=== PATIENT | male | born 1965 | race Caucasian/White ===

== ENCOUNTER 2020-09-16 23:46 | Inpatient (IN) | payer OTHER ==
[2020-09-17] MEDS ORDERED: IPRATROPIUM-ALBUTEROL 3 ML NEB INHALATION STA ×2 (00:46→02:57)
[2020-09-17] MEDS ORDERED: methylPREDNISolone SOD SUCCI 125 MG/2 ML VIAL IV STA (00:46)
[2020-09-17 01:18] LABS: Basophils # (A) 0.1 k/uL (0-0.2); Basophils % (A) 1 %; Eosinophils # (A) 0.4 k/uL (0-0.7); Eosinophils % (A) 5 %; HCT 46.6 % (39.0-53.0); HGB 15.7 gm/dL (13.0-17.5); Lymphocytes # (A) 1.1 k/uL (1.0-4.8); Lymphocytes % (A) 14 %; MCH 30.6 pg (25.0-35.0); MCHC 33.6 g/dL (31.0-37.0); Mean Platelet Volume 6.7; Monocytes # (A) 0.6 k/uL (0-1.0); Monocytes % (A) 8 %; Neutrophils # (A) 5.5 k/uL (1.3-7.7); Neutrophils % (A) 71 %; Platelet Count 204 k/uL (150-450); RBC 5.12 m/uL (4.30-5.90); RDW 14.1 % (11.5-15.5); WBC 7.7 k/uL (3.8-10.6)
[2020-09-17 01:27] LABS: ALT 19 U/L (4-49); AST 24 U/L (17-59); African American GFR (CKD) >90 (>60 ml/min/1.73 sqM); Albumin 3.8 g/dL (3.5-5.0); Alkaline Phosphatase 140 U/L (38-126); Anion Gap 2 mmol/L; Blood Urea Nitrogen 13 mg/dL (9-20); Calcium 9.4 mg/dL (8.4-10.2); Carbon Dioxide 31 mmol/L (22-30); Chloride 95 mmol/L (98-107); Glucose 171 mg/dL (74-99); Non-African American GFR(CKD) >90 (>60 ml/min/1.73 sqM); Potassium 4.1 mmol/L (3.5-5.1); Sodium 128 mmol/L (137-145); Total Bilirubin 0.7 mg/dL (0.2-1.3); Total Protein 6.2 g/dL (6.3-8.2)
--- NOTE | 2020-09-17 01:58 | XR ---
EXAM: XR Chest, 2 Views CLINICAL HISTORY: ITS.REASON XR Reason: wheezing bilat TECHNIQUE: Frontal and lateral views of the chest. COMPARISON: 10/20/2014 FINDINGS: Lungs: The lungs are slightly hyperexpanded with flattening of the hemidiaphragms in the lateral projection. No definite focal consolidation identified. The pulmonary vasculature demonstrates no significant radiographic abnormality. Pleural space: Unremarkable. No pneumothorax. No large pleural effusion. Heart: Unremarkable. No cardiomegaly. Mediastinum: The hilar structures are stable from the previous exam. No definite paratracheal adenopathy. The trachea is midline. Bones/joints: Unremarkable. IMPRESSION: The lungs are slightly hyperexpanded with flattening of the hemidiaphragms in the lateral projection. No definite focal consolidation identified. No pleural effusion or pneumothorax.
--- NOTE | 2020-09-17 02:09 | XR ---
EXAM: XR Left Shoulder Complete, 2 or More Views CLINICAL HISTORY: ITS.REASON XR Reason: left shoulder pain TECHNIQUE: Two or more views of the left shoulder. COMPARISON: No relevant prior studies available. FINDINGS: Bones/joints: Severe degenerative changes involving the glenohumeral joint with mild sclerosis, hypertrophic changes and a [id number] appearance noted. Mild hypertrophic osteophyte changes noted involving the acromioclavicular joint. No acute fracture. No dislocation. Soft tissues: Unremarkable. IMPRESSION: No acute osseous traumatic injury or significant abnormal alignment. Severe degenerative changes of the glenohumeral joint. Mild degenerative changes of the acromioclavicular joint.
--- NOTE | 2020-09-17 02:25 | ED ---
SOB HPI - General Chief Complaint: Shortness of Breath Stated Complaint: SOB Time Seen by Provider: 09/17/20 00:29 Source: patient, EMS Mode of arrival: EMS Limitations: no limitations - History of Present Illness Initial Comments: 55-year-old male with history of COPD and A. fib presents to the emergency department with a chief complaint of shortness of breath. Patient reports increased shortness of breath over the last 2 weeks. States he was scheduled to have an x-ray done today but was not able to make it due to decreased shortness of breath. He reports wheezing. States this feels like his typical COPD exacerbation. He does not use oxygen at home. He is a smoker. He also reports a nonproductive cough. No history of Covid or vaccination. Denies any fevers or chills at home. Denies any chest pain. Denies any nausea or vomiting or d iarrhea. Denies any fevers or chills. - Related Data Home Medications Medication Instructions Recorded Confirmed Albuterol Sulfate [Ventolin HFA] 2 puff INHALATION QID PRN 03/16/15 03/16/15 Dapagliflozin Propanediol [Farxiga] 5 mg PO DAILY 03/16/15 03/16/15 Fluticasone/Salmeterol [Advair 2 puff INHALATION BID 03/16/15 03/16/15 250-50 Diskus] Gabapentin [Neurontin] 100 mg PO BID 03/16/15 03/16/15 Insulin Detemir (Levemir) [Levemir] 50 unit SQ HS 03/16/15 03/16/15 Omeprazole 20 mg PO DAILY 03/16/15 03/16/15 Simvastatin 20 mg PO DAILY 03/16/15 03/16/15 lisinopriL [Lisinopril] 5 mg PO DAILY 03/16/15 03/16/15 metFORMIN HCL [Glucophage] 1,000 mg PO BID 03/16/15 03/16/15 Previous Rx's Medication Instructions Recorded Cephalexin [Keflex] 500 mg PO Q6HR #40 cap 03/16/15 Allergies Allergy/AdvReac Type Severity Reaction Status Date / Time No Known Allergies Allergy Verified 09/17/20 00:00 Review of Systems ROS Statement: Those systems with pertinent positive or pertinent negative responses have been documented in the HPI. ROS Other: All systems not noted in ROS Statement are negative. Past Medical History Past Medical History: COPD, Diabetes Mellitus, Hyperlipidemia, Hypertension, Sleep Apnea/CPAP/BIPAP Additional Past Medical History / Comment(s): neuropathy History of Any Multi-Drug Resistant Organisms: None Reported Past Surgical History: Orthopedic Surgery Past Psychological History: No Psychological Hx Reported Smoking Status: Current every day smoker Past Alcohol Use History: Occasional Past Drug Use History: None Reported General Exam Limitations: no limitations General appearance: alert, in no apparent distress, obese Head exam: Present: atraumatic, normocephalic, normal inspection Eye exam: Present: normal appearance, PERRL, EOMI Pupils: Present: normal accommodation ENT exam: Present: normal exam, normal oropharynx, mucous membranes moist, TM's normal bilaterally, normal external ear exam Neck exam: Present: normal inspection, full ROM. Absent: tenderness Respiratory exam: Present: wheezes (Diffuse bilateral wheezing, moderate.). Absent: rales, rhonchi, stridor, chest wall tenderness Cardiovascular Exam: Present: regular rate, normal rhythm, normal heart sounds Extremities exam: Present: normal inspection, full ROM, normal capillary refill. Absent: tenderness, pedal edema, joint swelling Back exam: Present: normal inspection, full ROM. Absent: tenderness, CVA tenderness (R), CVA tenderness (L) Neurological exam: Present: alert, oriented X3 Psychiatric exam: Present: normal affect, normal mood Skin exam: Present: warm, dry, intact, normal color Course Vital Signs 09/17/20 09/17/20 09/17/20 00:00 00:05 00:30 Temperature 98.6 F Pulse Rate 89 Respiratory 22 Rate Blood Pressure 164/93 164/93 O2 Sat by Pulse 89 L 86 L 93 L Oximetry 09/17/20 09/17/20 09/17/20 00:54 01:00 01:06 Temperature Pulse Rate 85 76 84 Respiratory 16 Rate Blood Pressure 150/84 O2 Sat by Pulse 97 Oximetry 09/17/20 09/17/20 09/17/20 01:30 02:00 02:30 Temperature Pulse Rate 93 73 81 Respiratory 22 13 17 Rate Blood Pressure 160/105 175/89 152/95 O2 Sat by Pulse 88 L 94 L 90 L Oximetry 09/17/20 09/17/20 02:34 03:00 Temperature Pulse Rate 82 85 Respiratory 26 H 12 Rate Blood Pressure 144/58 144/58 O2 Sat by Pulse 89 L 91 L Oximetry Medical Decision Making - Medical Decision Making 55-year-old male with history of COPD and A. fib presents emergency Department with a chief complaint of shortness of breath. on physical examination, patient is slightly tachypneic. He stillcontinues to be 89% on room air.the patient was given 3 DuoNeb treatments and 125 mg of Solu-Medrol with no significant improvement in symptoms. chest x-ray revealed slightly hyperexpanded lungs with flattening of the hemidiaphragm in the lateral projection. No signs of pneumonia. Patient did also request a left shoulder x-ray. This revealed severe degenerative changes in the glenohumeral joint. CBC unremarkable. CMP reveals hyponatremia of 128. Patient will be started on 75 ml per hour of normal saline.coronavirus negative. Patient will be admitted for COPD exacerbation. I spoke to Virgie Fall NP who will admit for Dr. Burkett. case discused with Dr pradhan - Lab Data Result diagrams: 09/17/20 01:00 09/17/20 01:00 Lab Results 09/17/20 09/17/20 09/17/20 Range/Units 01:00 01:00 01:07 WBC 7.7 (3.8-10.6) k/uL RBC 5.12 (4.30-5.90) m/uL Hgb 15.7 (13.0-17.5) gm/dL Hct 46.6 (39.0-53.0) % MCV 91.0 (80.0-100.0) fL MCH 30.6 (25.0-35.0) pg MCHC 33.6 (31.0-37.0) g/dL RDW 14.1 (11.5-15.5) % Plt Count 204 (150-450) k/uL MPV 6.7 Neutrophils % 71 % Lymphocytes % 14 % Monocytes % 8 % Eosinophils % 5 % Basophils % 1 % Neutrophils # 5.5 (1.3-7.7) k/uL Lymphocytes # 1.1 (1.0-4.8) k/uL Monocytes # 0.6 (0-1.0) k/uL Eosinophils # 0.4 (0-0.7) k/uL Basophils # 0.1 (0-0.2) k/uL Sodium 128 L (137-145) mmol/L Potassium 4.1 (3.5-5.1) mmol/L Chloride 95 L (98-107) mmol/L Carbon Dioxide 31 H (22-30) mmol/L Anion Gap 2 mmol/L BUN 13 (9-20) mg/dL Creatinine 0.64 L (0.66-1.25) mg/dL Est GFR (CKD-EPI)AfAm >90 (>60 ml/min/1.73 sqM) Est GFR (CKD-EPI)NonAf >90 (>60 ml/min/1.73 sqM) Glucose 171 H (74-99) mg/dL Calcium 9.4 (8.4-10.2) mg/dL Total Bilirubin 0.7 (0.2-1.3) mg/dL AST 24 (17-59) U/L ALT 19 (4-49) U/L Alkaline Phosphatase 140 H (38-126) U/L Total Protein 6.2 L (6.3-8.2) g/dL Albumin 3.8 (3.5-5.0) g/dL Coronavirus (PCR) Not Detected (Not Detectd) - EKG Data EKG Comments: A. fib Ventricular rate 77, QRS 90, QTc 427. Disposition Clinical Impression: COPD exacerbation, Hyponatremia Disposition: ADMITTED IP TO THIS HOSP Condition: Fair Is patient prescribed a controlled substance at d/c from ED?: No Referrals: Kimberlee Gilman MD [Primary Care Provider] - 1-2 days Time of Disposition: 03:31
[2020-09-17] MEDS ORDERED: ONDANSETRON 4 MG/2 ML VIAL IVP PRN (03:21)
[2020-09-17] MEDS ORDERED: NALOXONE 0.4 MG/ML 1 ML VIAL IV PRN (03:21)
[2020-09-17] MEDS ORDERED: IPRATROPIUM-ALBUTEROL 3 ML NEB INHALATION PRN (03:23)
[2020-09-17] MEDS ORDERED: SODIUM CHLORIDE 0.9% 1,000 ML IV SCH (03:30)
[2020-09-17 05:21] VITALS: RESP 20
[2020-09-17] MEDS: INSULIN ASPART (NovoLOG) 100 UNIT/ML VIAL SQ SCH ×2 (08:07→11:59)
[2020-09-17 09:02] VITALS: BP 157/72; PULSE 92; TEMP 96.2
[2020-09-17] MEDS ORDERED: BUDESONIDE 0.5 MG/2 ML NEBU INHALATION SCH (10:56)
[2020-09-17] MEDS ORDERED: PANTOPRAZOLE 40 MG TABLET PO SCH (11:00)
[2020-09-17] MEDS ORDERED: lisinopriL 20 MG TAB PO SCH (11:00)
[2020-09-17] MEDS ORDERED: DILTIAZEM CD 240 MG CAP.ER.24H PO SCH (11:00)
--- NOTE | 2020-09-17 11:18 | P.CNPUL ---
History of Present Illness Consult date: 09/17/20 Reason for consult: dyspnea, COPD History of present illness: 55-year-old male patient known history of COPD Hospital as for worsening shortness of breath of a few days duration. He was admitted to observation for an acute COPD exacerbation. This chronic smoker. He has a nonproductive cough. COVID-19 testing came back negative. No fever. No chills. No chest pain. No nausea or vomiting. He is known to have COPD and is maintained on Advair and outpatient basis in addition to albuterol nebulized treatments on an as-needed basis. He also has severe obstructive sleep apnea with an AHI of 79.4. He has been treated with CPAP pressure of 15 cm of water. Other comorbid conditions include diabetes mellitus, hypertension, hyperlipidemia and history of periodic limb pulmonary activity/restless leg syndrome. 15.7. The patient's sodium level of 128, BUN of 13 with a creatinine of 0.6, liver function tests are normal. COVID-19 testing was negative. Chest x-ray is showing hyperinflation. No other acute abnormalities have been noted. For now, the patient is on DuoNeb nebulized treatments around the clock. The patient is also on IV Solu-Medrol. Overall, feeling better and the patient is not having any major edema lower extr emities. He has smoker and smokes on 2 packs of cigarettes a day. Review of Systems 14 point review of system was done and the positive findings are all mentioned above in history of present illness Constitutional: Reports daytime sleepiness, Reports fatigue, Reports weight gain Eyes: denies as per HPI, denies blurred vision, denies bulging eye, denies decreased vision, denies diplopia, denies discharge, denies dry eye, denies irritation, denies itching, denies pain, denies photophobia, denies loss of peripheral vision, denies loss of vision, denies tunnel vision/blind spots Ears: deny: decreased hearing, ear discharge, earache, tinnitus Ears, nose, mouth and throat: Reports as per HPI Breasts: absent: as per HPI, gynecomastia Cardiovascular: Reports decreased exercise tolerance, Reports dyspnea on exertion Respiratory: Reports cough, Reports dyspnea Gastrointestinal: Reports as per HPI Genitourinary: Reports as per HPI Musculoskeletal: Reports as per HPI Musculoskeletal: absent: ankle pain, ankle stiffness, ankle swelling, as per HPI, elbow pain, elbow stiffness, elbow swelling, foot pain, foot stiffness, foot swelling, hand pain, hand stiffness, hand swelling, hip pain, hip s tiffness, hip swelling, knee pain, knee stiffness, knee swelling, shoulder pain, shoulder stiffness, shoulder swelling, wrist pain, wrist stiffness, wrist swelling Integumentary: Reports as per HPI Neurological: Reports as per HPI Psychiatric: Reports as per HPI Endocrine: Reports as per HPI Hematologic/Lymphatic: Reports as per HPI Allergic/Immunologic: Reports as per HPI Past Medical History Past Medical History: Atrial Fibrillation, COPD, Diabetes Mellitus, Hyperlipidemia, Hypertension, Sleep Apnea/CPAP/BIPAP Additional Past Medical History / Comment(s): , Peripheral neuropathy, paroxysmal atrial fibrillation. History of Any Multi-Drug Resistant Organisms: None Reported Past Surgical History: Orthopedic Surgery Additional Past Surgical History / Comment(s): Left shoulder Past Anesthesia/Blood Transfusion Reactions: No Reported Reaction Additional Past Anesthesia/Blood Transfusion Reaction / Comment(s): Never received Past Psychological History: No Psychological Hx Reported Smoking Status: Current every day smoker Past Alcohol Use History: Occasional Past Drug Use History: None Reported Medications and Allergies Home Medications Medication Instructions Recorded Confirmed Type Albuterol Sulfate [Ventolin HFA] 2 puff INHALATION RT-QID PRN 03/16/15 09/17/20 History Fluticasone/Salmeterol [Advair 2 puff INHALATION RT-BID 03/16/15 09/17/20 History 250-50 Diskus] Omeprazole 20 mg PO DAILY 03/16/15 09/17/20 History lisinopriL [Lisinopril] 40 mg PO DAILY 03/16/15 09/17/20 History metFORMIN HCL [Glucophage] 1,000 mg PO BID 03/16/15 09/17/20 History Atorvastatin [Lipitor] 80 mg PO DAILY 09/17/20 09/17/20 History Insulin Glargine [Lantus] 28 unit SQ HS 09/17/20 09/17/20 History Pregabalin 150 mg PO TID 09/17/20 09/17/20 History Warfarin [Coumadin] 7.5 mg PO TUTH 09/17/20 09/17/20 History Warfarin [Coumadin] 10 mg PO SUMOWEFRSA 09/17/20 09/17/20 History dilTIAZem HCL [dilTIAZem HCL 24Hr 240 mg PO DAILY 09/17/20 09/17/20 History ER (Xr)] Allergies Allergy/AdvReac Type Severity Reaction Status Date / Time No Known Allergies Allergy Verified 09/17/20 08:45 Physical Exam Vitals: Vital Signs Temp Pulse Pulse Resp BP BP Pulse Ox 09/17/20 08:56 96.2 F L 92 157/72 91 L 09/17/20 08:40 92 09/17/20 08:30 93 09/17/20 05:17 20 09/17/20 04:00 65 34 H 173/90 94 L 09/17/20 03:55 96.6 F L 20 90 L 09/17/20 03:30 81 19 164/76 95 09/17/20 03:00 85 12 144/58 91 L 09/17/20 02:34 82 26 H 144/58 89 L 09/17/20 02:30 81 17 152/95 90 L 09/17/20 02:00 73 13 175/89 94 L 09/17/20 01:30 93 22 160/105 88 L 09/17/20 01:06 84 09/17/20 01:00 76 16 150/84 97 09/17/20 00:54 85 09/17/20 00:30 164/93 93 L 09/17/20 00:05 86 L 09/17/20 00:00 98.6 F 89 22 164/93 89 L Intake and Output 09/16/20 09/17/20 09/17/20 22:59 06:59 14:59 Other: Weight 110.223 kg General appearance: alert, in no apparent distress, obese Head exam: Present: atraumatic, normocephalic, normal inspection Eye exam: Present: normal appearance, PERRL, EOMI Pupils: Present: normal accommodation ENT exam: Present: normal exam, normal oropharynx, mucous membranes moist, TM's normal bilaterally, normal external ear exam, Mallampati class IV with significant crowding of the posterior oropharynx. Neck exam: Present: normal inspection, full ROM. Absent: tenderness Respiratory exam: Diminished breath sounds along with diffuse expiratory wheezes throughout the lung silver bilaterally Cardiovascular Exam: Present: regular rate, normal rhythm, normal heart sounds Extremities exam: Present: normal inspection, full ROM, normal capillary refill. Absent: tenderness, pedal edema, joint swelling Back exam: Present: normal inspection, full ROM. Absent: tenderness, CVA tenderness (R), CVA tenderness (L) Neurological exam: Present: alert, oriented X3 Psychiatric exam: Present: normal affect, normal mood Skin exam: Present: warm, dry, intact, normal color Results - Laboratory Findings CBC and BMP: 09/17/20 01:00 09/17/20 01:00 ABG WBC 7.7 k/uL (3.8-10.6) 09/17/20 01:00 RBC 5.12 m/uL (4.30-5.90) 09/17/20 01:00 Hgb 15.7 gm/dL (13.0-17.5) 09/17/20 01:00 Hct 46.6 % (39.0-53.0) 09/17/20 01:00 MCV 91.0 fL (80.0-100.0) 09/17/20 01:00 MCH 30.6 pg (25.0-35.0) 09/17/20 01:00 MCHC 33.6 g/dL (31.0-37.0) 09/17/20 01:00 RDW 14.1 % (11.5-15.5) 09/17/20 01:00 Plt Count 204 k/uL (150-450) 09/17/20 01:00 MPV 6.7 09/17/20 01:00 Neutrophils % 71 % 09/17/20 01:00 Lymphocytes % 14 % 09/17/20 01:00 Monocytes % 8 % 09/17/20 01:00 Eosinophils % 5 % 09/17/20 01:00 Basophils % 1 % 09/17/20 01:00 Neutrophils # 5.5 k/uL (1.3-7.7) 09/17/20 01:00 Lymphocytes # 1.1 k/uL (1.0-4.8) 09/17/20 01:00 Monocytes # 0.6 k/uL (0-1.0) 09/17/20 01:00 Eosinophils # 0.4 k/uL (0-0.7) 09/17/20 01:00 Basophils # 0.1 k/uL (0-0.2) 09/17/20 01:00 Sodium 128 mmol/L (137-145) L 09/17/20 01:00 Potassium 4.1 mmol/L (3.5-5.1) 09/17/20 01:00 Chloride 95 mmol/L (98-107) L 09/17/20 01:00 Carbon Dioxide 31 mmol/L (22-30) H 09/17/20 01:00 Anion Gap 2 mmol/L 09/17/20 01:00 BUN 13 mg/dL (9-20) 09/17/20 01:00 Creatinine 0.64 mg/dL (0.66-1.25) L 09/17/20 01:00 Est GFR (CKD-EPI)AfAm >90 (>60 ml/min/1.73 sqM) 09/17/20 01:00 Est GFR (CKD-EPI)NonAf >90 (>60 ml/min/1.73 sqM) 09/17/20 01:00 Glucose 171 mg/dL (74-99) H 09/17/20 01:00 Calcium 9.4 mg/dL (8.4-10.2) 09/17/20 01:00 Total Bilirubin 0.7 mg/dL (0.2-1.3) 09/17/20 01:00 AST 24 U/L (17-59) 09/17/20 01:00 ALT 19 U/L (4-49) 09/17/20 01:00 Alkaline Phosphatase 140 U/L (38-126) H 09/17/20 01:00 Total Protein 6.2 g/dL (6.3-8.2) L 09/17/20 01:00 Albumin 3.8 g/dL (3.5-5.0) 09/17/20 01:00 Coronavirus (PCR) Not Detected (Not Detectd) 09/17/20 01:07 Abnormal lab findings: Abnormal Labs 09/17/20 01:00 Sodium 128 L Chloride 95 L Carbon Dioxide 31 H Creatinine 0.64 L Glucose 171 H Alkaline Phosphatase 140 H Total Protein 6.2 L - Diagnostic Findings Chest x-ray: image reviewed Assessment and Plan Plan: 1 acute COPD exacerbation with secondary shortness of breath 2 acute hypoxic respiratory failure secondary to above 3 diabetes mellitus type 2, insulin dependence 4 history of paroxysmal defibrillation currently rhythm is sinus and the patient has been maintained on Coumadin on outpatient basis. 5 obstructive sleep apnea, severe with an AHI of 49 and the patient has been on a CPAP pressure 15 cm of water 6 morbid obesity 7 diabetic peripheral neuropathy 8 hyperlipidemia Plan Clinically the patient is much improved over the past 24 hours. The patient can be discharged home on a prednisone burst taper starting with 40 mg and this will be tapered by 10 mg every 4 days. He will be maintained on Advair at home in addition to albuterol nebulized treatments around the clock. Continue CPAP therapy at a pressure 15 cm of water. Oxygen therapy at 2 L. Smoking cessation counseling was done. Coumadin adjustments. Home today to be followed up with me in the office for further COPD management. He is cleared for discharge from the pulmonary standpoint. Time with Patient: Greater than 30
[2020-09-17 11:39] LABS: Glucose,Whole Blood 285 mg/dL (75-99)
[2020-09-17 11:53] LABS: INR 1.4 (<1.2); Prothrombin Time 14.5 sec (9.0-12.0)
[2020-09-17 11:55] LABS: African American GFR (CKD) >90 (>60 ml/min/1.73 sqM); Anion Gap 6 mmol/L; Blood Urea Nitrogen 14 mg/dL (9-20); Calcium 9.5 mg/dL (8.4-10.2); Carbon Dioxide 30 mmol/L (22-30); Chloride 97 mmol/L (98-107); Glucose 304 mg/dL (74-99); Non-African American GFR(CKD) >90 (>60 ml/min/1.73 sqM); Potassium 4.7 mmol/L (3.5-5.1); Sodium 133 mmol/L (137-145)
[2020-09-17] MEDS ORDERED: methylPREDNISolone SOD SUCCI 125 MG/2 ML VIAL IV SCH (12:00)
--- NOTE | 2020-09-17 14:47 | P.HPIM ---
History of Present Illness H&P Date: 09/17/20 Chief Complaint: Shortness of breath Patient is a 55-year-old male with a known history of atrial fibrillation chronic on anticoagulation with Coumadin, hypertension, hyperlipidemia, upset to sleep apnea on CPAP currently, COPD on home oxygen presents to ER with complaints of shortness of breath. Patient has been having worsening shortness of breath for past 2 weeks. Patient does have cough mainly clear sputum production. No fever no chills. No chest pain. Patient was also complaining of wheezing and is supposed to get x-ray of the chest done today but could not be done due to increased short of breath and came to ER. No nausea vomiting or abdominal pain or diarrhea. No dysuria or hematuria. Denied any leg swelling. patient has severe obstructive sleep apnea and has been treated with CPAP previously. Chest x-ray showed lungs are slightly hyperinflated with flattening of the hemidiaphragm in the lateral projection. No definite focal consolidation rodrick ntified. No pleural effusion or pneumothorax. X-ray of the left shoulder showed no acute osseous traumatic injury of significant abnormal alignment. Severe degenerative changes of the glenohumeral joint. Mild degenerative changes of the acromioclavicular joint. Next an EKG showed atrial fibrillation. 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 Patient was started back on Coumadin and INR is subtherapeutic. Review of Systems Constitutional: Patient denies any fever or chills . No generalized weakness or weight loss. Abdomen: Patient denied nausea vomiting and diarrhea and abdominal pain. Cardiovascular: Patient denies any chest pain . Positive short of breath no palpitations. Respiratory: Patient does have cough without sputum production and shortness of breath Neurologic: Patient denied any numbness or tingling headache. Musculoskeletal: Patient denies any complaints of joint swelling or deformity. Skin: Negative Psychiatric: Negative Endocrine: No heat or cold intolerance. No recent weight gain. Genitourinary: No dysuria or hematuria. All other 14 point ROS negative except the above Past Medical History Past Medical History: COPD, Diabetes Mellitus, Hyperlipidemia, Hypertension, Sleep Apnea/CPAP/BIPAP Additional Past Medical History / Comment(s): neuropathy History of Any Multi-Drug Resistant Organisms: None Reported Past Surgical History: Orthopedic Surgery Additional Past Surgical History / Comment(s): Left shoulder Past Anesthesia/Blood Transfusion Reactions: No Reported Reaction Additional Past Anesthesia/Blood Transfusion Reaction / Comment(s): Never received Past Psychological History: No Psychological Hx Reported Smoking Status: Current every day smoker Past Alcohol Use History: Occasional Past Drug Use History: None Reported Medications and Allergies Home Medications Medication Instructions Recorded Confirmed Type Albuterol Sulfate [Ventolin HFA] 2 puff INHALATION RT-QID PRN 03/16/15 09/17/20 History Fluticasone/Salmeterol [Advair 2 puff INHALATION RT-BID 03/16/15 09/17/20 History 250-50 Diskus] Omeprazole 20 mg PO DAILY 03/16/15 09/17/20 History lisinopriL [Lisinopril] 40 mg PO DAILY 03/16/15 09/17/20 History metFORMIN HCL [Glucophage] 1,000 mg PO BID 03/16/15 09/17/20 History Atorvastatin [Lipitor] 80 mg PO DAILY 09/17/20 09/17/20 History Insulin Glargine [Lantus] 28 unit SQ HS 09/17/20 09/17/20 History Pregabalin 150 mg PO TID 09/17/20 09/17/20 History Warfarin [Coumadin] 7.5 mg PO TUTH 09/17/20 09/17/20 History Warfarin [Coumadin] 10 mg PO SUMOWEFRSA 09/17/20 09/17/20 History dilTIAZem HCL [dilTIAZem HCL 24Hr 240 mg PO DAILY 09/17/20 09/17/20 History ER (Xr)] predniSONE See Taper PO DIRECTED #30 tab 09/17/20 Rx Allergies Allergy/AdvReac Type Severity Reaction Status Date / Time No Known Allergies Allergy Verified 09/17/20 08:45 Physical Exam Vitals: Vital Signs Temp Pulse Pulse Resp BP BP Pulse Ox 09/17/20 08:56 96.2 F L 92 157/72 91 L 09/17/20 08:40 92 09/17/20 08:30 93 09/17/20 05:17 20 09/17/20 04:00 65 34 H 173/90 94 L 09/17/20 03:55 96.6 F L 20 90 L 09/17/20 03:30 81 19 164/76 95 09/17/20 03:00 85 12 144/58 91 L 09/17/20 02:34 82 26 H 144/58 89 L 04/16/21 02:30 81 17 152/95 90 L 09/17/20 02:00 73 13 175/89 94 L 09/17/20 01:30 93 22 160/105 88 L 09/17/20 01:06 84 09/17/20 01:00 76 16 150/84 97 09/17/20 00:54 85 09/17/20 00:30 164/93 93 L 09/17/20 00:05 86 L 09/17/20 00:00 98.6 F 89 22 164/93 89 L Intake and Output 09/16/20 09/17/20 09/17/20 22:59 06:59 14:59 Other: Weight 110.223 kg PHYSICAL EXAMINATION: Patient is lying in the bed comfortably, no acute distress, awake alert and oriented.. HEENT: Normocephalic. Neck is supple. Pupils reactive. Nostrils clear. Oral cavity is moist. Ears reveal no drainage. Neck reveals no JVD, carotid bruits, or thyromegaly. CHEST EXAMINATION: Trachea is central. Symmetrical expansion. Patient does have bibasilar diminished air entry and expiratory wheeze. Nonlabored breathing.. CARDIAC: Normal S1, S2 with no gallops. No murmurs ABDOMEN: Soft. Bowel sounds normal. No organomegaly. No abdominal bruits. Extremities: reveal no edema. No clubbing or cyanosis Neurologically awake, alert, oriented x3 with well-coordinated movements. No focal deficits noted Skin: No rash or skin lesions. Psychiatric: Coperative. Nonsuicidal Musculoskeletal: No joint swelling or deformity. Normal range of motion. Results CBC & Chem 7: 09/17/20 01:00 09/17/20 11:17 Labs: Abnormal Lab Results - Last 24 Hours (Table) 09/17/20 Range/Units 01:00 Sodium 128 L (137-145) mmol/L Chloride 95 L (98-107) mmol/L Carbon Dioxide 31 H (22-30) mmol/L Creatinine 0.64 L (0.66-1.25) mg/dL Glucose 171 H (74-99) mg/dL Alkaline Phosphatase 140 H (38-126) U/L Total Protein 6.2 L (6.3-8.2) g/dL Thrombosis Risk Factor Assmnt - DVT/VTE Prophylaxis DVT/VTE Prophylaxis: Pharmacologic Prophylaxis ordered Assessment and Plan Assessment: Shortness of breath secondary to acute COPD exacerbation Acute on chronic hypoxic respiratory failure requiring oxygen via nasal cannula Hyperglycemia with uncontrolled diabetes type 2 Hypovolemic hyponatremia improving with hydration. Paroxysmal atrial fibrillation on anticoagulant with Coumadin. Subtherapeutic INR level Obstructive sleep apnea. Patient was on CPAP previously. Follow up with pulmonary was recommended Diabetic peripheral neuropathy Obesity with BMI 33.0 Hypertension Hyperlipidemia Currently every day smoker DVT prophylaxis currently on Coumadin Plan: Patient will be continued on IV Solu-Medrol and Pulmicort inhalation. Continue with oxygen supplementation as needed. Continue with Coumadin dosing and follow closely. Continue with home medications and insulin regimen and insulin sliding scale for better blood sugar control. Pulmonary service was consulted. Continue to follow closely and further recommendations based on the clinical course. smoking cessation has been counseled extensively. Time with Patient: Greater than 30
[2020-09-17] MEDS ORDERED: PREGABALIN 75 MG CAP PO SCH (16:00)
[2020-09-17] MEDS ORDERED: WARFARIN 10 MG TAB PO SCH (18:00)
[2020-09-17] MEDS ORDERED: INSULIN DETEMIR (LEVEMIR) 100 UNIT/ML SYR SQ SCH (21:00)
[2020-09-18] MEDS ORDERED: ATORVASTATIN 80 MG TAB PO SCH (09:00)
[2020-09-21] MEDS ORDERED: WARFARIN 7.5 MG TAB PO SCH (18:00)
--- NOTE | 2020-10-05 15:27 | P.DS ---
Providers Date of admission: 09/17/20 03:08 Expected date of discharge: 09/17/20 Attending physician: Gary Burkett Consults: 09/17/20 03:22 Consult Physician Routine Consulting Provider: Victor Manuel Toro Consult Reason/Comments: COPD exacerbation Do you want consulting provider notified?: Yes Primary care physician: Kimberlee Gilman MD Hospital Course: Discharge diagnosis Shortness of breath secondary to acute COPD exacerbation Acute on chronic hypoxic respiratory failure requiring oxygen via nasal cannula Hyperglycemia with uncontrolled diabetes type 2 Hypovolemic hyponatremia improving with hydration. Paroxysmal atrial fibrillation on anticoagulant with Coumadin. Subtherapeutic INR level Obstructive sleep apnea. Patient was on CPAP previously. Follow up with azul keating was recommended Diabetic peripheral neuropathy Obesity with BMI 33.0 Hypertension Hyperlipidemia Currently every day smoker DVT prophylaxis currently on Coumadin Hospital course Patient is a 55-year-old male with a known history of atrial fibrillation chronic on anticoagulation with Coumadin, hypertension, hyperlipidemia, upset to sleep apnea on CPAP currently, COPD on home oxygen presents to ER with complaints of shortness of breath. Patient has been having worsening shortness of breath for past 2 weeks. Patient does have cough mainly clear sputum production. No fever no chills. No chest pain. Patient was also complaining of wheezing and is supposed to get x-ray of the chest done today but could not be done due to increased short of breath and came to ER. No nausea vomiting or abdominal pain or diarrhea. No dysuria or hematuria. Denied any leg swelling. patient has severe obstructive sleep apnea and has been treated with CPAP previously. Chest x-ray showed lungs are slightly hyperinflated with flattening of the hemidiaphragm in the lateral projection. No definite focal consolidation identified. No pleural effusion or pneumothorax. X-ray of the left shoulder showed no acute osseous traumatic injury of significant abnormal alignment. Severe degenerative changes of the glenohumeral joint. Mild degenerative changes of the acromioclavicular joint. Next an EKG showed atrial fibrillation. 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 Patient was started back on Coumadin and INR is subtherapeutic. Patient was continued on IV Solu-Medrol and Pulmicort inhalation. Continued with oxygen supplementation as needed. Continue with Coumadin dosing and follow closely. Continue with home medications and insulin regimen and insulin sliding scale for better blood sugar control. Pulmonary service was consulted. smoking cessation has been counseled extensively. Patient did improve symptomatically. Will need outpatient follow up with pulmonary and possible sleep study. Patient will be discharged home with prednisone tapering course. Clear from pulmonary standpoint. PHYSICAL EXAMINATION: Patient is lying in the bed comfortably, no acute distress, awake alert and oriented.. HEENT: Normocephalic. Neck is supple. Pupils reactive. Nostrils clear. Oral cavity is moist. Ears reveal no drainage. Neck reveals no JVD, carotid bruits, or thyromegaly. CHEST EXAMINATION: Trachea is central. Symmetrical expansion. Improved bilateral air entry. Mild expiratory wheeze.. Nonlabored breathing.. CARDIAC: Normal S1, S2 with no gallops. No murmurs ABDOMEN: Soft. Bowel sounds normal. No organomegaly. No abdominal bruits. Extremities: reveal no edema. No clubbing or cyanosis Neurologically awake, alert, oriented x3 with well-coordinated movements. No focal deficits noted Skin: No rash or skin lesions. Psychiatric: Coperative. Nonsuicidal Musculoskeletal: No joint swelling or deformity. Normal range of motion. Discharge vitals reviewed. Patient Condition at Discharge: Fair Plan - Discharge Summary Discharge Rx Participant: Yes New Discharge Prescriptions: New predniSONE See Taper PO DIRECTED #30 tab Continue metFORMIN HCL [Glucophage] 1,000 mg PO BID Omeprazole 20 mg PO DAILY lisinopriL [Lisinopril] 40 mg PO DAILY Fluticasone/Salmeterol [Advair 250-50 Diskus] 2 puff INHALATION RT-BID Albuterol Sulfate [Ventolin HFA] 2 puff INHALATION RT-QID PRN PRN Reason: Shortness Of Breath Pregabalin 150 mg PO TID Insulin Glargine [Lantus] 28 unit SQ HS dilTIAZem HCL [dilTIAZem HCL 24Hr ER (Xr)] 240 mg PO DAILY Warfarin [Coumadin] 7.5 mg PO TUTH Atorvastatin [Lipitor] 80 mg PO DAILY Warfarin [Coumadin] 10 mg PO SUMOWEFR Discharge Medication List Albuterol Sulfate [Ventolin HFA] 2 puff INHALATION RT-QID PRN 03/16/15 [History] Fluticasone/Salmeterol [Advair 250-50 Diskus] 2 puff INHALATION RT-BID 03/16/15 [History] Omeprazole 20 mg PO DAILY 03/16/15 [History] lisinopriL [Lisinopril] 40 mg PO DAILY 03/16/15 [History] metFORMIN HCL [Glucophage] 1,000 mg PO BID 03/16/15 [History] Atorvastatin [Lipitor] 80 mg PO DAILY 09/17/20 [History] Insulin Glargine [Lantus] 28 unit SQ HS 09/17/20 [History] Pregabalin 150 mg PO TID 09/17/20 [History] Warfarin [Coumadin] 7.5 mg PO TUTH 09/17/20 [History] Warfarin [Coumadin] 10 mg PO SUMOWEFRSA 09/17/20 [History] dilTIAZem HCL [dilTIAZem HCL 24Hr ER (Xr)] 240 mg PO DAILY 09/17/20 [History] predniSONE See Taper PO DIRECTED #30 tab 09/17/20 [Rx] Follow up Appointment(s)/Referral(s): Kimberlee Gilman MD [Primary Care Provider] - 1-2 Days (Office closed at 11:30 am on Thursday, September 17, 2020. Office to reopen Sunday, September 20, 2020. Patient to call [phone] Sunday morning. ) Victor Manuel Toro MD [STAFF PHYSICIAN] - 09/30/20 3:00 pm (Appointment September 30, 2020 at 3:00 pm with Gely Last) Discharge Disposition: HOME SELF-CARE
== END 2020-09-17 15:10 | disposition home or self-care (01) | DRG 190 ==
LOC: EC 23:46 → 1SOBS 09-17 03:08
PROVIDERS: ADMIT Hospitalist; ATTEND Hospitalist
DX: J44.1 Chronic obstructive pulmonary disease with (acute) exacerbation (principal); J96.21 Acute and chronic respiratory failure with hypoxia; E87.1 Hypo-osmolality and hyponatremia; I48.20 Chronic atrial fibrillation, unspecified; Z20.822 Contact with and (suspected) exposure to COVID-19; E11.65 Type 2 diabetes mellitus with hyperglycemia; E66.9 Obesity, unspecified; E78.5 Hyperlipidemia, unspecified; E86.1 Hypovolemia; F17.210 Nicotine dependence, cigarettes, uncomplicated; Z71.6 Tobacco abuse counseling; G25.81 Restless legs syndrome; G47.33 Obstructive sleep apnea (adult) (pediatric); M19.019 Primary osteoarthritis, unspecified shoulder; E11.42 Type 2 diabetes mellitus with diabetic polyneuropathy; Z99.89 Dependence on other enabling machines and devices; I10 Essential (primary) hypertension; I48.0 Paroxysmal atrial fibrillation; R79.1 Abnormal coagulation profile; Z68.33 Body mass index [BMI] 33.0-33.9, adult; Z79.01 Long term (current) use of anticoagulants; Z79.4 Long term (current) use of insulin; Z79.899 Other long term (current) drug therapy; Z99.81 Dependence on supplemental oxygen
CPT/HCPCS: 36415; 71046; 80048; 80053; 85025; 85610; 87635; 93005; 94640; 96374; 99285

== ENCOUNTER 2020-10-23 23:26 | Inpatient (IN) | payer OTHER ==
[2020-10-23] MEDS ORDERED: ALBUTEROL NEBULIZED 2.5 MG/3 ML INHALATION STA (23:41)
[2020-10-23] MEDS ORDERED: IPRATROPIUM 0.5 MG/2.5 ML NEBU INHALATION STA (23:41)
[2020-10-23] MEDS ORDERED: LORazepam 2 MG/ML INJ IV STA (23:41)
[2020-10-23] MEDS ORDERED: methylPREDNISolone SOD SUCCI 125 MG/2 ML VIAL IV STA (23:41)
[2020-10-23] MEDS ORDERED: SODIUM CHLORIDE 0.9% 500 ML 500 ML IV STA (23:41)
[2020-10-23] MEDS ORDERED: SODIUM CHLORIDE 0.9% 1,000 ML IV STA (23:41)
[2020-10-23] MEDS ORDERED: MORPHINE SULFATE 4 MG/ML SYRINGE IVP PRN (23:43)
[2020-10-23] MEDS ORDERED: MORPHINE SULFATE 2 MG/ML SYRINGE IVP STA (23:43)
[2020-10-23] MEDS ORDERED: NICOTINE 21MG/24HR PATCH TRANSDERM STA (23:49)
[2020-10-24 00:03] LABS: Basophils # (A) 0.1 k/uL (0-0.2); Basophils % (A) 1 %; Eosinophils # (A) 0.2 k/uL (0-0.7); Eosinophils % (A) 2 %; HCT 45.9 % (39.0-53.0); HGB 14.8 gm/dL (13.0-17.5); Lymphocytes # (A) 1.1 k/uL (1.0-4.8); Lymphocytes % (A) 12 %; MCH 29.9 pg (25.0-35.0); MCHC 32.3 g/dL (31.0-37.0); MCV 92.6 fL (80.0-100.0); Mean Platelet Volume 6.8; Monocytes # (A) 0.5 k/uL (0-1.0); Monocytes % (A) 5 %; Neutrophils # (A) 7.8 k/uL (1.3-7.7); Neutrophils % (A) 80 %; Platelet Count 243 k/uL (150-450); RBC 4.96 m/uL (4.30-5.90); RDW 14.5 % (11.5-15.5); WBC 9.8 k/uL (3.8-10.6)
--- NOTE | 2020-10-24 00:09 | ED ---
SOB HPI - General Chief Complaint: Shortness of Breath Stated Complaint: HANY Time Seen by Provider: 10/23/20 23:38 Source: patient, EMS, RN notes reviewed, old records reviewed Mode of arrival: EMS Limitations: no limitations - History of Present Illness Initial Comments: This is a 55-year-old male DF for severe shortness of breath. Patient is unable to Breathing Rapidly and Shallow. Patient admits to persistent shortness of breath all day today with severe fatigue any times present activity is worsening shortness of breath. Unable to walk or do significant recent delusions secondary to increasing shortness of breath no chest pain no recent fevers. MD Complaint: shortness of breath, cough, pain with inspiration -: hour(s) Severity: severe Severity scale (1-10): 8 Consistency: constant Improves With: oxygen, rest, bronchodilators Worsens With: exertion, movement Known History Of: COPD, congestive heart failure Context: recent URI, anxiety, recent illness Associated Symptoms: denies other symptoms Treatments Prior to Arrival: none - Related Data Home Medications Medication Instructions Recorded Confirmed Fluticasone/Salmeterol [Advair 2 puff INHALATION RT-BID 03/16/15 11/06/20 250-50 Diskus] Omeprazole 20 mg PO DAILY 03/16/15 11/06/20 metFORMIN HCL [Glucophage] 1,000 mg PO BID 03/16/15 11/06/20 Atorvastatin [Lipitor] 80 mg PO HS 09/17/20 11/06/20 Pregabalin 150 mg PO TID 09/17/20 11/06/20 dilTIAZem HCL [dilTIAZem HCL 24Hr 240 mg PO DAILY 09/17/20 11/06/20 ER (Xr)] Albuterol Sulfate [Proair Hfa] 2 puff INHALATION RT-Q6H PRN 10/24/20 11/06/20 Tiotropium 18 Mcg/Puff [Spiriva] 1 puff INHALATION RT-DAILY 10/24/20 11/06/20 lisinopriL 40 mg PO DAILY 10/24/20 11/06/20 Warfarin [Coumadin] 7.5 mg PO DAILY 11/06/20 11/06/20 predniSONE See Taper PO DAILY 11/06/20 11/06/20 Previous Rx's Medication Instructions Recorded Insulin Detemir (Levemir) [Levemir] 50 unit SQ HS #0 syr 05/25/21 Allergies Allergy/AdvReac Type Severity Reaction Status Date / Time No Known Allergies Allergy Verified 11/06/20 18:28 Review of Systems ROS Statement: Those systems with pertinent positive or pertinent negative responses have been documented in the HPI. ROS Other: All systems not noted in ROS Statement are negative. Past Medical History Past Medical History: COPD, Diabetes Mellitus, Hyperlipidemia, Hypertension, Sleep Apnea/CPAP/BIPAP Additional Past Medical History / Comment(s): neuropathy History of Any Multi-Drug Resistant Organisms: None Reported Past Surgical History: Orthopedic Surgery Additional Past Surgical History / Comment(s): Left shoulder Past Anesthesia/Blood Transfusion Reactions: No Reported Reaction Additional Past Anesthesia/Blood Transfusion Reaction / Comment(s): Never received Past Psychological History: No Psychological Hx Reported Smoking Status: Current every day smoker Past Alcohol Use History: Occasional Past Drug Use History: None Reported - Past Family History Mother Family Medical History: No Reported History General Exam Limitations: no limitations General appearance: alert, anxious, in distress, obese Head exam: Present: atraumatic, normocephalic, normal inspection Eye exam: Present: normal appearance, PERRL, EOMI. Absent: scleral icterus, conjunctival injection, periorbital swelling ENT exam: Present: normal exam, mucous membranes moist Neck exam: Present: normal inspection. Absent: tenderness, meningismus, lymphadenopathy Respiratory exam: Present: respiratory distress, wheezes, rales, accessory muscle use, decreased breath sounds, prolonged expiratory. Absent: rhonchi, stridor Cardiovascular Exam: Present: normal rhythm, tachycardia, normal heart sounds. Absent: systolic murmur, diastolic murmur, rubs, gallop, clicks GI/Abdominal exam: Present: soft, normal bowel sounds. Absent: distended, tenderness, guarding, rebound, rigid Extremities exam: Present: normal inspection, full ROM, normal capillary refill. Absent: tenderness, pedal edema, joint swelling, calf tenderness Back exam: Present: normal inspection Neurological exam: Present: alert, oriented X3, CN II-XII intact Psychiatric exam: Present: normal affect, normal mood Skin exam: Present: warm, dry, intact, normal color. Absent: rash Course Vital Signs 10/23/20 10/23/20 10/24/20 23:31 23:47 00:00 Temperature 98.6 F Pulse Rate 102 H 112 H 96 Respiratory 28 H Rate Blood Pressure 140/71 O2 Sat by Pulse 87 L Oximetry 10/24/20 10/24/20 10/24/20 00:10 00:26 01:00 Temperature Pulse Rate 93 93 111 H Respiratory 22 Rate Blood Pressure 132/85 O2 Sat by Pulse 89 L Oximetry 10/24/20 10/24/20 10/24/20 06:50 07:29 07:36 Temperature 97.6 F Pulse Rate 101 H 110 H 112 H Respiratory 22 Rate Blood Pressure 141/99 O2 Sat by Pulse 94 L Oximetry 10/24/20 10/24/20 10/24/20 11:00 11:10 14:22 Temperature 98.9 F Pulse Rate 102 H 110 H 98 Respiratory 18 Rate Blood Pressure 149/95 O2 Sat by Pulse 95 Oximetry 10/24/20 10/24/20 15:29 15:37 Temperature Pulse Rate 104 H 101 H Respiratory Rate Blood Pressure O2 Sat by Pulse Oximetry - Reevaluation(s) Reevaluation #1: Medical record is reviewed Patient symptoms remain severe here in the emergency room Patient informed results and questions answered Medical Decision Making - Medical Decision Making 55 male with COPD and CHF exacerbation hypoxia. Patient will be admitted for cardiopulmonary support, diuresis and breathing treatment - Lab Data Result diagrams: 10/23/20 23:50 10/25/20 06:00 Lab Results 10/23/20 10/23/20 10/23/20 Range/Units 23:50 23:50 23:50 WBC 9.8 (3.8-10.6) k/uL RBC 4.96 (4.30-5.90) m/uL Hgb 14.8 (13.0-17.5) gm/dL Hct 45.9 (39.0-53.0) % MCV 92.6 (80.0-100.0) fL MCH 29.9 (25.0-35.0) pg MCHC 32.3 (31.0-37.0) g/dL RDW 14.5 (11.5-15.5) % Plt Count 243 (150-450) k/uL MPV 6.8 Neutrophils % 80 % Lymphocytes % 12 % Monocytes % 5 % Eosinophils % 2 % Basophils % 1 % Neutrophils # 7.8 H (1.3-7.7) k/uL Lymphocytes # 1.1 (1.0-4.8) k/uL Monocytes # 0.5 (0-1.0) k/uL Eosinophils # 0.2 (0-0.7) k/uL Basophils # 0.1 (0-0.2) k/uL PT 15.3 H (9.0-12.0) sec INR 1.5 H (<1.2) APTT 28.4 (22.0-30.0) sec Sodium 135 L (137-145) mmol/L Potassium 4.4 (3.5-5.1) mmol/L Chloride 97 L (98-107) mmol/L Carbon Dioxide 39 H (22-30) mmol/L Anion Gap -1 mmol/L BUN 7 L (9-20) mg/dL Creatinine 0.52 L (0.66-1.25) mg/dL Est GFR (CKD-EPI)AfAm >90 (>60 ml/min/1.73 sqM) Est GFR (CKD-EPI)NonAf >90 (>60 ml/min/1.73 sqM) Glucose 76 (74-99) mg/dL Plasma Lactic Acid Tee (0.7-2.0) mmol/L Calcium 9.2 (8.4-10.2) mg/dL Magnesium 1.9 (1.6-2.3) mg/dL Total Bilirubin 0.6 (0.2-1.3) mg/dL AST 19 (17-59) U/L ALT 18 (4-49) U/L Alkaline Phosphatase 110 (38-126) U/L Troponin I (0.000-0.034) ng/mL NT-Pro-B Natriuret Pep pg/mL Total Protein 5.3 L (6.3-8.2) g/dL Albumin 3.1 L (3.5-5.0) g/dL Procalcitonin (0.02-0.09) ng/mL Coronavirus (PCR) (Not Detectd) 10/23/20 10/23/20 10/23/20 Range/Units 23:50 23:50 23:50 WBC (3.8-10.6) k/uL RBC (4.30-5.90) m/uL Hgb (13.0-17.5) gm/dL Hct (39.0-53.0) % MCV (80.0-100.0) fL MCH (25.0-35.0) pg MCHC (31.0-37.0) g/dL RDW (11.5-15.5) % Plt Count (150-450) k/uL MPV Neutrophils % % Lymphocytes % % Monocytes % % Eosinophils % % Basophils % % Neutrophils # (1.3-7.7) k/uL Lymphocytes # (1.0-4.8) k/uL Monocytes # (0-1.0) k/uL Eosinophils # (0-0.7) k/uL Basophils # (0-0.2) k/uL PT (9.0-12.0) sec INR (<1.2) APTT (22.0-30.0) sec Sodium (137-145) mmol/L Potassium (3.5-5.1) mmol/L Chloride (98-107) mmol/L Carbon Dioxide (22-30) mmol/L Anion Gap mmol/L BUN (9-20) mg/dL Creatinine (0.66-1.25) mg/dL Est GFR (CKD-EPI)AfAm (>60 ml/min/1.73 sqM) Est GFR (CKD-EPI)NonAf (>60 ml/min/1.73 sqM) Glucose (74-99) mg/dL Plasma Lactic Acid Tee 0.8 (0.7-2.0) mmol/L Calcium (8.4-10.2) mg/dL Magnesium (1.6-2.3) mg/dL Total Bilirubin (0.2-1.3) mg/dL AST (17-59) U/L ALT (4-49) U/L Alkaline Phosphatase (38-126) U/L Troponin I 0.028 (0.000-0.034) ng/mL NT-Pro-B Natriuret Pep 958 pg/mL Total Protein (6.3-8.2) g/dL Albumin (3.5-5.0) g/dL Procalcitonin (0.02-0.09) ng/mL Coronavirus (PCR) (Not Detectd) 10/23/20 10/23/20 Range/Units 23:50 23:50 WBC (3.8-10.6) k/uL RBC (4.30-5.90) m/uL Hgb (13.0-17.5) gm/dL Hct (39.0-53.0) % MCV (80.0-100.0) fL MCH (25.0-35.0) pg MCHC (31.0-37.0) g/dL RDW (11.5-15.5) % Plt Count (150-450) k/uL MPV Neutrophils % % Lymphocytes % % Monocytes % % Eosinophils % % Basophils % % Neutrophils # (1.3-7.7) k/uL Lymphocytes # (1.0-4.8) k/uL Monocytes # (0-1.0) k/uL Eosinophils # (0-0.7) k/uL Basophils # (0-0.2) k/uL PT (9.0-12.0) sec INR (<1.2) APTT (22.0-30.0) sec Sodium (137-145) mmol/L Potassium (3.5-5.1) mmol/L Chloride (98-107) mmol/L Carbon Dioxide (22-30) mmol/L Anion Gap mmol/L BUN (9-20) mg/dL Creatinine (0.66-1.25) mg/dL Est GFR (CKD-EPI)AfAm (>60 ml/min/1.73 sqM) Est GFR (CKD-EPI)NonAf (>60 ml/min/1.73 sqM) Glucose (74-99) mg/dL Plasma Lactic Acid Tee (0.7-2.0) mmol/L Calcium (8.4-10.2) mg/dL Magnesium (1.6-2.3) mg/dL Total Bilirubin (0.2-1.3) mg/dL AST (17-59) U/L ALT (4-49) U/L Alkaline Phosphatase (38-126) U/L Troponin I (0.000-0.034) ng/mL NT-Pro-B Natriuret Pep pg/mL Total Protein (6.3-8.2) g/dL Albumin (3.5-5.0) g/dL Procalcitonin 0.06 (0.02-0.09) ng/mL Coronavirus (PCR) Not Detected (Not Detectd) - EKG Data -: EKG Interpreted by Me (EKG shows sinus rhythm 97 pO2 18 QRS 92 QTC 419) - Radiology Data Radiology results: report reviewed (Chest x-rays does show mild pulmonary edema), image reviewed Critical Care Time Critical Care Time: Yes Total Critical Care Time: 31 Disposition Clinical Impression: COPD exacerbation, Congestive heart failure, Hypoxia Disposition: ADMITTED IP TO THIS HOSP Condition: Serious Is patient prescribed a controlled substance at d/c from ED?: No
[2020-10-24 00:13] LABS: INR 1.5 (<1.2); Partial Thromboplastin Time 28.4 sec (22.0-30.0); Prothrombin Time 15.3 sec (9.0-12.0)
[2020-10-24 00:22] LABS: ALT 18 U/L (4-49); AST 19 U/L (17-59); African American GFR (CKD) >90 (>60 ml/min/1.73 sqM); Albumin 3.1 g/dL (3.5-5.0); Alkaline Phosphatase 110 U/L (38-126); Anion Gap -1 mmol/L; Blood Urea Nitrogen 7 mg/dL (9-20); Calcium 9.2 mg/dL (8.4-10.2); Carbon Dioxide 39 mmol/L (22-30); Chloride 97 mmol/L (98-107); Glucose 76 mg/dL (74-99); Magnesium 1.9 mg/dL (1.6-2.3); Non-African American GFR(CKD) >90 (>60 ml/min/1.73 sqM); Potassium 4.4 mmol/L (3.5-5.1); Sodium 135 mmol/L (137-145); Total Bilirubin 0.6 mg/dL (0.2-1.3); Total Protein 5.3 g/dL (6.3-8.2)
--- NOTE | 2020-10-24 00:55 | XR ---
EXAM: XR Chest, 2 Views CLINICAL HISTORY: ITS.REASON XR Reason: difficulty breathing TECHNIQUE: Frontal and lateral views of the chest. COMPARISON: September 17, 2020 FINDINGS: Lungs: Lungs are hyperinflated with prominent interstitial markings throughout both lungs. There are increased linear densities in the left lung base compared to previous which may represent pneumonia or atelectasis. Some component of pulmonary edema can not be excluded. Pleural space: Unremarkable. No pneumothorax. Heart: The cardiac silhouette is mildly enlarged. Mediastinum: Unremarkable. Bones/joints: Mild degenerative changes in the lower thoracic spine. Upper abdomen: No pneumoperitoneum is seen under the diaphragm. IMPRESSION: Lungs are hyperinflated with prominent interstitial markings throughout both lungs. There are increased linear densities in the left lung base compared to previous which may represent pneumonia or atelectasis. Some component of pulmonary edema can not be excluded.
[2020-10-24] MEDS: methylPREDNISolone SOD SUCCI 125 MG/2 ML VIAL IV SCH ×2 (06:46→11:53)
[2020-10-24] MEDS: SODIUM CHLORIDE 0.9% 1,000 ML IV SCH ×2 (06:47→11:56)
[2020-10-24] MEDS: IPRATROPIUM-ALBUTEROL 3 ML NEB INHALATION SCH ×4 (07:27→21:15)
[2020-10-24] MEDS ORDERED: DILTIAZEM CD 240 MG CAP.ER.24H PO STA (08:48)
[2020-10-24] MEDS: PREGABALIN 75 MG CAP PO SCH ×3 (08:48→20:56)
[2020-10-24] MEDS ORDERED: DILTIAZEM ORAL 60 MG TAB PO SCH (09:00)
[2020-10-24] MEDS ORDERED: IPRATROPIUM-ALBUTEROL 3 ML NEB INHALATION PRN (09:28)
[2020-10-24] MEDS: DOXYCYCLINE 100 MG CAP PO SCH ×2 (10:10→20:56)
[2020-10-24] MEDS ORDERED: INSULIN ASPART (NovoLOG) 100 UNIT/ML VIAL SQ SCH (12:30)
--- NOTE | 2020-10-24 13:04 | P.CNPUL ---
History of Present Illness Consult date: 10/24/20 Requesting physician: Gary Burkett Reason for consult: dyspnea, COPD Chief complaint: Shortness of breath, altered mental status History of present illness: This is a 55-year-old gentleman who follows with Dr. Emmie Burkett as his primary care provider. He has a history of diabetes mellitus type 2, paroxysmal atrial fibrillation on warfarin, obstructive sleep apnea, severe with an AHI of 49 and the patient is on CPAP at a pressure of 15 cm of water, morbid obesity, diabetic peripheral neuropathy, hyperlipidemia, chronic tobacco dependence. He also has severe oxygen dependent chronic obstructive pulmonary disease with an FEV1 value of 40%. He is on 4 L at home. Maintained on Symbicort, Spiriva, albuterol. He was here last month for COPD exacerbation. He is brought in to the emergency room last evening by EMS for worsening shortness of breath cough congestion. Chest x-ray reveals evidence of hyperinflated lungs with prominent interstitial markings throughout both lung silver. Some atelectasis of the left base. White count 9.8. Hemoglobin 14.8. INR 1.5. Sodium 135. Potassium 4.4. Creatinine 0.52. ProBNP 958. Troponin 0.028. Dwyer virus not detected. He is seen today in consultation in the emergency room. He is currently sitting up in a chair. Awake and alert in no acute distress. He is still somewhat bronchospastic and wheezy. Continue O2 saturations in the 90s on 5 L/m per nasal cannula. Afebrile. Tachycardic. Sinus rhythm with PACs. Review of Systems REVIEW OF SYSTEMS: CONSTITUTIONAL: Denies any recent significant weight loss or weight gain. EYES: Denies change in vision. EARS, NOSE, MOUTH, THROAT: Denies headaches, denies sore throat. CARDIOVASCULAR: Denies chest pain, palpitations or syncopal episodes. RESPIRATORY: Positive for shortness of breath, cough, congestion no hemoptysis. GASTROINTESTINAL: Denies change in appetite, denies abdominal pain GENITOURINARY: Denies hematuria, denies infections. MUSKULOSKELETAL: Denies pain, denies swelling. INTEGUMENTARY: Denies rash, denies eczema. NEUROLOGICAL: Denies recent memory loss, no recent seizure activity. PSYCHIATRIC: Denies anxiety, denies depression. HEMATOLOGIC/LYMPHATIC: Denies anemia, denies enlarged lymph nodes. Past Medical History Past Medical History: COPD, Diabetes Mellitus, Hyperlipidemia, Hypertension, Sleep Apnea/CPAP/BIPAP Additional Past Medical History / Comment(s): neuropathy History of Any Multi-Drug Resistant Organisms: None Reported Past Surgical History: Orthopedic Surgery Additional Past Surgical History / Comment(s): Left shoulder Past Anesthesia/Blood Transfusion Reactions: No Reported Reaction Additional Past Anesthesia/Blood Transfusion Reaction / Comment(s): Never received Past Psychological History: No Psychological Hx Reported Smoking Status: Current every day smoker Past Alcohol Use History: Occasional Past Drug Use History: None Reported Medications and Allergies Home Medications Medication Instructions Recorded Confirmed Type Fluticasone/Salmeterol [Advair 2 puff INHALATION RT-BID 03/16/15 10/24/20 History 250-50 Diskus] Omeprazole 20 mg PO DAILY 03/16/15 10/24/20 History metFORMIN HCL [Glucophage] 1,000 mg PO BID 03/16/15 10/24/20 History Atorvastatin [Lipitor] 80 mg PO HS 09/17/20 10/24/20 History Insulin Glargine [Lantus] 30 unit SQ HS 09/17/20 10/24/20 History Pregabalin 150 mg PO TID 09/17/20 10/24/20 History Warfarin [Coumadin] 5 mg PO SUTUTHSA 09/17/20 10/24/20 History Warfarin [Coumadin] 7.5 mg PO MOWEFR 09/17/20 10/24/20 History dilTIAZem HCL [dilTIAZem HCL 24Hr 240 mg PO DAILY 09/17/20 10/24/20 History ER (Xr)] Albuterol Sulfate [Proair Hfa] 1 - 2 puff INHALATION RT-Q6H PRN 10/24/20 10/24/20 History Tiotropium 18 Mcg/Puff [Spiriva] 1 puff INHALATION RT-DAILY 10/24/20 10/24/20 History lisinopriL 40 mg PO DAILY 10/24/20 10/24/20 History Allergies Allergy/AdvReac Type Severity Reaction Status Date / Time No Known Allergies Allergy Verified 10/24/20 08:34 Physical Exam Vitals: Vital Signs Temp Pulse Resp BP Pulse Ox 10/24/20 11:10 110 H 10/24/20 11:00 102 H 10/24/20 07:36 112 H 10/24/20 07:29 110 H 10/24/20 06:50 97.6 F 101 H 22 141/99 94 L 10/24/20 01:00 111 H 22 132/85 89 L 10/24/20 00:26 93 10/24/20 00:10 93 10/24/20 00:00 96 10/23/20 23:47 112 H 10/23/20 23:31 98.6 F 102 H 28 H 140/71 87 L Intake and Output 10/23/20 10/24/20 10/24/20 22:59 06:59 14:59 Other: Weight 108.862 kg GENERAL EXAM: Alert, oriented, 55-year-old gentleman, appears older than stated age, on 5 L nasal cannula, fairly comfortable in no apparent distress. HEAD: Normocephalic. EYES: Normal reaction of pupils, equal size. NOSE: Clear with pink turbinates. THROAT: No erythema or exudates. NECK: No masses, no JVD. CHEST: No chest wall deformity. LUNGS: Equal air entry with bilateral end expiratory wheeze, diminished CVS: S1 and S2 normal with no audible murmur, regular rhythm. ABDOMEN: No hepatosplenomegaly, normal bowel sounds, no guarding or rigidity. SPINE: No scoliosis or deformity SKIN: No rashes CENTRAL NERVOUS SYSTEM: No focal deficits, tone is normal in all 4 extremities. EXTREMITIES: There is no peripheral edema. No clubbing, no cyanosis. Peripheral pulses are intact. Results - Laboratory Findings CBC and BMP: 10/23/20 23:50 10/23/20 23:50 PT/INR, D-dimer PT 15.3 sec (9.0-12.0) H 10/23/20 23:50 INR 1.5 (<1.2) H 10/23/20 23:50 Abnormal lab findings: Abnormal Labs 10/23/20 10/23/20 10/23/20 23:50 23:50 23:50 Neutrophils # 7.8 H PT 15.3 H INR 1.5 H Sodium 135 L Chloride 97 L Carbon Dioxide 39 H BUN 7 L Creatinine 0.52 L Total Protein 5.3 L Albumin 3.1 L - Diagnostic Findings Chest x-ray: image reviewed Assessment and Plan Assessment: 1 Acute on chronic hypoxemic respiratory failure secondary to an acute exacerbation of severe oxygen dependent chronic obstructive pulmonary disease. FEV1 value of 40% of predicted. 2 Chronic and ongoing tobacco dependence 3 Morbid obesity 4 Obstructive sleep apnea, severe with an AHI of 49, on CPAP with a pressure of 15 cm of water 5 Paroxysmal atrial fibrillation currently in sinus, anticoagulated with warfarin, subtherapeutic INR at 1.5. 6 Diabetes mellitus, type II 7 Diabetic neuropathy 8 Hyperlipidemia Plan: The patient was seen and evaluated by Dr. Bautista Chest x-ray and labs reviewed Add Pulmicort and Perforomist inhalations Add DuoNeb inhalations Add IV Solu-Medrol 60 every 6 Add doxycycline empirically Educated regarding the importance of complete smoking cessation NicoDerm patch Titrate the FiO2 as tolerated, O2 saturation equal to or greater than 88% We will continue to follow and make further recommendations based on his cli nical status I, the cosigning physician, performed a history & physical examination of the patient. Lungs sounds with bilateral wheeze, diminished. Maintaining good O2 saturations in the 90s on 5 L/m per nasal cannula. I discussed the assessment and plan of care with my nurse practitioner, Venus Last. I attest to the above consultation as dictated by her. Time with Patient: Greater than 30
[2020-10-24] MEDS ORDERED: PREGABALIN 150 MG PO SCH (16:00)
--- NOTE | 2020-10-24 16:04 | P.HPIM ---
History of Present Illness Patient the came in with complaints of shortness of breath found to be in acute exacerbation patient has extensive history of COPD does use 4 L of oxygen at home presently on 4 L patient has FEV1 of 40%. Patient continues to smoke about pack and half a day. Chest x-ray did not show any pneumonia this some prominent interstitial markings BNP is 958 COVID-19 was negative. Patient received IV steroids after which patient has significant improvement in his respiratory status and is presently on 15 L of oxygen. Patient the wheezing significantly improved. She does have history of atrial fibrillation is on Coumadin susceptibly con Coumadin. Patient doesn't remember anything from yesterday and the patient slept all day yesterday. Patient denied any fever chills. She was complaining of cough with respiratory production. Patient does have sleep apnea uses CPAP machine at night. Review of Systems REVIEW OF SYSTEMS: CONSTITUTIONAL: No fever, no malaise, no fatigue. HEENT: No recent visual problems or hearing problems. Denied any sore throat. CARDIOVASCULAR: No chest pain, orthopnea, PND, no palpitations, no syncope. PULMONARY: As mentioned in HPI no hemoptysis. GASTROINTESTINAL: No diarrhea, no nausea, no vomiting, no abdominal pain. NEUROLOGICAL: No headaches, no weakness, no numbness. HEMATOLOGICAL: Denies any bleeding or petechiae. GENITOURINARY: Denies any burning micturition, frequency, or urgency. MUSCULOSKELETAL/RHEUMATOLOGICAL: Denies any joint pain, swelling, or any muscle pain. ENDOCRINE: Denies any polyuria or polydipsia. The rest of the 14-point review of systems is negative. Past Medical History Past Medical History: COPD, Diabetes Mellitus, Hyperlipidemia, Hypertension, Sleep Apnea/CPAP/BIPAP Additional Past Medical History / Comment(s): neuropathy History of Any Multi-Drug Resistant Organisms: None Reported Past Surgical History: Orthopedic Surgery Additional Past Surgical History / Comment(s): Left shoulder Past Anesthesia/Blood Transfusion Reactions: No Reported Reaction Additional Past Anesthesia/Blood Transfusion Reaction / Comment(s): Never rece ived Past Psychological History: No Psychological Hx Reported Smoking Status: Current every day smoker Past Alcohol Use History: Occasional Past Drug Use History: None Reported Medications and Allergies Home Medications Medication Instructions Recorded Confirmed Type Fluticasone/Salmeterol [Advair 2 puff INHALATION RT-BID 03/16/15 10/24/20 History 250-50 Diskus] Omeprazole 20 mg PO DAILY 03/16/15 10/24/20 History metFORMIN HCL [Glucophage] 1,000 mg PO BID 03/16/15 10/24/20 History Atorvastatin [Lipitor] 80 mg PO HS 09/17/20 10/24/20 History Insulin Glargine [Lantus] 30 unit SQ HS 09/17/20 10/24/20 History Pregabalin 150 mg PO TID 09/17/20 10/24/20 History Warfarin [Coumadin] 5 mg PO SUTUTHSA 09/17/20 10/24/20 History Warfarin [Coumadin] 7.5 mg PO MOWEFR 09/17/20 10/24/20 History dilTIAZem HCL [dilTIAZem HCL 24Hr 240 mg PO DAILY 09/17/20 10/24/20 History ER (Xr)] Albuterol Sulfate [Proair Hfa] 1 - 2 puff INHALATION RT-Q6H PRN 10/24/20 10/24/20 History Tiotropium 18 Mcg/Puff [Spiriva] 1 puff INHALATION RT-DAILY 10/24/20 10/24/20 History lisinopriL 40 mg PO DAILY 10/24/20 10/24/20 History Allergies Allergy/AdvReac Type Severity Reaction Status Date / Time No Known Allergies Allergy Verified 10/24/20 08:34 Physical Exam Vitals: Vital Signs Temp Pulse Resp BP Pulse Ox 10/24/20 15:37 101 H 10/24/20 15:29 104 H 10/24/20 14:22 98.9 F 98 18 149/95 95 10/24/20 11:10 110 H 10/24/20 11:00 102 H 10/24/20 07:36 112 H 10/24/20 07:29 110 H 10/24/20 06:50 97.6 F 101 H 22 141/99 94 L 10/24/20 01:00 111 H 22 132/85 89 L 10/24/20 00:26 93 10/24/20 00:10 93 10/24/20 00:00 96 10/23/20 23:47 112 H 10/23/20 23:31 98.6 F 102 H 28 H 140/71 87 L Intake and Output 10/24/20 10/24/20 10/24/20 06:59 14:59 22:59 Other: Weight 108.862 kg PHYSICAL EXAMINATION: GENERAL: The patient is alert and oriented x3, not in any acute distress. Obese HEENT: Pupils are round and equally reacting to light. EOMI. No scleral icterus. No conjunctival pallor. Normocephalic, atraumatic. No pharyngeal erythema. No thyromegaly. CARDIOVASCULAR: S1 and S2 present. No murmurs, rubs, or gallops. PULMONARY: Mildly diminished air entry into bilateral lung silver no wheezing or crackles. ABDOMEN: Soft, nontender, nondistended, normoactive bowel sounds. No palpable organomegaly. MUSCULOSKELETAL: No joint swelling or deformity. EXTREMITIES: No cyanosis, clubbing, or pedal edema. NEUROLOGICAL: Gross neurological examination did not reveal any focal deficits. SKIN: No rashes. Results CBC & Chem 7: 10/23/20 23:50 10/23/20 23:50 Labs: Abnormal Lab Results - Last 24 Hours (Table) 10/23/20 10/23/20 10/23/20 Range/Units 23:50 23:50 23:50 Neutrophils # 7.8 H (1.3-7.7) k/uL PT 15.3 H (9.0-12.0) sec INR 1.5 H (<1.2) Sodium 135 L (137-145) mmol/L Chloride 97 L (98-107) mmol/L Carbon Dioxide 39 H (22-30) mmol/L BUN 7 L (9-20) mg/dL Creatinine 0.52 L (0.66-1.25) mg/dL Total Protein 5.3 L (6.3-8.2) g/dL Albumin 3.1 L (3.5-5.0) g/dL Assessment and Plan Plan: -Acute on chronic hypoxemic and hypercapnic respiratory failure secondary to COPD exacerbation continues to smoke extensive counseling was provided. Continue with systemic steroids inhalational treatments, doxycycline for bronch itis -Obesity history of sleep apnea continue CPAP machine at nighttime -Paroxysmal A. fib currently sinus rhythm but bit tachycardic and INR is subtherapeutic patient's Coumadin will be increased to 7. 5 repeat INR tomorrow and patient will be resumed on home dose of Cardizem -Type 2 diabetes mellitus blood sugars are expected to go up we'll increase the long-acting insulin a bit and patient will be on sliding scale as well -Diabetic peripheral neuropathy 7 hyperlipidemia -Hypertension -DVT prophylaxis patient is already on Coumadin which will be continued
[2020-10-24 17:04] LABS: Glucose,Whole Blood 380 mg/dL (75-99)
[2020-10-24] MEDS: metFORMIN 500 MG TAB PO SCH (17:29)
[2020-10-24] MEDS: INSULIN ASPART (NovoLOG) 100 UNIT/ML VIAL SQ SCH ×2 (17:29→20:56)
[2020-10-24] MEDS ORDERED: WARFARIN 5 MG TAB PO ONE (18:00)
[2020-10-24] MEDS ORDERED: WARFARIN 5 MG TAB PO SCH (18:00)
[2020-10-24] MEDS ORDERED: SALMETEROL INHALATION SCH (20:00)
[2020-10-24] MEDS ORDERED: FLUTICASONE INHALATION SCH (20:00)
[2020-10-24 20:49] LABS: Glucose,Whole Blood 396 mg/dL (75-99)
[2020-10-24] MEDS: ATORVASTATIN 80 MG TAB PO SCH (20:56)
[2020-10-24] MEDS: methylPREDNISolone SOD SUCCI 40 MG/ML 1 ML VIAL IV SCH (20:56)
[2020-10-24] MEDS: INSULIN DETEMIR (LEVEMIR) 100 UNIT/ML SYR SQ SCH (20:56)
[2020-10-24] MEDS ORDERED: NON FORMULARY DRUG (Insulin Glargine 100 UNIT/ML Vial) SQ SCH (21:00)
[2020-10-24] MEDS: BUDESONIDE 1 MG/2 ML NEBU INHALATION SCH (21:14)
[2020-10-24] MEDS: FORMOTEROL FUMARATE 20 MCG/2 ML NEBU INHALATION SCH (21:15)
[2020-10-25 05:19] LABS: African American GFR (CKD) >90 (>60 ml/min/1.73 sqM); Anion Gap 2 mmol/L; Blood Urea Nitrogen 21 mg/dL (9-20); Carbon Dioxide 37 mmol/L (22-30); Chloride 94 mmol/L (98-107); Glucose 266 mg/dL (74-99); Magnesium 2.4 mg/dL (1.6-2.3); Non-African American GFR(CKD) >90 (>60 ml/min/1.73 sqM); Potassium 4.8 mmol/L (3.5-5.1); Sodium 133 mmol/L (137-145)
[2020-10-25 06:50] LABS: Glucose,Whole Blood 229 mg/dL (75-99)
[2020-10-25] MEDS: BUDESONIDE 1 MG/2 ML NEBU INHALATION SCH ×2 (07:43→19:34)
[2020-10-25] MEDS: FORMOTEROL FUMARATE 20 MCG/2 ML NEBU INHALATION SCH ×2 (07:43→19:34)
[2020-10-25] MEDS: IPRATROPIUM-ALBUTEROL 3 ML NEB INHALATION SCH ×4 (07:43→19:34)
[2020-10-25] MEDS: INSULIN ASPART (NovoLOG) 100 UNIT/ML VIAL SQ SCH ×5 (07:44→22:02)
[2020-10-25] MEDS: DILTIAZEM CD 240 MG CAP.ER.24H PO SCH (07:45)
[2020-10-25] MEDS: methylPREDNISolone SOD SUCCI 40 MG/ML 1 ML VIAL IV SCH ×2 (07:45→21:17)
[2020-10-25] MEDS: lisinopriL 20 MG TAB PO SCH (07:45)
[2020-10-25] MEDS: PANTOPRAZOLE 40 MG TABLET PO SCH (07:45)
[2020-10-25] MEDS: PREGABALIN 75 MG CAP PO SCH ×3 (07:45→21:16)
[2020-10-25] MEDS: metFORMIN 500 MG TAB PO SCH ×2 (07:45→17:09)
[2020-10-25] MEDS: NICOTINE 14MG/24HR PATCH TRANSDERM SCH (07:45)
[2020-10-25] MEDS: DOXYCYCLINE 100 MG CAP PO SCH ×2 (07:46→21:17)
[2020-10-25 11:42] LABS: Glucose,Whole Blood 310 mg/dL (75-99)
--- NOTE | 2020-10-25 12:56 | P.PN ---
Subjective Progress Note Date: 10/25/20 On today's evaluation of right 2020 the patient is being seen for a follow- up. The patient is a case of COPD exacerbation hospitalized and seen in consultation yesterday. The patient also has a severe obstructive sleep apnea with an AHI of 49 maintained on CPAP therapy. He is morbidly obese. He has diabetes and hyperlipidemia and paroxysmal atrial fibrillation. The patient's is a chronic smoker. He checked negative for COVID-19. He was treated with a combination of bronchodilators and steroids. Note that his pro-BNP level was 958 with a troponin level of 0.0 28. He is currently on bronchodilators. He is on IV Solu-Medrol. He is on doxycycline as an empiric antibiotic coverage. Chest x-ray shows no evidence of any airspace disease. Objective - Vital Signs Vital signs: Vital Signs Temp 97.9 F 10/25/20 07:10 Pulse 100 10/25/20 11:29 Resp 18 10/25/20 07:30 BP 142/62 10/25/20 07:10 Pulse Ox 91 L 10/25/20 07:10 Intake & Output 10/24/20 10/25/20 10/25/20 18:59 06:59 18:59 Weight 108.862 kg Other: Voiding Method Toilet # Voids 2 - Exam GENERAL EXAM: Alert, oriented, 55-year-old gentleman, appears older than stated age, on 5 L nasal cannula, fairly comfortable in no apparent distress. HEAD: Normocephalic. EYES: Normal reaction of pupils, equal size. NOSE: Clear with pink turbinates. THROAT: No erythema or exudates. NECK: No masses, no JVD. CHEST: No chest wall deformity. LUNGS: Equal air entry with bilateral end expiratory wheeze, diminished CVS: S1 and S2 normal with no audible murmur, regular rhythm. ABDOMEN: No hepatosplenomegaly, normal bowel sounds, no guarding or rigidity. SPINE: No scoliosis or deformity SKIN: No rashes CENTRAL NERVOUS SYSTEM: No focal deficits, tone is normal in all 4 extremities. EXTREMITIES: There is no peripheral edema. No clubbing, no cyanosis. Peripheral pulses are intact. - Labs CBC & Chem 7: 10/23/20 23:50 10/25/20 06:00 Labs: Abnormal Lab Results - Last 24 Hours (Table) 10/24/20 10/24/20 10/25/20 Range/Units 17:03 20:47 06:00 Sodium 133 L (137-145) mmol/L Chloride 94 L (98-107) mmol/L Carbon Dioxide 37 H (22-30) mmol/L BUN 21 H (9-20) mg/dL Glucose 266 H (74-99) mg/dL POC Glucose (mg/dL) 380 H 396 H (75-99) mg/dL Magnesium 2.4 H (1.6-2.3) mg/dL 10/25/20 10/25/20 Range/Units 06:48 11:38 Sodium (137-145) mmol/L Chloride (98-107) mmol/L Carbon Dioxide (22-30) mmol/L BUN (9-20) mg/dL Glucose (74-99) mg/dL POC Glucose (mg/dL) 229 H 310 H (75-99) mg/dL Magnesium (1.6-2.3) mg/dL Assessment and Plan Plan: 1 Acute on chronic hypoxemic respiratory failure secondary to an acute exacerbation of severe oxygen dependent chronic obstructive pulmonary disease. FEV1 value of 40% of predicted. Improving clinically 2 Chronic and ongoing tobacco dependence 3 Morbid obesity 4 Obstructive sleep apnea, severe with an AHI of 49, on CPAP with a pressure of 15 cm of water 5 Paroxysmal atrial fibrillation currently in sinus, anticoagulated with warfarin, subtherapeutic INR the follow-up level is still pending from today. We will adjust the dose of Coumadin accordingly. 6 Diabetes mellitus, type II, along with a component of steroid-induced hypergl ycemia 7 Diabetic neuropathy 8 Hyperlipidemia Plan: Pulmicort and Perforomist inhalations DuoNeb inhalations Drop the Solu-Medrol to 40 mg q 12 hr Doxycycline empirically Educated regarding the importance of complete smoking cessation NicoDerm patch Is our hospital CPAP unit which is currently set at a pressure of 12 cm Titrate the FiO2 as tolerated, O2 saturation equal to or greater than 88% We will continue to follow and make further recommendations based on his clinical status
[2020-10-25] MEDS: SODIUM CHLORIDE 0.9% 1,000 ML IV SCH (14:50)
--- NOTE | 2020-10-25 15:28 | P.PN ---
Subjective Patient is admitted to for COPD exacerbation Patient the came in with complaints of shortness of breath found to be in acute exacerbation patient has extensive history of COPD does use 4 L of oxygen at home presently on 4 L patient has FEV1 of 40%. Patient continues to smoke about pack and half a day. Chest x-ray did not show any pneumonia this some prominent interstitial markings BNP is 958 COVID-19 was negative. Patient received IV steroids after which patient has significant improvement in his respiratory status and is presently on 15 L of oxygen. Patient the wheezing significantly improved. She does have history of atrial fibrillation is on Coumadin susceptibly con Coumadin. Patient doesn't remember anything from yesterday and the patient slept all day yesterday. Patient denied any fever chills. She was complaining of cough with respiratory production. Patient does have sleep apnea uses CPAP machine at night. 10/25/2020 patient remains on 5 L of oxygen patient has significantly diminished air entry into bilateral lung silver. Patient remains on systemic steroids inhalational treatments patient is feeling much better today. Possibly of discharge tomorrow. Constitutional: Denied any fatigue denied any fever. Cardio vascular: denied any chest pain, palpitations Gastrointestinal denied any nausea vomiting Pulmonary: As mentioned in the interval history Neurologic denied any new focal deficits All inpatient medications were reviewed and appropriate changes in these medications as dictated in the interval history and assessment and plan. Objective - Vital Signs Vital signs: Vital Signs Temp 97.8 F 10/25/20 13:28 Pulse 79 10/25/20 13:28 Resp 17 10/25/20 13:28 BP 138/69 10/25/20 13:28 Pulse Ox 96 10/25/20 13:28 Intake & Output 10/24/20 10/25/20 10/25/20 18:59 06:59 18:59 Weight 108.862 kg Other: Voiding Method Toilet # Voids 2 - Exam PHYSICAL EXAMINATION: GENERAL: The patient is alert and oriented x3, not in any acute distress. Obese HEENT: Pupils are round and equally reacting to light. EOMI. No scleral icterus. No conjunctival pallor. Normocephalic, atraumatic. No pharyngeal erythema. No thyromegaly. CARDIOVASCULAR: S1 and S2 present. No murmurs, rubs, or gallops. PULMONARY: Mildly diminished air entry into bilateral lung silver no wheezing or crackles. ABDOMEN: Soft, nontender, nondistended, normoactive bowel sounds. No palpable or ganomegaly. MUSCULOSKELETAL: No joint swelling or deformity. EXTREMITIES: No cyanosis, clubbing, or pedal edema. NEUROLOGICAL: Gross neurological examination did not reveal any focal deficits. SKIN: No rashes. - Labs CBC & Chem 7: 10/23/20 23:50 10/25/20 06:00 Labs: Abnormal Lab Results - Last 24 Hours (Table) 10/24/20 10/24/20 10/25/20 Range/Units 17:03 20:47 06:00 Sodium 133 L (137-145) mmol/L Chloride 94 L (98-107) mmol/L Carbon Dioxide 37 H (22-30) mmol/L BUN 21 H (9-20) mg/dL Glucose 266 H (74-99) mg/dL POC Glucose (mg/dL) 380 H 396 H (75-99) mg/dL Magnesium 2.4 H (1.6-2.3) mg/dL 10/25/20 10/25/20 Range/Units 06:48 11:38 Sodium (137-145) mmol/L Chloride (98-107) mmol/L Carbon Dioxide (22-30) mmol/L BUN (9-20) mg/dL Glucose (74-99) mg/dL POC Glucose (mg/dL) 229 H 310 H (75-99) mg/dL Magnesium (1.6-2.3) mg/dL Assessment and Plan Plan: -Acute on chronic hypoxemic and hypercapnic respiratory failure secondary to COPD exacerbation continues to smoke extensive counseling was provided. Continue with systemic steroids inhalational treatments, doxycycline for bronchitis -Obesity history of sleep apnea continue CPAP machine at nighttime -Paroxysmal A. fib currently sinus rhythm but bit tachycardic and INR is subtherapeutic patient's Coumadin will be increased to 7. 5 repeat INR tomorrow and patient will be resumed on home dose of Cardizem -Type 2 diabetes mellitus blood sugars are expected to go up we'll increase the long-acting insulin a bit and patient will be on sliding scale as well -Diabetic peripheral neuropathy 7 hyperlipidemia -Hypertension -DVT prophylaxis patient is already on Coumadin which will be continued
[2020-10-25 16:50] LABS: Glucose,Whole Blood 332 mg/dL (75-99)
[2020-10-25] MEDS ORDERED: WARFARIN 7.5 MG TAB PO ONE (18:00)
[2020-10-25 20:55] LABS: Glucose,Whole Blood 406 mg/dL (75-99)
[2020-10-25] MEDS: ATORVASTATIN 80 MG TAB PO SCH (21:17)
[2020-10-25] MEDS: INSULIN DETEMIR (LEVEMIR) 100 UNIT/ML SYR SQ SCH (21:17)
[2020-10-25] MEDS ORDERED: INSULIN DETEMIR (LEVEMIR) 100 UNIT/ML SYR SQ SCH (21:30)
[2020-10-26 06:29] LABS: INR 1.1 (<1.2)
[2020-10-26 06:30] LABS: Prothrombin Time 11.1 sec (9.0-12.0)
[2020-10-26] MEDS: INSULIN DETEMIR (LEVEMIR) 100 UNIT/ML SYR SQ SCH (06:54)
[2020-10-26 07:05] LABS: Glucose,Whole Blood 267 mg/dL (75-99)
[2020-10-26 07:51] VITALS: BP 141/69; RESP 18; TEMP 97.9
[2020-10-26] MEDS: IPRATROPIUM-ALBUTEROL 3 ML NEB INHALATION SCH ×2 (09:00→13:13)
[2020-10-26] MEDS: FORMOTEROL FUMARATE 20 MCG/2 ML NEBU INHALATION SCH (09:00)
[2020-10-26] MEDS: BUDESONIDE 1 MG/2 ML NEBU INHALATION SCH (09:00)
[2020-10-26] MEDS: metFORMIN 500 MG TAB PO SCH (09:16)
[2020-10-26] MEDS: DOXYCYCLINE 100 MG CAP PO SCH (09:17)
[2020-10-26] MEDS: lisinopriL 20 MG TAB PO SCH (09:17)
[2020-10-26] MEDS: NICOTINE 14MG/24HR PATCH TRANSDERM SCH (09:17)
[2020-10-26] MEDS: methylPREDNISolone SOD SUCCI 40 MG/ML 1 ML VIAL IV SCH (09:17)
[2020-10-26] MEDS: PANTOPRAZOLE 40 MG TABLET PO SCH (09:17)
[2020-10-26] MEDS: PREGABALIN 75 MG CAP PO SCH (09:17)
[2020-10-26] MEDS: DILTIAZEM CD 240 MG CAP.ER.24H PO SCH (09:17)
[2020-10-26] MEDS: INSULIN ASPART (NovoLOG) 100 UNIT/ML VIAL SQ SCH ×2 (09:18→12:18)
[2020-10-26 09:21] VITALS: PULSE 98
[2020-10-26 11:30] LABS: Glucose,Whole Blood 252 mg/dL (75-99)
[2020-10-26] MEDS: SODIUM CHLORIDE 0.9% 1,000 ML IV SCH (12:03)
--- NOTE | 2020-10-26 12:22 | P.PN ---
Subjective Progress Note Date: 10/26/20 10/26/2020, the patient is being seen for a follow-up. He is a case of COPD/STORYM/overlap syndrome and the patient is currently being treated for an acute COPD exacerbation. He was tapered down to 20 Medrol 40 mg every 12 hours. He is on Perforomist and Pulmicort nebulized treatments and he is also on D uoNeb nebulized treatments around the clock. He is on doxycycline. Chest x-ray was clear. COVID-19 testing was negative. He has diabetes, hyperlipidemia and paroxysmal atrial fibrillation. Sugars are 252 related to steroid use. No other new labs from today. He uses the CPAP overnight at a pressure of 12 cm of water. Clinically is improving and he feels less short of breath on today's evaluation. Objective - Vital Signs Vital signs: Vital Signs Temp 97.9 F 10/26/20 07:50 Pulse 98 10/26/20 09:21 Resp 18 10/26/20 07:50 BP 141/69 10/26/20 07:50 Pulse Ox 94 L 10/26/20 07:50 Intake & Output 10/25/20 10/26/20 10/26/20 18:59 06:59 18:59 Other: # Voids 3 2 - Exam GENERAL EXAM: Alert, oriented, 55-year-old gentleman, appears older than stated age, on 4 L nasal cannula, fairly comfortable in no apparent distress. HEAD: Normocephalic. EYES: Normal reaction of pupils, equal size. NOSE: Clear with pink turbinates. THROAT: No erythema or exudates. NECK: No masses, no JVD. CHEST: No chest wall deformity. LUNGS: Equal air entry with bilateral end expiratory wheeze, diminished CVS: S1 and S2 normal with no audible murmur, regular rhythm. ABDOMEN: No hepatosplenomegaly, normal bowel sounds, no guarding or rigidity. SPINE: No scoliosis or deformity SKIN: No rashes CENTRAL NERVOUS SYSTEM: No focal deficits, tone is normal in all 4 extremities. EXTREMITIES: There is no peripheral edema. No clubbing, no cyanosis. Peripheral pulses are intact. - Labs CBC & Chem 7: 10/23/20 23:50 10/25/20 06:00 Labs: Abnormal Lab Results - Last 24 Hours (Table) 10/25/20 10/25/20 10/26/20 Range/Units 16:46 20:52 07:01 POC Glucose (mg/dL) 332 H 406 H 267 H (75-99) mg/dL 10/26/20 Range/Units 11:23 POC Glucose (mg/dL) 252 H (75-99) mg/dL Assessment and Plan Plan: 1 Acute on chronic hypoxemic respiratory failure secondary to an acute exacerbation of severe oxygen dependent chronic obstructive pulmonary disease. FEV1 value of 40% of predicted. Improving clinically 2 Chronic and ongoing tobacco dependence 3 Morbid obesity 4 Obstructive sleep apnea, severe with an AHI of 49, on CPAP with a pressure of 15 cm of water 5 Paroxysmal atrial fibrillation currently in sinus, anticoagulated with warfarin, subtherapeutic INR the follow-up level is still pending from today. We will adjust the dose of Coumadin accordingly. 6 Diabetes mellitus, type II, along with a component of steroid-induced hyperglycemia 7 Diabetic neuropathy 8 Hyperlipidemia Plan: This continued IV Solu-Medrol and put the patient on prednisone burst taper Clinically improving and the patient should be able to get discharged home today Educated regarding the importance of complete smoking cessation NicoDerm patch Continue Advair/ Spiriva as maintenance and consider Trelegy as maintenance and this will be dealt outpatient
--- NOTE | 2020-10-26 12:34 | P.PN ---
Subjective Patient is admitted to for COPD exacerbation Patient the came in with complaints of shortness of breath found to be in acute exacerbation patient has extensive history of COPD does use 4 L of oxygen at home presently on 4 L patient has FEV1 of 40%. Patient continues to smoke about pack and half a day. Chest x-ray did not show any pneumonia this some prominent interstitial markings BNP is 958 COVID-19 was negative. Patient received IV steroids after which patient has significant improvement in his respiratory status and is presently on 15 L of oxygen. Patient the wheezing significantly improved. She does have history of atrial fibrillation is on Coumadin susceptibly con Coumadin. Patient doesn't remember anything from yesterday and the patient slept all day yesterday. Patient denied any fever chills. She was complaining of cough with respiratory production. Patient does have sleep apnea uses CPAP machine at night. 10/25/2020 patient remains on 5 L of oxygen patient has significantly diminished air entry into bilateral lung silver. Patient remains on systemic steroids inhalational treatments patient is feeling much better today. Possibly of discharge tomorrow. 10/26/2020 patient respiratory status improved patient is presently on 4 L of oxygen which is his baseline patient wanted to be discharged patient will be discharged on a prednisone taper along with doxycycline. Constitutional: Denied any fatigue denied any fever. Cardio vascular: denied any chest pain, palpitations Gastrointestinal denied any nausea vomiting Pulmonary: As mentioned in the interval history Neurologic denied any new focal deficits All inpatient medications were reviewed and appropriate changes in these medications as dictated in the interval history and assessment and plan. Objective - Vital Signs Vital signs: Vital Signs Temp 97.9 F 10/26/20 07:50 Pulse 98 10/26/20 09:21 Resp 18 10/26/20 07:50 BP 141/69 10/26/20 07:50 Pulse Ox 94 L 10/26/20 07:50 Intake & Output 10/25/20 10/26/20 10/26/20 18:59 06:59 18:59 Other: # Voids 3 2 - Exam PHYSICAL EXAMINATION: GENERAL: The patient is alert and oriented x3, not in any acute distress. Obese HEENT: Pupils are round and equally reacting to light. EOMI. No scleral icterus. No conjunctival pallor. Normocephalic, atraumatic. No pharyngeal erythema. No thyromegaly. CARDIOVASCULAR: S1 and S2 present. No murmurs, rubs, or gallops. PULMONARY: Mildly diminished air entry into bilateral lung sliver no wheezing or crackles. ABDOMEN: Soft, nontender, nondistended, normoactive bowel sounds. No palpable organomegaly. MUSCULOSKELETAL: No joint swelling or deformity. EXTREMITIES: No cyanosis, clubbing, or pedal edema. NEUROLOGICAL: Gross neurological examination did not reveal any focal deficits. SKIN: No rashes. - Labs CBC & Chem 7: 10/23/20 23:50 10/25/20 06:00 Labs: Abnormal Lab Results - Last 24 Hours (Table) 10/25/20 10/25/20 10/26/20 Range/Units 16:46 20:52 07:01 POC Glucose (mg/dL) 332 H 406 H 267 H (75-99) mg/dL 10/26/20 Range/Units 11:23 POC Glucose (mg/dL) 252 H (75-99) mg/dL Assessment and Plan Plan: -Acute on chronic hypoxemic and hypercapnic respiratory failure secondary to COPD exacerbation continues to smoke patient is at his baseline patient will be discharged today -Obesity history of sleep apnea continue CPAP machine at nighttime -Paroxysmal A. fib currently sinus rhythm but bit tachycardic and INR is subtherapeutic patient's Coumadin dose will be increased to 7.5 mg daily repeat INR in 3 days. -Type 2 diabetes mellitus uncontrolled elevated blood sugars patient was asked to take 50 units of Lantus as long as he is on systemic steroids and after that he can switch back to 30 units and patient was asked to closely monitor his blood sugars -Diabetic peripheral neuropathy - hyperlipidemia -Hypertension
[2020-10-26] MEDS ORDERED: WARFARIN 7.5 MG TAB PO ONE (18:00)
--- NOTE | 2020-10-28 12:12 | P.DS ---
Providers Date of admission: 10/24/20 02:00 Expected date of discharge: 10/26/20 Attending physician: Gary Burkett Consults: 10/24/20 02:00 Consult Physician Routine Consulting Provider: Victor Manuel Toro Consult Reason/Comments: copd Do you want consulting provider notified?: Yes Primary care physician: Kimberlee Gilman MD Hospital Course: Patient is admitted to for COPD exacerbation Patient the came in with complaints of shortness of breath found to be in acute exacerbation patient has extensive history of COPD does use 4 L of oxygen at home presently on 4 L patient has FEV1 of 40%. Patient continues to smoke about pack and half a day. Chest x-ray did not show any pneumonia this some prominent interstitial markings BNP is 958 COVID-19 was negative. Patient received IV steroids after which patient has significant improvement in his respiratory status and is presently on 15 L of oxygen. Patient the wheezing significantly improved. She does have history of atrial fibrillation is on Coumadin susceptibly con Coumadin. Patient doesn't remember anything from yesterday and the patient slept all day yesterday. Patient denied any fever chills. She was complaining of cough with respiratory production. Patient does have sleep apnea uses CPAP machine at night. 10/25/2020 patient remains on 5 L of oxygen patient has significantly diminished air entry into bilateral lung silver. Patient remains on systemic steroids inhalational treatments patient is feeling much better today. Possibly of discharge tomorrow. 10/26/2020 patient respiratory status improved patient is presently on 4 L of oxygen which is his baseline patient wanted to be discharged patient will be discharged on a prednisone taper along with doxycycline. PHYSICAL EXAMINATION: GENERAL: The patient is alert and oriented x3, not in any acute distress. Obese HEENT: Pupils are round and equally reacting to light. EOMI. No scleral icterus. No conjunctival pallor. Normocephalic, atraumatic. No pharyngeal erythema. No thyromegaly. CARDIOVASCULAR: S1 and S2 present. No murmurs, rubs, or gallops. PULMONARY: Mildly diminished air entry into bilateral lung silver no wheezing or crackles. ABDOMEN: Soft, nontender, nondistended, normoactive bowel sounds. No palpable organomegaly. MUSCULOSKELETAL: No joint swelling or deformity. EXTREMITIES: No cyanosis, clubbing, or pedal edema. NEUROLOGICAL: Gross neurological examination did not reveal any focal deficits. SKIN: No rashes. Assessment and Plan Plan: -Acute on chronic hypoxemic and hypercapnic respiratory failure secondary to COPD exacerbation continues to smoke patient is at his baseline patient will be discharged today -Obesity history of sleep apnea continue CPAP machine at nighttime -Paroxysmal A. fib currently sinus rhythm but bit tachycardic and INR is subtherapeutic patient's Coumadin dose will be increased to 7.5 mg daily repeat INR in 3 days. -Type 2 diabetes mellitus uncontrolled elevated blood sugars patient was asked to take 50 units of Lantus as long as he is on systemic steroids and after that he can switch back to 30 units and patient was asked to closely monitor his blood sugars -Diabetic peripheral neuropathy - hyperlipidemia -Hypertension Patient Condition at Discharge: Serious Plan - Discharge Summary Discharge Rx Participant: Yes New Discharge Prescriptions: New Warfarin [Coumadin] 7.5 mg PO DAILY tab Insulin Detemir (Levemir) [Levemir] 50 unit SQ HS #0 syr predniSONE 10 mg PO DAILY #30 tab Doxycycline [Vibramycin] 100 mg PO BID #6 cap Continue metFORMIN HCL [Glucophage] 1,000 mg PO BID Omeprazole 20 mg PO DAILY Fluticasone/Salmeterol [Advair 250-50 Diskus] 2 puff INHALATION RT-BID Pregabalin 150 mg PO TID Albuterol Sulfate [Proair Hfa] 1 - 2 puff INHALATION RT-Q6H PRN PRN Reason: Shortness Of Breath Tiotropium 18 Mcg/Puff [Spiriva] 1 puff INHALATION RT-DAILY dilTIAZem HCL [dilTIAZem HCL 24Hr ER (Xr)] 240 mg PO DAILY Atorvastatin [Lipitor] 80 mg PO HS lisinopriL 40 mg PO DAILY Discontinued Insulin Glargine [Lantus] 30 unit SQ HS Warfarin [Coumadin] 5 mg PO SUTUTHSA Warfarin [Coumadin] 7.5 mg PO MOWEFR Discharge Medication List Fluticasone/Salmeterol [Advair 250-50 Diskus] 2 puff INHALATION RT-BID 03/16/15 [History] Omeprazole 20 mg PO DAILY 03/16/15 [History] metFORMIN HCL [Glucophage] 1,000 mg PO BID 03/16/15 [History] Atorvastatin [Lipitor] 80 mg PO HS 09/17/20 [History] Pregabalin 150 mg PO TID 09/17/20 [History] dilTIAZem HCL [dilTIAZem HCL 24Hr ER (Xr)] 240 mg PO DAILY 09/17/20 [History] Albuterol Sulfate [Proair Hfa] 1 - 2 puff INHALATION RT-Q6H PRN 10/24/20 [History] Tiotropium 18 Mcg/Puff [Spiriva] 1 puff INHALATION RT-DAILY 10/24/20 [History] lisinopriL 40 mg PO DAILY 10/24/20 [History] Doxycycline [Vibramycin] 100 mg PO BID #6 cap 10/26/20 [Rx] Insulin Detemir (Levemir) [Levemir] 50 unit SQ HS #0 syr 10/26/20 [Rx] Warfarin [Coumadin] 7.5 mg PO DAILY tab 10/26/20 [Rx] predniSONE 10 mg PO DAILY #30 tab 10/26/20 [Rx] Follow up Appointment(s)/Referral(s): Armin Degroot MD [STAFF PHYSICIAN] - 11/10/20 3:30 pm Kimberlee Gilman MD [Primary Care Provider] - 11/09/20 11:30 am Ambulatory/Diagnostic Orders: Prothrombin Time INR [LAB.AMB] Time Frame: 3 Days, Location: None Selected Activity/Diet/Wound Care/Special Instructions: RN - patient wants to buy a pulse ox from [employer] at discharge - please ask [employer] to bring him one at discharge Discharge Disposition: HOME SELF-CARE
== END 2020-10-26 13:34 | disposition home or self-care (01) | DRG 190 ==
LOC: SUPCPDRO 23:26 → EC 23:26 → 4SSUR 10-24 02:00
PROVIDERS: ADMIT Hospitalist; ATTEND Hospitalist
PROC: 5A09457 Assistance with Respiratory Ventilation, 24-96 Consecutive Hours, Continuous Positive Airway Pressure (ICD-10-PCS; principal; 2020-10-24)
DX: J44.1 Chronic obstructive pulmonary disease with (acute) exacerbation (principal); J96.21 Acute and chronic respiratory failure with hypoxia; J96.22 Acute and chronic respiratory failure with hypercapnia; J98.11 Atelectasis; M35.1 Other overlap syndromes; E11.42 Type 2 diabetes mellitus with diabetic polyneuropathy; E11.65 Type 2 diabetes mellitus with hyperglycemia; E66.01 Morbid (severe) obesity due to excess calories; I11.0 Hypertensive heart disease with heart failure; I48.0 Paroxysmal atrial fibrillation; I50.9 Heart failure, unspecified; Z79.4 Long term (current) use of insulin; G47.33 Obstructive sleep apnea (adult) (pediatric); E78.5 Hyperlipidemia, unspecified; T38.0X5A Adverse effect of glucocorticoids and synthetic analogues, initial encounter; Z20.822 Contact with and (suspected) exposure to COVID-19; F41.9 Anxiety disorder, unspecified; F17.210 Nicotine dependence, cigarettes, uncomplicated; Z71.6 Tobacco abuse counseling; Z99.81 Dependence on supplemental oxygen; Z79.01 Long term (current) use of anticoagulants; Z79.51 Long term (current) use of inhaled steroids; Z79.899 Other long term (current) drug therapy
CPT/HCPCS: 36415; 71046; 80048; 80053; 83605; 83735; 83880; 84145; 84484; 85025; 85610; 85730; 87635; 93005; 94640; 94644; 94660; 94760; 96361; 96374; 96375; 99285

== ENCOUNTER 2020-11-06 14:38 | Inpatient (IN) | payer OTHER ==
[2020-11-06 15:03] LABS: ABG Base Excess 14.2 mmol/L; ABG Oxygen Saturation 91.2 % (94-97); ABG PH 7.34 (7.35-7.45); ABG TCO2 42 mmol/L (19-24); Allen Test Performed? Yes
[2020-11-06 15:14] LABS: ABG HCO3 40 mmol/L (21-25); ABG PCO2 74 mmHg (35-45); ABG PO2 59 mmHg (83-108)
--- NOTE | 2020-11-06 15:32 | ED ---
SOB HPI - General Chief Complaint: Shortness of Breath Stated Complaint: SOB Time Seen by Provider: 11/06/20 14:46 Source: EMS Mode of arrival: ambulatory Limitations: no limitations - History of Present Illness Initial Comments: Hamzah is a morbidly obese 55-year-old male who CPAP depended night. Patient is brought to the ER by ambulance for altered mental status and hypoxia. Family reports he was in his usual state of health last night when he went to bed. They checked on him and noon today he was not wearing his CPAP and was in bed stated that he was tired but that he would get up shortly. They checked on him again at 2 PM and he was hard to arouse and seemed to have trouble breathing at which time EMS was called. EMS reports the patient and oxygen saturations as low as 67% and was somewhat confused but talking. They placed him on CPAP and brought to the ER for further evaluation. Patient is able to nod yes and no he denies any chest pain. Denies any recent fevers chills or cough. - Related Data Home Medications Medication Instructions Recorded Confirmed Fluticasone/Salmeterol [Advair 2 puff INHALATION RT-BID 03/16/15 11/06/20 250-50 Diskus] Omeprazole 20 mg PO DAILY 03/16/15 11/06/20 metFORMIN HCL [Glucophage] 1,000 mg PO BID 03/16/15 11/06/20 Atorvastatin [Lipitor] 80 mg PO HS 09/17/20 11/06/20 Pregabalin 150 mg PO TID 09/17/20 11/06/20 dilTIAZem HCL [dilTIAZem HCL 24Hr 240 mg PO DAILY 09/17/20 11/06/20 ER (Xr)] Albuterol Sulfate [Proair Hfa] 2 puff INHALATION RT-Q6H PRN 10/24/20 11/06/20 Tiotropium 18 Mcg/Puff [Spiriva] 1 puff INHALATION RT-DAILY 10/24/20 11/06/20 lisinopriL 40 mg PO DAILY 10/24/20 11/06/20 Warfarin [Coumadin] 7.5 mg PO DAILY 11/06/20 11/06/20 predniSONE See Taper PO DAILY 11/06/20 11/06/20 Previous Rx's Medication Instructions Recorded Insulin Detemir (Levemir) [Levemir] 50 unit SQ HS #0 syr 10/26/20 Allergies Allergy/AdvReac Type Severity Reaction Status Date / Time No Known Allergies Allergy Verified 11/06/20 18:28 Review of Systems ROS Statement: Those systems with pertinent positive or pertinent negative responses have been documented in the HPI. ROS Other: All systems not noted in ROS Statement are negative. Past Medical History Past Medical History: COPD, Diabetes Mellitus, Hyperlipidemia, Hypertension, Sleep Apnea/CPAP/BIPAP Additional Past Medical History / Comment(s): neuropathy History of Any Multi-Drug Resistant Organisms: None Reported Past Surgical History: Orthopedic Surgery Additional Past Surgical History / Comment(s): Left shoulder Past Anesthesia/Blood Transfusion Reactions: No Reported Reaction Additional Past Anesthesia/Blood Transfusion Reaction / Comment(s): Never received Past Psychological History: No Psychological Hx Reported Smoking Status: Current every day smoker Past Alcohol Use History: Occasional Past Drug Use History: None Reported - Past Family History Mother Family Medical History: No Reported History General Exam - General Exam Comments Initial Comments: Physical Exam GENERAL: Morbidly obese On CPAP HENT: Normocephalic, Atraumatic. EYES: PERRL, EOMI PULMONARY: Tachypnea Wheezing CARDIOVASCULAR: RRR ABDOMEN: Obese SKIN: [place] : Deferred NEUROLOGIC: Patient is alert and oriented x3 Moving all extremities spontaneously MUSCULOSKELETAL: No obvious injury Limitations: no limitations Course Vital Signs 11/06/20 11/06/20 11/06/20 14:46 15:29 17:40 Temperature 98.1 F Pulse Rate 101 H 95 96 Respiratory 26 H 24 24 Rate Blood Pressure 137/75 143/82 143/82 O2 Sat by Pulse 93 L 95 96 Oximetry 11/06/20 11/06/20 11/06/20 19:23 19:29 20:41 Temperature Pulse Rate 89 93 Respiratory Rate Blood Pressure O2 Sat by Pulse 94 L Oximetry Medical Decision Making - Medical Decision Making The patient was seen and evaluated, history is obtained from the patient History and physical exam are concerning for likely hypoxic hypercapnic respiratory failure due to noncompliance with CPAP Labs and imaging were ordered Labs at baseline Patient improving on BiPAP Patient to be admitted for hypoxic and hypercapnic respiratory failure Patient care was discussed with Faustina ESCAMILLA for [facility] who accepts admission - Lab Data Result diagrams: 11/06/20 15:52 11/06/20 15:52 Lab Results 11/06/20 11/06/20 11/06/20 Range/Units 15:00 15:52 15:52 WBC 11.8 H (3.8-10.6) k/uL RBC 4.79 (4.30-5.90) m/uL Hgb 14.2 (13.0-17.5) gm/dL Hct 44.5 (39.0-53.0) % MCV 92.9 (80.0-100.0) fL MCH 29.7 (25.0-35.0) pg MCHC 31.9 (31.0-37.0) g/dL RDW 14.7 (11.5-15.5) % Plt Count 219 (150-450) k/uL MPV 6.9 Neutrophils % 87 % Lymphocytes % 6 % Monocytes % 5 % Eosinophils % 1 % Basophils % 1 % Neutrophils # 10.2 H (1.3-7.7) k/uL Lymphocytes # 0.8 L (1.0-4.8) k/uL Monocytes # 0.6 (0-1.0) k/uL Eosinophils # 0.1 (0-0.7) k/uL Basophils # 0.1 (0-0.2) k/uL Hypochromasia Slight Sample Site R radial ABG pH 7.34 L (7.35-7.45) ABG pCO2 74 H* (35-45) mmHg ABG pO2 59 L* (83-108) mmHg ABG HCO3 40 H* (21-25) mmol/L ABG Total CO2 42 H (19-24) mmol/L ABG O2 Saturation 91.2 L (94-97) % ABG Base Excess 14.2 mmol/L Nino Test Yes FiO2 40 % Sodium 132 L (137-145) mmol/L Potassium 4.8 (3.5-5.1) mmol/L Chloride 93 L (98-107) mmol/L Carbon Dioxide 38 H (22-30) mmol/L Anion Gap 1 mmol/L BUN 9 (9-20) mg/dL Creatinine 0.54 L (0.66-1.25) mg/dL Est GFR (CKD-EPI)AfAm >90 (>60 ml/min/1.73 sqM) Est GFR (CKD-EPI)NonAf >90 (>60 ml/min/1.73 sqM) Glucose 129 H (74-99) mg/dL Plasma Lactic Acid Tee (0.7-2.0) mmol/L Calcium 9.1 (8.4-10.2) mg/dL Magnesium 1.7 (1.6-2.3) mg/dL Total Bilirubin 0.5 (0.2-1.3) mg/dL AST 19 (17-59) U/L ALT 26 (4-49) U/L Alkaline Phosphatase 110 (38-126) U/L Troponin I (0.000-0.034) ng/mL NT-Pro-B Natriuret Pep pg/mL Total Protein 5.6 L (6.3-8.2) g/dL Albumin 3.2 L (3.5-5.0) g/dL 11/06/20 11/06/20 11/06/20 Range/Units 15:52 15:52 15:52 WBC (3.8-10.6) k/uL RBC (4.30-5.90) m/uL Hgb (13.0-17.5) gm/dL Hct (39.0-53.0) % MCV (80.0-100.0) fL MCH (25.0-35.0) pg MCHC (31.0-37.0) g/dL RDW (11.5-15.5) % Plt Count (150-450) k/uL MPV Neutrophils % % Lymphocytes % % Monocytes % % Eosinophils % % Basophils % % Neutrophils # (1.3-7.7) k/uL Lymphocytes # (1.0-4.8) k/uL Monocytes # (0-1.0) k/uL Eosinophils # (0-0.7) k/uL Basophils # (0-0.2) k/uL Hypochromasia Sample Site ABG pH (7.35-7.45) ABG pCO2 (35-45) mmHg ABG pO2 (83-108) mmHg ABG HCO3 (21-25) mmol/L ABG Total CO2 (19-24) mmol/L ABG O2 Saturation (94-97) % ABG Base Excess mmol/L Nino Test FiO2 % Sodium (137-145) mmol/L Potassium (3.5-5.1) mmol/L Chloride (98-107) mmol/L Carbon Dioxide (22-30) mmol/L Anion Gap mmol/L BUN (9-20) mg/dL Creatinine (0.66-1.25) mg/dL Est GFR (CKD-EPI)AfAm (>60 ml/min/1.73 sqM) Est GFR (CKD-EPI)NonAf (>60 ml/min/1.73 sqM) Glucose (74-99) mg/dL Plasma Lactic Acid Tee 1.4 (0.7-2.0) mmol/L Calcium (8.4-10.2) mg/dL Magnesium (1.6-2.3) mg/dL Total Bilirubin (0.2-1.3) mg/dL AST (17-59) U/L ALT (4-49) U/L Alkaline Phosphatase (38-126) U/L Troponin I 0.029 (0.000-0.034) ng/mL NT-Pro-B Natriuret Pep 1350 pg/mL Total Protein (6.3-8.2) g/dL Albumin (3.5-5.0) g/dL Disposition Clinical Impression: Hypercapnic respiratory failure, Altered mental status, COPD exacerbation Disposition: ADMITTED IP TO THIS HOSP Condition: Serious Is patient prescribed a controlled substance at d/c from ED?: No
[2020-11-06 16:03] LABS: Basophils # (A) 0.1 k/uL (0-0.2); Basophils % (A) 1 %; Eosinophils # (A) 0.1 k/uL (0-0.7); Eosinophils % (A) 1 %; HCT 44.5 % (39.0-53.0); HGB 14.2 gm/dL (13.0-17.5); Hypochromasia Slight; Lymphocytes # (A) 0.8 k/uL (1.0-4.8); Lymphocytes % (A) 6 %; MCH 29.7 pg (25.0-35.0); MCHC 31.9 g/dL (31.0-37.0); MCV 92.9 fL (80.0-100.0); Mean Platelet Volume 6.9; Monocytes # (A) 0.6 k/uL (0-1.0); Monocytes % (A) 5 %; Neutrophils # (A) 10.2 k/uL (1.3-7.7); Neutrophils % (A) 87 %; Platelet Count 219 k/uL (150-450); RBC 4.79 m/uL (4.30-5.90); RDW 14.7 % (11.5-15.5); WBC 11.8 k/uL (3.8-10.6)
[2020-11-06 16:18] LABS: ALT 26 U/L (4-49); AST 19 U/L (17-59); African American GFR (CKD) >90 (>60 ml/min/1.73 sqM); Albumin 3.2 g/dL (3.5-5.0); Alkaline Phosphatase 110 U/L (38-126); Anion Gap 1 mmol/L; Blood Urea Nitrogen 9 mg/dL (9-20); Calcium 9.1 mg/dL (8.4-10.2); Carbon Dioxide 38 mmol/L (22-30); Chloride 93 mmol/L (98-107); Glucose 129 mg/dL (74-99); Magnesium 1.7 mg/dL (1.6-2.3); Non-African American GFR(CKD) >90 (>60 ml/min/1.73 sqM); Potassium 4.8 mmol/L (3.5-5.1); Sodium 132 mmol/L (137-145); Total Bilirubin 0.5 mg/dL (0.2-1.3); Total Protein 5.6 g/dL (6.3-8.2)
--- NOTE | 2020-11-06 16:55 | XR ---
EXAMINATION TYPE: XR chest 1V portable DATE OF EXAM: 11/06/2020 COMPARISON: 10/24/2020 HISTORY: Hypoxemia TECHNIQUE: FINDINGS: There is some mild infiltrate and atelectasis at both lung bases. There is no gross heart f ailure. Heart appears enlarged. Mediastinum appears within normal limits. IMPRESSION: Increasing infiltrate and atelectasis at the lung bases compared to recent exam. No obvio us heart failure.
[2020-11-06] MEDS: IPRATROPIUM-ALBUTEROL 3 ML NEB INHALATION PRN (19:20)
[2020-11-07] MEDS: IPRATROPIUM-ALBUTEROL 3 ML NEB INHALATION PRN ×3 (05:30→15:22)
[2020-11-07] MEDS ORDERED: predniSONE 20 MG TAB PO SCH (09:00)
[2020-11-07] MEDS: INSULIN ASPART (NovoLOG) 100 UNIT/ML VIAL SQ SCH ×4 (14:09→19:46)
[2020-11-07 14:19] LABS: Glucose,Whole Blood 245 mg/dL (75-99)
[2020-11-07] MEDS ORDERED: IPRATROPIUM-ALBUTEROL 3 ML NEB INHALATION PRN (16:08)
[2020-11-07] MEDS ORDERED: BUDESONIDE 1 MG/2 ML NEBU INHALATION SCH (16:09)
[2020-11-07] MEDS: FORMOTEROL FUMARATE 20 MCG/2 ML NEBU INHALATION SCH (16:36)
[2020-11-07] MEDS: BUDESONIDE 1 MG/2 ML NEBU INHALATION SCH (16:37)
[2020-11-07 16:59] LABS: Glucose,Whole Blood 241 mg/dL (75-99)
[2020-11-07 17:26] LABS: INR 1.1 (<1.2); Prothrombin Time 11.4 sec (9.0-12.0)
[2020-11-07] MEDS: PREGABALIN 75 MG CAP PO SCH ×2 (17:46→19:46)
[2020-11-07] MEDS: methylPREDNISolone SOD SUCCI 125 MG/2 ML VIAL IV SCH ×2 (17:46→23:39)
[2020-11-07] MEDS: PIPERACILLIN-TAZOBACTAM 3.375 GM in SODIUM CHLORIDE 0.9% 100 ML IVPB SCH ×2 (17:53→23:39)
[2020-11-07] MEDS ORDERED: WARFARIN 10 MG TAB PO ONE (18:00)
[2020-11-07 19:41] LABS: Glucose,Whole Blood 172 mg/dL (75-99)
[2020-11-07] MEDS: metFORMIN 500 MG TAB PO SCH (19:46)
[2020-11-07] MEDS: ATORVASTATIN 80 MG TAB PO SCH (19:46)
--- NOTE | 2020-11-07 19:51 | HP ---
HISTORY AND PHYSICAL DATE OF SERVICE: 11/07/2020. CHIEF COMPLAINT: Shortness of breath. HISTORY OF PRESENT ILLNESS: This 55-year-old gentleman with a past medical history of multiple medical problems including COPD, diabetes mellitus, hypertension, hyperlipidemia, sleep apnea, being followed by Dr. Kimberlee Gilman in the outpatient setting was recently admitted with COPD exacerbation, hypoxic hypercarbic respiratory failure. Patient also had atrial fibrillation. Patient went home and currently the patient is having some mental status hypoxia. The patient was taken to [facility] and was admitted for further evaluation and treatment. Pulse ox is 67 percent. Patient was started on BiPAP also. There is no history of fever, rigors or chills at this time. The most recent chest x- ray which was done in the ER showed increasing infiltrate in the lung bases suggesting the possibility of pneumonia process. The labs showed acute respiratory acidosis. Covid 19 negative. PAST MEDICAL HISTORY: History of COPD, diabetes, hypertension, hyperlipidemia, sleep apnea, peripheral neuropathy. MEDICATIONS: Home medications are: Levemir, Lipitor, prednisone, Glucophage, lisinopril, Diltiazem, Coumadin, Spiriva, Lyrica, omeprazole, Advair, ProAir. ALLERGIES: None. FAMILY HISTORY: No history of any heart disease or strokes in family. SOCIAL HISTORY: History of smoking, continued ongoing. History of alcohol occasional. REVIEW OF SYSTEMS: ENT: No diminished vision. No diminished hearing. Cardiovascular: No angina or palpitations. Respiration as mentioned earlier. GI: As mentioned earlier. : No dysuria. NERVOUS SYSTEM: No numbness or weakness. ALLERGY/IMMUNOLOGY: No asthma or hayfever. MUSCULOSKELETAL as mentioned earlier. HEMATOLOGY/ONCOLOGY: No history of anemia. ENDOCRINE: No history of diabetes or hypothyroidism. CONSTITUTIONAL: As mentioned earlier. DERMATOLOGY: Negative. RHEUMATOLOGY: Negative. PSYCHIATRIC: As mentioned earlier. PHYSICAL EXAMINATION: Alert and oriented x3. Pulse is 70. Blood pressure 138/92, respiration 20, temperature 98.9, pulse ox 97% on 5 L. HEENT: Conjunctivae normal. NECK is obese. CARDIOVASCULAR: S1-S2 muffled. No S3, no S4. RESPIRATION: Breath sounds diminished in the bases. Scattered rhonchi and crackles. ABDOMEN: Soft, obese, nontender. NERVOUS SYSTEM: Higher functions as mentioned. Moves all four limbs. No focal motor or sensory deficits. LYMPHATICS: No lymph nodes palpable in the neck , axilla or groin. SKIN: No ulcers, no rashes and no bleeding. JOINTS: No active deforming arthropathy. LABS: WBC 7.2, hemoglobin 14.9, sodium 130. Other labs are noted. ASSESSMENT: 1. Chronic obstructive pulmonary disease acute exacerbation with acute hypoxic hypercarbic respiratory failure. 2. Bilateral pneumonia, right more the left, possibly Gram-negative. 3. Change in mental status, acute metabolic encephalopathy secondary to respiratory failure and hypercarbia. 4. Hyponatremia. 5. Increased WBC. 6. Acute respiratory acidosis. 7. Diabetes mellitus type 2 uncontrolled with hyperglycemia. 8. History of chronic obstructive pulmonary disease. 9. Hyperlipidemia. 10.Hypertension. 11.Sleep apnea. 12.History of peripheral neuropathy. 13.Continued ongoing nicotine dependence. 14.Obesity with body mass of 36.8. RECOMMENDATIONS AND DISCUSSION: In this 55-year-old gentleman who presented with multiple complex medical issues, we will monitor the patient closely, continue the current medications, management and symptomatic treatment. Continue the bronchodilators. Continue empiric antibiotics. Otherwise IV steroids. I would also recommend resume the home medications. Closely monitor with pulmonology Dr. Degroot. Guarded prognosis. Further recommendations to follow. A copy of this dictation being forwarded to Dr. Kimberlee Gilman who is the primary care physician. MMODL / IJN: [id number] /
[2020-11-07] MEDS: INSULIN DETEMIR (LEVEMIR) 100 UNIT/ML SYR SQ SCH (19:59)
[2020-11-07] MEDS: IPRATROPIUM-ALBUTEROL 3 ML NEB INHALATION SCH (22:04)
[2020-11-08] MEDS: methylPREDNISolone SOD SUCCI 125 MG/2 ML VIAL IV SCH ×3 (05:21→17:07)
[2020-11-08 07:07] LABS: Glucose,Whole Blood 225 mg/dL (75-99)
[2020-11-08] MEDS: metFORMIN 500 MG TAB PO SCH ×2 (08:46→21:56)
[2020-11-08] MEDS: lisinopriL 20 MG TAB PO SCH (08:46)
[2020-11-08] MEDS: PREGABALIN 75 MG CAP PO SCH ×3 (08:46→21:56)
[2020-11-08] MEDS: DILTIAZEM CD 240 MG CAP.ER.24H PO SCH (08:46)
[2020-11-08] MEDS: INSULIN ASPART (NovoLOG) 100 UNIT/ML VIAL SQ SCH ×4 (08:46→21:57)
[2020-11-08] MEDS: PANTOPRAZOLE 40 MG TABLET PO SCH (08:46)
[2020-11-08] MEDS: FORMOTEROL FUMARATE 20 MCG/2 ML NEBU INHALATION SCH ×2 (09:00→21:17)
[2020-11-08] MEDS: BUDESONIDE 1 MG/2 ML NEBU INHALATION SCH ×2 (09:01→21:17)
[2020-11-08] MEDS: IPRATROPIUM-ALBUTEROL 3 ML NEB INHALATION SCH ×5 (09:01→21:17)
[2020-11-08] MEDS: PIPERACILLIN-TAZOBACTAM 3.375 GM in SODIUM CHLORIDE 0.9% 100 ML IVPB SCH ×2 (09:34→17:08)
[2020-11-08 09:49] LABS: Basophils % (A) 0 %; Eosinophils % (A) 0 %; HCT 48.8 % (39.0-53.0); Hypochromasia Slight; Lymphocytes # (A) 0.2 k/uL (1.0-4.8); Lymphocytes % (A) 2 %; MCHC 30.8 g/dL (31.0-37.0); MCV 94.2 fL (80.0-100.0); Mean Platelet Volume 6.9; Monocytes # (A) 0.2 k/uL (0-1.0); Monocytes % (A) 2 %; Neutrophils # (A) 8.3 k/uL (1.3-7.7); Neutrophils % (A) 95 %; Platelet Count 199 k/uL (150-450); RBC 5.18 m/uL (4.30-5.90); RDW 14.9 % (11.5-15.5); WBC 8.8 k/uL (3.8-10.6)
[2020-11-08 09:50] LABS: Prothrombin Time 10.7 sec (9.0-12.0)
[2020-11-08 10:16] LABS: African American GFR (CKD) >90 (>60 ml/min/1.73 sqM); Anion Gap 3 mmol/L; Blood Urea Nitrogen 17 mg/dL (9-20); Calcium 9.2 mg/dL (8.4-10.2); Carbon Dioxide 38 mmol/L (22-30); Chloride 90 mmol/L (98-107); Glucose 360 mg/dL (74-99); Non-African American GFR(CKD) >90 (>60 ml/min/1.73 sqM); Potassium 4.7 mmol/L (3.5-5.1); Sodium 131 mmol/L (137-145)
[2020-11-08 11:48] LABS: Glucose,Whole Blood 261 mg/dL (75-99)
--- NOTE | 2020-11-08 13:18 | P.CNPUL ---
History of Present Illness Consult date: 11/08/20 Requesting physician: Gary Burkett Reason for consult: dyspnea, COPD, hypoxemia, obstructive sleep apnea Chief complaint: Shortness of breath, COPD exacerbation. History of present illness: Pulmonary consultation dated 11/08/2020. 55-year-old male who presents to the emergency department on November 06 complaining of shortness of breath. The patient tells us today that he is not even sure how he ended up there. He apparently was found be quite hypoxemic and had mental status changes when EMS arrived to pick him up. The patient states that he started not feeling well on prior to admission. He apparently had an episode of hypoglycemia. The patient states that he has been very compliant with his CPAP device. In addition, the patient has severe COPD with an FEV1 that is 40% of predicted. I saw the patient recently consultation on October 24. Please see that consultation. Anyway, the patient also continues to smoke cigarettes. When EMS arrived, apparently his saturations were in the mid 60s. He was apparently confused. I suspect hypoxemic and hypercapnic respiratory failure as a function of both severe COPD, and severe sleep apnea syndrome. In addition, the patient has a history of diabetes mellitus, hyperlipidemia, and hypertension. Laboratory data includes a white count 8.8, hemoglobin 15, hematocrit 48.8, and platelet count 199,000. PT were normal. Blood gases show a PaO2 of 59, pCO2 of 74, and pH is 7.34. This blood gases consistent with mild hypoxemia, and acute on chronic hypercapnic respiratory failure. Based on his baseline bicarbonate concentration, and using the inter-'s formula, we predict that his baseline PaCO2 is about 65 mmHg. Sodium 131, potassium 4.7, chlorides 90, CO2 38, anion gap 3 BUN 17, with a creatinine 0.61. Chest x-ray shows increasing infiltrate and atelectasis at the lung bases compared to recent exam October 24. Review of Systems REVIEW OF SYSTEMS: CONSTITUTIONAL: [Negative.] NEUROLOGIC: [ Negative.] HEENT: [ Negative.] CARDIAC: Lower extremity edema. PULMONARY: Chronic shortness of breath. GI: [Negative.] : [Negative.] RHEUMATOLOGIC: [ Negative.] IMMUNOLOGIC: [ Negative.] ENDOCRINE: [Negative. ] DERMATOLOGIC: [Negative.] Past Medical History Past Medical History: COPD, Diabetes Mellitus, Hyperlipidemia, Hypertension, Sleep Apnea/CPAP/BIPAP Additional Past Medical History / Comment(s): neuropathy History of Any Multi-Drug Resistant Organisms: None Reported Past Surgical History: Orthopedic Surgery Additional Past Surgical History / Comment(s): Left shoulder, left hand 2 digits crushed/surg with pins placed. Past Anesthesia/Blood Transfusion Reactions: No Reported Reaction Additional Past Anesthesia/Blood Transfusion Reaction / Comment(s): Never received Past Psychological History: No Psychological Hx Reported Smoking Status: Current every day smoker Past Alcohol Use History: Occasional Past Drug Use History: None Reported - Past Family History Mother Family Medical History: No Reported History Medications and Allergies Home Medications Medication Instructions Recorded Confirmed Type Fluticasone/Salmeterol [Advair 2 puff INHALATION RT-BID 03/16/15 11/06/20 Hist ory 250-50 Diskus] Omeprazole 20 mg PO DAILY 03/16/15 11/06/20 History metFORMIN HCL [Glucophage] 1,000 mg PO BID 03/16/15 11/06/20 History Atorvastatin [Lipitor] 80 mg PO HS 09/17/20 11/06/20 History Pregabalin 150 mg PO TID 09/17/20 11/06/20 History dilTIAZem HCL [dilTIAZem HCL 24Hr 240 mg PO DAILY 09/17/20 11/06/20 History ER (Xr)] Albuterol Sulfate [Proair Hfa] 2 puff INHALATION RT-Q6H PRN 10/24/20 11/06/20 History Tiotropium 18 Mcg/Puff [Spiriva] 1 puff INHALATION RT-DAILY 10/24/20 11/06/20 History lisinopriL 40 mg PO DAILY 10/24/20 11/06/20 History Insulin Detemir (Levemir) [Levemir] 50 unit SQ HS #0 syr 10/26/20 11/06/20 Rx Warfarin [Coumadin] 7.5 mg PO DAILY 11/06/20 11/06/20 History predniSONE See Taper PO DAILY 11/06/20 11/06/20 History Allergies Allergy/AdvReac Type Severity Reaction Status Date / Time No Known Allergies Allergy Verified 11/06/20 18:28 Physical Exam Osteopathic Statement: *. No significant issues noted on an osteopathic structural exam other than those noted in the History and Physical/Consult. Vitals: Vital Signs Temp Pulse Pulse Resp BP BP Pulse Ox 11/08/20 12:55 78 11/08/20 12:45 84 11/08/20 09:26 86 11/08/20 09:19 82 11/08/20 09:18 82 11/08/20 09:04 84 11/08/20 07:29 97.8 F 84 16 150/81 94 L 11/08/20 00:39 97.8 F 79 11 L 154/90 94 L 11/07/20 22:15 93 11/07/20 22:05 91 11/07/20 19:16 98.4 F 86 18 128/68 95 11/07/20 15:33 94 11/07/20 15:23 96 95 11/07/20 14:19 98.9 F 70 20 138/92 97 11/07/20 13:49 98.6 F 96 20 139/96 96 Intake and Output 11/07/20 11/08/20 11/08/20 22:59 06:59 14:59 Other: # Voids 1 Weight 112.945 kg No acute distress, oriented 3. Nasal O2 in place. No signs or symptoms of respiratory distress including conversational dyspnea, or use of accessory muscles. HEENT examination is grossly unremarkable. Neck supple. Full range of motion. No adenopathy thyromegaly or neck vein distention. Cardiovascular examination reveals regular rhythm rate. S1-S2 normal. No S3 or S4. No discernible murmur noted. Heart sounds are very distant. Heart rate about 85 bpm. Lungs reveal scattered bilateral rhonchi. Mild expiratory wheezes are noted. Bibasilar crackles are appreciated. Breath sounds equal bilaterally. Abdomen soft bowel sounds are heard. No masses or tenderness. Extremities are intact. Bilateral mild lower extremity edema is noted. Skin is without rash or lesion. Neurologic examination is brief but nonfocal. Results - Laboratory Findings CBC and BMP: 11/08/20 09:01 11/08/20 09:01 ABG ABG pH 7.34 (7.35-7.45) L 11/06/20 15:00 ABG pCO2 74 mmHg (35-45) H* 11/06/20 15:00 ABG pO2 59 mmHg (83-108) L* 11/06/20 15:00 ABG O2 Saturation 91.2 % (94-97) L 11/06/20 15:00 PT/INR, D-dimer PT 10.7 sec (9.0-12.0) 11/08/20 09:01 INR 1.0 (<1.2) 11/08/20 09:01 Abnormal lab findings: Abnormal Labs 11/06/20 11/06/20 11/06/20 15:00 15:52 15:52 WBC 11.8 H MCHC Neutrophils # 10.2 H Lymphocytes # 0.8 L ABG pH 7.34 L ABG pCO2 74 H* ABG pO2 59 L* ABG HCO3 40 H* ABG Total CO2 42 H ABG O2 Saturation 91.2 L Sodium 132 L Chloride 93 L Carbon Dioxide 38 H Creatinine 0.54 L Glucose 129 H POC Glucose (mg/dL) Total Protein 5.6 L Albumin 3.2 L 11/07/20 11/07/20 11/07/20 14:17 16:47 19:39 WBC MCHC Neutrophils # Lymphocytes # ABG pH ABG pCO2 ABG pO2 ABG HCO3 ABG Total CO2 ABG O2 Saturation Sodium Chloride Carbon Dioxide Creatinine Glucose POC Glucose (mg/dL) 245 H 241 H 172 H Total Protein Albumin 11/08/20 11/08/20 11/08/20 07:06 09:01 09:01 WBC MCHC 30.8 L Neutrophils # 8.3 H Lymphocytes # 0.2 L ABG pH ABG pCO2 ABG pO2 ABG HCO3 ABG Total CO2 ABG O2 Saturation Sodium 131 L Chloride 90 L Carbon Dioxide 38 H Creatinine 0.61 L Glucose 360 H POC Glucose (mg/dL) 225 H Total Protein Albumin 11/08/20 11:47 WBC MCHC Neutrophils # Lymphocytes # ABG pH ABG pCO2 ABG pO2 ABG HCO3 ABG Total CO2 ABG O2 Saturation Sodium Chloride Carbon Dioxide Creatinine Glucose POC Glucose (mg/dL) 261 H Total Protein Albumin - Diagnostic Findings Chest x-ray: image reviewed Assessment and Plan Assessment: Acute on chronic hypoxemic and hypercapnic respiratory failure, multifactorial, mostly related to underlying severe COPD, with an FEV1 that is 40% of predicted, and severe sleep apnea syndrome. History of hypertension. Obesity. History of hyperlipidemia. History of diabetes mellitus. History of ongoing tobacco use with nicotine addiction. History of diabetic neuropathy. History of paroxysmal atrial fibrillation. History of severe obstructive sleep apnea syndrome, with an AHI of 49. Plan: Plan dated 11/08/2020. The patient's doing much better. Medications will be reviewed. Is important that the patient not get too much oxygen. Saturations are okay between 80 and 92%. He should wear his CPAP at nighttime. His CPAP pressure is 15 cm water. Someone should bring his home CPAP device into the hospital. In addition, the patient is on Pulmicort, formoterol, DuoNeb, Solu-Medrol, and Zosyn, which I don't think he needs. Additional recommendations and suggestions are forthcoming. If not really done, and pro-calcitonin level should be done. Time with Patient: Greater than 30
[2020-11-08 17:11] LABS: Glucose,Whole Blood 339 mg/dL (75-99)
[2020-11-08] MEDS ORDERED: WARFARIN 10 MG TAB PO ONE (18:00)
--- NOTE | 2020-11-08 20:43 | PN ---
PROGRESS NOTE DATE OF SERVICE: 11/08/2020. HISTORY: This 55-year-old gentleman who was admitted with COPD exacerbation with acute hypoxia hypercarbic respiratory failure also had bilateral pneumonia. The patient is being closely monitored at this time. The patient also had history of noncompliance. Patient also apparently smoking also at home. Pulmonary is following the patient closely. The patient is on intensive bronchodilator treatment and empiric antibiotics also. The cultures are negative so far. PAST MEDICAL HISTORY: Reviewed. REVIEW OF SYSTEMS: CARDIOVASCULAR SYSTEM: No angina. RESPIRATORY: As mentioned. GI: As mentioned earlier. : As mentioned. NERVOUS SYSTEM: No numbness or weakness. CURRENT MEDICATIONS: Reviewed include DuoNeb, Pulmicort, Cardizem, Perforomist, NovoLog Levemir, Zestril, Glucophage Solu-Medrol, Zosyn IV. PHYSICAL EXAMINATION: Patient is alert, oriented x3. Pulse is 86, blood pressure 92/52, respirations 18, temperature 98.7, pulse ox 98% on 4 L. HEENT: Conjunctivae normal. NECK: Supple. No JVD. CARDIOVASCULAR: S1 and S2 muffled. LUNGS: Breath sounds diminished at the bases. Few scattered rhonchi and crackles. ABDOMEN: Soft nontender. LEGS: No edema. NERVOUS SYSTEM: No focal deficits. LABS: WBC 8.1, hemoglobin 15 sodium 130, potassium 4.7 glucose 339. ASSESSMENT: 1. COPD exacerbation with acute hypoxic hypercarbic respiratory failure. 2. Bilateral pneumonia, right more the left possibly gram-negative. 3. Change in mental status acute metabolic insult secondary to respiratory failure and hypercarbia. 4. Hyponatremia. 5. Continued ongoing nicotine dependence. 6. Increased WBC. 7. Acute respiratory acidosis. 8. Diabetes mellitus type 2, uncontrolled with hyperglycemia. 9. History of COPD. 10.Hyperlipidemia. 11.Hypertension. 12.Sleep apnea. 13.History of peripheral neuropathy. 14.Obesity with body mass index of 36.8. 15.FULL CODE. RECOMMENDATIONS: In this 55-year-old gentleman who presented with multiple complex medical problems, we will monitor the patient closely continue the current management and continue the broad- spectrum IV antibiotics, steroids, bronchodilators. Closely follow with Pulmonary. Guarded prognosis because of multiple complex medical conditions. Smoke cessation has been recommended. Also discussed with the patient's mother at the bedside and further recommendations to follow. The prognosis is guarded. See orders for details. MMODL / IJN: [id number] /
[2020-11-08 21:12] LABS: Glucose,Whole Blood 392 mg/dL (75-99)
[2020-11-08] MEDS: ATORVASTATIN 80 MG TAB PO SCH (21:56)
[2020-11-08] MEDS: INSULIN DETEMIR (LEVEMIR) 100 UNIT/ML SYR SQ SCH (21:57)
[2020-11-09] MEDS: methylPREDNISolone SOD SUCCI 125 MG/2 ML VIAL IV SCH ×2 (00:13→05:53)
[2020-11-09] MEDS: PIPERACILLIN-TAZOBACTAM 3.375 GM in SODIUM CHLORIDE 0.9% 100 ML IVPB SCH ×2 (00:13→08:49)
[2020-11-09 00:21] LABS: Glucose,Whole Blood 553 mg/dL (75-99)
[2020-11-09 00:22] LABS: Glucose,Whole Blood 506 mg/dL (75-99)
[2020-11-09 04:05] LABS: Glucose,Whole Blood 373 mg/dL (75-99)
[2020-11-09] MEDS: IPRATROPIUM-ALBUTEROL 3 ML NEB INHALATION PRN (04:22)
[2020-11-09 05:59] VITALS: TEMP 97.6
[2020-11-09 06:57] LABS: Glucose,Whole Blood 394 mg/dL (75-99)
[2020-11-09 07:22] VITALS: BP 147/51; RESP 16
[2020-11-09 08:13] LABS: INR 1.3 (<1.2); Prothrombin Time 13.1 sec (9.0-12.0)
[2020-11-09] MEDS: metFORMIN 500 MG TAB PO SCH (08:34)
[2020-11-09] MEDS: DILTIAZEM CD 240 MG CAP.ER.24H PO SCH (08:35)
[2020-11-09] MEDS: lisinopriL 20 MG TAB PO SCH (08:35)
[2020-11-09] MEDS: INSULIN ASPART (NovoLOG) 100 UNIT/ML VIAL SQ SCH ×2 (08:35→12:19)
[2020-11-09] MEDS: PREGABALIN 75 MG CAP PO SCH (08:35)
[2020-11-09] MEDS: PANTOPRAZOLE 40 MG TABLET PO SCH (08:35)
[2020-11-09] MEDS: FORMOTEROL FUMARATE 20 MCG/2 ML NEBU INHALATION SCH (08:49)
[2020-11-09] MEDS: BUDESONIDE 1 MG/2 ML NEBU INHALATION SCH (08:49)
[2020-11-09] MEDS: IPRATROPIUM-ALBUTEROL 3 ML NEB INHALATION SCH ×3 (08:56→16:24)
[2020-11-09] MEDS ORDERED: NICOTINE 21MG/24HR PATCH TRANSDERM SCH (09:00)
[2020-11-09 09:02] VITALS: PULSE 88
--- NOTE | 2020-11-09 09:45 | P.PN ---
Subjective Progress Note Date: 11/09/20 Principal diagnosis: Shortness of breath 55-year-old male who presents to the emergency department on November 06 complaining of shortness of breath. The patient tells us today that he is not even sure how he ended up there. He apparently was found be quite hypoxemic and had mental status changes when EMS arrived to pick him up. The patient states that he started not feeling well on prior to admission. He apparently had an episode of hypoglycemia. The patient states that he has been very compliant with his CPAP device. In addition, the patient has severe COPD with an FEV1 that is 40% of predicted. I saw the patient recently consultation on October 24. Please see that consultation. Anyway, the patient also continues to smoke cigarettes. When EMS arrived, apparently his saturations were in the mid 60s. He was apparently confused. I suspect hypoxemic and hypercapnic respiratory failure as a function of both severe COPD, and severe sleep apnea syndrome. In addition, the patient has a history of diabetes mellitus, hyperlipidemia, and hypertension. Laboratory data includes a white count 8.8, hemoglobin 15, hematocrit 48.8, and platelet count 199,000. PT were normal. Blood gases show a PaO2 of 59, pCO2 of 74, and pH is 7.34. This blood gases consistent with mild hypoxemia, and acute on chronic hypercapnic respiratory failure. Based on his baseline bicarbonate concentration, and using the inter-'s formula, we predict that his baseline PaCO2 is about 65 mmHg. Sodium 131, potassium 4.7, chlorides 90, CO2 38, anion gap 3 BUN 17, with a creatinine 0.61. Chest x-ray shows increasing infiltrate and atelectasis at the lung bases compared to recent exam October 24. On 11/09/2020 patient seen in follow-up on medical surgical floor, he is awake and alert, in no acute distress, he is on 4 L of oxygen, and this is what she usually wears at home on a regular basis, his pulse ox is 93%, he did wear BiPAP support last night with FiO2 of 40% intermittently. He states he is breathing much easier today, feeling better, is less bronchospastic on today's exam. His been afebrile, blood pressure is stable, he is on IV Solu-Medrol 60 mg every 6 hours, and nebulized bronchodilators and empiric antibiotics, his pro-calcitonin level came back low at 0.03. His blood and sputum cultures remain negative thus far. Objective - Vital Signs Vital signs: Vital Signs Temp 97.6 F 11/09/20 07:22 Pulse 88 11/09/20 09:10 Resp 16 11/09/20 07:22 BP 147/51 11/09/20 07:22 Pulse Ox 93 L 11/09/20 07:22 Intake & Output 11/08/20 11/09/20 11/09/20 18:59 06:59 18:59 Output Total 300 1050 Balance -300 -1050 Output: Urine 300 1050 Other: # Voids 3 - Exam GENERAL EXAM: Alert, very pleasant, 55-year-old white male, on 4 L of oxygen and pulse ox of 93% comfortable in no apparent distress. HEAD: Normocephalic/atraumatic. EYES: Normal reaction of pupils, equal size. Conjunctiva pink, sclera white. NOSE: Clear with pink turbinates. THROAT: No erythema or exudates. NECK: No masses, no JVD, no thyroid enlargement, no adenopathy. CHEST: No chest wall deformity. Symmetrical expansion. LUNGS: Equal air entry with diminished breath sounds and minimal wheezing CVS: Regular rate and rhythm, normal S1 and S2, no gallops, no murmurs, no rubs ABDOMEN: Soft, nontender. No hepatosplenomegaly, normal bowel sounds, no guarding or rigidity. EXTREMITIES: No clubbing, no edema, no cyanosis, 2+ pulses and upper and lower extremities. MUSCULOSKELETAL: Muscle strength and tone normal. SPINE: No scoliosis or deformity SKIN: No rashes CENTRAL NERVOUS SYSTEM: Alert and oriented -3. No focal deficits, tone is normal in all 4 extremities. PSYCHIATRIC: Alert and oriented -3. Appropriate affect. Intact judgment and insight. - Labs CBC & Chem 7: 11/08/20 09:01 11/08/20 09:01 Labs: Abnormal Lab Results - Last 24 Hours (Table) 11/08/20 11/08/20 11/08/20 Range/Units 09:01 09:01 11:47 MCHC 30.8 L (31.0-37.0) g/dL Neutrophils # 8.3 H (1.3-7.7) k/uL Lymphocytes # 0.2 L (1.0-4.8) k/uL PT (9.0-12.0) sec INR (<1.2) Sodium 131 L (137-145) mmol/L Chloride 90 L (98-107) mmol/L Carbon Dioxide 38 H (22-30) mmol/L Creatinine 0.61 L (0.66-1.25) mg/dL Glucose 360 H (74-99) mg/dL POC Glucose (mg/dL) 261 H (75-99) mg/dL 11/08/20 11/08/20 11/09/20 Range/Units 17:10 21:11 00:20 MCHC (31.0-37.0) g/dL Neutrophils # (1.3-7.7) k/uL Lymphocytes # (1.0-4.8) k/uL PT (9.0-12.0) sec INR (<1.2) Sodium (137-145) mmol/L Chloride (98-107) mmol/L Carbon Dioxide (22-30) mmol/L Creatinine (0.66-1.25) mg/dL Glucose (74-99) mg/dL POC Glucose (mg/dL) 339 H 392 H 553 H (75-99) mg/dL 11/09/20 11/09/20 11/09/20 Range/Units 00:21 04:03 06:56 MCHC (31.0-37.0) g/dL Neutrophils # (1.3-7.7) k/uL Lymphocytes # (1.0-4.8) k/uL PT (9.0-12.0) sec INR (<1.2) Sodium (137-145) mmol/L Chloride (98-107) mmol/L Carbon Dioxide (22-30) mmol/L Creatinine (0.66-1.25) mg/dL Glucose (74-99) mg/dL POC Glucose (mg/dL) 506 H 373 H 394 H (75-99) mg/dL 11/09/20 Range/Units 07:23 MCHC (31.0-37.0) g/dL Neutrophils # (1.3-7.7) k/uL Lymphocytes # (1.0-4.8) k/uL PT 13.1 H (9.0-12.0) sec INR 1.3 H (<1.2) Sodium (137-145) mmol/L Chloride (98-107) mmol/L Carbon Dioxide (22-30) mmol/L Creatinine (0.66-1.25) mg/dL Glucose (74-99) mg/dL POC Glucose (mg/dL) (75-99) mg/dL Microbiology - Last 24 Hours (Table) 11/07/20 17:00 Blood Culture - Preliminary Blood No Growth after 24 hours 11/08/20 07:30 Gram Stain - Preliminary Sputum Sputum Culture - Preliminary Assessment and Plan Plan: Acute on chronic hypoxemic and hypercapnic respiratory failure, multifactorial, mostly related to underlying severe COPD, with an FEV1 that is 40% of predicted, and severe sleep apnea syndrome. History of hypertension. Obesity. History of hyperlipidemia. History of diabetes mellitus. History of ongoing tobacco use with nicotine addiction. History of diabetic neuropathy. History of paroxysmal atrial fibrillation. History of severe obstructive sleep apnea syndrome, with an AHI of 49. Plan: Patient is feeling better, breathing easier He is close to his baseline Pro-calcitonin level is negative, we'll stop the Zosyn His blood sugars are significantly elevated related to IV steroids, and those can be discontinued now From pulmonary perspective he could be considered for discharge home today if cleared by medicine He will need outpatient follow-up with Dr. Bautista in the office in one week patient can resume his Advair, Spiriva, albuterol No need for steroids no need for antibiotics We will send a prescription for nebulized treatments DuoNeb 4 times daily and as needed I performed a history & physical examination of the patient and discussed their management with my nurse practitioner, Megan Ellsworth. I reviewed the nurse practitioner's note and agree with the documented findings and plan of care. Lung sounds are positive for minimal wheezes. The findings and the impression was discussed with the patient. I attest to the documentation by the nurse practitioner. Time with Patient: Less than 30
[2020-11-09 11:35] LABS: Glucose,Whole Blood 290 mg/dL (75-99)
[2020-11-09] MEDS ORDERED: WARFARIN 7.5 MG TAB PO SCH (18:00)
[2020-11-09] MEDS ORDERED: SYMBICORT 160-4.5 MCG INHALER INHALATION SCH (20:00)
--- NOTE | 2020-11-10 23:02 | DS ---
DISCHARGE SUMMARY FINAL DIAGNOSES: 1. Chronic obstructive pulmonary disease acute exacerbation acute hypoxic hypercarbic respiratory failure. 2. Bilateral pneumonia, right more the left with possibly gram-negative. 3. Status acute metabolic encephalopathy secondary to respiratory failure and hypercarbia. 4. Hyponatremia. 5. Continued ongoing nicotine dependence. 6. Increased WBC. 7. Acute respiratory acidosis. 8. Diabetes mellitus type 2 uncontrolled with hyperglycemia. 9. History of chronic obstructive pulmonary disease. 10.Hypertension. 11.Hyperlipidemia. 12.Sleep apnea. 13.History of peripheral neuropathy. 14.Obesity with body mass index of 36.6. 15.FULL CODE. DISCHARGE DISPOSITION: The patient being discharged in stable condition with guarded prognosis. HISTORY OF PRESENT ILLNESS: This 55 -year-old gentleman with a past history of multiple medical problems including COPD, also had bilateral pneumonia. Treated with intensive bronchodilators, steroids and antibiotics. Patient improved significantly. Pulmonary saw the patient and cleared the patient for discharge. On exam, vitals stable. Cardiovascular system: S1, S2. Respiratory: A few scattered rhonchi and crackles. DISCHARGE ADVICE AND MEDICATIONS: 1. Diet is cardiac diet. 2. Activity limited until followup. 3. Follow up with Dr. Ruma Gilman in 2-3 days. 4. Follow up with Dr. Bautista as recommended. 5. Advair 1 puff b.i.d. 6. Coumadin 7.5 mg daily. 7. Diltiazem 240 mg daily. 8. Glucophage 1000 mg p.o. daily. 9. Lipitor 80 mg q.h.s. 10.Lisinopril 40 mg daily. 11.Omeprazole 20 mg daily. 12.Lyrica 150 mg t.i.d. 13.Albuterol p.r.n. 14.Augmentin 875 mg one p.o. b.i.d. for 5 days. 15.DuoNeb q.i.d. and p.r.n. 16.Habitrol 21 daily. 17.Levemir 60 units subcu q.h.s. to be adjusted in the outpatient. 18.Accu-Cheks a.c. and q.h.s. Results to the primary physician. 19.Prednisone taper 40 mg daily for 2 days, 30 for 2 days, 20 for 2 days, 10 for 2 days. 20.Followup labs with the primary physician. MMODL / IJN: [id number] /
== END 2020-11-09 16:29 | disposition home health service (06) | DRG 177 ==
LOC: EC 14:38 → 4SSUR 18:11
PROVIDERS: ADMIT Hospitalist; ATTEND Hospitalist
DX: J15.6 Pneumonia due to other Gram-negative bacteria (principal); J96.21 Acute and chronic respiratory failure with hypoxia; J96.22 Acute and chronic respiratory failure with hypercapnia; G93.41 Metabolic encephalopathy; E87.2 Acidosis; J44.1 Chronic obstructive pulmonary disease with (acute) exacerbation; J44.0 Chronic obstructive pulmonary disease with (acute) lower respiratory infection; E87.1 Hypo-osmolality and hyponatremia; J98.11 Atelectasis; E66.01 Morbid (severe) obesity due to excess calories; E78.5 Hyperlipidemia, unspecified; G47.33 Obstructive sleep apnea (adult) (pediatric); Z20.822 Contact with and (suspected) exposure to COVID-19; I10 Essential (primary) hypertension; F17.210 Nicotine dependence, cigarettes, uncomplicated; E11.65 Type 2 diabetes mellitus with hyperglycemia; E11.42 Type 2 diabetes mellitus with diabetic polyneuropathy; E11.649 Type 2 diabetes mellitus with hypoglycemia without coma; I48.0 Paroxysmal atrial fibrillation; F17.290 Nicotine dependence, other tobacco product, uncomplicated; Z79.01 Long term (current) use of anticoagulants; Z79.4 Long term (current) use of insulin; Z91.19 Patient's noncompliance with other medical treatment and regimen; Z79.899 Other long term (current) drug therapy; Z68.36 Body mass index [BMI] 36.0-36.9, adult
CPT/HCPCS: 36415; 36600; 71045; 80048; 80053; 82805; 83605; 83735; 83880; 84145; 84484; 85025; 85610; 87040; 87070; 87205; 87635; 93005; 94640; 94660; 99285

== ENCOUNTER 2021-02-24 23:06 | Inpatient (IN) | payer OTHER ==
[2021-02-25 00:27] LABS: Basophils % (A) 0 %; Eosinophils % (A) 0 %; HCT 45.3 % (39.0-53.0); Hypochromasia Slight; Lymphocytes # (A) 0.3 k/uL (1.0-4.8); Lymphocytes % (A) 4 %; MCH 28.9 pg (25.0-35.0); MCHC 30.9 g/dL (31.0-37.0); MCV 93.5 fL (80.0-100.0); Mean Platelet Volume 7.2; Monocytes # (A) 0.1 k/uL (0-1.0); Monocytes % (A) 2 %; Neutrophils # (A) 6.9 k/uL (1.3-7.7); Neutrophils % (A) 94 %; Platelet Count 248 k/uL (150-450); Poikilocytosis Slight; RBC 4.85 m/uL (4.30-5.90); RDW 15.4 % (11.5-15.5); WBC 7.3 k/uL (3.8-10.6)
[2021-02-25 00:37] LABS: ALT 32 U/L (4-49); AST 31 U/L (17-59); African American GFR (CKD) >90 (>60 ml/min/1.73 sqM); Albumin 3.5 g/dL (3.5-5.0); Alkaline Phosphatase 112 U/L (38-126); Anion Gap 10 mmol/L; Blood Urea Nitrogen 15 mg/dL (9-20); Calcium 8.3 mg/dL (8.4-10.2); Carbon Dioxide 26 mmol/L (22-30); Chloride 86 mmol/L (98-107); Glucose 328 mg/dL (74-99); Non-African American GFR(CKD) >90 (>60 ml/min/1.73 sqM); Potassium 5.2 mmol/L (3.5-5.1); Sodium 122 mmol/L (137-145); Total Bilirubin 0.4 mg/dL (0.2-1.3); Total Protein 5.8 g/dL (6.3-8.2)
[2021-02-25 00:41] LABS: INR 2.8 (<1.2); Partial Thromboplastin Time 34.5 sec (22.0-30.0); Prothrombin Time 27.2 sec (9.0-12.0)
--- NOTE | 2021-02-25 00:58 | XR ---
EXAMINATION TYPE: XR chest 2V DATE OF EXAM: 02/25/2021 COMPARISON: 11/18/2020 HISTORY: COPD. Short of breath TECHNIQUE: 2 views FINDINGS: There is coarse interstitial density in the mid and lower lung silver. There is patchy atel ectasis at the lung bases. There is no heart failure. There are no hilar masses. Bony thorax is intac t. There is mild flattening the diaphragm. IMPRESSION: There is some linear infiltrate and atelectasis at the lung bases which is increased comp ared to old exam. There is probably COPD. No heart failure seen.
[2021-02-25] MEDS ORDERED: predniSONE 20 MG TAB PO STA (02:05)
[2021-02-25] MEDS: IPRATROPIUM-ALBUTEROL 3 ML NEB INHALATION SCH ×4 (07:03→19:53)
[2021-02-25] MEDS ORDERED: ALBUTEROL NEBULIZED 2.5 MG/3 ML INHALATION PRN (07:35)
--- NOTE | 2021-02-25 07:41 | ED ---
SOB HPI - General Chief Complaint: Shortness of Breath Stated Complaint: HANY Time Seen by Provider: 02/24/21 23:08 Source: patient, EMS Mode of arrival: EMS Limitations: no limitations - History of Present Illness Initial Comments: this patient is a 55-year-old man who presents to be evaluated for shortness of breath. The patient states that he believes it heart failure is flaring up. He has noticed that is been feeling more short of breath over the past couple of days. He also feels like he is having increase in his leg edema. Patient states that he had been out of Lasix and had been taking family members. MD Complaint: shortness of breath, cough -: days(s) Severity scale (1-10): 0 Consistency: constant Improves With: nothing Worsens With: lying flat, exertion Known History Of: COPD, congestive heart failure Associated Symptoms: other (leg swelling) - Related Data Home Oxygen Therapy: Yes Home Oxygen Amount: 4 Liters Home Medications Medication Instructions Recorded Confirmed Fluticasone/Salmeterol [Advair 2 puff INHALATION RT-BID 03/16/15 02/25/21 250-50 Diskus] Omeprazole 20 mg PO DAILY 03/16/15 02/25/21 metFORMIN HCL [Glucophage] 1,000 mg PO BID 03/16/15 02/25/21 Atorvastatin [Lipitor] 80 mg PO HS 09/17/20 02/25/21 Pregabalin 150 mg PO TID 09/17/20 02/25/21 dilTIAZem HCL [dilTIAZem HCL 24Hr 240 mg PO DAILY 09/17/20 02/25/21 ER (Xr)] Albuterol Sulfate [Proair Hfa] 2 puff INHALATION RT-Q6H PRN 10/24/20 02/25/21 lisinopriL 40 mg PO DAILY 10/24/20 02/25/21 Doxycycline Monohydrate 100 mg PO BID 02/25/21 02/25/21 Insulin Aspart [NovoLOG Flexpen] See Protocol SQ AC-TID 02/25/21 02/25/21 Ipratropium-Albuterol Nebulize 3 ml INHALATION RT-QID 02/25/21 02/25/21 [Duoneb 0.5 mg-3 mg/3 ml Soln] Tiotropium [place] [Spiriva] 1 cap INHALATION RT-DAILY 02/25/21 02/25/21 Warfarin [Coumadin] 7.5 mg PO MOWEFR 02/25/21 02/25/21 Warfarin [Coumadin] 10 mg PO SUTUTHSA 02/25/21 02/25/21 Previous Rx's Medication Instructions Recorded Calcium Carbonate [Tums] 1,000 mg PO QID PRN tab 02/28/21 Furosemide [Lasix] 40 mg PO BID@0900,1600 #60 tab 02/28/21 Insulin Glargine,Hum.rec.anlog 35 unit SQ HS #0 02/28/21 [Lantus Solostar Pen] Nicotine 14Mg/24Hr Patch [Habitrol] 1 patch TRANSDERM DAILY #7 patch 02/28/21 guaiFENesin [Mucinex] 1,200 mg PO Q12HR tablet 02/28/21 predniSONE 10 mg PO DAILY #0 02/28/21 predniSONE [Deltasone] 40 mg PO DAILY #5 tab 02/28/21 Allergies Allergy/AdvReac Type Severity Reaction Status Date / Time No Known Allergies Allergy Verified 02/25/21 06:54 Review of Systems ROS Statement: Those systems with pertinent positive or pertinent negative responses have been documented in the HPI. ROS Other: All systems not noted in ROS Statement are negative. Constitutional: Denies: fever, chills Respiratory: Reports: cough, dyspnea Cardiovascular: Reports: dyspnea on exertion, orthopnea, edema. Denies: chest pain, palpitations, syncope Gastrointestinal: Denies: abdominal pain, vomiting, diarrhea Genitourinary: Denies: dysuria, hematuria Musculoskeletal: Denies: back pain Skin: Denies: rash Neurological: Denies: headache, weakness, numbness Psychiatric: Denies: anxiety Past Medical History Past Medical History: COPD, Diabetes Mellitus, Hyperlipidemia, Hypertension, Sleep Apnea/CPAP/BIPAP Additional Past Medical History / Comment(s): neuropathy History of Any Multi-Drug Resistant Organisms: None Reported Past Surgical History: Orthopedic Surgery Additional Past Surgical History / Comment(s): Left shoulder, left hand 2 digits crushed/surg with pins placed. Past Anesthesia/Blood Transfusion Reactions: No Reported Reaction Additional Past Anesthesia/Blood Transfusion Reaction / Comment(s): Never received Past Psychological History: No Psychological Hx Reported Smoking Status: Current every day smoker Past Alcohol Use History: Occasional Past Drug Use History: None Reported - Past Family History Mother Family Medical History: No Reported History General Exam Limitations: no limitations General appearance: alert, in no apparent distress Head exam: Present: atraumatic, normocephalic Eye exam: Present: normal appearance. Absent: scleral icterus, conjunctival injection ENT exam: Present: normal oropharynx Neck exam: Present: normal inspection Respiratory exam: Present: wheezes, decreased breath sounds. Absent: normal lung sounds bilaterally, rales, rhonchi, stridor Cardiovascular Exam: Present: regular rate, normal rhythm, normal heart sounds. Absent: systolic murmur, diastolic murmur, rubs, gallop GI/Abdominal exam: Present: soft. Absent: distended, tenderness, guarding, rebound, rigid, mass Extremities exam: Present: normal inspection, normal capillary refill, pedal edema. Absent: calf tenderness Back exam: Present: normal inspection. Absent: CVA tenderness (R), CVA tenderness (L) Neurological exam: Present: alert Skin exam: Present: warm, dry, intact, normal color. Absent: rash Course Vital Signs 02/24/21 02/24/21 02/24/21 23:08 23:20 23:22 Temperature 98.2 F Pulse Rate 60 Pulse Rate [ Pulse Oximetery ] Respiratory 22 22 Rate Blood Pressure 129/108 Blood Pressure [Left Arm] O2 Sat by Pulse 85 L 93 L Oximetry 02/25/21 02/25/21 02/25/21 00:00 00:10 00:20 Temperature Pulse Rate 63 61 74 Pulse Rate [ Pulse Oximetery ] Respiratory Rate Blood Pressure 129/108 137/99 137/99 Blood Pressure [Left Arm] O2 Sat by Pulse 96 94 L Oximetry 02/25/21 02/25/21 02/25/21 00:30 07:00 07:03 Temperature 98.1 F Pulse Rate 62 84 Pulse Rate [ 52 L Pulse Oximetery ] Respiratory 21 16 Rate Blood Pressure 137/99 Blood Pressure 155/81 [Left Arm] O2 Sat by Pulse 95 95 Oximetry 02/25/21 07:15 Temperature 98.2 F Pulse Rate 80 Pulse Rate [ Pulse Oximetery ] Respiratory 16 Rate Blood Pressure 137/99 Blood Pressure [Left Arm] O2 Sat by Pulse 95 Oximetry Medical Decision Making - Lab Data Result diagrams: 02/28/21 05:09 02/28/21 05:09 Lab Results 02/25/21 02/25/21 02/25/21 Range/Units 00:00 00:00 00:00 WBC 7.3 (3.8-10.6) k/uL RBC 4.85 (4.30-5.90) m/uL Hgb 14.0 (13.0-17.5) gm/dL Hct 45.3 (39.0-53.0) % MCV 93.5 (80.0-100.0) fL MCH 28.9 (25.0-35.0) pg MCHC 30.9 L (31.0-37.0) g/dL RDW 15.4 (11.5-15.5) % Plt Count 248 (150-450) k/uL MPV 7.2 Neutrophils % 94 % Lymphocytes % 4 % Monocytes % 2 % Eosinophils % 0 % Basophils % 0 % Neutrophils # 6.9 (1.3-7.7) k/uL Lymphocytes # 0.3 L (1.0-4.8) k/uL Monocytes # 0.1 (0-1.0) k/uL Eosinophils # 0.0 (0-0.7) k/uL Basophils # 0.0 (0-0.2) k/uL Hypochromasia Slight Poikilocytosis Slight PT 27.2 H (9.0-12.0) sec INR 2.8 H (<1.2) APTT 34.5 H (22.0-30.0) sec D-Dimer <0.17 (<0.60) mg/L FEU Sodium 122 L (137-145) mmol/L Potassium 5.2 H (3.5-5.1) mmol/L Chloride 86 L (98-107) mmol/L Carbon Dioxide 26 (22-30) mmol/L Anion Gap 10 mmol/L BUN 15 (9-20) mg/dL Creatinine 0.76 (0.66-1.25) mg/dL Est GFR (CKD-EPI)AfAm >90 (>60 ml/min/1.73 sqM) Est GFR (CKD-EPI)NonAf >90 (>60 ml/min/1.73 sqM) Glucose 328 H (74-99) mg/dL POC Glucose (mg/dL) (75-99) mg/dL POC Glu [employer] ID Lactic Ac Sepsis Rflx Plasma Lactic Acid Tee (0.7-2.0) mmol/L Calcium 8.3 L (8.4-10.2) mg/dL Total Bilirubin 0.4 (0.2-1.3) mg/dL AST 31 (17-59) U/L ALT 32 (4-49) U/L Alkaline Phosphatase 112 (38-126) U/L Troponin I (0.000-0.034) ng/mL NT-Pro-B Natriuret Pep pg/mL Total Protein 5.8 L (6.3-8.2) g/dL Albumin 3.5 (3.5-5.0) g/dL Procalcitonin (0.02-0.09) ng/mL Coronavirus (PCR) (Not Detectd) 02/25/21 02/25/21 02/25/21 Range/Units 00:00 00:00 00:00 WBC (3.8-10.6) k/uL RBC (4.30-5.90) m/uL Hgb (13.0-17.5) gm/dL Hct (39.0-53.0) % MCV (80.0-100.0) fL MCH (25.0-35.0) pg MCHC (31.0-37.0) g/dL RDW (11.5-15.5) % Plt Count (150-450) k/uL MPV Neutrophils % % Lymphocytes % % Monocytes % % Eosinophils % % Basophils % % Neutrophils # (1.3-7.7) k/uL Lymphocytes # (1.0-4.8) k/uL Monocytes # (0-1.0) k/uL Eosinophils # (0-0.7) k/uL Basophils # (0-0.2) k/uL Hypochromasia Poikilocytosis PT (9.0-12.0) sec INR (<1.2) APTT (22.0-30.0) sec D-Dimer (<0.60) mg/L FEU Sodium (137-145) mmol/L Potassium (3.5-5.1) mmol/L Chloride (98-107) mmol/L Carbon Dioxide (22-30) mmol/L Anion Gap mmol/L BUN (9-20) mg/dL Creatinine (0.66-1.25) mg/dL Est GFR (CKD-EPI)AfAm (>60 ml/min/1.73 sqM) Est GFR (CKD-EPI)NonAf (>60 ml/min/1.73 sqM) Glucose (74-99) mg/dL POC Glucose (mg/dL) (75-99) mg/dL POC Glu [employer] ID Lactic Ac Sepsis Rflx Plasma Lactic Acid Tee 2.2 H* (0.7-2.0) mmol/L Calcium (8.4-10.2) mg/dL Total Bilirubin (0.2-1.3) mg/dL AST (17-59) U/L ALT (4-49) U/L Alkaline Phosphatase (38-126) U/L Troponin I 0.013 (0.000-0.034) ng/mL NT-Pro-B Natriuret Pep 390 pg/mL Total Protein (6.3-8.2) g/dL Albumin (3.5-5.0) g/dL Procalcitonin (0.02-0.09) ng/mL Coronavirus (PCR) (Not Detectd) 02/25/21 02/25/21 02/25/21 Range/Units 01:14 04:12 05:18 WBC (3.8-10.6) k/uL RBC (4.30-5.90) m/uL Hgb (13.0-17.5) gm/dL Hct (39.0-53.0) % MCV (80.0-100.0) fL MCH (25.0-35.0) pg MCHC (31.0-37.0) g/dL RDW (11.5-15.5) % Plt Count (150-450) k/uL MPV Neutrophils % % Lymphocytes % % Monocytes % % Eosinophils % % Basophils % % Neutrophils # (1.3-7.7) k/uL Lymphocytes # (1.0-4.8) k/uL Monocytes # (0-1.0) k/uL Eosinophils # (0-0.7) k/uL Basophils # (0-0.2) k/uL Hypochromasia Poikilocytosis PT (9.0-12.0) sec INR (<1.2) APTT (22.0-30.0) sec D-Dimer (<0.60) mg/L FEU Sodium (137-145) mmol/L Potassium (3.5-5.1) mmol/L Chloride (98-107) mmol/L Carbon Dioxide (22-30) mmol/L Anion Gap mmol/L BUN (9-20) mg/dL Creatinine (0.66-1.25) mg/dL Est GFR (CKD-EPI)AfAm (>60 ml/min/1.73 sqM) Est GFR (CKD-EPI)NonAf (>60 ml/min/1.73 sqM) Glucose (74-99) mg/dL POC Glucose (mg/dL) (75-99) mg/dL POC Glu [employer] ID Lactic Ac Sepsis Rflx Y Plasma Lactic Acid Tee 2.6 H* (0.7-2.0) mmol/L Calcium (8.4-10.2) mg/dL Total Bilirubin (0.2-1.3) mg/dL AST (17-59) U/L ALT (4-49) U/L Alkaline Phosphatase (38-126) U/L Troponin I (0.000-0.034) ng/mL NT-Pro-B Natriuret Pep pg/mL Total Protein (6.3-8.2) g/dL Albumin (3.5-5.0) g/dL Procalcitonin (0.02-0.09) ng/mL Coronavirus (PCR) Not Detected (Not Detectd) 02/25/21 02/25/21 02/25/21 Range/Units 06:02 08:51 12:36 WBC (3.8-10.6) k/uL RBC (4.30-5.90) m/uL Hgb (13.0-17.5) gm/dL Hct (39.0-53.0) % MCV (80.0-100.0) fL MCH (25.0-35.0) pg MCHC (31.0-37.0) g/dL RDW (11.5-15.5) % Plt Count (150-450) k/uL MPV Neutrophils % % Lymphocytes % % Monocytes % % Eosinophils % % Basophils % % Neutrophils # (1.3-7.7) k/uL Lymphocytes # (1.0-4.8) k/uL Monocytes # (0-1.0) k/uL Eosinophils # (0-0.7) k/uL Basophils # (0-0.2) k/uL Hypochromasia Poikilocytosis PT (9.0-12.0) sec INR (<1.2) APTT (22.0-30.0) sec D-Dimer (<0.60) mg/L FEU Sodium (137-145) mmol/L Potassium (3.5-5.1) mmol/L Chloride (98-107) mmol/L Carbon Dioxide (22-30) mmol/L Anion Gap mmol/L BUN (9-20) mg/dL Creatinine (0.66-1.25) mg/dL Est GFR (CKD-EPI)AfAm (>60 ml/min/1.73 sqM) Est GFR (CKD-EPI)NonAf (>60 ml/min/1.73 sqM) Glucose (74-99) mg/dL POC Glucose (mg/dL) 373 H (75-99) mg/dL POC Glu [employer] ID Apryl Macario Lactic Ac Sepsis Rflx Y Plasma Lactic Acid Tee 0.9 (0.7-2.0) mmol/L Calcium (8.4-10.2) mg/dL Total Bilirubin (0.2-1.3) mg/dL AST (17-59) U/L ALT (4-49) U/L Alkaline Phosphatase (38-126) U/L Troponin I (0.000-0.034) ng/mL NT-Pro-B Natriuret Pep pg/mL Total Protein (6.3-8.2) g/dL Albumin (3.5-5.0) g/dL Procalcitonin (0.02-0.09) ng/mL Coronavirus (PCR) (Not Detectd) 02/25/21 02/25/21 02/25/21 Range/Units 12:51 12:51 12:51 WBC 7.2 (3.8-10.6) k/uL RBC 4.73 (4.30-5.90) m/uL Hgb 14.0 (13.0-17.5) gm/dL Hct 45.5 (39.0-53.0) % MCV 96.1 (80.0-100.0) fL MCH 29.6 (25.0-35.0) pg MCHC 30.8 L (31.0-37.0) g/dL RDW 14.8 (11.5-15.5) % Plt Count 223 (150-450) k/uL MPV 7.2 Neutrophils % 92 % Lymphocytes % 5 % Monocytes % 3 % Eosinophils % 0 % Basophils % 0 % Neutrophils # 6.6 (1.3-7.7) k/uL Lymphocytes # 0.3 L (1.0-4.8) k/uL Monocytes # 0.2 (0-1.0) k/uL Eosinophils # 0.0 (0-0.7) k/uL Basophils # 0.0 (0-0.2) k/uL Hypochromasia Slight Poikilocytosis PT (9.0-12.0) sec INR (<1.2) APTT (22.0-30.0) sec D-Dimer (<0.60) mg/L FEU Sodium 125 L (137-145) mmol/L Potassium 5.0 (3.5-5.1) mmol/L Chloride 86 L (98-107) mmol/L Carbon Dioxide 34 H (22-30) mmol/L Anion Gap 5 mmol/L BUN 21 H (9-20) mg/dL Creatinine 0.71 (0.66-1.25) mg/dL Est GFR (CKD-EPI)AfAm >90 (>60 ml/min/1.73 sqM) Est GFR (CKD-EPI)NonAf >90 (>60 ml/min/1.73 sqM) Glucose 328 H (74-99) mg/dL POC Glucose (mg/dL) (75-99) mg/dL POC Glu [employer] ID Lactic Ac Sepsis Rflx Plasma Lactic Acid Tee (0.7-2.0) mmol/L Calcium 8.6 (8.4-10.2) mg/dL Total Bilirubin (0.2-1.3) mg/dL AST (17-59) U/L ALT (4-49) U/L Alkaline Phosphatase (38-126) U/L Troponin I (0.000-0.034) ng/mL NT-Pro-B Natriuret Pep 710 pg/mL Total Protein (6.3-8.2) g/dL Albumin (3.5-5.0) g/dL Procalcitonin (0.02-0.09) ng/mL Coronavirus (PCR) (Not Detectd) 02/25/21 02/25/21 02/25/21 Range/Units 12:51 17:15 20:20 WBC (3.8-10.6) k/uL RBC (4.30-5.90) m/uL Hgb (13.0-17.5) gm/dL Hct (39.0-53.0) % MCV (80.0-100.0) fL MCH (25.0-35.0) pg MCHC (31.0-37.0) g/dL RDW (11.5-15.5) % Plt Count (150-450) k/uL MPV Neutrophils % % Lymphocytes % % Monocytes % % Eosinophils % % Basophils % % Neutrophils # (1.3-7.7) k/uL Lymphocytes # (1.0-4.8) k/uL Monocytes # (0-1.0) k/uL Eosinophils # (0-0.7) k/uL Basophils # (0-0.2) k/uL Hypochromasia Poikilocytosis PT (9.0-12.0) sec INR (<1.2) APTT (22.0-30.0) sec D-Dimer (<0.60) mg/L FEU Sodium (137-145) mmol/L Potassium (3.5-5.1) mmol/L Chloride (98-107) mmol/L Carbon Dioxide (22-30) mmol/L Anion Gap mmol/L BUN (9-20) mg/dL Creatinine (0.66-1.25) mg/dL Est GFR (CKD-EPI)AfAm (>60 ml/min/1.73 sqM) Est GFR (CKD-EPI)NonAf (>60 ml/min/1.73 sqM) Glucose (74-99) mg/dL POC Glucose (mg/dL) 382 H 295 H (75-99) mg/dL POC Glu [employer] ID Apryl Macario Melinda Lactic Ac Sepsis Rflx Plasma Lactic Acid Tee (0.7-2.0) mmol/L Calcium (8.4-10.2) mg/dL Total Bilirubin (0.2-1.3) mg/dL AST (17-59) U/L ALT (4-49) U/L Alkaline Phosphatase (38-126) U/L Troponin I (0.000-0.034) ng/mL NT-Pro-B Natriuret Pep pg/mL Total Protein (6.3-8.2) g/dL Albumin (3.5-5.0) g/dL Procalcitonin 0.04 (0.02-0.09) ng/mL Coronavirus (PCR) (Not Detectd) Disposition Clinical Impression: COPD exacerbation, Hyponatremia, Hyperglycemia Disposition: ADMITTED IP TO THIS HOSP Condition: Fair
[2021-02-25] MEDS: SYMBICORT 80-4.5 MCG INHALER INHALATION SCH ×2 (07:53→19:53)
[2021-02-25] MEDS ORDERED: NON FORMULARY DRUG (Tiotropium Bromide [Spiriva] 18 MCG Each) INHALATION SCH (08:00)
[2021-02-25] MEDS ORDERED: IPRATROPIUM-ALBUTEROL 3 ML NEB INHALATION SCH (08:00)
[2021-02-25] MEDS: PANTOPRAZOLE 40 MG TABLET PO SCH (08:34)
[2021-02-25] MEDS: FUROSEMIDE 10 MG/ML 4 ML VIAL IV SCH ×2 (08:34→20:43)
[2021-02-25] MEDS: predniSONE 20 MG TAB PO SCH (08:34)
[2021-02-25] MEDS: lisinopriL 20 MG TAB PO SCH (08:34)
[2021-02-25] MEDS: DILTIAZEM CD 240 MG CAP.ER.24H PO SCH (08:34)
[2021-02-25] MEDS: PREGABALIN 75 MG CAP PO SCH ×3 (08:34→22:10)
[2021-02-25] MEDS ORDERED: metFORMIN 500 MG TAB PO SCH (09:00)
[2021-02-25 12:37] LABS: Glucose,Whole Blood 373 mg/dL (75-99)
[2021-02-25] MEDS: INSULIN ASPART (NovoLOG) 100 UNIT/ML VIAL SQ SCH ×3 (12:57→20:43)
[2021-02-25 13:22] LABS: African American GFR (CKD) >90 (>60 ml/min/1.73 sqM); Anion Gap 5 mmol/L; Blood Urea Nitrogen 21 mg/dL (9-20); Calcium 8.6 mg/dL (8.4-10.2); Carbon Dioxide 34 mmol/L (22-30); Chloride 86 mmol/L (98-107); Glucose 328 mg/dL (74-99); Non-African American GFR(CKD) >90 (>60 ml/min/1.73 sqM); Sodium 125 mmol/L (137-145)
[2021-02-25 13:32] LABS: Basophils % (A) 0 %; Eosinophils % (A) 0 %; HCT 45.5 % (39.0-53.0); Hypochromasia Slight; Lymphocytes # (A) 0.3 k/uL (1.0-4.8); Lymphocytes % (A) 5 %; MCH 29.6 pg (25.0-35.0); MCHC 30.8 g/dL (31.0-37.0); MCV 96.1 fL (80.0-100.0); Mean Platelet Volume 7.2; Monocytes # (A) 0.2 k/uL (0-1.0); Monocytes % (A) 3 %; Neutrophils # (A) 6.6 k/uL (1.3-7.7); Neutrophils % (A) 92 %; Platelet Count 223 k/uL (150-450); RBC 4.73 m/uL (4.30-5.90); RDW 14.8 % (11.5-15.5); WBC 7.2 k/uL (3.8-10.6)
--- NOTE | 2021-02-25 15:21 | P.CNPUL ---
History of Present Illness Consult date: 02/25/21 Requesting physician: Gary Burkett Reason for consult: dyspnea, COPD Chief complaint: Shortness of breath, cough, congestion History of present illness: This is a pleasant 55-year-old male patient who follows with Dr. Gilman as his primary care provider. He has a history of chronic obstructive pulmonary disease, chronic hypercapnic respiratory failure, chronic hypoxemic respiratory failure on oxygen in the outpatient setting, FEV1 value of 40% of predicted, obstructive sleep apnea maintained on CPAP. He is on Advair, Spiriva, albuterol. He is also prednisone dependent at 10 mg daily. He follows in our office for the same. He also has a history of chronic atrial fibrillation anticoagulated with Eliquis, hypertension, hyperlipidemia, diabetes mellitus, chronic and ongoing tobacco dependence. He presented to the emergency room last evening with complaints of increasing shortness of breath, cough and congestion. He is also having increased swelling in his lower extremities. He had been out of his Lasix for some time and was using a family members. His x-ray does reveal atelectasis of the lung bases. Evidence of COPD. No acute heart failure noted. White count 7.2. Hemoglobin 14.0. Sodium 125. Potassium 5.0. Creatinine 0.71. Bicarb 34. He's been initiated on DuoNeb inhalations, Symbicort, prednisone. He is seen today in consultation on the regular medical floor. He is currently sitting up in a chair at the bedside. Awake and alert in no acute distress. Maintaining O2 saturations in the 90s on 4 L/m per nasal cannula. He is dyspneic with exertion. Loose nonproductive cough. Fine end expiratory wheezes. Diminished. Afebrile. Hemodynamically stable. Review of Systems REVIEW OF SYSTEMS: CONSTITUTIONAL: Denies any recent significant weight loss or weight gain. EYES: Denies change in vision. EARS, NOSE, MOUTH, THROAT: Denies headaches, denies sore throat. CARDIOVASCULAR: Denies chest pain, palpitations or syncopal episodes. RESPIRATORY: Positive for shortness of breath, cough, congestion no hemoptysis. GASTROINTESTINAL: Denies change in appetite, denies abdominal pain GENITOURINARY: Denies hematuria, denies infections. MUSKULOSKELETAL: Positive for lower extremity edema. INTEGUMENTARY: Denies rash, denies eczema. NEUROLOGICAL: Denies recent memory loss, no recent seizure activity. PSYCHIATRIC: Denies anxiety, denies depression. HEMATOLOGIC/LYMPHATIC: Denies anemia, denies enlarged lymph nodes. Past Medical History Past Medical History: Atrial Fibrillation, COPD, Diabetes Mellitus, Hyperlipidemia, Hypertension, Sleep Apnea/CPAP/BIPAP Additional Past Medical History / Comment(s): neuropathy History of Any Multi-Drug Resistant Organisms: None Reported Past Surgical History: Orthopedic Surgery Additional Past Surgical History / Comment(s): Left shoulder, left hand 2 digits crushed/surg with pins placed. Past Anesthesia/Blood Transfusion Reactions: No Reported Reaction Additional Past Anesthesia/Blood Transfusion Reaction / Comment(s): Never received Smoking Status: Current every day smoker - Past Family History Mother Family Medical History: No Reported History Medications and Allergies Home Medications Medication Instructions Recorded Confirmed Type Fluticasone/Salmeterol [Advair 2 puff INHALATION RT-BID 03/16/15 02/25/21 History 250-50 Diskus] Omeprazole 20 mg PO DAILY 03/16/15 02/25/21 History metFORMIN HCL [Glucophage] 1,000 mg PO BID 03/16/15 02/25/21 History Atorvastatin [Lipitor] 80 mg PO HS 09/17/20 02/25/21 History Pregabalin 150 mg PO TID 09/17/20 02/25/21 History dilTIAZem HCL [dilTIAZem HCL 24Hr 240 mg PO DAILY 09/17/20 02/25/21 History ER (Xr)] Albuterol Sulfate [Proair Hfa] 2 puff INHALATION RT-Q6H PRN 10/24/20 02/25/21 History lisinopriL 40 mg PO DAILY 10/24/20 02/25/21 History Doxycycline Monohydrate 100 mg PO BID 02/25/21 02/25/21 History Furosemide [Lasix] 40 - 80 mg PO DAILY PRN 02/25/21 02/25/21 History Insulin Aspart [NovoLOG Flexpen] See Protocol SQ AC-TID 02/25/21 02/25/21 History Insulin Glargine,Hum.rec.anlog 28 unit SQ HS 02/25/21 02/25/21 History [Lantus Solostar Pen] Ipratropium-Albuterol Nebulize 3 ml INHALATION RT-QID 02/25/21 02/25/21 History [Duoneb 0.5 mg-3 mg/3 ml Soln] Tiotropium [place] [Spiriva] 1 cap INHALATION RT-DAILY 02/25/21 02/25/21 History Warfarin [Coumadin] 7.5 mg PO MOWEFR 02/25/21 02/25/21 History Warfarin [Coumadin] 10 mg PO SUTUTHSA 02/25/21 02/25/21 History predniSONE 10 mg PO DAILY 02/25/21 02/25/21 History Allergies Allergy/AdvReac Type Severity Reaction Status Date / Time No Known Allergies Allergy Verified 02/25/21 06:54 Physical Exam Vitals: Vital Signs Temp Pulse Pulse Resp BP BP Pulse Ox 02/25/21 14:44 98.2 F 63 20 103/63 96 02/25/21 11:27 72 02/25/21 11:15 72 02/25/21 07:15 98.2 F 80 16 137/99 95 02/25/21 07:03 84 16 02/25/21 07:00 98.1 F 52 L 21 155/81 95 02/25/21 00:30 62 137/99 95 02/25/21 00:20 74 137/99 02/25/21 00:10 61 137/99 94 L 02/25/21 00:00 63 129/108 96 02/24/21 23:22 93 L 02/24/21 23:20 22 02/24/21 23:08 98.2 F 60 22 129/108 85 L Intake and Output 02/25/21 02/25/21 02/25/21 06:59 14:59 22:59 Intake Total 417 Balance 417 Intake: Oral 417 Other: # Voids 3 # Bowel Movements 1 Weight 108.862 kg 108.862 kg GENERAL EXAM: Alert, pleasant 55-year-old gentleman, appears older than stated age, on 4 L nasal cannula, fairly comfortable in no apparent distress. HEAD: Normocephalic. EYES: Normal reaction of pupils, equal size. NOSE: Clear with pink turbinates. THROAT: No erythema or exudates. NECK: No masses, no JVD. CHEST: No chest wall deformity. LUNGS: Equal air entry with end expiratory wheeze, diminished CVS: S1 and S2 normal with no audible murmur, regular rhythm. ABDOMEN: No hepatosplenomegaly, normal bowel sounds, no guarding or rigidity. SPINE: No scoliosis or deformity SKIN: No rashes CENTRAL NERVOUS SYSTEM: No focal deficits, tone is normal in all 4 extremities. EXTREMITIES: There is 1-2+ peripheral edema. No clubbing, no cyanosis. Peripheral pulses are intact. Results - Laboratory Findings CBC and BMP: 02/25/21 12:51 02/25/21 12:51 PT/INR, D-dimer PT 27.2 sec (9.0-12.0) H 02/25/21 00:00 INR 2.8 (<1.2) H 02/25/21 00:00 D-Dimer <0.17 mg/L FEU (<0.60) 02/25/21 00:00 Abnormal lab findings: Abnormal Labs 02/25/21 02/25/21 02/25/21 00:00 00:00 00:00 MCHC 30.9 L Lymphocytes # 0.3 L PT 27.2 H INR 2.8 H APTT 34.5 H Sodium 122 L Potassium 5.2 H Chloride 86 L Carbon Dioxide BUN Glucose 328 H POC Glucose (mg/dL) Plasma Lactic Acid Tee Calcium 8.3 L Total Protein 5.8 L 02/25/21 02/25/21 02/25/21 00:00 05:18 12:36 MCHC Lymphocytes # PT INR APTT Sodium Potassium Chloride Carbon Dioxide BUN Glucose POC Glucose (mg/dL) 373 H Plasma Lactic Acid Tee 2.2 H* 2.6 H* Calcium Total Protein 02/25/21 02/25/21 12:51 12:51 MCHC 30.8 L Lymphocytes # 0.3 L PT INR APTT Sodium 125 L Potassium Chloride 86 L Carbon Dioxide 34 H BUN 21 H Glucose 328 H POC Glucose (mg/dL) Plasma Lactic Acid Tee Calcium Total Protein - Diagnostic Findings Chest x-ray: image reviewed Assessment and Plan Assessment: 1 Acute exacerbation of chronic obstructive lung disease. Maintained on Advair, Spiriva, Albuterol plus Duo nebs. Steroid dependent on prednisone 10mg daily and oxygen dependent. FEV1 40% of predicted. 2 Tobacco dependence syndrome. He is again educated regarding the importance of complete smoking cessation. States he is doing better and less than a pack a day now. 3 Acute exacerbation of suspected diastolic congestive heart failure with lower extremity edema and was without his Lasix and using his family members 4 Chronic atrial fibrillation. Anticoagulated with warfarin 5 Diabetes mellitus. Maintained on Lantus and metformin 6 Hyperlipidemia. Maintained on atorvastatin 7 Obesity. BMI 32.5 8 Hypertensive disorder. Maintained on lisinopril Plan: The patient was seen and evaluated by Dr. Bautista Chest x-ray and labs reviewed Echocardiogram pending Obtain a proBNP, pro-calcitonin Continue Symbicort, DuoNeb inhalations, prednisone Educated again regarding the importance of complete smoking cessation NicoDerm patch will be offered Titrate the FiO2 as tolerated We will continue to follow and make further recommendations based on his clinical status I, the cosigning physician, performed a history & physical examination of the patient. Lungs sounds with bilateral end expiratory wheeze, diminished Maintaining good O2 saturations in the 90s on 4 L/m per nasal cannula. I discussed the assessment and plan of care with my nurse practitioner, Venus Last. I attest to the above consultation as dictated by her. Time with Patient: Greater than 30
--- NOTE | 2021-02-25 16:02 | P.HPIM ---
History of Present Illness H&P Date: 02/25/21 This is a pleasant 55-year-old male who presents to the with a past medical history of COPD, oxygen dependent, diabetes mellitus type 2, with diabetic neuropathy and hyperglycemia diagnosed in 2011, hypertension, hyperlipidemia, sleep apnea wears a CPAP, diabetic neuropathy, atrial fibrillation, o steoarthritis. Patient states that over the last week or so he has had increasing shortness of breath at home which is present at rest. He states that he has a cough, nonproductive. He denies any fever or chills. In addition he states that over the last 3 days he has noticed his lower extremities have significant edema. Patient denies a history of congestive heart failure. Patient continues to smoke one pack of cigarettes per day, he denies any alcohol use or other illicit drug use. Patient is on Coumadin for his atrial fibrillation. INR today is 2.8. Chest x-ray revealed COPD with linear infiltrate and atelectasis in the lung base. Sodium level is 125, potassium 5.0, glucose 328, lactic acid is 2. 2 repeat 2.6, down to 0.9. Troponins are negative. We will consult pulmonary as patient follows with Venus Last NP the office. Patient will have an echocardiogram this admission as well to assess for any congestive heart failure, pulmonary hypertension. Patient was started on IV Lasix 40 mg every 12 in the . Patient does deny chest pain, chest pressure, palpitations. He is currently in A. fib. We will continue with oral steroids, IV Lasix, inhalers. Continue CPAP at night. Further recommendations are pending repeat lab work, echocardiogram. Vital signs are stable, patient is 96% on 4 L nasal cannula, afebrile 98.2, heart rate 63 sinus rhythm, 20s respiration, blood pressure 103/63. REVIEW OF SYSTEMS: CONSTITUTIONAL: No fever, no malaise, no fatigue. HEENT: No recent visual problems or hearing problems. Denied any sore throat. CARDIOVASCULAR: No chest pain, orthopnea, PND, no palpitations, no syncope. Reports increasing lower extremity edema PULMONARY: Reports dyspnea on exertion and at rest, reports cough, no hemoptysis. GASTROINTESTINAL: No diarrhea, no nausea, no vomiting, no abdominal pain. NEUROLOGICAL: No headaches, no weakness, no numbness. HEMATOLOGICAL: Denies any bleeding or petechiae. GENITOURINARY: Denies any burning micturition, frequency, or urgency. MUSCULOSKELETAL/RHEUMATOLOGICAL: Denies any joint pain, swelling, or any muscle pain. ENDOCRINE: Denies any polyuria or polydipsia. The rest of the 14-point review of systems is negative. PHYSICAL EXAMINATION: GENERAL: The patient is alert and oriented x3, not in any acute distress. Well developed, well nourished. HEENT: Pupils are round and equally reacting to light. EOMI. No scleral icterus. No conjunctival pallor. Normocephalic, atraumatic. No pharyngeal erythema. No thyromegaly. CARDIOVASCULAR: S1 and S2 present. Patient has any regular rate and rhythm, the re are no murmurs. PULMONARY: Lung silver are diminished, mild expiratory wheezing. There are no crackles. ABDOMEN: Soft, nontender, nondistended, normoactive bowel sounds. No palpable organomegaly. MUSCULOSKELETAL: No joint swelling or deformity. EXTREMITIES: No cyanosis, clubbing. There is 3+ lower extremity edema from the knee down. NEUROLOGICAL: Gross neurological examination did not reveal any focal deficits. SKIN: No rashes. Face has a reddish hue. Assessment and plan Assessment Acute on chronic COPD exacerbation, oxygen dependent 4L NC, maintaining saturations on 4 L nasal cannula. On oral steroids and inhalers Congestive heart failure likely diastolic, unsure whether acute or chronic, questionable component of pulmonary hypertension - echocardiogram is currently pending, patient is on IV Lasix 40 mg every 12. Hyponatremia, most likely hypervolemic continue IV Lasix 40 mg every 12 Respiratory alkalosis, continue on CPAP at bedtime, CO2 34 Diabetes mellitus type 2 with hyperglycemia, continue with medications Diabetic neuropathy, continue on Lyrica Lactic acidosis s/t hypoxic state, resolved Chronic atrial fibrillation patient is maintained on warfarin INR today 2.8 Hyperlipidemia Hypertension, continues on lisinopril Chronic nicotine dependence, education provided, nicotine patch ordered GI prophylaxis: Protonix DVT prophylaxis: Warfarin Patient will continue on all current medications, echocardiogram is currently pending. Monitor vital signs, continue his CPAP at night. Repeat labs in the morning. Pulmonary consultation. Past Medical History Past Medical History: Atrial Fibrillation, COPD, Diabetes Mellitus, Hyp erlipidemia, Hypertension, Sleep Apnea/CPAP/BIPAP Additional Past Medical History / Comment(s): neuropathy History of Any Multi-Drug Resistant Organisms: None Reported Past Surgical History: Orthopedic Surgery Additional Past Surgical History / Comment(s): Left shoulder, left hand 2 digits crushed/surg with pins placed. Past Anesthesia/Blood Transfusion Reactions: No Reported Reaction Additional Past Anesthesia/Blood Transfusion Reaction / Comment(s): Never received Smoking Status: Current every day smoker - Past Family History Mother Family Medical History: No Reported History Medications and Allergies Home Medications Medication Instructions Recorded Confirmed Type Fluticasone/Salmeterol [Advair 2 puff INHALATION RT-BID 03/16/15 02/25/21 History 250-50 Diskus] Omeprazole 20 mg PO DAILY 03/16/15 02/25/21 History metFORMIN HCL [Glucophage] 1,000 mg PO BID 03/16/15 02/25/21 History Atorvastatin [Lipitor] 80 mg PO HS 09/17/20 02/25/21 History Pregabalin 150 mg PO TID 09/17/20 02/25/21 History dilTIAZem HCL [dilTIAZem HCL 24Hr 240 mg PO DAILY 09/17/20 02/25/21 History ER (Xr)] Albuterol Sulfate [Proair Hfa] 2 puff INHALATION RT-Q6H PRN 10/24/20 02/25/21 History lisinopriL 40 mg PO DAILY 10/24/20 02/25/21 History Doxycycline Monohydrate 100 mg PO BID 02/25/21 02/25/21 History Furosemide [Lasix] 40 - 80 mg PO DAILY PRN 02/25/21 02/25/21 History Insulin Aspart [NovoLOG Flexpen] See Protocol SQ AC-TID 02/25/21 02/25/21 History Insulin Glargine,Hum.rec.anlog 28 unit SQ HS 02/25/21 02/25/21 History [Lantus Solostar Pen] Ipratropium-Albuterol Nebulize 3 ml INHALATION RT-QID 02/25/21 02/25/21 History [Duoneb 0.5 mg-3 mg/3 ml Soln] Tiotropium Otis [Spiriva] 1 cap INHALATION RT-DAILY 02/25/21 02/25/21 History Warfarin [Coumadin] 7.5 mg PO MOWEFR 02/25/21 02/25/21 History Warfarin [Coumadin] 10 mg PO SUTUTHSA 02/25/21 02/25/21 History predniSONE 10 mg PO DAILY 02/25/21 02/25/21 History Allergies Allergy/AdvReac Type Severity Reaction Status Date / Time No Known Allergies Allergy Verified 02/25/21 06:54 Physical Exam Vitals: Vital Signs Temp Pulse Pulse Resp BP BP Pulse Ox 02/25/21 11:27 72 02/25/21 11:15 72 02/25/21 07:15 98.2 F 80 16 137/99 95 02/25/21 07:03 84 16 02/25/21 07:00 98.1 F 52 L 21 155/81 95 02/25/21 00:30 62 137/99 95 02/25/21 00:20 74 137/99 02/25/21 00:10 61 137/99 94 L 02/25/21 00:00 63 129/108 96 02/24/21 23:22 93 L 02/24/21 23:20 22 02/24/21 23:08 98.2 F 60 22 129/108 85 L Intake and Output 02/24/21 02/25/21 02/25/21 22:59 06:59 14:59 Intake Total 180 Balance 180 Intake: Oral 180 Other: # Voids 1 Weight 108.862 kg 108.862 kg Results CBC & Chem 7: 02/25/21 12:51 02/25/21 12:51 Labs: Abnormal Lab Results - Last 24 Hours (Table) 02/25/21 02/25/21 02/25/21 Range/Units 00:00 00:00 00:00 MCHC 30.9 L (31.0-37.0) g/dL Lymphocytes # 0.3 L (1.0-4.8) k/uL PT 27.2 H (9.0-12.0) sec INR 2.8 H (<1.2) APTT 34.5 H (22.0-30.0) sec Sodium 122 L (137-145) mmol/L Potassium 5.2 H (3.5-5.1) mmol/L Chloride 86 L (98-107) mmol/L Glucose 328 H (74-99) mg/dL Plasma Lactic Acid Tee (0.7-2.0) mmol/L Calcium 8.3 L (8.4-10.2) mg/dL Total Protein 5.8 L (6.3-8.2) g/dL 02/25/21 02/25/21 Range/Units 00:00 05:18 MCHC (31.0-37.0) g/dL Lymphocytes # (1.0-4.8) k/uL PT (9.0-12.0) sec INR (<1.2) APTT (22.0-30.0) sec Sodium (137-145) mmol/L Potassium (3.5-5.1) mmol/L Chloride (98-107) mmol/L Glucose (74-99) mg/dL Plasma Lactic Acid Tee 2.2 H* 2.6 H* (0.7-2.0) mmol/L Calcium (8.4-10.2) mg/dL Total Protein (6.3-8.2) g/dL Thrombosis Risk Factor Assmnt - Choose All That Apply Any of the Below Risk Factors Present?: Yes Each Factor Represents 1 point: Abnormal pulmonary function (COPD), Age 41-60 years, Obesity (BMI >25) Other Risk Factors: No Other congenital or acquired thrombophilia - If yes, enter type in comment: No Thrombosis Risk Factor Assessment Total Risk Factor Score: 3 Thrombosis Risk Factor Assessment Level: Moderate Risk
[2021-02-25] MEDS: NICOTINE 14MG/24HR PATCH TRANSDERM SCH (16:29)
[2021-02-25 17:17] LABS: Glucose,Whole Blood 382 mg/dL (75-99)
[2021-02-25] MEDS ORDERED: WARFARIN 7.5 MG TAB PO SCH (18:00)
--- NOTE | 2021-02-25 18:36 | ECHOF ---
Referral Reason: MEASUREMENTS -------- HEIGHT: 182.9 cm WEIGHT: 108.9 kg BP: RVIDd: 5.4 cm (< 3.3) IVSd: 1.5 cm (0.6 - 1.1) LVIDd: 4.4 cm (3.9 - 5.3) LVPWd: 1.5 cm (0.6 - 1.1) IVSs: 2.0 cm LVIDs: 3.2 cm LVPWs: 1.6 cm LAESV Index (A-L): 43.68 ml/m Ao Diam: 4.0 cm (2.0 - 3.7) AV Cusp: 2.2 cm (1.5 - 2.6) MV EXCURSION: 32.766 mm (> 18.000) MV EF SLOPE: 199 mm/s (70 - 150) EPSS: 0.5 cm MV E Suhail: 1.36 m/s MV DecT: 130 ms MV A Suhail: 1.22 m/s MV E/A Ratio: 1.11 RAP: 5.00 mmHg RVSP: 46.79 mmHg FINDINGS -------- Probable atrial flutter This was a technically difficult study with suboptimal views. The left ventricular size is normal. There is moderate concentric left ventricular hypertrophy. O verall left ventricular systolic function is low-normal with, an EF between 50 - 55 %. The right ventricle is severely enlarged. LA is severely dilated >40 ml/m2 The right atrium is moderately enlarged. Interatrial and interventricular septum intact. The aortic valve was not well visualized. There is no evidence of aortic regurgitation. There is no evidence of aortic stenosis. The mitral valve is normal. Mild mitral regurgitation is present. Uxry-[id number] tricuspid regurgitation present. There is mild to moderate pulmonary hypertension. The right ventricular systolic pressure, as measured by Doppler, is 46.79mmHg. The pulmonic valve was not well visualized. There is no pulmonic regurgitation present. The aortic root is mildy dilated. IVC Not well visulized. There is no pericardial effusion. CONCLUSIONS -------- 1. This was a technically difficult study with suboptimal views. 2. There is moderate concentric left ventricular hypertrophy. 3. Overall left ventricular systolic function is low-normal with, an EF between 50 - 55 %. 4. The right ventricle is severely enlarged. 5. LA is severely dilated >40 ml/m2 6. The right atrium is moderately enlarged. 7. Mild mitral regurgitation is present. 8. Etex-yj-[id number] tricuspid regurgitation present. 9. There is mild to moderate pulmonary hypertension. 10. The aortic root is mildy dilated. [employer]: Zeenat Jean RDCS
[2021-02-25 20:23] LABS: Glucose,Whole Blood 295 mg/dL (75-99)
[2021-02-25] MEDS: ATORVASTATIN 80 MG TAB PO SCH (20:43)
[2021-02-25] MEDS ORDERED: INSULIN DETEMIR (LEVEMIR) 100 UNIT/ML SYR SQ SCH (21:00)
[2021-02-26 07:43] LABS: Glucose,Whole Blood 315 mg/dL (75-99)
[2021-02-26 07:45] LABS: INR 1.8 (<1.2); Prothrombin Time 17.8 sec (9.0-12.0)
[2021-02-26] MEDS: SYMBICORT 80-4.5 MCG INHALER INHALATION SCH (07:58)
[2021-02-26] MEDS: IPRATROPIUM-ALBUTEROL 3 ML NEB INHALATION SCH ×4 (07:58→19:55)
[2021-02-26] MEDS: INSULIN ASPART (NovoLOG) 100 UNIT/ML VIAL SQ SCH ×5 (08:06→21:28)
[2021-02-26] MEDS: PREGABALIN 75 MG CAP PO SCH ×3 (08:07→21:30)
[2021-02-26] MEDS: DILTIAZEM CD 240 MG CAP.ER.24H PO SCH (08:07)
[2021-02-26] MEDS: FUROSEMIDE 10 MG/ML 4 ML VIAL IV SCH ×2 (08:07→21:28)
[2021-02-26] MEDS: predniSONE 20 MG TAB PO SCH (08:07)
[2021-02-26] MEDS: NICOTINE 14MG/24HR PATCH TRANSDERM SCH (08:07)
[2021-02-26] MEDS: lisinopriL 20 MG TAB PO SCH (08:08)
[2021-02-26] MEDS: PANTOPRAZOLE 40 MG TABLET PO SCH (08:08)
[2021-02-26 09:29] LABS: Basophils # (A) 0.01 X 10*3/uL (0.00-0.10); Basophils % (A) 0.1 %; Eosinophils # (A) 0 X 10*3/uL (0.04-0.35); Eosinophils % (A) 0 %; HCT 45.5 % (39.6-50.0); HGB 13.9 g/dL (13.0-17.0); Lymphocytes # (A) 0.35 X 10*3/uL (0.90-5.00); MCH 28.5 pg (27.0-32.0); MCHC 30.5 g/dL (32.0-37.0); MCV 93.4 fL (80.0-97.0); Mean Platelet Volume 9.2 fL (9.5-12.2); Monocytes # (A) 0.57 X 10*3/uL (0.20-1.00); Monocytes % (A) 4.8 %; Neutrophils # (A) 10.85 X 10*3/uL (1.80-7.70); Neutrophils % (A) 91.5 %; Platelet Count 245 X 10*3/uL (140-440); RBC 4.87 X 10*6/uL (4.40-5.60); RDW 14.7 % (11.5-14.5); WBC 11.85 X 10*3/uL (4.50-10.00)
[2021-02-26 12:21] LABS: Glucose,Whole Blood 498 mg/dL (75-99)
[2021-02-26] MEDS ORDERED: INSULIN REGULAR 100 UNIT/ML VIAL (IV) IV ONE (12:58)
--- NOTE | 2021-02-26 13:45 | P.PN ---
Subjective Progress Note Date: 02/26/21 Principal diagnosis: COPD exacerbation. This is a pleasant 55-year-old male patient who follows with Dr. Gilman as his primary care provider. He has a history of chronic obstructive pulmonary disease, chronic hypercapnic respiratory failure, chronic hypoxemic respiratory failure on oxygen in the outpatient setting, FEV1 value of 40% of predicted, obstructive sleep apnea maintained on CPAP. He is on Advair, Spiriva, albuterol. He is also prednisone dependent at 10 mg daily. He follows in our office for the same. He also has a history of chronic atrial fibrillation anticoagulated with Eliquis, hypertension, hyperlipidemia, diabetes mellitus, chronic and ongoing tobacco dependence. He presented to the emergency room last evening with complaints of increasing shortness of breath, cough and congestion. He is also having increased swelling in his lower extremities. He had been out of his Lasix for some time and was using a family members. His x-ray does reveal atelectasis of the lung bases. Evidence of COPD. No acute heart failure noted. White count 7.2. Hemoglobin 14.0. Sodium 125. Potassium 5.0. Creatinine 0.71. Bicarb 34. He's been initiated on DuoNeb inhalations, Symbicort, prednisone. He is seen today in consultation on the regular medical floor. He is currently sitting up in a chair at the bedside. Awake and alert in no acute distress. Maintaining O2 saturations in the 90s on 4 L/m per nasal cannula. He is dyspneic with exertion. Loose nonproductive cough. Fine end expiratory wheezes. Diminished. Afebrile. Hemodynamically stable. Progress note dated 02/26/2021. 55-year-old male who presents to the hospital with a COPD exacerbation. The patient has an FEV1 that is 40% of predicted, and also suffers from sleep apnea syndrome. Unfortunately, this patient continues to smoke. The patient is feeling a bit better today but complaining of cough and phlegm production. He states it is very difficult for him to cough up any phlegm. It seemed to get stuck in his throat. No fever or chills. No chest pain or chest discomfort. White count 11.85, hemoglobin 13.9, hematocrit 45.5, and platelet count of 245,000. PT 17.8 with an INR 1.8. Objective - Vital Signs Vital signs: Vital Signs Temp 97.8 F 02/26/21 07:59 Pulse 68 02/26/21 12:28 Resp 16 02/26/21 07:59 BP 110/66 02/26/21 07:59 Pulse Ox 95 02/26/21 07:59 Intake & Output 02/25/21 02/26/21 02/26/21 18:59 06:59 18:59 Intake Total 654 1000 Balance 654 1000 Weight 108.862 kg Intake: Oral 654 1000 Other: Voiding Method Toilet # Voids 3 1 # Bowel Movements 1 - Exam No acute distress, oriented 3. No evidence of respiratory distress, use of accessory muscles, or conversational dyspnea. The patient's currently on 4 L nasal cannula with a saturation of 95%. HEENT examination is grossly unremarkable. Neck supple. Full range of motion. No adenopathy thyromegaly or neck vein distention. Cardiovascular examination reveals regular rhythm rate. S1-S2 normal. No S3 or S4. No discernible murmur noted. Heart rate is 68 bpm. Lungs reveal coarse bilateral inspiratory and expiratory rhonchi and expiratory wheezes. No crackles. Breath sounds equal bilaterally. There is prolongation on forced maneuver. Adventitious lung sounds are more prominent on forced man euver. Abdomen soft bowel sounds are heard. No masses or tenderness. Extremities are intact. No cyanosis clubbing or edema. Skin is without rash or lesion. Neurologic examination is brief but nonfocal. - Labs CBC & Chem 7: 02/26/21 06:26 02/25/21 12:51 Labs: Abnormal Lab Results - Last 24 Hours (Table) 02/25/21 02/25/21 02/26/21 Range/Units 17:15 20:20 06:26 WBC (4.50-10.00) X 10*3/uL MCHC (32.0-37.0) g/dL RDW (11.5-14.5) % MPV (9.5-12.2) fL Immature Gran # (0.00-0.04) X 10*3/uL Neutrophils # (1.80-7.70) X 10*3/uL Lymphocytes # (0.90-5.00) X 10*3/uL Eosinophils # (0.04-0.35) X 10*3/uL PT 17.8 H (9.0-12.0) sec INR 1.8 H (<1.2) POC Glucose (mg/dL) 382 H 295 H (75-99) mg/dL 02/26/21 02/26/21 02/26/21 Range/Units 06:26 07:12 12:19 WBC 11.85 H (4.50-10.00) X 10*3/uL MCHC 30.5 L (32.0-37.0) g/dL RDW 14.7 H (11.5-14.5) % MPV 9.2 L (9.5-12.2) fL Immature Gran # 0.07 H (0.00-0.04) X 10*3/uL Neutrophils # 10.85 H (1.80-7.70) X 10*3/uL Lymphocytes # 0.35 L (0.90-5.00) X 10*3/uL Eosinophils # 0 L (0.04-0.35) X 10*3/uL PT (9.0-12.0) sec INR (<1.2) POC Glucose (mg/dL) 315 H 498 H (75-99) mg/dL Assessment and Plan Assessment: 1 Acute exacerbation of chronic obstructive lung disease. Maintained on Advair, Spiriva, Albuterol plus Duo nebs. Steroid dependent on prednisone 10mg daily and oxygen dependent. FEV1 40% of predicted. 2 Tobacco dependence syndrome. He is again educated regarding the importance of complete smoking cessation. States he is doing better and less than a pack a day now. 3 Acute exacerbation of suspected diastolic congestive heart failure with lower extremity edema and was without his Lasix and using his family members. 4 Chronic atrial fibrillation. Anticoagulated with warfarin. 5 Diabetes mellitus. Maintained on Lantus and metformin. 6 Hyperlipidemia. Maintained on atorvastatin. 7 Obesity. BMI 32.5. 8 Hypertensive disorder. Maintained on lisinopril. Plan: Plan dated 02/26/2021. The patient has quite severe COPD. He's probably a bit better today than he was yesterday. Probably not quite ready for discharge. The patient complains of significant cough and phlegm which seemed to get stuck in his throat. The patient is advised about the importance of smoking cessation once and for all. His coming. Prognosis is very guarded because the patient does continue to smoke. We will continue to follow and make recommendations where appropriate. Time with Patient: Less than 30
[2021-02-26] MEDS ORDERED: IPRATROPIUM-ALBUTEROL 3 ML NEB INHALATION PRN (13:46)
[2021-02-26 14:01] LABS: Glucose,Whole Blood 438 mg/dL (75-99)
[2021-02-26] MEDS: INSULIN DETEMIR (LEVEMIR) 100 UNIT/ML SYR SQ SCH ×2 (14:38→21:30)
[2021-02-26] MEDS: guaiFENesin 600 MG TABLET.ER PO SCH ×2 (14:38→21:28)
[2021-02-26 15:57] LABS: African American GFR (CKD) 97.8 (60.0-200.0); Anion Gap 8.9 mmol/L (4.00-12.00); Calcium 8.9 mg/dL (8.7-10.3); Carbon Dioxide 30.1 mmol/L (21.6-31.8); Non-African American GFR(CKD) 84.4 (60.0-200.0); Potassium 5.6 mmol/L (3.5-5.5)
[2021-02-26 16:30] LABS: Glucose,Whole Blood 131 mg/dL (75-99)
[2021-02-26] MEDS: methylPREDNISolone SOD SUCCI 125 MG/2 ML VIAL IV SCH (16:34)
[2021-02-26 17:34] LABS: Glucose,Whole Blood 90 mg/dL (75-99)
[2021-02-26] MEDS ORDERED: WARFARIN 10 MG TAB PO ONE (18:00)
[2021-02-26] MEDS ORDERED: WARFARIN 10 MG TAB PO SCH (18:00)
--- NOTE | 2021-02-26 18:31 | PN ---
PROGRESS NOTE DATE OF SERVICE: 02/26/2021 This 55-year-old gentleman who was admitted with COPD acute exacerbation is being closely monitored. The patient also had apparently had some CHF also. The 2D echo showed normal ejection fraction. No fever, no cough. The blood sugars are significantly elevated. PHYSICAL EXAMINATION: Alert and oriented x3. Pulse is 57, blood pressure 157/83, respirations 16, temperature 97.6, pulse ox 94% on room air. HEENT: Conjunctivae normal. Oral mucosa moist. NECK: No jugular venous distention. No lymph node enlargement. CARDIOVASCULAR: S1, S2, muffled. No S3, no S4, RESPIRATORY: Diminished breath sounds at the bases. A few scattered rhonchi. ABDOMEN: Soft, nontender. NERVOUS SYSTEM: No focal deficits. LAB STUDIES: WBC 11.5, sodium 127, potassium 5.6, glucose is 408 and 438. PAST MEDICAL HISTORY: Reviewed. REVIEW OF SYSTEMS: CARDIOVASCULAR As mentioned earlier. RESPIRATORY As mentioned earlier. GI No nausea, vomiting, or diarrhea. No dysuria or hematuria. NERVOUS No numbness or weakness. MEDICATIONS: Reviewed include DuoNeb, Lipitor, Pulmicort, Cardizem CD, Perforomist, Lasix. Doses reviewed. ASSESSMENT: 1. Chronic obstructive pulmonary disease acute exacerbation with acute hypoxic respiratory failure. 2. Congestive heart failure acute exacerbation with acute on chronic diastolic dysfunction. 3. Diabetes mellitus type 2 uncontrolled with hyperglycemia. 4. Hyponatremia. 5. Respiratory alkalosis. 6. Diabetic peripheral neuropathy. 7. History of lactic acidosis. 8. History of chronic atrial fibrillation. 9. Hyperlipidemia. 10.Hypertension. 11.History of nicotine dependence. RECOMMENDATIONS AND DISCUSSION: Continue current management, continue symptomatic treatment. Otherwise, at this time I would recommend IV insulin and control the blood sugars and to monitor closely. Otherwise, repeat labs in the morning. Continue steroids. Continue the bronchodilators. Continue the rest of medications. Prognosis guarded because of multiple complex medical. Further recommendations to follow. MMODL / IJN: [id number] /
[2021-02-26] MEDS: FORMOTEROL FUMARATE 20 MCG/2 ML NEBU INHALATION SCH (19:55)
[2021-02-26] MEDS: BUDESONIDE 1 MG/2 ML NEBU INHALATION SCH (19:55)
[2021-02-26 20:16] LABS: Glucose,Whole Blood 145 mg/dL (75-99)
[2021-02-26] MEDS: ATORVASTATIN 80 MG TAB PO SCH (21:28)
[2021-02-27] MEDS: methylPREDNISolone SOD SUCCI 125 MG/2 ML VIAL IV SCH ×4 (00:31→23:01)
[2021-02-27 01:43] LABS: Glucose,Whole Blood 392 mg/dL (75-99)
[2021-02-27] MEDS: PANTOPRAZOLE 40 MG TABLET PO SCH (06:05)
[2021-02-27] MEDS: IPRATROPIUM-ALBUTEROL 3 ML NEB INHALATION SCH ×4 (06:13→20:23)
[2021-02-27 06:45] LABS: INR 1.4 (<1.2); Prothrombin Time 13.8 sec (9.0-12.0)
[2021-02-27 07:20] LABS: Glucose,Whole Blood 328 mg/dL (75-99)
[2021-02-27] MEDS ORDERED: CALCIUM CARBONATE 500 MG CHEWABLE PO PRN (07:32)
[2021-02-27] MEDS: INSULIN ASPART (NovoLOG) 100 UNIT/ML VIAL SQ SCH ×7 (07:54→23:00)
[2021-02-27] MEDS: INSULIN DETEMIR (LEVEMIR) 100 UNIT/ML SYR SQ SCH ×2 (07:55→21:05)
[2021-02-27] MEDS: NICOTINE 14MG/24HR PATCH TRANSDERM SCH (07:55)
[2021-02-27] MEDS: guaiFENesin 600 MG TABLET.ER PO SCH ×2 (07:56→21:05)
[2021-02-27] MEDS: lisinopriL 20 MG TAB PO SCH (07:56)
[2021-02-27] MEDS: DILTIAZEM CD 240 MG CAP.ER.24H PO SCH (07:56)
[2021-02-27] MEDS: FUROSEMIDE 10 MG/ML 4 ML VIAL IV SCH ×2 (07:56→21:05)
[2021-02-27] MEDS: PREGABALIN 75 MG CAP PO SCH ×3 (07:56→21:05)
[2021-02-27] MEDS: FORMOTEROL FUMARATE 20 MCG/2 ML NEBU INHALATION SCH ×2 (08:30→20:22)
[2021-02-27] MEDS: BUDESONIDE 1 MG/2 ML NEBU INHALATION SCH ×2 (08:30→20:22)
[2021-02-27 09:02] LABS: Basophils # (A) 0.01 X 10*3/uL (0.00-0.10); Basophils % (A) 0.1 %; Eosinophils # (A) 0 X 10*3/uL (0.04-0.35); Eosinophils % (A) 0 %; HCT 47.9 % (39.6-50.0); HGB 14.5 g/dL (13.0-17.0); Lymphocytes # (A) 0.23 X 10*3/uL (0.90-5.00); Lymphocytes % (A) 1.9 %; MCH 28.5 pg (27.0-32.0); MCHC 30.3 g/dL (32.0-37.0); MCV 94.3 fL (80.0-97.0); Mean Platelet Volume 9.7 fL (9.5-12.2); Monocytes # (A) 0.26 X 10*3/uL (0.20-1.00); Monocytes % (A) 2.1 %; Neutrophils # (A) 11.78 X 10*3/uL (1.80-7.70); Neutrophils % (A) 95.3 %; Platelet Count 245 X 10*3/uL (140-440); RBC 5.08 X 10*6/uL (4.40-5.60); RDW 14.6 % (11.5-14.5); WBC 12.35 X 10*3/uL (4.50-10.00)
[2021-02-27 10:29] LABS: African American GFR (CKD) 97.8 (60.0-200.0); Calcium 9.8 mg/dL (8.7-10.3); Carbon Dioxide >40.0 mmol/L (21.6-31.8); Chloride 90 mmol/L (96-109); Glucose 331 mg/dL (70-110); Non-African American GFR(CKD) 84.4 (60.0-200.0); Potassium 5.7 mmol/L (3.5-5.5); Sodium 132 mmol/L (135-145)
[2021-02-27 12:05] LABS: Glucose,Whole Blood 256 mg/dL (75-99)
--- NOTE | 2021-02-27 12:56 | P.PN ---
Subjective Progress Note Date: 02/27/21 Principal diagnosis: COPD exacerbation. This is a pleasant 55-year-old male patient who follows with Dr. Gilman as his primary care provider. He has a history of chronic obstructive pulmonary disease, chronic hypercapnic respiratory failure, chronic hypoxemic respiratory failure on oxygen in the outpatient setting, FEV1 value of 40% of predicted, obstructive sleep apnea maintained on CPAP. He is on Advair, Spiriva, albuterol. He is also prednisone dependent at 10 mg daily. He follows in our office for the same. He also has a history of chronic atrial fibrillation anticoagulated with Eliquis, hypertension, hyperlipidemia, diabetes mellitus, chronic and ongoing tobacco dependence. He presented to the emergency room last evening with complaints of increasing shortness of breath, cough and congestion. He is also having increased swelling in his lower extremities. He had been out of his Lasix for some time and was using a family members. His x-ray does reveal atelectasis of the lung bases. Evidence of COPD. No acute heart failure noted. White count 7.2. Hemoglobin 14.0. Sodium 125. Potassium 5.0. Creatinine 0.71. Bicarb 34. He's been initiated on DuoNeb inhalations, Symbicort, prednisone. He is seen today in consultation on the regular medical floor. He is currently sitting up in a chair at the bedside. Awake and alert in no acute distress. Maintaining O2 saturations in the 90s on 4 L/m per nasal cannula. He is dyspneic with exertion. Loose nonproductive cough. Fine end expiratory wheezes. Diminished. Afebrile. Hemodynamically stable. Progress note dated 02/26/2021. 55-year-old male who presents to the hospital with a COPD exacerbation. The patient has an FEV1 that is 40% of predicted, and also suffers from sleep apnea syndrome. Unfortunately, this patient continues to smoke. The patient is feeling a bit better today but complaining of cough and phlegm production. He states it is very difficult for him to cough up any phlegm. It seemed to get stuck in his throat. No fever or chills. No chest pain or chest discomfort. White count 11.85, hemoglobin 13.9, hematocrit 45.5, and platelet count of 245,000. PT 17.8 with an INR 1.8. Progress note dated 02/27/2021. 55-year-old male, who presents to the hospital with a COPD exacerbation, and ongoing tobacco use with nicotine addiction. His FEV1 percent is 40. In addition, he has a history of sleep apnea syndrome. Today he tells me that he had some difficulty with his acid reflux disease, and he still coughing with chest congestion. He states he's having a difficult time coughing up phlegm. Clinically he looks okay. He could probably be discharged in the next 24-48 hours. The patient remains on 3 L nasal cannula. White count 12.35, hemoglobin 14.5, hematocrit 47.9, and platelet count 245,000. PT is 13.8 with an INR 1.4. Sodium 132, potassium 5.7, chlorides 90, CO2 greater than 40, BUN 27, creatinine 1. Glucose is 331. Objective - Vital Signs Vital signs: Vital Signs Temp 98.2 F 02/27/21 08:00 Pulse 68 02/27/21 11:42 Resp 16 02/27/21 08:00 BP 150/50 02/27/21 08:00 Pulse Ox 89 L 02/27/21 08:00 Intake & Output 02/26/21 02/27/21 02/27/21 18:59 06:59 18:59 Other: Voiding Method Toilet - Exam No acute distress, oriented 3. No evidence of respiratory distress, use of accessory muscles, or conversational dyspnea. The patient's currently on 3 L nasal cannula with a saturation of 95%. HEENT examination is grossly unremarkable. Neck supple. Full range of motion. No adenopathy thyromegaly or neck vein distention. Cardiovascular examination reveals regular rhythm rate. S1-S2 normal. No S3 or S4. No discernible murmur noted. Heart rate is 64 bpm. heart sounds are being obscured by adventitious lung sounds. Lungs reveal coarse bilateral inspiratory and expiratory rhonchi and expiratory wheezes. No crackles. Breath sounds equal bilaterally. There is prolongation on forced maneuver. Adventitious lung sounds are more prominent on forced maneuver. Abdomen soft bowel sounds are heard. No masses or tenderness. Extremities are intact. No cyanosis or clubbing. There is evidence of 1-2+ pitting edema. Skin reveals some chronic venous stasis changes to the lower extremities. Neurologic examination is brief but nonfocal. - Labs CBC & Chem 7: 02/27/21 06:02 02/27/21 06:02 Labs: Abnormal Lab Results - Last 24 Hours (Table) 02/26/21 02/26/21 02/26/21 Range/Units 06:26 13:49 16:28 WBC (4.50-10.00) X 10*3/uL MCHC (32.0-37.0) g/dL RDW (11.5-14.5) % Immature Gran # (0.00-0.04) X 10*3/uL Neutrophils # (1.80-7.70) X 10*3/uL Lymphocytes # (0.90-5.00) X 10*3/uL Eosinophils # (0.04-0.35) X 10*3/uL PT (9.0-12.0) sec INR (<1.2) Sodium 127 L (135-145) mmol/L Potassium 5.6 H (3.5-5.5) mmol/L Chloride 88 L (96-109) mmol/L Carbon Dioxide (21.6-31.8) mmol/L BUN 30.0 H (9.0-27.0) mg/dL BUN/Creatinine Ratio 30.00 H (12.00-20.00) Ratio Glucose 298 H (70-110) mg/dL POC Glucose (mg/dL) 438 H 131 H (75-99) mg/dL 02/26/21 02/27/21 02/27/21 Range/Units 20:14 01:42 06:02 WBC (4.50-10.00) X 10*3/uL MCHC (32.0-37.0) g/dL RDW (11.5-14.5) % Immature Gran # (0.00-0.04) X 10*3/uL Neutrophils # (1.80-7.70) X 10*3/uL Lymphocytes # (0.90-5.00) X 10*3/uL Eosinophils # (0.04-0.35) X 10*3/uL PT 13.8 H (9.0-12.0) sec INR 1.4 H (<1.2) Sodium (135-145) mmol/L Potassium (3.5-5.5) mmol/L Chloride (96-109) mmol/L Carbon Dioxide (21.6-31.8) mmol/L BUN (9.0-27.0) mg/dL BUN/Creatinine Ratio (12.00-20.00) Ratio Glucose (70-110) mg/dL POC Glucose (mg/dL) 145 H 392 H (75-99) mg/dL 02/27/21 02/27/21 02/27/21 Range/Units 06:02 06:02 07:17 WBC 12.35 H (4.50-10.00) X 10*3/uL MCHC 30.3 L (32.0-37.0) g/dL RDW 14.6 H (11.5-14.5) % Immature Gran # 0.07 H (0.00-0.04) X 10*3/uL Neutrophils # 11.78 H (1.80-7.70) X 10*3/uL Lymphocytes # 0.23 L (0.90-5.00) X 10*3/uL Eosinophils # 0 L (0.04-0.35) X 10*3/uL PT (9.0-12.0) sec INR (<1.2) Sodium 132 L (135-145) mmol/L Potassium 5.7 H (3.5-5.5) mmol/L Chloride 90 L (96-109) mmol/L Carbon Dioxide >40.0 H* (21.6-31.8) mmol/L BUN (9.0-27.0) mg/dL BUN/Creatinine Ratio 27.00 H (12.00-20.00) Ratio Glucose 331 H (70-110) mg/dL POC Glucose (mg/dL) 328 H (75-99) mg/dL 02/27/21 Range/Units 12:04 WBC (4.50-10.00) X 10*3/uL MCHC (32.0-37.0) g/dL RDW (11.5-14.5) % Immature Gran # (0.00-0.04) X 10*3/uL Neutrophils # (1.80-7.70) X 10*3/uL Lymphocytes # (0.90-5.00) X 10*3/uL Eosinophils # (0.04-0.35) X 10*3/uL PT (9.0-12.0) sec INR (<1.2) Sodium (135-145) mmol/L Potassium (3.5-5.5) mmol/L Chloride (96-109) mmol/L Carbon Dioxide (21.6-31.8) mmol/L BUN (9.0-27.0) mg/dL BUN/Creatinine Ratio (12.00-20.00) Ratio Glucose (70-110) mg/dL POC Glucose (mg/dL) 256 H (75-99) mg/dL Assessment and Plan Assessment: 1 Acute exacerbation of chronic obstructive lung disease. Maintained on Advair, Spiriva, Albuterol plus Duo nebs. Steroid dependent on prednisone 10mg daily and oxygen dependent. FEV1 40% of predicted. 2 Tobacco dependence syndrome. He is again educated regarding the importance of complete smoking cessation. States he is doing better and less than a pack a day now. 3 Acute exacerbation of suspected diastolic congestive heart failure with lower extremity edema and was without his Lasix and using his family members. 4 Chronic atrial fibrillation. 5 Diabetes mellitus. 6 Hyperlipidemia. 7 Obesity. BMI 32.5. 8 Hypertensive disorder. Plan: Plan dated 02/26/2021. The patient has quite severe COPD. He's probably a bit better today than he was yesterday. Probably not quite ready for discharge. The patient complains of significant cough and phlegm which seemed to get stuck in his throat. The patient is advised about the importance of smoking cessation once and for all. His coming. Prognosis is very guarded because the patient does continue to smoke. We will continue to follow and make recommendations where appropriate. Plan dated 02/27/2021. The patient is seemingly doing a bit better today than yesterday. This morning he was complaining of his acid reflux acting up, and in addition, he was having issues with cough and chest congestion, and inability to expectorate sputum. The patient could likely be discharged in the next 24-48 hours. He is counseled about the importance of smoking cessation. He understands that if he continues to smoke, he'll continue to be admitted to the hospital with COPD exacerbations. Current medications are appropriate. We will continue to follow and make recommendations along the way, where appropriate. Time with Patient: Less than 30
[2021-02-27 17:51] LABS: Glucose,Whole Blood 271 mg/dL (75-99)
[2021-02-27] MEDS ORDERED: WARFARIN 10 MG TAB PO ONE (18:00)
--- NOTE | 2021-02-27 19:34 | PN ---
PROGRESS NOTE DATE OF SERVICE: 02/27/2021 This 55-year-old gentleman, admitted with COPD acute exacerbation is being closely monitored at this time. The patient also had possible CHF. No chest pain. No palpitations. No fever. PHYSICAL EXAMINATION: Alert and oriented x3. Pulse is 66, blood pressure 105/66, respiration 17, temperature 98.4, pulse ox 94% on 4 L. HEENT: Conjunctivae normal. Oral mucosa moist. NECK: No jugular venous distention. No lymph node enlargement. CARDIOVASCULAR: S1, S2, muffled. No S3, no S4, RESPIRATORY: Diminished breath sounds at the bases. Bilateral scattered rhonchi. ABDOMEN: Soft, nontender. LEGS: No edema, no swelling. NERVOUS SYSTEM: No focal deficits. LAB STUDIES: WBC 12.3, hemoglobin 14.5, INR 1.4, sodium 130, potassium 5.7, CO2 is more than 40. ASSESSMENT: 1. Chronic obstructive pulmonary disease acute exacerbation with acute hypoxic hypercarbic respiratory failure. 2. Congestive heart failure acute exacerbation, acute on chronic diastolic dysfunction. 3. Diabetes mellitus type 2, uncontrolled with hyperglycemia. 4. Hyponatremia. 5. Acute respiratory alkalosis. 6. Diabetic peripheral neuropathy. 7. History of lactic acidosis. 8. History of chronic atrial ablation. 9. Hyperlipidemia. 10.Hypertension. 11.History of nicotine dependence. RECOMMENDATIONS AND DISCUSSION: Continue current management and symptomatic treatment. Monitor sugars. Continue the bronchodilators. Closely follow with Pulmonary. Guarded prognosis because of multiple complex medical issues. Further recommendations to follow. MMODL / IJN: [id number] /
[2021-02-27] MEDS: ATORVASTATIN 80 MG TAB PO SCH (21:05)
[2021-02-27 21:23] LABS: Glucose,Whole Blood 294 mg/dL (75-99)
[2021-02-28 05:59] LABS: INR 1.4 (<1.2); Prothrombin Time 13.8 sec (9.0-12.0)
[2021-02-28 07:15] LABS: Glucose,Whole Blood 241 mg/dL (75-99)
[2021-02-28] MEDS: guaiFENesin 600 MG TABLET.ER PO SCH (07:15)
[2021-02-28] MEDS: FUROSEMIDE 10 MG/ML 4 ML VIAL IV SCH (07:15)
[2021-02-28] MEDS: lisinopriL 20 MG TAB PO SCH (07:15)
[2021-02-28] MEDS: PANTOPRAZOLE 40 MG TABLET PO SCH (07:15)
[2021-02-28] MEDS: PREGABALIN 75 MG CAP PO SCH (07:15)
[2021-02-28] MEDS: DILTIAZEM CD 240 MG CAP.ER.24H PO SCH (07:15)
[2021-02-28] MEDS: NICOTINE 14MG/24HR PATCH TRANSDERM SCH (07:16)
[2021-02-28] MEDS: methylPREDNISolone SOD SUCCI 125 MG/2 ML VIAL IV SCH (07:16)
[2021-02-28] MEDS: INSULIN DETEMIR (LEVEMIR) 100 UNIT/ML SYR SQ SCH (07:16)
[2021-02-28] MEDS: INSULIN ASPART (NovoLOG) 100 UNIT/ML VIAL SQ SCH ×4 (07:21→12:24)
--- NOTE | 2021-02-28 07:28 | XR ---
EXAMINATION TYPE: XR chest 1V portable DATE OF EXAM: 02/28/2021 CLINICAL HISTORY: Difficulty breathing progress study. COPD. TECHNIQUE: Single AP portable upright view of the chest is obtained. COMPARISON: Chest x-ray from 3 days earlier and older studies. FINDINGS: Background chronic parenchymal changes including left greater than right bibasilar linear scarring and/or atelectasis without suspicious new focal airspace opacity or pneumothorax seen bilate rally. Persisting cardiomegaly. Osseous structures are intact. IMPRESSION: Chronic changes and cardiomegaly without new acute infiltrate. No significant change from most recent prior.
[2021-02-28] MEDS: IPRATROPIUM-ALBUTEROL 3 ML NEB INHALATION SCH ×2 (07:34→11:08)
[2021-02-28] MEDS: BUDESONIDE 1 MG/2 ML NEBU INHALATION SCH (07:34)
[2021-02-28] MEDS: FORMOTEROL FUMARATE 20 MCG/2 ML NEBU INHALATION SCH (07:34)
[2021-02-28 08:18] VITALS: BP 121/65; RESP 18; TEMP 98.2
[2021-02-28 10:00] LABS: Basophils % (A) 0 %; Eosinophils % (A) 0 %; HCT 46.7 % (39.0-53.0); HGB 14.2 gm/dL (13.0-17.5); Hypochromasia Moderate; Lymphocytes # (A) 0.2 k/uL (1.0-4.8); Lymphocytes % (A) 2 %; MCH 29.5 pg (25.0-35.0); MCHC 30.3 g/dL (31.0-37.0); MCV 97.4 fL (80.0-100.0); Mean Platelet Volume 7.7; Monocytes # (A) 0.4 k/uL (0-1.0); Monocytes % (A) 3 %; Neutrophils # (A) 11.4 k/uL (1.3-7.7); Neutrophils % (A) 95 %; Platelet Count 236 k/uL (150-450); RBC 4.79 m/uL (4.30-5.90); RDW 14.9 % (11.5-15.5); WBC 12.1 k/uL (3.8-10.6)
[2021-02-28 10:05] LABS: African American GFR (CKD) >90 (>60 ml/min/1.73 sqM); Anion Gap 2 mmol/L; Blood Urea Nitrogen 33 mg/dL (9-20); Calcium 9.7 mg/dL (8.4-10.2); Carbon Dioxide 38 mmol/L (22-30); Chloride 89 mmol/L (98-107); Glucose 206 mg/dL (74-99); Non-African American GFR(CKD) >90 (>60 ml/min/1.73 sqM); Potassium 5.5 mmol/L (3.5-5.1); Sodium 129 mmol/L (137-145)
[2021-02-28 11:20] VITALS: PULSE 71
[2021-02-28 12:11] LABS: Glucose,Whole Blood 330 mg/dL (75-99)
--- NOTE | 2021-02-28 14:16 | P.PN ---
Subjective Progress Note Date: 02/28/21 On today's evaluation 02/28/2021, the patient is feeling improved. He is not fully recovered yet his feeling better. He remains congested bronchospastic and wheezy. Chest x-ray showed hyperinflation. . No acute abnormalities could be appreciated. The patient is known to have advanced COPD and his been on long- term steroids at prednisone 10 mg by mouth daily. Progress cushingoid features. He also has on a combination of Advair and Spiriva and has a nebulizer for albuterol to use on as needed basis. He has chronic swelling in lower extremities and the patient is also on Lasix orally. No chest pain. No altered mentation. Appetite is decent. No nausea vomiting or diarrhea or abdominal cayetano n. No other significant events otherwise for now. He has been not vaccinated for COVID Objective - Vital Signs Vital signs: Vital Signs Temp 98.2 F 02/28/21 08:00 Pulse 71 02/28/21 11:20 Resp 18 02/28/21 08:00 BP 121/65 02/28/21 08:00 Pulse Ox 95 02/28/21 08:00 Intake & Output 02/27/21 02/28/21 02/28/21 18:59 06:59 18:59 Other: Voiding Method Toilet Toilet # Voids 4 2 # Bowel Movements 0 0 - Exam No acute distress, oriented 3. No evidence of respiratory distress, use of accessory muscles, or conversational dyspnea. The patient's currently on 3 L nasal cannula with a saturation of 95%. HEENT examination is grossly unremarkable. Neck supple. Full range of motion. No adenopathy thyromegaly or neck vein distention. Cardiovascular examination reveals regular rhythm rate. S1-S2 normal. No S3 or S4. No discernible murmur noted. Heart sounds are being obscured by adventitious lung sounds. Lungs reveal coarse bilateral inspiratory and expiratory rhonchi and expiratory wheezes. No crackles. Breath sounds equal bilaterally. There is prolongation on forced maneuver. Adventitious lung sounds are more prominent on forced maneuver. Abdomen soft bowel sounds are heard. No masses or tenderness. Extremities are intact. No cyanosis or clubbing. There is evidence of 1-2+ pitting edema. Skin reveals some chronic venous stasis changes to the lower extremities. Neurologic examination is brief but nonfocal. - Labs CBC & Chem 7: 02/28/21 05:09 02/28/21 05:09 Labs: Abnormal Lab Results - Last 24 Hours (Table) 02/27/21 02/27/21 02/28/21 Range/Units 17:31 21:22 05:09 WBC (3.8-10.6) k/uL MCHC (31.0-37.0) g/dL Neutrophils # (1.3-7.7) k/uL Lymphocytes # (1.0-4.8) k/uL PT 13.8 H (9.0-12.0) sec INR 1.4 H (<1.2) Sodium (137-145) mmol/L Potassium (3.5-5.1) mmol/L Chloride (98-107) mmol/L Carbon Dioxide (22-30) mmol/L BUN (9-20) mg/dL Glucose (74-99) mg/dL POC Glucose (mg/dL) 271 H 294 H (75-99) mg/dL 02/28/21 02/28/21 02/28/21 Range/Units 05:09 05:09 07:14 WBC 12.1 H (3.8-10.6) k/uL MCHC 30.3 L (31.0-37.0) g/dL Neutrophils # 11.4 H (1.3-7.7) k/uL Lymphocytes # 0.2 L (1.0-4.8) k/uL PT (9.0-12.0) sec INR (<1.2) Sodium 129 L (137-145) mmol/L Potassium 5.5 H (3.5-5.1) mmol/L Chloride 89 L (98-107) mmol/L Carbon Dioxide 38 H (22-30) mmol/L BUN 33 H (9-20) mg/dL Glucose 206 H (74-99) mg/dL POC Glucose (mg/dL) 241 H (75-99) mg/dL 02/28/21 Range/Units 12:10 WBC (3.8-10.6) k/uL MCHC (31.0-37.0) g/dL Neutrophils # (1.3-7.7) k/uL Lymphocytes # (1.0-4.8) k/uL PT (9.0-12.0) sec INR (<1.2) Sodium (137-145) mmol/L Potassium (3.5-5.1) mmol/L Chloride (98-107) mmol/L Carbon Dioxide (22-30) mmol/L BUN (9-20) mg/dL Glucose (74-99) mg/dL POC Glucose (mg/dL) 330 H (75-99) mg/dL Assessment and Plan Plan: 1 Acute exacerbation of chronic obstructive lung disease. Maintained on Advair, Spiriva, Albuterol plus Duo nebs. Steroid dependent on prednisone 10mg daily and oxygen dependent. FEV1 40% of predicted. 2 Tobacco dependence syndrome. He is again educated regarding the importance of complete smoking cessation. States he is doing better and less than a pack a day now. 3 Acute exacerbation of suspected diastolic congestive heart failure with lower extremity edema and was without his Lasix and using his family members. 4 Chronic atrial fibrillation. 5 Diabetes mellitus. 6 Hyperlipidemia. 7 Obesity. BMI 32.5. 8 Hypertensive disorde Plan Clinically improving. I think it's okay for this patient to go home as long as he does not smoke cigarettes. He'll be given a prednisone burst taper to go down to a maintenance of 10. He has a home nebulizer with DuoNeb neb last treatment [id number]. Continue Advair and Spiriva. I'll patient medication be ordered resume. Follow-up in our office. Continue diuretic specially the patient has obvious cushingoid features and fluid retention with some increased lower extremity edema. His blood work from today shows no significant abnormalities. Hemoglobin is at 14.2. No significant leukocytosis. He has home oxygen. Sodium level is also stable at 129. He has chronic hypercapnic resp failure with CO2 retention. PCO2 is a 38. FOR him to get discharged home to be followed up on outpatient basis.
[2021-02-28] MEDS ORDERED: FUROSEMIDE 40 MG TAB PO SCH (16:00)
[2021-02-28] MEDS ORDERED: WARFARIN 5 MG TAB PO ONE (18:00)
[2021-02-28] MEDS ORDERED: methylPREDNISolone SOD SUCCI 40 MG/ML 1 ML VIAL IV SCH (21:00)
[2021-03-01] MEDS ORDERED: predniSONE 20 MG TAB PO SCH (09:00)
--- NOTE | 2021-03-01 12:06 | P.DS ---
Providers Date of admission: 02/25/21 21:01 Attending physician: Gary Burkett Consults: 02/25/21 12:30 Consult Physician Routine Consulting Provider: Tomás Bautista Consult Reason/Comments: COPD exacerbation Do you want consulting provider notified?: Yes Primary care physician: Kimberlee Gilman MD Hospital Course: Final diagnoses Chronic obstructive pulmonary disease with acute exacerbation with acute hypoxic hypercarbic respiratory failure, oxygen dependent Congestive heart failure acute exacerbation acute on chronic diastolic dysfunction, EF 50-55% Mild to moderate pulmonary hypertension Diabetes mellitus type 2, uncontrolled with hyperglycemia Hyponatremia related to hypervolemia, component of chronic steroid use Acute respiratory alkalosis Diabetic peripheral neuropathy Hyperlipidemia Hypertension History of nicotine dependence Chronic atrophic fibrillation Obesity Discharge disposition Patient is discharged home on his home dose of 4 L nasal cannula. He will take 40 mg of prednisone for the next 5 days and then may resume milligram daily dosing. His Levemir was also increased to 35 units BID. I will repeat his BMP and CBC in 2 days. He will follow up with his PCP, pulmonary, cardiology. Hospital course This is a pleasant 55-year-old male who presents to the with a past medical history of COPD, oxygen dependent on 4 L nasal cannula, diabetes mellitus type 2, with diabetic neuropathy and hyperglycemia diagnosed in 2011, hypertension, hyperlipidemia, sleep apnea wears a CPAP, diabetic neuropathy, atrial fibrillation, osteoarthritis. Patient states that over the last week or so he has had increasing shortness of breath at home which is present at rest. He states that he has a cough, nonproductive. He denies any fever or chills. In addition he states that over the last 3 days he has noticed his lower extremities have significant edema. Patient denies a history of congestive heart failure. Patient continues to smoke one pack of cigarettes per day, he denies any alcohol use or other illicit drug use. Patient is on Coumadin for his atrial fibrillation. INR on admission is 2.8. Chest x-ray revealed COPD with linear infiltrate and atelectasis in the lung base. Sodium level is 125, potassium 5.0, glucose 328, lactic acid is 2. 2 repeat 2.6, down to 0.9. Troponins are negative. We will consult pulmonary as patient follows with [facility] the office. Patient will have an echocardiogram this admission as well to assess for any congestive heart failure, pulmonary hypertension. Patient was started on IV Lasix 40 mg every 12 in the EC. Patient does deny chest pain, chest pressure, palpitations. He is currently in A. fib. We will continue with oral steroids, IV Lasix, inhalers. Continue CPAP at night. Echocardiogram completed revealed an EF of 50-55% with moderate concentric left ventricular hypertrophy, probable atrial flutter, [id number] tricuspid regurgitation, mild mitral regurgitation, [id number] pulmonary hypertension. Patient was started on IV steroids, and a nicotine patch this admission. He will continue on Coumadin with daily PT/INR. Patient did develop some mild leukocytosis during this admission, white blood cell count 12.1, most likely reactive to IV steroid use. Patient's INR on discharge was 1.4, he will resume home dosing of Coumadin. Sodium level on discharge was 129, potassium 5.5, chloride 89, CO2 38. Patient is quite hyperglycemic, we will increase his Levemir on discharge. 03/01/2021 Patient is evaluated sitting up in the chair. He excessively desire to go home, he states that he is also due on the hospital and he would do better at home. Patient does refer liters nasal cannula, he continues to smoke. Patient's been counseled extensively on the risks of smoking while using oxygen. He is discharged on nicotine patches. Discussed lab work with patient, potassium 4.5, sodium 129. Patient excessively desire to be discharged we'll recheck his labs in 2 days. INR 1.4, repeat PT/INR tomorrow resume home dose of Coumadin. Patient was discharged home on Lasix. He'll follow-up with his PCP, pulmonary, cardiology. Vital signs are temp 98.2, heart rate 71, blood pressure 121/65, 95% on nasal cannula. Please see medication reconciliation for list of current medications. Thank you for allowing us to participate in the care of this patient. Patient Condition at Discharge: Fair Plan - Discharge Summary Discharge Rx Participant: No New Discharge Prescriptions: New predniSONE [Deltasone] 40 mg PO DAILY #5 tab Nicotine 14Mg/24Hr Patch [Habitrol] 1 patch TRANSDERM DAILY #7 patch Furosemide [Lasix] 40 mg PO BID@0900,1600 #60 tab guaiFENesin [Mucinex] 1,200 mg PO Q12HR tablet Calcium Carbonate [Tums] 1,000 mg PO QID PRN tab PRN Reason: Heartburn Continue metFORMIN HCL [Glucophage] 1,000 mg PO BID Omeprazole 20 mg PO DAILY Fluticasone/Salmeterol [Advair 250-50 Diskus] 2 puff INHALATION RT-BID Pregabalin 150 mg PO TID Albuterol Sulfate [Proair Hfa] 2 puff INHALATION RT-Q6H PRN PRN Reason: Shortness Of Breath Ipratropium-Albuterol Nebulize [Duoneb 0.5 mg-3 mg/3 ml Soln] 3 ml INHALATION RT-QID Tiotropium [place] [Spiriva] 1 cap INHALATION RT-DAILY Insulin Aspart [NovoLOG Flexpen] See Protocol SQ AC-TID Doxycycline Monohydrate 100 mg PO BID dilTIAZem HCL [dilTIAZem HCL 24Hr ER (Xr)] 240 mg PO DAILY Atorvastatin [Lipitor] 80 mg PO HS lisinopriL 40 mg PO DAILY Warfarin [Coumadin] 7.5 mg PO MOWEFR Warfarin [Coumadin] 10 mg PO SUTUTHSA Changed Insulin Glargine,Hum.rec.anlog [Lantus Solostar Pen] 35 unit SQ HS #0 predniSONE 10 mg PO DAILY #0 Discontinued Furosemide [Lasix] 40 - 80 mg PO DAILY PRN PRN Reason: Edema Discharge Medication List Fluticasone/Salmeterol [Advair 250-50 Diskus] 2 puff INHALATION RT-BID 03/16/15 [History] Omeprazole 20 mg PO DAILY 03/16/15 [History] metFORMIN HCL [Glucophage] 1,000 mg PO BID 03/16/15 [History] Atorvastatin [Lipitor] 80 mg PO HS 09/17/20 [History] Pregabalin 150 mg PO TID 09/17/20 [History] dilTIAZem HCL [dilTIAZem HCL 24Hr ER (Xr)] 240 mg PO DAILY 09/17/20 [History] Albuterol Sulfate [Proair Hfa] 2 puff INHALATION RT-Q6H PRN 10/24/20 [History] lisinopriL 40 mg PO DAILY 10/24/20 [History] Doxycycline Monohydrate 100 mg PO BID 02/25/21 [History] Insulin Aspart [NovoLOG Flexpen] See Protocol SQ AC-TID 02/25/21 [History] Ipratropium-Albuterol Nebulize [Duoneb 0.5 mg-3 mg/3 ml Soln] 3 ml INHALATION RT-QID 02/25/21 [History] Tiotropium [place] [Spiriva] 1 cap INHALATION RT-DAILY 02/25/21 [History] Warfarin [Coumadin] 7.5 mg PO MOWEFR 02/25/21 [History] Warfarin [Coumadin] 10 mg PO SUTUTHSA 02/25/21 [History] Calcium Carbonate [Tums] 1,000 mg PO QID PRN tab 02/28/21 [Rx] Furosemide [Lasix] 40 mg PO BID@0900,1600 #60 tab 02/28/21 [Rx] Insulin Glargine,Hum.rec.anlog [Lantus Solostar Pen] 35 unit SQ HS #0 02/28/21 [Rx] Nicotine 14Mg/24Hr Patch [Habitrol] 1 patch TRANSDERM DAILY #7 patch 02/28/21 [Rx] guaiFENesin [Mucinex] 1,200 mg PO Q12HR tablet 02/28/21 [Rx] predniSONE 10 mg PO DAILY #0 02/28/21 [Rx] predniSONE [Deltasone] 40 mg PO DAILY #5 tab 02/28/21 [Rx] Follow up Appointment(s)/Referral(s): Kimberlee Gilman MD [Primary Care Provider] - 1 Week Tomás Bautista DO [Doctor of Osteopathic Medicine] - 1 Week Ambulatory/Diagnostic Orders: Basic Metabolic Panel [LAB.AMB] Time Frame: 2 Days, Location: None Selected Complete Blood Count w/diff [LAB.AMB] Time Frame: 2 Days, Location: None Selected Prothrombin Time INR [LAB.AMB] Time Frame: 1 Day, Location: None Selected Patient Instructions/Handouts: COPD (Chronic Obstructive Pulmonary Disease) (DC) Activity/Diet/Wound Care/Special Instructions: Please refrain from smoking layer using home oxygen Patient PT/INR tomorrow, CBC BMP in 2 days Complete 40 mg of prednisone for 5 days And then may continue on home dose of 10 mg prednisone daily Discharge Disposition: HOME SELF-CARE
== END 2021-02-28 15:03 | disposition home or self-care (01) | DRG 190 ==
LOC: EC 23:06 → 6NMEDSUR 02-25 02:02 → OBSVTOIN 02-25 21:01
PROVIDERS: ADMIT Hospitalist; ATTEND Hospitalist
PROC: 5A09457 Assistance with Respiratory Ventilation, 24-96 Consecutive Hours, Continuous Positive Airway Pressure (ICD-10-PCS; principal; 2021-02-25)
DX: J44.1 Chronic obstructive pulmonary disease with (acute) exacerbation (principal); J96.21 Acute and chronic respiratory failure with hypoxia; J96.22 Acute and chronic respiratory failure with hypercapnia; I50.33 Acute on chronic diastolic (congestive) heart failure; E87.1 Hypo-osmolality and hyponatremia; E87.4 Mixed disorder of acid-base balance; I48.20 Chronic atrial fibrillation, unspecified; J98.11 Atelectasis; I48.92 Unspecified atrial flutter; I27.20 Pulmonary hypertension, unspecified; E11.42 Type 2 diabetes mellitus with diabetic polyneuropathy; D72.829 Elevated white blood cell count, unspecified; I11.0 Hypertensive heart disease with heart failure; E11.65 Type 2 diabetes mellitus with hyperglycemia; Z79.4 Long term (current) use of insulin; Z20.822 Contact with and (suspected) exposure to COVID-19; T38.0X5A Adverse effect of glucocorticoids and synthetic analogues, initial encounter; I08.1 Rheumatic disorders of both mitral and tricuspid valves; E78.5 Hyperlipidemia, unspecified; G47.33 Obstructive sleep apnea (adult) (pediatric); K21.9 Gastro-esophageal reflux disease without esophagitis; I87.8 Other specified disorders of veins; M19.90 Unspecified osteoarthritis, unspecified site; E66.9 Obesity, unspecified; Z68.32 Body mass index [BMI] 32.0-32.9, adult; F17.210 Nicotine dependence, cigarettes, uncomplicated; Z71.6 Tobacco abuse counseling; Z99.81 Dependence on supplemental oxygen; Z79.51 Long term (current) use of inhaled steroids; Z79.01 Long term (current) use of anticoagulants; Z79.52 Long term (current) use of systemic steroids; Z79.899 Other long term (current) drug therapy; Z87.39 Personal history of other diseases of the musculoskeletal system and connective tissue; Z98.890 Other specified postprocedural states
CPT/HCPCS: 36415; 71045; 71046; 80048; 80053; 83605; 83880; 84145; 84484; 85025; 85379; 85610; 85730; 87635; 93005; 93306; 94640; 94660; 94664; 94760; 99285

== ENCOUNTER 2021-04-06 16:02 | Emergency (ER) | payer OTHER ==
[2021-04-06] MEDS ORDERED: GELATIN SPONGE,ABSORB (LARGE) 1 EACH SPONGE TOPICAL STA (19:06)
--- NOTE | 2021-04-06 19:14 | ED ---
General Adult HPI - General Chief complaint: Extremity Injury, Upper Stated complaint: L Elbow Wound/L arm Swelling Time Seen by Provider: 04/06/21 18:59 Source: patient, RN notes reviewed Mode of arrival: ambulatory Limitations: no limitations - History of Present Illness Initial comments: Patient is a pleasant 55-year-old male presenting to the emergency department with concerns for bleeding from his left elbow. Patient did have an injury when he struck it a few weeks ago. Patient has had intermittent bleeding since that time. Patient does have a bandage around it. Patient has noticed his left forearm with some swelling and slight time. No other areas of bleeding. Patient does have some mild lower extremity swelling however that is somewhat chronic. No chest pain or dyspnea. - Related Data Home Medications Medication Instructions Recorded Confirmed Fluticasone/Salmeterol [Advair 2 puff INHALATION RT-BID 03/16/15 02/25/21 250-50 Diskus] Omeprazole 20 mg PO DAILY 03/16/15 02/25/21 metFORMIN HCL [Glucophage] 1,000 mg PO BID 03/16/15 02/25/21 Atorvastatin [Lipitor] 80 mg PO HS 09/17/20 02/25/21 Pregabalin 150 mg PO TID 09/17/20 02/25/21 dilTIAZem HCL [dilTIAZem HCL 24Hr 240 mg PO DAILY 09/17/20 02/25/21 ER (Xr)] Albuterol Sulfate [Proair Hfa] 2 puff INHALATION RT-Q6H PRN 10/24/20 02/25/21 lisinopriL 40 mg PO DAILY 10/24/20 02/25/21 Doxycycline Monohydrate 100 mg PO BID 02/25/21 02/25/21 Insulin Aspart [NovoLOG Flexpen] See Protocol SQ AC-TID 02/25/21 02/25/21 Ipratropium-Albuterol Nebulize 3 ml INHALATION RT-QID 02/25/21 02/25/21 [Duoneb 0.5 mg-3 mg/3 ml Soln] Tiotropium [place] [Spiriva] 1 cap INHALATION RT-DAILY 02/25/21 02/25/21 Warfarin [Coumadin] 7.5 mg PO MOWEFR 02/25/21 02/25/21 Warfarin [Coumadin] 10 mg PO SUTUTHSA 02/25/21 02/25/21 Previous Rx's Medication Instructions Recorded Calcium Carbonate [Tums] 1,000 mg PO QID PRN tab 02/28/21 Furosemide [Lasix] 40 mg PO BID@0900,1600 #60 tab 02/28/21 Insulin Glargine,Hum.rec.anlog 35 unit SQ HS #0 02/28/21 [Lantus Solostar Pen] Nicotine 14Mg/24Hr Patch [Habitrol] 1 patch TRANSDERM DAILY #7 patch 02/28/21 guaiFENesin [Mucinex] 1,200 mg PO Q12HR tablet 02/28/21 predniSONE 10 mg PO DAILY #0 02/28/21 predniSONE [Deltasone] 40 mg PO DAILY #5 tab 02/28/21 Allergies Allergy/AdvReac Type Severity Reaction Status Date / Time No Known Allergies Allergy Verified 02/25/21 06:54 Review of Systems ROS Statement: Those systems with pertinent positive or pertinent negative responses have been documented in the HPI. ROS Other: All systems not noted in ROS Statement are negative. Constitutional: Denies: fever Eyes: Denies: eye pain ENT: Denies: ear pain Respiratory: Denies: cough, dyspnea Cardiovascular: Denies: chest pain Endocrine: Denies: fatigue Gastrointestinal: Denies: abdominal pain Genitourinary: Denies: dysuria Musculoskeletal: Denies: back pain Skin: Reports: as per HPI Neurological: Denies: weakness Past Medical History Past Medical History: Atrial Fibrillation, COPD, Diabetes Mellitus, Hyperlipidemia, Hypertension, Sleep Apnea/CPAP/BIPAP Additional Past Medical History / Comment(s): neuropathy History of Any Multi-Drug Resistant Organisms: None Reported Past Surgical History: Orthopedic Surgery Additional Past Surgical History / Comment(s): Left shoulder, left hand 2 digits crushed/surg with pins placed. Past Anesthesia/Blood Transfusion Reactions: No Reported Reaction Additional Past Anesthesia/Blood Transfusion Reaction / Comment(s): Never re ceived Past Psychological History: No Psychological Hx Reported Smoking Status: Current every day smoker Past Alcohol Use History: Occasional Past Drug Use History: None Reported - Past Family History Mother Family Medical History: No Reported History General Exam Limitations: no limitations General appearance: alert, in no apparent distress Head exam: Present: normocephalic Eye exam: Present: normal appearance ENT exam: Present: normal oropharynx Neck exam: Present: normal inspection Respiratory exam: Present: normal lung sounds bilaterally Cardiovascular Exam: Present: regular rate, normal rhythm GI/Abdominal exam: Present: soft. Absent: tenderness Extremities exam: Present: pedal edema (+1 bilateral), other (Left elbow with 0.5 x 2 cm wound with mild oozing. There is also 2 small wounds less than 3 mm below this also with minimal oozing. Forearm does have mild swelling. No tenderness.). Absent: calf tenderness Neurological exam: Present: alert. Absent: motor sensory deficit Psychiatric exam: Present: normal affect, normal mood Skin exam: Present: normal color Course Vital Signs 04/06/21 17:08 Temperature 97.5 F L Pulse Rate 94 Respiratory 18 Rate Blood Pressure 127/72 O2 Sat by Pulse 95 Oximetry Medical Decision Making - Medical Decision Making Patient reevaluated and updated. Gelfoam placed on the patient's left elbow to 3 regions with hemostasis obtai jose alejandro. - Lab Data Lab Results 04/06/21 Range/Units 19:17 PT 58.9 H (9.0-12.0) sec INR 6.1 H* (<1.2) APTT 44.7 H (22.0-30.0) sec Disposition Clinical Impression: Coagulopathy, Wound of left upper extremity Disposition: HOME SELF-CARE Condition: Stable Instructions (If sedation given, give patient instructions): Acute Wound Care (ED), Chronic Wound Care (ED) Additional Instructions: Please do follow-up with your primary care physician in the next day or 2 for recheck. Have your Coumadin level checked within the next week. Decrease your Coumadin level to now 2 pills daily, no more doses of 3 pills. Return for bleeding, bleeding from other sites, worsening or changing symptoms or any other concerns. Is patient prescribed a controlled substance at d/c from ED?: No Referrals: Kimberlee Gilman MD [Primary Care Provider] - 1-2 days Time of Disposition: 20:02
[2021-04-06 19:44] LABS: Partial Thromboplastin Time 44.7 sec (22.0-30.0); Prothrombin Time 58.9 sec (9.0-12.0)
[2021-04-06 19:55] LABS: INR 6.1 (<1.2)
[2021-04-06] MEDS ORDERED: PHYTONADIONE ORAL 5 MG/5 ML ORAL.SYRG PO STA (20:01)
[2021-04-06 20:35] VITALS: BP 123/88; PULSE 88; RESP 19; TEMP 97.9
== END 2021-04-06 20:34 | disposition home or self-care (01) ==
LOC: EC 16:02
DX: S51.002A Unspecified open wound of left elbow, initial encounter (principal); D68.9 Coagulation defect, unspecified; E11.9 Type 2 diabetes mellitus without complications; E78.5 Hyperlipidemia, unspecified; F17.200 Nicotine dependence, unspecified, uncomplicated; I10 Essential (primary) hypertension; I48.91 Unspecified atrial fibrillation; J44.9 Chronic obstructive pulmonary disease, unspecified; Z79.01 Long term (current) use of anticoagulants; Z79.4 Long term (current) use of insulin; Z79.51 Long term (current) use of inhaled steroids; Z79.899 Other long term (current) drug therapy; X58.XXXA Exposure to other specified factors, initial encounter
CPT/HCPCS: 36415; 85610; 85730; 99283

== ENCOUNTER 2021-09-12 15:05 | Inpatient (IN) | payer OTHER ==
[2021-09-12 15:38] LABS: Basophils # (A) 0.1 k/uL (0-0.2); Basophils % (A) 1 %; Eosinophils # (A) 0.2 k/uL (0-0.7); Eosinophils % (A) 3 %; HCT 36.7 % (39.0-53.0); HGB 11.7 gm/dL (13.0-17.5); Hypochromasia Slight; Lymphocytes # (A) 1.3 k/uL (1.0-4.8); Lymphocytes % (A) 19 %; MCH 28.9 pg (25.0-35.0); MCHC 31.9 g/dL (31.0-37.0); MCV 90.9 fL (80.0-100.0); Mean Platelet Volume 7.6; Monocytes # (A) 0.5 k/uL (0-1.0); Monocytes % (A) 7 %; Neutrophils # (A) 4.5 k/uL (1.3-7.7); Neutrophils % (A) 67 %; Platelet Count 192 k/uL (150-450); RBC 4.04 m/uL (4.30-5.90); RDW 14.2 % (11.5-15.5); WBC 6.7 k/uL (3.8-10.6)
[2021-09-12 15:47] LABS: Partial Thromboplastin Time 27.6 sec (22.0-30.0); Prothrombin Time 10.6 sec (9.0-12.0)
[2021-09-12 15:49] LABS: ALT 11 U/L (4-49); AST 17 U/L (17-59); African American GFR (CKD) >90 (>60 ml/min/1.73 sqM); Albumin 3.2 g/dL (3.5-5.0); Alkaline Phosphatase 117 U/L (38-126); Anion Gap 4 mmol/L; Blood Urea Nitrogen 12 mg/dL (9-20); Carbon Dioxide 36 mmol/L (22-30); Chloride 97 mmol/L (98-107); Glucose 205 mg/dL (74-99); Magnesium 1.4 mg/dL (1.6-2.3); Non-African American GFR(CKD) >90 (>60 ml/min/1.73 sqM); Potassium 4.1 mmol/L (3.5-5.1); Sodium 137 mmol/L (137-145); Total Bilirubin 0.8 mg/dL (0.2-1.3); Total Protein 5.9 g/dL (6.3-8.2)
--- NOTE | 2021-09-12 16:39 | ED ---
General Adult HPI - General Chief complaint: Shortness of Breath Stated complaint: SOB Time Seen by Provider: 09/12/21 15:25 Source: patient, EMS, RN notes reviewed, old records reviewed Mode of arrival: EMS Limitations: no limitations - History of Present Illness Initial comments: 56-year-old male presenting for evaluation of dyspnea and lower extremity edema. Patient states over the past several days he's had significant increase in bilateral lower extremity edema. He currently wears 5 L of supplemental oxygen with history of COPD. He denies central chest pain. Denies fever. Reports only a mild cough. No vomiting. - Related Data Home Medications Medication Instructions Recorded Confirmed Fluticasone/Salmeterol [Advair 1 puff INHALATION RT-BID 03/16/15 09/12/21 250-50 Diskus] Omeprazole 20 mg PO DAILY 03/16/15 09/12/21 metFORMIN HCL [Glucophage] 1,000 mg PO BID 03/16/15 09/12/21 Atorvastatin [Lipitor] 80 mg PO DAILY 09/17/20 09/12/21 Pregabalin 150 mg PO TID 09/17/20 09/12/21 dilTIAZem HCL [dilTIAZem HCL 24Hr 240 mg PO DAILY 09/17/20 09/12/21 ER (Xr)] Albuterol Sulfate [Proair Hfa] 2 puff INHALATION RT-Q6H PRN 10/24/20 09/12/21 lisinopriL 40 mg PO DAILY 10/24/20 09/12/21 Ipratropium-Albuterol Nebulize 3 ml INHALATION RT-QID 02/25/21 09/12/21 [Duoneb 0.5 mg-3 mg/3 ml Soln] Tiotropium [place] [Spiriva] 1 cap INHALATION RT-DAILY 02/25/21 09/12/21 Apixaban [Eliquis] 5 mg PO BID 09/12/21 09/12/21 Bumetanide [Bumex] 1 mg PO BID 09/12/21 09/12/21 Furosemide [Lasix] 40 - 80 mg PO DAILY PRN 09/12/21 09/12/21 Insulin Glargine,Hum.rec.anlog 32 unit SQ HS 09/12/21 09/12/21 [Lantus Solostar Pen] Allergies Allergy/AdvReac Type Severity Reaction Status Date / Time No Known Allergies Allergy Verified 09/12/21 16:57 Review of Systems ROS Statement: Those systems with pertinent positive or pertinent negative responses have been documented in the HPI. ROS Other: All systems not noted in ROS Statement are negative. Past Medical History Past Medical History: Atrial Fibrillation, Heart Failure, COPD, Diabetes M ellitus, Hyperlipidemia, Hypertension, Sleep Apnea/CPAP/BIPAP Additional Past Medical History / Comment(s): neuropathy, A-fib History of Any Multi-Drug Resistant Organisms: None Reported Past Surgical History: Orthopedic Surgery Additional Past Surgical History / Comment(s): Left shoulder, left hand 2 digits crushed/surg with pins placed, left foot third toe ampulation 2020, Past Anesthesia/Blood Transfusion Reactions: No Reported Reaction Additional Past Anesthesia/Blood Transfusion Reaction / Comment(s): Never received Past Psychological History: No Psychological Hx Reported Smoking Status: Current every day smoker Past Alcohol Use History: None Reported Past Drug Use History: None Reported - Past Family History Mother Family Medical History: No Reported History General Exam Limitations: no limitations General appearance: alert, in distress Head exam: Present: atraumatic, normocephalic Eye exam: Present: normal appearance, PERRL ENT exam: Present: normal exam Neck exam: Present: normal inspection. Absent: tenderness, meningismus Respiratory exam: Present: respiratory distress, wheezes, decreased breath sounds, prolonged expiratory Cardiovascular Exam: Present: regular rate, normal rhythm GI/Abdominal exam: Present: soft. Absent: distended, tenderness, guarding Extremities exam: Present: pedal edema Neurological exam: Present: alert, oriented X3, CN II-XII intact. Absent: motor sensory deficit Psychiatric exam: Present: normal affect, normal mood Skin exam: Present: warm, dry, intact Course Vital Signs 09/12/21 09/12/21 09/12/21 15:07 15:18 16:35 Temperature 98.4 F Pulse Rate 73 62 Respiratory 20 20 20 Rate Blood Pressure 135/74 113/60 O2 Sat by Pulse 94 L 96 Oximetry EKG Findings - EKG Comments: EKG Findings:: EKG: Atrial fibrillation incomplete right bundle-branch block, ventricular rate of 65, QRS duration 101, QTC 392. Medical Decision Making - Medical Decision Making 56 old male presenting for evaluation of increased dyspnea and bilateral lower extremity edema. Patient has history of oxygen dependent COPD. He's had to use increased amounts of oxygen at home. He is in moderate respiratory distress upon arrival. He is maintaining mid 90s saturation on 5 L. He has diminished air entry and wheezing bilaterally. Additionally he has significant peripheral edema. His laboratory testing reveals normal white blood cell count, mild anemia. He has an elevated CO2 consistent with chronic CO2 retention. His tro ponin and BNP are negative. Chest x-ray stable from prior. Ultrasound negative for DVTs within the lower extremities. He will be kept for COPD exacerbation and peripheral edema. He is placed on Lasix, IV steroids, and albuterol. He's admitted to [facility], I did discuss case with Saqib. - Lab Data Result diagrams: 09/12/21 15:30 09/12/21 15:30 Lab Results 09/12/21 09/12/21 09/12/21 Range/Units 15:30 15:30 15:30 WBC 6.7 (3.8-10.6) k/uL RBC 4.04 L (4.30-5.90) m/uL Hgb 11.7 L (13.0-17.5) gm/dL Hct 36.7 L (39.0-53.0) % MCV 90.9 (80.0-100.0) fL MCH 28.9 (25.0-35.0) pg MCHC 31.9 (31.0-37.0) g/dL RDW 14.2 (11.5-15.5) % Plt Count 192 (150-450) k/uL MPV 7.6 Neutrophils % 67 % Lymphocytes % 19 % Monocytes % 7 % Eosinophils % 3 % Basophils % 1 % Neutrophils # 4.5 (1.3-7.7) k/uL Lymphocytes # 1.3 (1.0-4.8) k/uL Monocytes # 0.5 (0-1.0) k/uL Eosinophils # 0.2 (0-0.7) k/uL Basophils # 0.1 (0-0.2) k/uL Hypochromasia Slight PT 10.6 (9.0-12.0) sec INR 1.0 (<1.2) APTT 27.6 (22.0-30.0) sec Sodium 137 (137-145) mmol/L Potassium 4.1 (3.5-5.1) mmol/L Chloride 97 L (98-107) mmol/L Carbon Dioxide 36 H (22-30) mmol/L Anion Gap 4 mmol/L BUN 12 (9-20) mg/dL Creatinine 0.63 L (0.66-1.25) mg/dL Est GFR (CKD-EPI)AfAm >90 (>60 ml/min/1.73 sqM) Est GFR (CKD-EPI)NonAf >90 (>60 ml/min/1.73 sqM) Glucose 205 H (74-99) mg/dL Plasma Lactic Acid Tee (0.7-2.0) mmol/L Calcium 9.0 (8.4-10.2) mg/dL Magnesium 1.4 L (1.6-2.3) mg/dL Total Bilirubin 0.8 (0.2-1.3) mg/dL AST 17 (17-59) U/L ALT 11 (4-49) U/L Alkaline Phosphatase 117 (38-126) U/L Troponin I (0.000-0.034) ng/mL NT-Pro-B Natriuret Pep pg/mL Total Protein 5.9 L (6.3-8.2) g/dL Albumin 3.2 L (3.5-5.0) g/dL 09/12/21 09/12/21 09/12/21 Range/Units 15:30 15:30 15:30 WBC (3.8-10.6) k/uL RBC (4.30-5.90) m/uL Hgb (13.0-17.5) gm/dL Hct (39.0-53.0) % MCV (80.0-100.0) fL MCH (25.0-35.0) pg MCHC (31.0-37.0) g/dL RDW (11.5-15.5) % Plt Count (150-450) k/uL MPV Neutrophils % % Lymphocytes % % Monocytes % % Eosinophils % % Basophils % % Neutrophils # (1.3-7.7) k/uL Lymphocytes # (1.0-4.8) k/uL Monocytes # (0-1.0) k/uL Eosinophils # (0-0.7) k/uL Basophils # (0-0.2) k/uL Hypochromasia PT (9.0-12.0) sec INR (<1.2) APTT (22.0-30.0) sec Sodium (137-145) mmol/L Potassium (3.5-5.1) mmol/L Chloride (98-107) mmol/L Carbon Dioxide (22-30) mmol/L Anion Gap mmol/L BUN (9-20) mg/dL Creatinine (0.66-1.25) mg/dL Est GFR (CKD-EPI)AfAm (>60 ml/min/1.73 sqM) Est GFR (CKD-EPI)NonAf (>60 ml/min/1.73 sqM) Glucose (74-99) mg/dL Plasma Lactic Acid Tee 1.1 (0.7-2.0) mmol/L Calcium (8.4-10.2) mg/dL Magnesium (1.6-2.3) mg/dL Total Bilirubin (0.2-1.3) mg/dL AST (17-59) U/L ALT (4-49) U/L Alkaline Phosphatase (38-126) U/L Troponin I <0.012 (0.000-0.034) ng/mL NT-Pro-B Natriuret Pep 791 pg/mL Total Protein (6.3-8.2) g/dL Albumin (3.5-5.0) g/dL Disposition Clinical Impression: COPD exacerbation, Congestive heart failure Disposition: ADMITTED IP TO THIS HOSP Condition: Stable Is patient prescribed a controlled substance at d/c from ED?: No Referrals: Kimberlee Gliman MD [Primary Care Provider] - 1-2 days Time of Disposition: 19:02
--- NOTE | 2021-09-12 17:27 | XR ---
EXAMINATION TYPE: XR chest 2V DATE OF EXAM: 09/12/2021 COMPARISON: 02/28/2021 HISTORY: Difficulty breathing TECHNIQUE: FINDINGS: Heart appears enlarged. There is small linear density at the lung bases. There is no heart failure. There are no hilar masses. There are chest leads. Bony thorax is intact. IMPRESSION: Mild scarring or subsegmental atelectasis at the lung bases. Mild cardiomegaly. There is improved aeration left lung base compared to old exam.
--- NOTE | 2021-09-12 18:18 | US ---
EXAMINATION TYPE: US venous doppler duplex LE BI DATE OF EXAM: 09/12/2021 5:54 PM COMPARISON: NONE CLINICAL HISTORY: swelling. Bilateral lower extremity swelling SIDE PERFORMED: Bilateral TECHNIQUE: The lower extremity deep venous system is examined utilizing real time linear array sonog nina with graded compression, doppler sonography and color-flow sonography. VESSELS IMAGED: Common Femoral Vein Deep Femoral Vein Greater Saphenous Vein * Femoral Vein Popliteal Vein Small Saphenous Vein * Proximal Calf Veins (* superficial vessels) Right Leg: Negative for DVT Left Leg: Negative for DVT IMPRESSION: No evidence of deep vein thrombosis in the right leg and left leg.
[2021-09-12] MEDS ORDERED: FUROSEMIDE 10 MG/ML 4 ML VIAL IV STA (18:55)
[2021-09-12] MEDS ORDERED: IPRATROPIUM-ALBUTEROL 3 ML NEB INHALATION PRN (18:57)
[2021-09-12] MEDS ORDERED: MAGNESIUM SULFATE-D5W PMX 1 GM in DEXTROSE/WATER 1 100ML.BAG IVPB ONE (19:01)
[2021-09-12] MEDS: IPRATROPIUM-ALBUTEROL 3 ML NEB INHALATION SCH (19:48)
[2021-09-12] MEDS ORDERED: INSULIN DETEMIR (LEVEMIR) 100 UNIT/ML SYR SQ SCH (21:00)
[2021-09-12 21:44] LABS: Glucose,Whole Blood 142 mg/dL (75-99)
[2021-09-12] MEDS: PREGABALIN 75 MG CAP PO SCH (22:13)
[2021-09-12] MEDS: INSULIN ASPART (NovoLOG) 100 UNIT/ML VIAL SQ SCH (22:13)
[2021-09-12] MEDS: APIXABAN 5 MG TAB PO SCH (22:13)
[2021-09-13] MEDS: methylPREDNISolone SOD SUCCI 125 MG/2 ML VIAL IV SCH ×3 (00:10→12:14)
[2021-09-13 07:19] LABS: Glucose,Whole Blood 242 mg/dL (75-99)
[2021-09-13] MEDS ORDERED: PANTOPRAZOLE 40 MG TABLET PO SCH (07:30)
[2021-09-13] MEDS: INSULIN ASPART (NovoLOG) 100 UNIT/ML VIAL SQ SCH ×2 (07:35→12:14)
[2021-09-13] MEDS ORDERED: SYMBICORT 80-4.5 MCG INHALER INHALATION SCH (08:00)
[2021-09-13] MEDS ORDERED: IPRATROPIUM 0.5 MG/2.5 ML NEBU INHALATION SCH (08:00)
[2021-09-13] MEDS ORDERED: lisinopriL 20 MG TAB PO SCH (09:00)
[2021-09-13] MEDS ORDERED: acetaZOLAMIDE 250 MG TAB PO SCH (09:00)
[2021-09-13] MEDS ORDERED: ATORVASTATIN 80 MG TAB PO SCH (09:00)
[2021-09-13] MEDS ORDERED: DILTIAZEM CD 240 MG CAP.ER.24H PO SCH (09:00)
[2021-09-13 09:07] VITALS: RESP 16
[2021-09-13] MEDS: PREGABALIN 75 MG CAP PO SCH (09:15)
[2021-09-13] MEDS: APIXABAN 5 MG TAB PO SCH (09:16)
[2021-09-13] MEDS: IPRATROPIUM-ALBUTEROL 3 ML NEB INHALATION SCH ×4 (09:44→15:43)
[2021-09-13 11:24] LABS: Glucose,Whole Blood 347 mg/dL (75-99)
--- NOTE | 2021-09-13 12:01 | P.CNPUL ---
History of Present Illness Consult date: 09/13/21 Requesting physician: Gary Burkett Reason for consult: dyspnea Chief complaint: Lower extremity edema History of present illness: This is a pleasant 56-year-old male patient who follows with Dr. Gilman as his primary care provider. He has a history of morbid obesity, obstructive sleep apnea with an AHI of 49 utilizing CPAP at 15 cm of water, diabetes mellitus, diabetic peripheral neuropathy, hyperlipidemia, paroxysmal atrial fibrillation maintained on Eliquis, diastolic congestive heart failure, hypertension, hyperlipidemia. He also has a history of significant chronic obstructive pulmonary disease and is oxygen dependent. He has an FEV1 value 1.54 L which is 40% of predicted. He has chronic and ongoing tobacco dependence of greater than 40 years. Over the past several days he has noticed increasing swelling in his lower extremities. He spoke with his PCP over the phone who referred him to the emergency room yesterday. Dopplers of the lower extremity ruled out DVT bilaterally. X-ray revealed some mild scarring/atelectasis of the lung bases. Mild cardiomegaly. White count 6.7. Hemoglobin 11.7. Sodium 137. Potassium 4.1. Bicarb 36. BUN 12. Creatinine 0.63. Glucose 205. AST 17. ALT 11. Troponin negative times one. ProBNP 791. Dwyer virus by PCR not detected. He's been initiated on DuoNeb inhalations, Symbicort, IV Solu-Medrol. He is also on IV diuretics. He is seen today in consultation on the regular medical floor. He is currently sitting up in a chair at the bedside. Awake and alert in no acute distress. He denies any worsening shortness of breath, cough or congestion. His main concern is that of the lower extremity edema. Review of Systems REVIEW OF SYSTEMS: CONSTITUTIONAL: Positive for weight gain. EYES: Denies change in vision. EARS, NOSE, MOUTH, THROAT: Denies headaches, denies sore throat. CARDIOVASCULAR: Denies chest pain, palpitations or syncopal episodes. RESPIRATORY: Denies shortness of breath, cough, congestion or hemoptysis. GASTROINTESTINAL: Denies change in appetite, denies abdominal pain GENITOURINARY: Denies hematuria, denies infections. MUSKULOSKELETAL: Positive for increased swelling of the lower extremities. INTEGUMENTARY: Denies rash, denies eczema. NEUROLOGICAL: Denies recent memory loss, no recent seizure activity. PSYCHIATRIC: Denies anxiety, denies depression. HEMATOLOGIC/LYMPHATIC: Denies anemia, denies enlarged lymph nodes. Past Medical History Past Medical History: Atrial Fibrillation, Heart Failure, COPD, Diabetes Mellitus, Hyperlipidemia, Hypertension, Sleep Apnea/CPAP/BIPAP Additional Past Medical History / Comment(s): neuropathy, A-fib History of Any Multi-Drug Resistant Organisms: None Reported Past Surgical History: Orthopedic Surgery Additional Past Surgical History / Comment(s): Left shoulder, left hand 2 digits crushed/surg with pins placed, left foot third toe ampulation 2020, Past Anesthesia/Blood Transfusion Reactions: No Reported Reaction Additional Past Anesthesia/Blood Transfusion Reaction / Comment(s): Never received Past Psychological History: No Psychological Hx Reported Smoking Status: Former smoker Past Alcohol Use History: None Reported Past Drug Use History: None Reported - Past Family History Mother Family Medical History: No Reported History Medications and Allergies Home Medications Medication Instructions Recorded Confirmed Type Fluticasone/Salmeterol [Advair 1 puff INHALATION RT-BID 03/16/15 09/12/21 History 250-50 Diskus] Omeprazole 20 mg PO DAILY 03/16/15 09/12/21 History metFORMIN HCL [Glucophage] 1,000 mg PO BID 03/16/15 09/12/21 History Atorvastatin [Lipitor] 80 mg PO DAILY 09/17/20 09/12/21 History Pregabalin 150 mg PO TID 09/17/20 09/12/21 History dilTIAZem HCL [dilTIAZem HCL 24Hr 240 mg PO DAILY 09/17/20 09/12/21 History ER (Xr)] Albuterol Sulfate [Proair Hfa] 2 puff INHALATION RT-Q6H PRN 10/24/20 09/12/21 History lisinopriL 40 mg PO DAILY 10/24/20 09/12/21 History Ipratropium-Albuterol Nebulize 3 ml INHALATION RT-QID 02/25/21 09/12/21 History [Duoneb 0.5 mg-3 mg/3 ml Soln] Tiotropium [place] [Spiriva] 1 cap INHALATION RT-DAILY 02/25/21 09/12/21 History Apixaban [Eliquis] 5 mg PO BID 09/12/21 09/12/21 History Bumetanide [Bumex] 1 mg PO BID 09/12/21 09/12/21 History Furosemide [Lasix] 40 - 80 mg PO DAILY PRN 09/12/21 09/12/21 History Insulin Glargine,Hum.rec.anlog 32 unit SQ HS 09/12/21 09/12/21 History [Lantus Solostar Pen] Allergies Allergy/AdvReac Type Severity Reaction Status Date / Time No Known Allergies Allergy Verified 09/12/21 16:57 Physical Exam Vitals: Vital Signs Temp Pulse Pulse Pulse Resp BP BP 09/13/21 10:02 72 09/13/21 09:46 72 09/13/21 08:59 98.7 F 95 75 16 144/68 09/13/21 05:43 69 09/13/21 05:35 72 09/13/21 05:09 98.0 F 67 20 147/73 09/12/21 21:30 98 F 61 18 125/60 09/12/21 20:09 98.2 F 58 L 58 L 20 128/94 09/12/21 19:58 67 09/12/21 19:49 68 09/12/21 19:00 64 18 132/77 09/12/21 16:35 62 20 113/60 09/12/21 15:18 20 09/12/21 15:07 98.4 F 73 20 135/74 Pulse Ox 09/13/21 10:02 09/13/21 09:46 09/13/21 08:59 09/13/21 05:43 09/13/21 05:35 09/13/21 05:09 93 L 09/12/21 21:30 91 L 09/12/21 20:09 95 09/12/21 19:58 09/12/21 19:49 96 09/12/21 19:00 96 09/12/21 16:35 96 09/12/21 15:18 09/12/21 15:07 94 L Intake and Output 09/12/21 09/13/21 09/13/21 22:59 06:59 14:59 Intake Total 100 Balance 100 Intake: Intake, IV Titration 100 Amount Magnesium Sulfate-D5w Pmx 100 1 gm In Dextrose/Water 1 100ml.bag @ 100 mls/hr IVPB ONCE ONE Rx#: [id number] Other: Voiding Method Toilet # Voids 4 Weight 106.141 kg GENERAL EXAM: Alert, pleasant 56-year-old male patient, appears older than stated age, on oxygen at 6 L nasal cannula, comfortable in no apparent distress. HEAD: Normocephalic. EYES: Normal reaction of pupils, equal size. NOSE: Clear with pink turbinates. THROAT: No erythema or exudates. NECK: No masses, no JVD. CHEST: No chest wall deformity. LUNGS: Equal air entry with no crackles, wheeze, rhonchi or dullness. Dimini shed. CVS: S1 and S2 normal with no audible murmur, irregular rhythm. ABDOMEN: No hepatosplenomegaly, normal bowel sounds, no guarding or rigidity. SPINE: No scoliosis or deformity SKIN: No rashes CENTRAL NERVOUS SYSTEM: No focal deficits, tone is normal in all 4 extremities. EXTREMITIES: There is 2+ peripheral edema. No clubbing, no cyanosis. Peripheral pulses are intact. Results - Laboratory Findings CBC and BMP: 09/12/21 15:30 09/12/21 15:30 PT/INR, D-dimer PT 10.6 sec (9.0-12.0) 09/12/21 15:30 INR 1.0 (<1.2) 09/12/21 15:30 Abnormal lab findings: Abnormal Labs 09/12/21 09/12/21 09/12/21 15:30 15:30 21:43 RBC 4.04 L Hgb 11.7 L Hct 36.7 L Chloride 97 L Carbon Dioxide 36 H Creatinine 0.63 L Glucose 205 H POC Glucose (mg/dL) 142 H Magnesium 1.4 L Total Protein 5.9 L Albumin 3.2 L 09/13/21 09/13/21 07:15 11:21 RBC Hgb Hct Chloride Carbon Dioxide Creatinine Glucose POC Glucose (mg/dL) 242 H 347 H Magnesium Total Protein Albumin - Diagnostic Findings Chest x-ray: image reviewed Assessment and Plan Assessment: 1 Acute exacerbation of diastolic congestive heart failure 2 Pulmonary hypertension 3 Acute on chronic hypoxemic respiratory failure secondary to above 4 Chronic oxygen dependent obstructive pulmonary disease 5 Morbid obesity 6 Obstructive sleep apnea, on CPAP in the outpatient setting 7 Chronic atrial fibrillation, anticoagulated with Eliquis 8 History of chronic tobacco dependence. 9 Diabetes mellitus 10 Diabetic neuropathy 11 Hyperlipidemia 12 Hypertension Plan: The patient was seen and evaluated Chest x-ray and labs reviewed Denies any pulmonary complaints He is requesting to be discharged today Continue diuretics, add Diamox Continue his home pulmonary medications and oxygen Follow-up closely in the office in 1 week I have personally seen and examined the patient, performed the documentation and the assessment and plan as written. Number of minutes spent on the visit: 20.
[2021-09-13 12:12] VITALS: BP 149/70; TEMP 99.1
[2021-09-13 13:04] VITALS: PULSE 76
[2021-09-13] MEDS ORDERED: FUROSEMIDE 10 MG/ML 4 ML VIAL IV SCH (16:00)
--- NOTE | 2021-09-13 16:09 | HP ---
HISTORY AND PHYSICAL COMBINED HISTORY AND PHYSICAL AND DISCHARGE SUMMARY: CHIEF COMPLAINT: Shortness of breath. HISTORY OF PRESENT ILLNESS: This 56-year-old gentleman with a past medical history of multiple medical problems, including COPD, was not feeling well over the past several days. The patient also developed bilateral leg edema. The patient came to [facility] per recommendation of the primary care physician. Dr. Degroot saw the patient. Evaluation is underway but the patient is extremely keen on going home at this time. Dr. Degroot cleared the patient for discharge. There is no history of any fever, rigor or chills. PAST MEDICAL HISTORY: COPD, CHF, atrial fibrillation. Other history reviewed. MEDICATIONS: Medications include Glucophage, lisinopril. Doses and other medications also reviewed. ALLERGIES: NONE. FAMILY HISTORY: No history of heart disease or strokes in the family SOCIAL HISTORY: Quit smoking a week ago. No history of alcohol. REVIEW OF SYSTEMS: Fourteen-point review of systems negative except as mentioned earlier. PHYSICAL EXAMINATION: Pulse 75, blood pressure 149/70, respiration 16. Pulse ox is 91% on 4 L. HEENT: Conjunctivae normal. NECK: No jugular venous distention. CARDIOVASCULAR: S1, S2 muffled. RESPIRATION: Bilateral scattered rhonchi and crackles. ABDOMEN: Soft, obese. LEGS: Bilateral leg edema. NERVOUS SYSTEM: No focal deficit. SKIN: No ulcer, rash, bleeding. JOINTS: No active deforming arthropathy. LABS: Noted. Reviewed. ASSESSMENT: 1. Chronic obstructive pulmonary disease, acute exacerbation. 2. Bilateral leg edema, possibly cor pulmonale. 3. History of congestive heart failure. 4. History of atrial fibrillation. 5. Diabetes mellitus, type 2. RECOMMENDATIONS AND DISCUSSION: In this 56-year-old gentleman who presented with multiple complex medical issues, we will monitor the patient closely, continue with current medications, continue with intravenous diuretics. Continue with steroids. Continue with intensive bronchodilators and home medications. At this time the patient is extremely keen on going home and Dr. Degroot cleared the patient also. So at this time I recommend that the patient follow up closely with Dr. Degroot's team as an outpatient and monitor blood sugars closely at home. DISCHARGE ADVICE AND MEDICATIONS: Please refer to the discharge summary for discharge advice and medications. Also, Diamox has been added and tapering dose of prednisone will be given. Follow-up labs with the primary physician and follow up with Dr. Degroot in 1-2 days. MMODL / IJN: [id number] /
--- NOTE | 2021-09-13 17:40 | ECHOF ---
Referral Reason:CHF MEASUREMENTS -------- HEIGHT: 182.9 cm WEIGHT: 106.1 kg BP: RVIDd: 4.7 cm (< 3.3) IVSd: 1.5 cm (0.6 - 1.1) LVIDd: 5.4 cm (3.9 - 5.3) LVPWd: 1.6 cm (0.6 - 1.1) IVSs: 2.1 cm LVIDs: 3.4 cm LVPWs: 1.9 cm LA Diam: 4.8 cm (2.7 - 3.8) LAESV Index (A-L): 39.72 ml/m Ao Diam: 3.1 cm (2.0 - 3.7) AV Cusp: 2.2 cm (1.5 - 2.6) MV EXCURSION: 21.085 mm (> 18.000) MV EF SLOPE: 159 mm/s (70 - 150) EPSS: 0.3 cm RAP: 5.00 mmHg RVSP: 48.86 mmHg FINDINGS -------- Atrial fibrillation. This was a technically adequate study. The left ventricular size is normal. There is moderate concentric left ventricular hypertrophy. O verall left ventricular systolic function is normal with, an EF between 60 - 65 %. The right ventricle is mildly enlarged. LA is moderately dilated 34-39 ml/m2 The right atrium is normal in size. Interatrial and interventricular septum intact. The aortic valve is trileaflet, and appears structurally normal. No aortic stenosis or regurgitation. Mild mitral regurgitation is present. Mild tricuspid regurgitation present. There is moderate pulmonary hypertension. The right ventric ular systolic pressure, as measured by Doppler, is 48.86mmHg. The pulmonic valve was not well visualized. The aortic root size is normal. Normal inferior vena cava with normal inspiratory collapse consistent with estimated right atrial pre ssure of 5 mmHg. There is no pericardial effusion. CONCLUSIONS -------- 1. The left ventricular size is normal. 2. There is moderate concentric left ventricular hypertrophy. 3. Overall left ventricular systolic function is normal with, an EF between 60 - 65 %. 4. The right ventricle is mildly enlarged. 5. LA is moderately dilated 34-39 ml/m2 6. Mild mitral regurgitation is present. 7. Mild tricuspid regurgitation present. 8. There is moderate pulmonary hypertension. 9. The right ventricular systolic pressure, as measured by Doppler, is 48.86mmHg. 10. There is no pericardial effusion. SUPERVISOR [employer]PECTION: Krystal Laguna RDCS
== END 2021-09-13 16:37 | disposition home or self-care (01) | DRG 190 ==
LOC: EC 15:05 → 5NMEDONC 18:58
PROVIDERS: ADMIT Hospitalist; ATTEND Hospitalist
DX: J44.1 Chronic obstructive pulmonary disease with (acute) exacerbation (principal); J96.21 Acute and chronic respiratory failure with hypoxia; I50.33 Acute on chronic diastolic (congestive) heart failure; E87.2 Acidosis; J98.11 Atelectasis; I11.0 Hypertensive heart disease with heart failure; Z20.822 Contact with and (suspected) exposure to COVID-19; D64.9 Anemia, unspecified; E11.42 Type 2 diabetes mellitus with diabetic polyneuropathy; I48.0 Paroxysmal atrial fibrillation; E66.01 Morbid (severe) obesity due to excess calories; E78.5 Hyperlipidemia, unspecified; F17.210 Nicotine dependence, cigarettes, uncomplicated; Z68.31 Body mass index [BMI] 31.0-31.9, adult; G47.33 Obstructive sleep apnea (adult) (pediatric); I27.20 Pulmonary hypertension, unspecified; Z99.81 Dependence on supplemental oxygen; Z79.899 Other long term (current) drug therapy; Z79.01 Long term (current) use of anticoagulants; Z79.4 Long term (current) use of insulin; Z89.422 Acquired absence of other left toe(s)
CPT/HCPCS: 36415; 71046; 80053; 83605; 83735; 83880; 84484; 85025; 85610; 85730; 87635; 93005; 93306; 93970; 94640; 94660; 96374; 99285

== ENCOUNTER 2021-09-26 11:32 | Emergency (ER) | payer OTHER ==
[2021-09-26 12:54] VITALS: BP 137/66; RESP 16; TEMP 98.5
--- NOTE | 2021-09-26 13:56 | ED ---
General Adult HPI - General Chief complaint: Recheck/Abnormal Lab/Rx Stated complaint: ABN labs Time Seen by Provider: 09/26/21 13:25 Source: patient Mode of arrival: wheelchair Limitations: no limitations - History of Present Illness Initial comments: Dictation was produced using [employer] dictation software. please excuse any grammatical, word or spelling errors. Chief Complaint: 56-year-old male multiple comorbidities presents to the emergency department for concerns of left fifth toe injury History of Present Illness: Is 56-year-old male he noticed today that he had a blister over his left great toe. Patient states that yesterday he put on a shoe and may have placed issue with his left fifth toe and hyperextension. Patient has history of neuropathy and has no feeling to his legs. Patient denies any fever. He does not feel any pain in his legs. No constitutional symptoms. The ROS documented in this emergency department record has been reviewed and confirmed by me. Those systems with pertinent positive or negative responses have been documented in the HPI. All other systems are other negative and/or noncontributory. PHYSICAL EXAM: General Impression: Alert and oriented x3, not in acute distress HEENT: Normocephalic atraumatic, extra-ocular movements intact, pupils equal and reactive to light bilaterally, mucous membranes moist. Cardiovascular: Heart regular rate and rhythm Chest: Able to complete full sentences, no retractions, no tachypnea Musculoskeletal: Pulses present and equal in all extremities, no peripheral edema Motor: no focal deficits noted Neurological: CN II-XII grossly intact, no focal motor or sensory deficits noted Skin: Intact with no visualized rashes Psych: Normal affect and mood Left foot: There is a 1 x 0.5 cm blister over the dorsum of the left great toe, there is no surrounding erythema. No purulent drainage ED course: 56-year-old male presents to the emergency Department with left fifth toe injury. Vital signs upon arrival are within acceptable limits. Patient wears 4 L nasal cannula at home normally. Does not have any respiratory complaints. X-ray foot showed base of the fifth toe fracture. Patient given a walking boot and toe was matthew taped. He is told not to aggravate that area. Patient has vital comorbidities and likely fracture will not heal. The rest of his toes on that foot are significantly deviated. Patient requested food and breathing treatment because he normally gets breathing treatment on this time. Dosing's were provided. Patient be discharged told to follow-up with orthopedic surgery. - Related Data Home Medications Medication Instructions Recorded Confirmed Fluticasone/Salmeterol [Advair 1 puff INHALATION RT-BID 03/16/15 09/26/21 250-50 Diskus] Omeprazole 20 mg PO DAILY 03/16/15 09/26/21 metFORMIN HCL [Glucophage] 1,000 mg PO BID 03/16/15 09/26/21 Atorvastatin [Lipitor] 80 mg PO DAILY 09/17/20 09/26/21 Pregabalin 150 mg PO TID 09/17/20 09/26/21 dilTIAZem HCL [dilTIAZem HCL 24Hr 240 mg PO DAILY 09/17/20 09/26/21 ER (Xr)] Albuterol Sulfate [Proair Hfa] 2 puff INHALATION RT-Q6H PRN 10/24/20 09/26/21 lisinopriL 40 mg PO DAILY 10/24/20 09/26/21 Ipratropium-Albuterol Nebulize 3 ml INHALATION RT-QID 02/25/21 09/26/21 [Duoneb 0.5 mg-3 mg/3 ml Soln] Tiotropium [place] [Spiriva] 1 cap INHALATION RT-DAILY 02/25/21 09/26/21 Apixaban [Eliquis] 5 mg PO BID 09/12/21 09/26/21 Furosemide [Lasix] 40 - 80 mg PO DAILY PRN 09/12/21 09/26/21 Insulin Glargine,Hum.rec.anlog 40 unit SQ HS 09/12/21 09/26/21 [Lantus Solostar Pen] predniSONE See Taper PO DAILY 09/26/21 09/26/21 Previous Rx's Medication Instructions Recorded acetaZOLAMIDE [Diamox] 250 mg PO BID #60 tab 09/13/21 Allergies Allergy/AdvReac Type Severity Reaction Status Date / Time No Known Allergies Allergy Verified 09/26/21 14:22 Review of Systems ROS Statement: Those systems with pertinent positive or pertinent negative responses have been documented in the HPI. ROS Other: All systems not noted in ROS Statement are negative. Past Medical History Past Medical History: Atrial Fibrillation, Heart Failure, COPD, Diabetes Mellitus, Hyperlipidemia, Hypertension, Sleep Apnea/CPAP/BIPAP Additional Past Medical History / Comment(s): neuropathy, A-fib History of Any Multi-Drug Resistant Organisms: None Reported Past Surgical History: Orthopedic Surgery Additional Past Surgical History / Comment(s): Left shoulder, left hand 2 digits crushed/surg with pins placed, left foot third toe ampulation 2020, Past Anesthesia/Blood Transfusion Reactions: No Reported Reaction Additional Past Anesthesia/Blood Transfusion Reaction / Comment(s): Never received Past Psychological History: No Psychological Hx Reported Smoking Status: Former smoker Past Alcohol Use History: None Reported Past Drug Use History: None Reported - Past Family History Mother Family Medical History: No Reported History General Exam Limitations: no limitations Course Vital Signs 09/26/21 12:52 Temperature 98.5 F Pulse Rate 73 Respiratory 16 Rate Blood Pressure 137/66 O2 Sat by Pulse 90 L Oximetry Disposition Clinical Impression: Toe fracture Disposition: HOME SELF-CARE Condition: Fair Instructions (If sedation given, give patient instructions): Toe Fracture (ED) Is patient prescribed a controlled substance at d/c from ED?: No Referrals: Aristides Jeffrey MD [Medical Doctor] - 1-2 days
--- NOTE | 2021-09-26 14:09 | XR ---
EXAMINATION TYPE: XR foot complete LT DATE OF EXAM: 09/26/2021 CLINICAL HISTORY: pain TECHNIQUE: Frontal, lateral and oblique images of the left foot are obtained. COMPARISON: None. FINDINGS: There is a displaced fracture at the base of the proximal phalanx left fifth toe with surro unding soft tissue swelling noted. Displacement of 3 mm is identified. No additional fractures are se en with certainty. Hallux valgus deformity great toe. IMPRESSION: Fracture at the base of the proximal phalanx left fifth toe.
[2021-09-26 15:04] VITALS: PULSE 76
[2021-09-26] MEDS ORDERED: ALBUTEROL NEBULIZED 2.5 MG/3 ML INHALATION SCH (16:00)
== END 2021-09-26 15:05 | disposition home or self-care (01) ==
LOC: EC 11:32
DX: S92.502A Displaced unspecified fracture of left lesser toe(s), initial encounter for closed fracture (principal); J44.9 Chronic obstructive pulmonary disease, unspecified; E11.9 Type 2 diabetes mellitus without complications; I10 Essential (primary) hypertension; Z87.891 Personal history of nicotine dependence; W19.XXXA Unspecified fall, initial encounter
CPT/HCPCS: 94640; 99283

== ENCOUNTER → 2021-12-12 | Outpatient (CLI) | payer OTHER | END | disposition home or self-care (01) | LOC: LABPAT 14:49 | PROVIDERS: ATTEND Orthopaedic Surgery | DX: Z01.812 Encounter for preprocedural laboratory examination (principal); M16.11 Unilateral primary osteoarthritis, right hip | CPT/HCPCS: 87070 ==

== ENCOUNTER 2021-12-20 08:42 | Inpatient (IN) | payer OTHER ==
--- NOTE | 2021-12-19 13:52 | HP ---
HISTORY AND PHYSICAL CHIEF COMPLAINT: Right hip pain. HISTORY OF PRESENT ILLNESS: Patient is a 56-year-old retired male who presents with progressive right hip pain for the past year. He notes groin and thigh pain, worse with weight-bearing activities. He uses a cane. He notes daily pain that limits his normal function and activities. He has tried medications in addition to other modalities without much relief. PAST MEDICAL HISTORY: Significant for asthma, atrial fibrillation, COPD, type 2 diabetes in addition to diabetic neuropathy. PAST SURGICAL HISTORY: Significant for a left toe amputation. CURRENT MEDICATIONS: Advair, Cardizem, Eliquis, lisinopril, Lyrica, metformin, omeprazole and Spirulina. He denies drug allergies. FAMILY HISTORY: Significant for cancer. SOCIAL HISTORY: Significant for previous tobacco use. REVIEW OF SYSTEMS: 16-point review of systems is otherwise reviewed and noncontributory. PHYSICAL EXAMINATION: On examination, the patient is approximately 5 foot 6, 234 pounds of endomorphic habitus. HEENT exam is nonfocal. Neck is supple. On examination of the right hip he is tender about the anterior aspect. Active range of motion, forward flexion 70 degrees, external rotation with the hip flexed 60 degrees, internal rotation 10 degrees with pain. Clinically, he has 1 cm shortening of the right lower extremity compared to the left. He has a mild antalgic gait pattern. His distal neurovascular exam appears intact in the right lower extremity. X-rays to include AP and lateral views of the right hip obtained in the office show severe osteoarthrosis with bone on bone changes and subchondral sclerosis. IMPRESSION: 1. Right hip severe osteoarthrosis. 2. Chronic obstructive pulmonary disease. 3. Atrial fibrillation. 4. Noninsulin dependent diabetes. RECOMMENDATIONS: I talked to the patient at length regarding his condition along with treatment options. At this point he is quite limited because of pain related to his osteoarthrosis despite previous conservative measures. After thorough discussion, he opts to proceed with surgery. We will plan to proceed with right total hip arthroplasty utilizing a lateral approach. The patient did undergo preoperative pulmonary and cardiac clearance. Risks and benefits were discussed at length in layman's terms. MMODL / IJN: [id number] /
[~2021-12-20 08:42] MED LIST: ACETAMINOPHEN TAB 500 MG TAB PO PRN; MELOXICAM 7.5 MG TAB PO PRN; TRANEXAMIC ACID IN NACL,ISO-OS 1,000 MG in SALINE 1 100ML.BAG IVPB PRN
[2021-12-20 09:22] LABS: Glucose,Whole Blood 156 mg/dL (70-110)
[2021-12-20] MEDS ORDERED: ONDANSETRON 4 MG/2 ML VIAL IVP ONE (09:32)
[2021-12-20] MEDS ORDERED: DEXAMETHASONE SOD PHOSPHATE 4 MG/ML 1 ML VIAL IVP ONE (09:32)
[2021-12-20] MEDS: LACTATED RINGERS 1,000 ML IV SCH ×3 (09:32→16:05)
[2021-12-20] MEDS ORDERED: ONDANSETRON 4 MG/2 ML VIAL ONE (09:33)
[2021-12-20 09:54] LABS: Basophils # (A) 0.1 k/uL (0-0.2); Basophils % (A) 1 %; Eosinophils # (A) 0.2 k/uL (0-0.7); Eosinophils % (A) 2 %; HCT 35.2 % (39.0-53.0); HGB 11.1 gm/dL (13.0-17.5); Lymphocytes # (A) 1.1 k/uL (1.0-4.8); Lymphocytes % (A) 13 %; MCH 28.4 pg (25.0-35.0); MCHC 31.6 g/dL (31.0-37.0); MCV 89.8 fL (80.0-100.0); Mean Platelet Volume 7.7; Monocytes # (A) 0.5 k/uL (0-1.0); Monocytes % (A) 6 %; Neutrophils # (A) 5.9 k/uL (1.3-7.7); Neutrophils % (A) 76 %; Platelet Count 210 k/uL (150-450); RBC 3.92 m/uL (4.30-5.90); RDW 14.9 % (11.5-15.5); WBC 7.8 k/uL (3.8-10.6)
[2021-12-20 10:05] LABS: ALT 15 U/L (4-49); AST 18 U/L (17-59); African American GFR (CKD) >90 (>60 ml/min/1.73 sqM); Albumin 3.9 g/dL (3.5-5.0); Alkaline Phosphatase 159 U/L (38-126); Anion Gap 4 mmol/L; Blood Urea Nitrogen 19 mg/dL (9-20); Calcium 9.1 mg/dL (8.4-10.2); Carbon Dioxide 30 mmol/L (22-30); Chloride 102 mmol/L (98-107); Glucose 146 mg/dL (74-99); Non-African American GFR(CKD) >90 (>60 ml/min/1.73 sqM); Potassium 4.5 mmol/L (3.5-5.1); Sodium 136 mmol/L (137-145); Total Bilirubin 0.4 mg/dL (0.2-1.3); Total Protein 6.5 g/dL (6.3-8.2)
[2021-12-20] MEDS ORDERED: MIDAZOLAM 2 MG/2 ML VIAL IVP ONE (10:11)
[2021-12-20] MEDS ORDERED: LIDOCAINE 2% INJ 20 MG/ML (2 ML VIAL) ONE (10:28)
[2021-12-20] MEDS ORDERED: PHENYLEPHRINE-0.9% NACL SYG 1,000 MCG/10 ML SYRINGE ONE (10:28)
[2021-12-20] MEDS ORDERED: NEOSTIGMINE 1 MG/ML 10 ML VIAL ONE (10:28)
[2021-12-20] MEDS ORDERED: GLYCOPYRROLATE 0.2 MG/ML 2 ML VIAL ONE (10:28)
[2021-12-20] MEDS ORDERED: fentaNYL (PF) 50 MCG/ML 2 ML AMP ONE (10:28)
[2021-12-20] MEDS ORDERED: PROPOFOL 10 MG/ML 20 ML VIAL IV ONE (10:28)
[2021-12-20] MEDS ORDERED: SUCCINYLCHOLINE CHLORIDE 100 MG/5 ML SYR IV ONE (10:28)
[2021-12-20] MEDS ORDERED: SODIUM CHLORIDE 0.9% (PF) 10 ML VIAL ONE (10:28)
[2021-12-20] MEDS ORDERED: ROCURONIUM 10 MG/ML (5 ML VIAL) IV ONE (10:28)
[2021-12-20] MEDS ORDERED: ROPIVACAINE 5 MG/ML 30 ML VIAL ONE (10:28)
[2021-12-20] MEDS ORDERED: TRANEXAMIC ACID IN NACL,ISO-OS 1,000 MG/100 ML BAG ONE (10:28)
[2021-12-20] MEDS ORDERED: ALBUTEROL HFA INHALER INHALATION ONE (10:28)
[2021-12-20] MEDS ORDERED: ceFAZolin 1,000 MG in SODIUM CHLORIDE 0.9% 1,000 ML IRRIGATION ONE (11:04)
[2021-12-20] MEDS ORDERED: LACTATED RINGERS 1,000 ML IV ONE (11:42)
[2021-12-20] MEDS ORDERED: HYDROcodone/APAP 5-325MG 1 EACH TAB PO PRN (12:04)
[2021-12-20] MEDS ORDERED: NALOXONE 0.4 MG/ML 1 ML VIAL IV PRN (12:04)
--- NOTE | 2021-12-20 12:26 | P.OP ---
Date of Procedure: 12/20/21 Preoperative Diagnosis: Right hip severe osteoarthrosis Postoperative Diagnosis: Same Procedure(s) Performed: Right total hip arthroplastypress-fitlateral approach Implants: Depuy Corail size 12 high offset 135 collared femoral stem, 36mm +1.5 cobalt chrome femoral head, 54 mm Roundup acetabular shell with neutral polyethylene liner. [facility] Surgeon: Akil Hernandez [employer] Service Representative #1: Dominick Peter Estimated Blood Loss (ml): 150 Pathology: other (Femoral head) Condition: stable Disposition: PACU Indications for Procedure: The patient's a 56-year-old male presents with progressive right hip pain secondary to severe osteoarthrosis despite conservative measures. A discussion of the risks and benefits of operative intervention versus continued conservative measures made with patient. He opted to proceed with surgery. Operative risks to include infection, neurovascular injury, development of blood clots, fracture, ligamentous gaps, possible instability, possible component failure and need for subsequent procedures was discussed. Informed consent was obtained. Operative Findings: As below Description of Procedure: The patient was brought to the operating room, and after induction of spinal anesthesia was placed in a lateral decubitus position. The bony prominences were appropriately padded. The pelvis was stable perpendicular to the floor with a pegboard. The right lower extremity was prepped and draped in normal fashion. A 12 cm incision was then made centered over the greater trochanter extending superiorly to level the ASIS and distally in line with the femoral shaft. The skin and subcutaneous tissues were divided sharply. Electrocautery was used for hemostasis. The fascia marcelina and gluteus sara fascia was split in line with the skin incision. The muscle fibers were bluntly dissected proximally. A self-retaining retractor was placed. The anterior and posterior margins of the gluteus medius muscles identified and the anterior two thirds was detached from the greater trochanter with electrocautery. The gluteus minimus tendon was identified and detached in a similar fashion. A wide capsulotomy was performed. The femoral neck fracture was identified in the lower neck cut was made approximately 1 1/2 cm above the level of the lesser trochanter with a sagittal saw at a 45 the shaft. The head was then extracted with a corkscrew. Attention was then paid towards preparing the acetabulum. Anterior and posterior retractors were placed. The remaining capsular labral tissues debrided sharply clearly defining the acetabular margins. I began reaming with a 49 mm reamer taking care to initially medialize, then reaming at 45 of abduction and 20 of anteversion. Sequential reaming is performed up to 53 mm. This was down to bleeding bony surface. A trial 54 mm acetabular shell was inserted at 45 of abduction and 20 of anteversion. This was fully seated. There was good rim fit and stability. A neutral polyethylene liner was then impacted. Care taken to avoid any soft tissue interposition. Attention was then paid towards preparing the proximal femur. A box chisel was used to open the metaphyseal region. A canal finder was used to find the femoral canal. Sequential broaching was performed up to a size 12. This is placed in 15 of anteversion with the leg perpendicular floor judging off the trans-epicondylar axis. There was good rotational stability. A calcar mill was used to fashion the medial calcar. A trial 135 high offset neck along with a 36 mm + 1.5 trial head was placed. The hip was gently reduced. It was taken through range of motion. I felt to be stable in flexion and extension with internal and external rotation. I felt there was adequate restorationist of soft tissue tension. The hip was gently dislocated. The trial components removed. Pulsatile lavage was utilized. The final size 12 135 high offset collared femoral stem was inserted again with the leg perpendicular to the floor in 15 of anteversion. Again there was good rotational stability. A 36 mm + 1.5 cobalt chrome femoral head was gently impacted. The hip was gently reduced. Again it was taken through motion and felt to be stable in flexion and extension with internal and external rotation. Pulsatile lavage was again utilized. With the leg in abduction the gluteus minimus and medius tendons reattached to the greater trochanter with #2 Ethibond suture. There was minimal drainage therefore a deep drain was not placed. The fascia marcelina and gluteus sara fascia was closed with #2 Ethibond suture. The subcutaneous tissues were reapproximated interrupted 2-0 Vicryl sutures. The skin was reapproximated with 3-0 subcuticular strata fix suture. Skin tape and adhesive was applied. A sterile dressing was applied. The patient was awoken from sedation and transferred to recovery room in good condition. Blood loss was estimated 150 mL. No complications were incurred. Sponge and needle counts were correct in the case. Dominick SMITH assisted during the major composes case to include exposure, implantation, and closure.
[2021-12-20] MEDS ORDERED: ALBUTEROL NEBULIZED 2.5 MG/3 ML INHALATION ONE (12:30)
[2021-12-20] MEDS ORDERED: HYDROmorphone 0.5 MG/0.5 ML SYRINGE IVP ONE ×2 (12:47→12:54)
--- NOTE | 2021-12-20 12:50 | XR ---
EXAMINATION TYPE: XR Hip Limited RT DATE OF EXAM: 12/20/2021 12:43 PM INDICATION: Patient age:Male; 56 years old; Reason for study: Status post hip surgery, assess surgical alignment COMPARISON: Pelvic radiograph 08/22/2021 TECHNIQUE: The right hip was examined in frontal projection. FINDINGS: Postsurgical changes from total right hip arthroplasty with acetabular and proximal femoral components. Hardware appears intact with appropriate alignment. Expected subcutaneous gas identified . IMPRESSION: Post surgical changes from total right hip arthroplasty with appropriate alignment.
--- NOTE | 2021-12-20 12:52 | P.ANPRN ---
Procedure Note - Anesthesia - Nerve Block Performed Right Erector Spinae Time Out Performed: Yes (10:10) Date of Procedure: 12/20/21 Procedure Start Time: :10 Procedure Stop Time: :08 Location of Patient: PreOp Indication: Acute Post-Operative Pain, Requested by Surgeon (Dr Hernandez) Sedation Type: Sedate with meaningful contact maintained Preparation: Sterile Prep Position: Prone Catheter: None Needle Types: Pajunk Needle Gauge: 21 Ultrasound used to visualize needle placement: Yes Ultrasound used to observe medication spread: Yes Injectate: 0.5% Ropivacaine (see comment for volume) (15cc + 5 cc PF Normal saline) Blood Aspirated: No Pain Paresthesia on Injection Noted: No Resistance on Injection: Normal Image Stored and Saved: Yes Events: Uneventful and Well Tolerated
[2021-12-20 13:07] LABS: Glucose,Whole Blood 183 mg/dL (70-110)
[2021-12-20] MEDS: HYDROmorphone 0.5 MG/0.5 ML SYRINGE IVP ONE ×4 (13:39→14:21)
--- NOTE | 2021-12-20 13:47 | XR ---
EXAMINATION TYPE: XR chest 1V DATE OF EXAM: 12/20/2021 1:39 PM COMPARISON: Chest radiographs from 09/12/2021. TECHNIQUE: XR chest 1V Frontal view of the chest. CLINICAL INDICATION:Male, 56 years old with history of on bipap decresed resp effort; FINDINGS: Lungs/Pleura: No pneumothorax or pleural effusion. No focal consolidation. Pulmonary vascularity: Pulmonary vascular congestion. Heart/mediastinum: Cardiomediastinal silhouette is enlarged and stable. Musculoskeletal: No acute osseous pathology. IMPRESSION: Cardiomegaly with pulmonary vascular congestion suggestive of acute exacerbation of CHF.
[2021-12-20 13:50] LABS: Allen Test Performed? Yes
[2021-12-20 13:51] LABS: ABG HCO3 29 mmol/L (21-25); ABG PCO2 67 mmHg (35-45); ABG PH 7.25 (7.35-7.45); ABG PO2 78 mmHg (83-108); ABG TCO2 31 mmol/L (19-24)
[2021-12-20 13:52] LABS: ABG Base Excess 1.8 mmol/L; ABG Oxygen Saturation 94.4 % (94-97)
[2021-12-20] MEDS ORDERED: INSULIN ASPART (NovoLOG) 100 UNIT/ML VIAL SQ ONE (13:58)
[2021-12-20] MEDS ORDERED: ACETAMINOPHEN IV (For NPO) 1,000 MG/100 ML VIAL IVPB ONE (14:28)
--- NOTE | 2021-12-20 14:36 | P.CNPUL ---
History of Present Illness Consult date: 12/20/21 Requesting physician: Akil Hernandez Reason for consult: other Chief complaint: Acute on chronic hypercapnic respiratory failure History of present illness: This is a 56-year-old male patient with past medical history of COPD on home oxygen, with baseline FEV1 of 40% of predicted, former smoker, obstructive sleep apnea with AHI of 49 on home CPAP device at 15 cm of water, diabetes mellitus with diabetic neuropathy, atrial fibrillation on Eliquis and osteoarthritis with progressive right hip pain for the past year. Patient has been using a cane, and his pain was significantly limiting his normal function and activities. Today, 12/20/2021 patient came in for elective right total hip arth roplastybreastfitlateral approach under general anesthesia. Following his surgery in the recovery room patient was noted to be hypoxic, with increased work of breathing, and he was placed on BiPAP support with pressures of 14/5 and FiO2 of 50%. Blood gas was obtained showing pH of 7.25, pCO2 of 67 and pO2 of 78 and this was done on the above-mentioned BiPAP settings. Postoperative chest x-ray show cardiomegaly with pulmonary vessel congestion suggestive of acute exacerbation of CHF. Patient is having postoperative pain in his right hip, he did have a nerve block performed by anesthesia services preoperatively. He is requiring IV dilated for pain control following which he does become more sedated, and tends to drop his O2 saturations into the low 80s. There was some blood work was reviewed showing white blood cell count of 7.8, hemoglobin was 11.1, platelet count of 210, sodium is 136, erythematous electrolytes and renal profile were unremarkable. Patient was seen in the recovery room, he is awaiting a bed in the intensive care unit, he does wake up to verbal stimulation, does not appear to be in any acute distress, he is achieving 790 mL tidal volume on the BiPAP support, his respiratory rate is 17-18 BPM. Tolerating BiPAP support very well, current pulse ox is 97% on BiPAP support with FiO2 of 50%. Review of Systems All systems: negative Constitutional: Denies chills, Denies fever Eyes: denies blurred vision, denies pain Ears, nose, mouth and throat: Denies headache, Denies sore throat Cardiovascular: Denies chest pain, Denies shortness of breath Respiratory: Reports dyspnea, Denies cough Gastrointestinal: Denies abdominal pain, Denies diarrhea, Denies nausea, Denies vomiting Musculoskeletal: Denies myalgias Integumentary: Denies pruritus, Denies rash Neurological: Reports change in mentation, Denies numbness, Denies weakness Psychiatric: Denies anxiety, Denies depression Endocrine: Denies fatigue, Denies weight change Past Medical History Past Medical History: Atrial Fibrillation, Heart Failure, COPD, Diabetes Mellitus, Hyperlipidemia, Hypertension, Sleep Apnea/CPAP/BIPAP Additional Past Medical History / Comment(s): neuropathy, A-fib, glaucoma History of Any Multi-Drug Resistant Organisms: None Reported Past Surgical History: Orthopedic Surgery Additional Past Surgical History / Comment(s): Left shoulder, left hand 2 digits crushed/surg with pins placed, left foot third toe ampulation 2020, Past Anesthesia/Blood Transfusion Reactions: No Reported Reaction Additional Past Anesthesia/Blood Transfusion Reaction / Comment(s): Never receiv ed Smoking Status: Former smoker - Past Family History Mother Family Medical History: No Reported History Father Family Medical History: No Reported History Additional Family Medical History / Comment(s): small cell in bladder Medications and Allergies Home Medications Medication Instructions Recorded Confirmed Type Fluticasone Propion/Salmeterol 1 puff INHALATION RT-BID 03/16/15 12/20/21 History [Advair 250-50 Diskus] Omeprazole 20 mg PO DAILY 03/16/15 12/20/21 History metFORMIN HCL [Glucophage] 1,000 mg PO BID 03/16/15 12/20/21 History Atorvastatin [Lipitor] 80 mg PO DAILY 09/17/20 12/20/21 History Pregabalin 150 mg PO TID 09/17/20 12/20/21 History dilTIAZem HCL [dilTIAZem HCL 24Hr 240 mg PO DAILY 09/17/20 12/20/21 History ER (Xr)] Albuterol Sulfate [Proair Hfa] 2 puff INHALATION RT-Q6H PRN 10/24/20 12/20/21 History lisinopriL 40 mg PO DAILY 10/24/20 12/20/21 History Ipratropium-Albuterol Nebulize 3 ml INHALATION RT-QID 02/25/21 12/20/21 History [Duoneb 0.5 mg-3 mg/3 ml Soln] Tiotropium [place] [Spiriva] 1 cap INHALATION RT-DAILY 02/25/21 12/20/21 History Apixaban [Eliquis] 5 mg PO BID 09/12/21 12/20/21 History Furosemide [Lasix] 40 - 80 mg PO DAILY PRN 09/12/21 12/20/21 History Insulin Glargine,Hum.rec.anlog 40 unit SQ HS 09/12/21 12/20/21 History [Lantus Solostar Pen] Allergies Allergy/AdvReac Type Severity Reaction Status Date / Time No Known Allergies Allergy Verified 12/20/21 09:51 Physical Exam Vitals: Vital Signs Temp Pulse Pulse Resp BP Pulse Ox FiO2 12/20/21 14:02 52 L 17 100/49 96 12/20/21 13:45 50 L 17 110/56 97 12/20/21 13:30 52 L 12 107/49 95 12/20/21 13:15 59 L 12 111/46 95 12/20/21 13:03 64 16 102/55 96 12/20/21 12:49 61 12 108/55 95 12/20/21 12:36 50 12/20/21 12:20 97.2 F L 68 16 132/61 93 L 12/20/21 10:20 54 L 16 125/63 97 12/20/21 09:00 98 F 68 16 125/63 85 L Intake and Output 12/19/21 12/20/21 12/20/21 22:59 06:59 14:59 Intake Total 1151 Output Total 150 Balance 1001 Intake: IV 1151 Output: Estimated Blood Loss 150 Other: Weight 100.7 kg GENERAL EXAM: Lethargic, but easily arousable to verbal stimulation, 56-year-old white male, resting in the recovery room on the [facility], in mild to moderate amount of distress from his postoperative right hip pain, on BiPAP support with pressures of 14/5 and FiO2 of 50%, apparent distress. HEAD: Normocephalic/atraumatic. EYES: Normal reaction of pupils, equal size. Conjunctiva pink, sclera white. NOSE: Clear with pink turbinates. THROAT: No erythema or exudates. NECK: No masses, no JVD, no thyroid enlargement, no adenopathy. CHEST: No chest wall deformity. Symmetrical expansion. LUNGS: Equal air entry with no crackles, wheeze, rhonchi or dullness. CVS: Regular rate and rhythm, normal S1 and S2, no gallops, no murmurs, no rubs ABDOMEN: Soft, nontender. No hepatosplenomegaly, normal bowel sounds, no guarding or rigidity. EXTREMITIES: No clubbing, no edema, no cyanosis, 2+ pulses and upper and lower extremities. Right hip incision is clean dry and intact, covered with a surgical dressing MUSCULOSKELETAL: Muscle strength and tone normal. SPINE: No scoliosis or deformity SKIN: No rashes CENTRAL NERVOUS SYSTEM: lethargic, but able to arouse to voice, and answers simple questions. No focal deficits, tone is normal in all 4 extremities. Results - Laboratory Findings CBC and BMP: 12/20/21 09:20 12/20/21 09:20 ABG ABG pH 7.25 (7.35-7.45) L 12/20/21 13:38 ABG pCO2 67 mmHg (35-45) H 12/20/21 13:38 ABG pO2 78 mmHg (83-108) L 12/20/21 13:38 ABG O2 Saturation 94.4 % (94-97) 12/20/21 13:38 PT/INR, D-dimer PT 11.0 sec (9.0-12.0) 12/20/21 09:20 INR 1.0 (<1.2) 12/20/21 09:20 Abnormal lab findings: Abnormal Labs 12/20/21 12/20/21 12/20/21 09:19 09:20 09:20 RBC 3.92 L Hgb 11.1 L Hct 35.2 L ABG pH ABG pCO2 ABG pO2 ABG HCO3 ABG Total CO2 Sodium 136 L Glucose 146 H POC Glucose (mg/dL) 156 H Alkaline Phosphatase 159 H 12/20/21 12/20/21 13:00 13:38 RBC Hgb Hct ABG pH 7.25 L ABG pCO2 67 H ABG pO2 78 L ABG HCO3 29 H ABG Total CO2 31 H Sodium Glucose POC Glucose (mg/dL) 183 H Alkaline Phosphatase - Diagnostic Findings Chest x-ray: report reviewed, image reviewed Assessment and Plan Plan: Assessment: Acute on chronic hypercapnic respiratory failure related to operative anesthesia, and hypoventilation, and underlying history of obstructive sleep apnea and COPD. Right hip severe osteoarthrosis, status post right total hip arthroplasty on 12/20/2021 Chronic hypoxic and hypercapnic respiratory failure related to advanced COPD and obstructive sleep apnea Stage III COPD, on home oxygen, with baseline FEV1 of 40% Former smoker Osteoarthritis History of atrial fibrillation, on Eliquis, which is currently on hold for surgery History of chronic diastolic CHF Diabetes mellitus type 2 with diabetic neuropathy Hypertension Hyperlipidemia Obstructive sleep apnea on CPAP at a pressure of 15 cm of water Plan: Chest x-ray blood gas have been reviewed Patient was evaluated in the recovery room Continue BiPAP support with current pressures of 14/6 and FiO2 to keep O2 sat ranges between 88-90% We'll give IV Solu-Medrol 60 mg every 6 hours 4 doses We'll add bronchodilators Admit the patient to the intensive care unit for closer monitoring Maintaining Pain control Orthopedic surgery recommendations Apixaban remains on hold Prophylactic anticoagulation, GI prophylaxis Will continue to follow I have personally seen and examined the patient, performed the documentation and the assessment and plan as written. Number of minutes spent on the visit: [15] I have personally seen and examined the patient and reviewed the documentation. I performed a joint evaluation with the nurse practitioner in this evaluation was done more than 30 minutes. I fully agree with the documentation above and the plan of care. The patient is going to be transferred to the intensive care unit. We'll lower the allotted dose to minimal and give the patient 0.25 mg every 6-8 hours as needed for pain control. The patient has already received a nerve block. We'll monitor his aspirate status very closely. We'll keep the patient on BiPAP for now. He is currently on a BiPAP pressure of 14/6 and the patient is awake is quite comfortable exchanging adequate amount of air. We will repeat her blood gases later on during the night. We'll keep him on a BiPAP throughout the day today. Start him on DuoNeb nebulized treatments around the clock. We'll give 4 doses of IV Solu-Medrol. We'll continue to follow. Time with Patient: Greater than 30
[2021-12-20] MEDS: IPRATROPIUM-ALBUTEROL 3 ML NEB INHALATION SCH ×2 (15:19→19:47)
[2021-12-20 15:42] LABS: Glucose,Whole Blood 176 mg/dL (70-110)
--- NOTE | 2021-12-20 15:48 | P.CONS ---
History of Present Illness - Reason for Consult Consult date: 12/20/21 Medical management - History of Present Illness This is a 56-year-old white male with history of COPD on home oxygen who just underwent an elective right total hip replacement. Currently he's postop, he is an auto moderate amount of pain. He is on BiPAP. He denies chest pain. There was no reported major consultations with surgery, he desaturated and was placed on BiPAP. Currently titrating BiPAP with no issues. Review of Systems No chest pain no abdominal pain no nausea or vomiting Past Medical History Past Medical History: Atrial Fibrillation, Heart Failure, COPD, Diabetes Mellitus, Hyperlipidemia, Hypertension, Sleep Apnea/CPAP/BIPAP Additional Past Medical History / Comment(s): neuropathy, A-fib, glaucoma History of Any Multi-Drug Resistant Organisms: None Reported Past Surgical History: Orthopedic Surgery Additional Past Surgical History / Comment(s): Left shoulder, left hand 2 digits crushed/surg with pins placed, left foot third toe ampulation 2020, Past Anesthesia/Blood Transfusion Reactions: No Reported Reaction Additional Past Anesthesia/Blood Transfusion Reaction / Comm: Never received Smoking Status: Former smoker - Past Family History Mother Family Medical History: No Reported History Father Family Medical History: No Reported History Additional Family Medical History / Comment(s): small cell in bladder Medications and Allergies Home Medications Medication Instructions Recorded Confirmed Type Fluticasone Propion/Salmeterol 1 puff INHALATION RT-BID 03/16/15 12/20/21 History [Advair 250-50 Diskus] Omeprazole 20 mg PO DAILY 03/16/15 12/20/21 History metFORMIN HCL [Glucophage] 1,000 mg PO BID 03/16/15 12/20/21 History Atorvastatin [Lipitor] 80 mg PO DAILY 09/17/20 12/20/21 History Pregabalin 150 mg PO TID 09/17/20 12/20/21 History dilTIAZem HCL [dilTIAZem HCL 24Hr 240 mg PO DAILY 09/17/20 12/20/21 History ER (Xr)] Albuterol Sulfate [Proair Hfa] 2 puff INHALATION RT-Q6H PRN 10/24/20 12/20/21 History lisinopriL 40 mg PO DAILY 10/24/20 12/20/21 History Ipratropium-Albuterol Nebulize 3 ml INHALATION RT-QID 02/25/21 12/20/21 History [Duoneb 0.5 mg-3 mg/3 ml Soln] Tiotropium [place] [Spiriva] 1 cap INHALATION RT-DAILY 02/25/21 12/20/21 History Apixaban [Eliquis] 5 mg PO BID 09/12/21 12/20/21 History Furosemide [Lasix] 40 - 80 mg PO DAILY PRN 09/12/21 12/20/21 History Insulin Glargine,Hum.rec.anlog 40 unit SQ HS 09/12/21 12/20/21 History [Lantus Solostar Pen] Allergies Allergy/AdvReac Type Severity Reaction Status Date / Time No Known Allergies Allergy Verified 12/20/21 09:51 Physical Exam Vitals: Vital Signs Temp Pulse Pulse Resp BP Pulse Ox FiO2 12/20/21 15:20 41 L 15 101/51 99 12/20/21 14:45 47 L 14 103/54 98 12/20/21 14:32 45 L 14 100/50 97 12/20/21 14:18 52 L 21 104/53 97 12/20/21 14:02 52 L 17 100/49 96 12/20/21 13:45 50 L 17 110/56 97 12/20/21 13:30 52 L 12 107/49 95 12/20/21 13:15 59 L 12 111/46 95 12/20/21 13:03 64 16 102/55 96 12/20/21 12:49 61 12 108/55 95 12/20/21 12:36 50 12/20/21 12:20 97.2 F L 68 16 132/61 93 L 12/20/21 10:20 54 L 16 125/63 97 12/20/21 09:00 98 F 68 16 125/63 85 L Intake and Output 12/20/21 12/20/21 12/20/21 06:59 14:59 22:59 Intake Total 1301 Output Total 150 Balance 1151 Intake: IV 1301 Output: Estimated Blood Loss 150 Other: Weight 100.7 kg Constitutional: No acute distress, conversant, pleasant on BiPAP Eyes: Anicteric sclerae, moist conjunctiva, no lid-lag, PERRLA ENMT: NC/AT,Oropharynx clear, no erythema, exudates Neck:Supple, FROM, no masses, or JVD, No carotid bruits; No thyromegaly Lungs: Decreased breath sounds, no wheezing Cardiovascular: Heart regular in rate and rhythm, No murmurs, gallops, or rubs no peripheral edema Abdominal: Soft Nontender, nom distended, no guarding, no rebound or rigidity, Normoactive bowel sounds , obese Skin: Normal temperature, tone, texture, turgor, No induration No subcutaneous nodules, No rash, lesions, No ulcers Extremities:No digital cyanosis No clubbing, Pedal pulses intact and s ymmetrical Radial pulses intact and symmetrical Normal gait and station, No calf tenderness Psychiatric: Alert and oriented to person, place and time, Appropriate affect Intact judgement Neuro: Muscles Strength 5/5 in all 4 extremities, Sensation to light touch grossly present throughout, Cranial nerves II-XII grossly intact. No focal sensory deficits Results CBC & Chem 7: 12/20/21 09:20 12/20/21 09:20 Labs: Abnormal Lab Results - Last 24 Hours (Table) 12/20/21 12/20/21 12/20/21 Range/Units 09:19 09:20 09:20 RBC 3.92 L (4.30-5.90) m/uL Hgb 11.1 L (13.0-17.5) gm/dL Hct 35.2 L (39.0-53.0) % ABG pH (7.35-7.45) ABG pCO2 (35-45) mmHg ABG pO2 (83-108) mmHg ABG HCO3 (21-25) mmol/L ABG Total CO2 (19-24) mmol/L Sodium 136 L (137-145) mmol/L Glucose 146 H (74-99) mg/dL POC Glucose (mg/dL) 156 H (70-110) mg/dL Alkaline Phosphatase 159 H (38-126) U/L 12/20/21 12/20/21 Range/Units 13:00 13:38 RBC (4.30-5.90) m/uL Hgb (13.0-17.5) gm/dL Hct (39.0-53.0) % ABG pH 7.25 L (7.35-7.45) ABG pCO2 67 H (35-45) mmHg ABG pO2 78 L (83-108) mmHg ABG HCO3 29 H (21-25) mmol/L ABG Total CO2 31 H (19-24) mmol/L Sodium (137-145) mmol/L Glucose (74-99) mg/dL POC Glucose (mg/dL) 183 H (70-110) mg/dL Alkaline Phosphatase (38-126) U/L Assessment and Plan Plan: Assessment and plan: 1. Acute on chronic hypercapnic surgery failure: On BiPAP, pulmonology following. 2. Obstructive sleep apnea: Supportive care, currently on BiPAP 3. COPD with chronic hypoxic respiratory failure on home oxygen: Supportive care, currently on BiPAP 4. Obesity: BMI 30.1 5. Chronic atrial fibrillation: On Cardizem and Eliquis 6. Diabetes type 2 with diabetic neuropathy: Continue sliding scale and Levemir Thank you for the consultation we will follow with you.
[2021-12-20] MEDS: methylPREDNISolone SOD SUCCI 125 MG/2 ML VIAL IV SCH ×2 (16:05→22:34)
[2021-12-20] MEDS: PREGABALIN 75 MG CAP PO SCH ×2 (17:01→22:34)
[2021-12-20] MEDS: metFORMIN 500 MG TAB PO SCH (17:02)
[2021-12-20] MEDS: HYDROmorphone 0.5 MG/0.5 ML SYRINGE IVP PRN (18:08)
[2021-12-20] MEDS: HYDROmorphone 1 MG/ML 1 ML SYRINGE IVP PRN (22:06)
[2021-12-20] MEDS: SENNOSIDES-DOCUSATE SODIUM 1 EACH TAB PO SCH (22:34)
[2021-12-20] MEDS: APIXABAN 5 MG TAB PO SCH (22:34)
[2021-12-20 22:36] LABS: Glucose,Whole Blood 197 mg/dL (70-110)
[2021-12-20] MEDS: INSULIN DETEMIR (LEVEMIR) 100 UNIT/ML SYR SQ SCH (22:48)
[2021-12-21] MEDS: HYDROmorphone 1 MG/ML 1 ML SYRINGE IVP PRN ×4 (01:14→16:59)
[2021-12-21] MEDS: methylPREDNISolone SOD SUCCI 125 MG/2 ML VIAL IV SCH ×2 (04:09→09:18)
[2021-12-21 06:19] LABS: ALT 13 U/L (4-49); AST 20 U/L (17-59); African American GFR (CKD) >90 (>60 ml/min/1.73 sqM); Albumin 3.4 g/dL (3.5-5.0); Alkaline Phosphatase 121 U/L (38-126); Anion Gap 2 mmol/L; Blood Urea Nitrogen 35 mg/dL (9-20); Carbon Dioxide 32 mmol/L (22-30); Chloride 99 mmol/L (98-107); Glucose 216 mg/dL (74-99); Non-African American GFR(CKD) 84 (>60 ml/min/1.73 sqM); Potassium 5.7 mmol/L (3.5-5.1); Sodium 133 mmol/L (137-145); Total Bilirubin 0.2 mg/dL (0.2-1.3); Total Protein 5.7 g/dL (6.3-8.2)
[2021-12-21 06:34] LABS: Basophils % (A) 0 %; Eosinophils % (A) 0 %; HCT 32.9 % (39.0-53.0); HGB 10.5 gm/dL (13.0-17.5); Hypochromasia Moderate; Lymphocytes # (A) 0.5 k/uL (1.0-4.8); Lymphocytes % (A) 5 %; MCH 29.3 pg (25.0-35.0); MCHC 31.9 g/dL (31.0-37.0); MCV 91.7 fL (80.0-100.0); Mean Platelet Volume 7.9; Monocytes # (A) 0.3 k/uL (0-1.0); Monocytes % (A) 3 %; Neutrophils # (A) 9.1 k/uL (1.3-7.7); Neutrophils % (A) 91 %; Platelet Count 185 k/uL (150-450); RBC 3.58 m/uL (4.30-5.90); RDW 15.1 % (11.5-15.5)
[2021-12-21] MEDS: IPRATROPIUM-ALBUTEROL 3 ML NEB INHALATION SCH ×4 (08:13→20:27)
--- NOTE | 2021-12-21 08:20 | XR ---
EXAMINATION TYPE: XR chest 1V portable DATE OF EXAM: 12/21/2021 COMPARISON: Chest x-ray 12/20/2021 HISTORY: Dyspnea TECHNIQUE: frontal view of the chest is obtained on 2 images. FINDINGS: Bibasilar subsegmental atelectatic changes are suspected. Cardiac mediastinal silhouette i s likely stable, for differences in technique. No evident pneumothorax or pleural effusion. There are overlying artifacts. Aorta is dense. IMPRESSION: Subsegmental basilar atelectatic changes.
[2021-12-21] MEDS: ATORVASTATIN 80 MG TAB PO SCH (08:28)
[2021-12-21] MEDS: PANTOPRAZOLE 40 MG TABLET PO SCH (08:28)
[2021-12-21] MEDS: PREGABALIN 75 MG CAP PO SCH ×3 (08:28→20:47)
[2021-12-21] MEDS: APIXABAN 5 MG TAB PO SCH ×2 (08:28→20:46)
[2021-12-21] MEDS: metFORMIN 500 MG TAB PO SCH ×2 (08:28→16:59)
--- NOTE | 2021-12-21 10:21 | P.PN ---
Subjective Progress Note Date: 12/21/21 Principal diagnosis: Status post right total hip arthroplasty, lateral approach Patient was evaluated today, he is resting in his bed in the ICU. Patient appears comfortable on exam, no acute distress. Patient did require BiPAP support after being extubated yesterday after surgery, he is being followed by both internal medicine and pulmonology. Patient has not been out of bed at this time, physical therapy was noted to be on the floor. She does note some generalized discomfort in the right leg. He has no other orthopedic complaints at this time. Objective - Vital Signs Vital signs: Vital Signs Temp 97.4 F L 12/21/21 04:00 Pulse 44 L 12/21/21 09:00 Resp 10 L 12/21/21 09:00 BP 99/49 12/21/21 09:00 Pulse Ox 89 L 12/21/21 09:00 FiO2 45 12/21/21 08:00 Intake & Output 12/20/21 12/21/21 12/21/21 18:59 06:59 18:59 Intake Total 1451 670 420 Output Total 150 500 0 Balance 1301 170 420 Weight 100.7 kg 103.6 kg Intake: IV 1301 270 60 Lactated Ringers 1,000 ml 220 60 @ 20 mls/hr IV .Q24H CASTRO Rx#:[id number] ceFAZolin 2 gm In Sodium 50 Chloride 0.9% 50 ml @ 100 mls/hr IVPB Q8H CASTRO Rx#: [id number] Intake, IV Titration 150 Amount Lactated Ringers 1,000 ml 100 @ 20 mls/hr IV .Q24H CASTRO Rx#:[id number] ceFAZolin 2 gm In Sodium 50 Chloride 0.9% 50 ml @ 100 mls/hr IVPB Q8H CASTRO Rx#: [id number] Oral 400 360 Output: Urine 0 500 0 Estimated Blood Loss 150 Other: Voiding Method Urinal Urinal Urinal Indwelling Catheter - Exam Right lower extremity: Postoperative dressing is in good position and condition, no active drainage. Generalized swelling present in the anterior posterior thigh. Soft, no tenderness with palpation. Plantar flexion, dorsiflexion, EHL, FHL are intact. Sensory exam to light touch is intact throughout the extremity. Dorsalis pedis pulses 2+. - Labs CBC & Chem 7: 12/21/21 05:36 12/21/21 05:36 Labs: Abnormal Lab Results - Last 24 Hours (Table) 12/20/21 12/20/21 12/20/21 Range/Units 13:00 13:38 15:40 RBC (4.30-5.90) m/uL Hgb (13.0-17.5) gm/dL Hct (39.0-53.0) % Neutrophils # (1.3-7.7) k/uL Lymphocytes # (1.0-4.8) k/uL ABG pH 7.25 L (7.35-7.45) ABG pCO2 67 H (35-45) mmHg ABG pO2 78 L (83-108) mmHg ABG HCO3 29 H (21-25) mmol/L ABG Total CO2 31 H (19-24) mmol/L Sodium (137-145) mmol/L Potassium (3.5-5.1) mmol/L Carbon Dioxide (22-30) mmol/L BUN (9-20) mg/dL Glucose (74-99) mg/dL POC Glucose (mg/dL) 183 H 176 H (70-110) mg/dL Total Protein (6.3-8.2) g/dL Albumin (3.5-5.0) g/dL 12/20/21 12/21/21 12/21/21 Range/Units 22:33 05:36 05:36 RBC 3.58 L (4.30-5.90) m/uL Hgb 10.5 L (13.0-17.5) gm/dL Hct 32.9 L (39.0-53.0) % Neutrophils # 9.1 H (1.3-7.7) k/uL Lymphocytes # 0.5 L (1.0-4.8) k/uL ABG pH (7.35-7.45) ABG pCO2 (35-45) mmHg ABG pO2 (83-108) mmHg ABG HCO3 (21-25) mmol/L ABG Total CO2 (19-24) mmol/L Sodium 133 L (137-145) mmol/L Potassium 5.7 H (3.5-5.1) mmol/L Carbon Dioxide 32 H (22-30) mmol/L BUN 35 H (9-20) mg/dL Glucose 216 H (74-99) mg/dL POC Glucose (mg/dL) 197 H (70-110) mg/dL Total Protein 5.7 L (6.3-8.2) g/dL Albumin 3.4 L (3.5-5.0) g/dL Assessment and Plan Assessment: Postoperative day #1 status post total hip arthroplasty, lateral approach Other medical comorbidities Plan: Pain control, continue current medications. Discussed with patient to try to avoid IV pain medication utilize oral medication DVT prophylaxis, Eliquis has been restarted Wound care, postoperative bandage will be changed tomorrow at bedside Weight-bear as tolerated, utilize walker ambulation Encourage incentive spirometer PT/OT evaluation Other medical administrator recommendations Discharge planning: We'll continue to monitor patient, hopefully discharge to home with home healthcare when medically optimized Time with Patient: Less than 30
--- NOTE | 2021-12-21 10:26 | P.PN ---
Subjective Progress Note Date: 12/21/21 Feels better today, off BiPAP. No chest pain no abdominal pain no nausea no vomiting no dizziness no shortness of breath. Hip pain is better. Objective - Vital Signs Vital signs: Vital Signs Temp 97.4 F L 12/21/21 04:00 Pulse 44 L 12/21/21 09:00 Resp 10 L 12/21/21 09:00 BP 99/49 12/21/21 09:00 Pulse Ox 89 L 12/21/21 09:00 FiO2 45 12/21/21 08:00 Intake & Output 12/20/21 12/21/21 12/21/21 18:59 06:59 18:59 Intake Total 1451 670 420 Output Total 150 500 0 Balance 1301 170 420 Weight 100.7 kg 103.6 kg Intake: IV 1301 270 60 Lactated Ringers 1,000 ml 220 60 @ 20 mls/hr IV .Q24H CASTRO Rx#:[id number] ceFAZolin 2 gm In Sodium 50 Chloride 0.9% 50 ml @ 100 mls/hr IVPB Q8H CASTRO Rx#: [id number] Intake, IV Titration 150 Amount Lactated Ringers 1,000 ml 100 @ 20 mls/hr IV .Q24H [place]STRO Rx#:[id number] ceFAZolin 2 gm In Sodium 50 Chloride 0.9% 50 ml @ 100 mls/hr IVPB Q8H CASTRO Rx#: [id number] Oral 400 360 Output: Urine 0 500 0 Estimated Blood Loss 150 Other: Voiding Method Urinal Urinal Urinal Indwelling Catheter - Exam Constitutional: No acute distress, conversant, pleasant Eyes: Anicteric sclerae, moist conjunctiva, no lid-lag, PERRLA ENMT: NC/AT,Oropharynx clear, no erythema, exudates Neck:Supple, FROM, no masses, or JVD Lungs: Decreased breath sounds, no wheezing Cardiovascular: Heart regular in rate and rhythm, No murmurs, gallops, or rubs no peripheral edema Abdominal: Soft Nontender, nom distended, no guarding, no rebound or rigidity, Normoactive bowel sounds , obese Skin: Normal temperature, tone, texture, turgor, No induration No subcutaneous nodules, No rash, lesions, No ulcers Extremities:No digital cyanosis No clubbing, Pedal pulses intact and symmetric al Radial pulses intact and symmetrical Normal gait and station, No calf tenderness Psychiatric: Alert and oriented to person, place and time, Appropriate affect Intact judgement Neuro: Muscles Strength 5/5 in all 4 extremities, Sensation to light touch grossly present throughout, Cranial nerves II-XII grossly intact. No focal sensory deficits - Labs CBC & Chem 7: 12/21/21 05:36 12/21/21 05:36 Labs: Abnormal Lab Results - Last 24 Hours (Table) 12/20/21 12/20/21 12/20/21 Range/Units 13:00 13:38 15:40 RBC (4.30-5.90) m/uL Hgb (13.0-17.5) gm/dL Hct (39.0-53.0) % Neutrophils # (1.3-7.7) k/uL Lymphocytes # (1.0-4.8) k/uL ABG pH 7.25 L (7.35-7.45) ABG pCO2 67 H (35-45) mmHg ABG pO2 78 L (83-108) mmHg ABG HCO3 29 H (21-25) mmol/L ABG Total CO2 31 H (19-24) mmol/L Sodium (137-145) mmol/L Potassium (3.5-5.1) mmol/L Carbon Dioxide (22-30) mmol/L BUN (9-20) mg/dL Glucose (74-99) mg/dL POC Glucose (mg/dL) 183 H 176 H (70-110) mg/dL Total Protein (6.3-8.2) g/dL Albumin (3.5-5.0) g/dL 12/20/21 12/21/21 12/21/21 Range/Units 22:33 05:36 05:36 RBC 3.58 L (4.30-5.90) m/uL Hgb 10.5 L (13.0-17.5) gm/dL Hct 32.9 L (39.0-53.0) % Neutrophils # 9.1 H (1.3-7.7) k/uL Lymphocytes # 0.5 L (1.0-4.8) k/uL ABG pH (7.35-7.45) ABG pCO2 (35-45) mmHg ABG pO2 (83-108) mmHg ABG HCO3 (21-25) mmol/L ABG Total CO2 (19-24) mmol/L Sodium 133 L (137-145) mmol/L Potassium 5.7 H (3.5-5.1) mmol/L Carbon Dioxide 32 H (22-30) mmol/L BUN 35 H (9-20) mg/dL Glucose 216 H (74-99) mg/dL POC Glucose (mg/dL) 197 H (70-110) mg/dL Total Protein 5.7 L (6.3-8.2) g/dL Albumin 3.4 L (3.5-5.0) g/dL Assessment and Plan Plan: Assessment and plan: 1. Acute on chronic hypercapnic surgery failure: On BiPAP, pulmonology following. Currently off BiPAP and on oxygen. 2. Obstructive sleep apnea: Supportive care, currently on BiPAP 3. COPD with chronic hypoxic respiratory failure on home oxygen 5 L: Supportive care, currently on 6 L of oxygen 4. Obesity: BMI 30.1 5. Chronic atrial fibrillation: On Cardizem and Eliquis 6. Diabetes type 2 with diabetic neuropathy: Continue sliding scale and Levemir 7. Hyperkalemia: Potassium 5.7, continue to monitor and recheck. Thank you for the consultation we will follow with you.
--- NOTE | 2021-12-21 11:00 | P.PN ---
Subjective Progress Note Date: 12/21/21 Principal diagnosis: Acute on chronic hypercapnic respiratory failure This is a 56-year-old male patient with past medical history of COPD on home oxygen, with baseline FEV1 of 40% of predicted, former smoker, obstructive sleep apnea with AHI of 49 on home CPAP device at 15 cm of water, diabetes mellitus with diabetic neuropathy, atrial fibrillation on Eliquis and osteoarthritis with progressive right hip pain for the past year. Patient has been using a cane, and his pain was significantly limiting his normal function and activities. Today, 12/20/2021 patient came in for elective right total hip arthroplastybreastfitlateral approach under general anesthesia. Following his surgery in the recovery room patient was noted to be hypoxic, with increased work of breathing, and he was placed on BiPAP support with pressures of 14/5 and FiO2 of 50%. Blood gas was obtained showing pH of 7.25, pCO2 of 67 and pO2 of 78 and this was done on the above-mentioned BiPAP settings. Postoperative chest x-ray show cardiomegaly with pulmonary vessel congestion suggestive of acute exacerbation of CHF. Patient is having postoperative pain in his right hip, he did have a nerve block performed by anesthesia services preoperatively. He is requiring IV dilated for pain control following which he does become more sedated, and tends to drop his O2 saturations into the low 80s. There was some blood work was reviewed showing white blood cell count of 7.8, hemoglobin was 11.1, platelet count of 210, sodium is 136, erythematous electrolytes and renal profile were unremarkable. Patient was seen in the recovery room, he is awaiting a bed in the intensive care unit, he does wake up to verbal stimulation, does not appear to be in any acute distress, he is achieving 790 mL tidal volume on the BiPAP support, his respiratory rate is 17-18 BPM. Tolerating BiPAP support very well, current pulse ox is 97% on BiPAP support with FiO2 of 50%. 12/21/2021 patient seen in follow-up in intensive care unit, today is postoperative day #1, status post right total hip arthroplasty on 12/20/2021. Patient wore the BiPAP support overnight with pressures of 16 of 5 and FiO2 of 45%. This morning he is on 6 L of oxygen satting 89-94%, breathing comfortable, lung sounds are clear, diminished, patient has received 4 doses of IV Solu- Medrol, he is on bronchodilators, vital signs have been stable overnight, blood pressure is stable, not requiring any pressors, he has been afebrile. He is working on incentive spirometer, he is awake and alert and oriented 3 this morning, he states his right hip postoperative pain is better controlled with combination of oral [place]'s, and IV Dilaudid for breakthrough pain. Currently he is on lactated Ringer's at a rate of 20 ML per hour, no other drips. Patient is in atrial fibrillation with a rate of 50 BPM, is likely his has been restarted last night for orthopedic surgery at 5 mg twice daily. Vitals have been stable, heart rate has been stable, a little bradycardic and his oral Cardizem has been held this morning. His labs showed a white blood cell count of 10.0, hemoglobin of 10.5, platelet count of 185, sodium of 133, potassium is 5.7, chloride is 99, CO2 is 32, B1 is 35 creatinine is 1.0, LFTs were within normal limits. Today's chest x-ray is showing bibasilar subsegmental atelectatic changes, no pneumothorax, or pleural effusions. Patient is tolerating oral intake, no nausea or vomiting, no abdominal pain, he is getting very to get up in the chair with assistance with physical therapy. Objective - Vital Signs Vital signs: Vital Signs Temp 97.4 F L 12/21/21 04:00 Pulse 44 L 12/21/21 09:00 Resp 10 L 12/21/21 09:00 BP 99/49 12/21/21 09:00 Pulse Ox 89 L 12/21/21 09:00 FiO2 45 12/21/21 08:00 Intake & Output 12/20/21 12/21/21 12/21/21 18:59 06:59 18:59 Intake Total 1451 670 420 Output Total 150 500 0 Balance 1301 170 420 Weight 100.7 kg 103.6 kg Intake: IV 1301 270 60 Lactated Ringers 1,000 ml 220 60 @ 20 mls/hr IV .Q24H [facility] Rx#:[id number] ceFAZolin 2 gm In Sodium 50 Chloride 0.9% 50 ml @ 100 mls/hr IVPB Q8H [facility] Rx#: [id number] Intake, IV Titration 150 Amount Lactated Ringers 1,000 ml 100 @ 20 mls/hr IV .Q24H [facility] Rx#:[id number] ceFAZolin 2 gm In Sodium 50 Chloride 0.9% 50 ml @ 100 mls/hr IVPB Q8H [facility] Rx#: [id number] Oral 400 360 Output: Urine 0 500 0 Estimated Blood Loss 150 Other: Voiding Method Urinal Urinal Urinal Indwelling Catheter - Exam GENERAL EXAM: Awake and alert, in no acute distress, 56-year-old white male, on 4 L of oxygen, currently off BiPAP support. HEAD: Normocephalic/atraumatic. EYES: Normal reaction of pupils, equal size. Conjunctiva pink, sclera white. NOSE: Clear with pink turbinates. THROAT: No erythema or exudates. NECK: No masses, no JVD, no thyroid enlargement, no adenopathy. CHEST: No chest wall deformity. Symmetrical expansion. LUNGS: Equal air entry with no crackles, wheeze, rhonchi or dullness. CVS: Regular rate and rhythm, normal S1 and S2, no gallops, no murmurs, no rubs ABDOMEN: Soft, nontender. No hepatosplenomegaly, normal bowel sounds, no guarding or rigidity. EXTREMITIES: No clubbing, no edema, no cyanosis, 2+ pulses and upper and lower extremities. Right hip incision is clean dry and intact, covered with a surgical dressing MUSCULOSKELETAL: Muscle strength and tone normal. SPINE: No scoliosis or deformity SKIN: No rashes CENTRAL NERVOUS SYSTEM: No focal deficits, tone is normal in all 4 extremities. - Labs CBC & Chem 7: 12/21/21 05:36 12/21/21 05:36 Labs: Abnormal Lab Results - Last 24 Hours (Table) 12/20/21 12/20/21 12/20/21 Range/Units 13:00 13:38 15:40 RBC (4.30-5.90) m/uL Hgb (13.0-17.5) gm/dL Hct (39.0-53.0) % Neutrophils # (1.3-7.7) k/uL Lymphocytes # (1.0-4.8) k/uL ABG pH 7.25 L (7.35-7.45) ABG pCO2 67 H (35-45) mmHg ABG pO2 78 L (83-108) mmHg ABG HCO3 29 H (21-25) mmol/L ABG Total CO2 31 H (19-24) mmol/L Sodium (137-145) mmol/L Potassium (3.5-5.1) mmol/L Carbon Dioxide (22-30) mmol/L BUN (9-20) mg/dL Glucose (74-99) mg/dL POC Glucose (mg/dL) 183 H 176 H (70-110) mg/dL Total Protein (6.3-8.2) g/dL Albumin (3.5-5.0) g/dL 12/20/21 12/21/21 12/21/21 Range/Units 22:33 05:36 05:36 RBC 3.58 L (4.30-5.90) m/uL Hgb 10.5 L (13.0-17.5) gm/dL Hct 32.9 L (39.0-53.0) % Neutrophils # 9.1 H (1.3-7.7) k/uL Lymphocytes # 0.5 L (1.0-4.8) k/uL ABG pH (7.35-7.45) ABG pCO2 (35-45) mmHg ABG pO2 (83-108) mmHg ABG HCO3 (21-25) mmol/L ABG Total CO2 (19-24) mmol/L Sodium 133 L (137-145) mmol/L Potassium 5.7 H (3.5-5.1) mmol/L Carbon Dioxide 32 H (22-30) mmol/L BUN 35 H (9-20) mg/dL Glucose 216 H (74-99) mg/dL POC Glucose (mg/dL) 197 H (70-110) mg/dL Total Protein 5.7 L (6.3-8.2) g/dL Albumin 3.4 L (3.5-5.0) g/dL Assessment and Plan Plan: Assessment: Acute on chronic hypercapnic respiratory failure related to operative anesthesia, and hypoventilation, and underlying history of obstructive sleep apnea and COPD. improved with BiPAP support and patient is awake and alert and is postoperative day #1, breathing comfortably on 6 L of oxygen Right hip severe osteoarthrosis, status post right total hip arthroplasty on 12/20/2021 Chronic hypoxic and hypercapnic respiratory failure related to advanced COPD and obstructive sleep apnea Stage III COPD, on home oxygen, with baseline FEV1 of 40% Former smoker Osteoarthritis History of atrial fibrillation, on Eliquis, which is currently on hold for surgery History of chronic diastolic CHF Diabetes mellitus type 2 with diabetic neuropathy Hypertension Hyperlipidemia Obstructive sleep apnea on CPAP at a pressure of 15 cm of water Urinary retention Plan: Chest x-ray blood gas have been reviewed Patient is awake and alert, answering questions appropriately, Patient is back on nasal cannula currently at 6 L continue weaning FiO2 to keep O2 sats rashes between 88-90% Has his CPAP device from home and he can resume wearing his own device tonight at a pressure of 15 cm of water Discontinue Solu-Medrol Continue bronchodilators Patient is experiencing urinary retention We'll start him on Flomax 0.4 mg once daily, and [place] will be reinserted if he continues to have high residuals and is not able to pass Continue Apixaban 5 mg BID Continue Lyrica Physical therapy consultation and treat I have personally seen and examined the patient, performed the documentation and the assessment and plan as written. I have personally seen and examined the patient and reviewed the documentation. I performed a joint evaluation with the nurse practitioner in this evaluation was done more than 20 minutes. I fully agree with the documentation above and the plan of care. Joint evaluation along with the nurse practitioner. Clinically improved. Less short of breath. We'll utilize the patient's own CPAP machine from home. Overnight, the patient spent on BiPAP and his acid base status is improved in no signs of any CO2 narcosis. Pain is under better control. Start anticoagulation. Start Lyrica. We'll monitor the patient ICU for another 24 hours. Time with Patient: Less than 30
[2021-12-21] MEDS: lisinopriL 20 MG TAB PO SCH (11:20)
[2021-12-21] MEDS: LACTATED RINGERS 1,000 ML IV SCH (11:20)
[2021-12-21] MEDS: DILTIAZEM CD 240 MG CAP.ER.24H PO SCH (11:20)
[2021-12-21 16:52] LABS: Glucose,Whole Blood 381 mg/dL (70-110)
[2021-12-21] MEDS: TAMSULOSIN 0.4 MG CAP.ER.24H PO SCH (16:59)
[2021-12-21 20:19] LABS: Glucose,Whole Blood 309 mg/dL (70-110)
[2021-12-21] MEDS: SENNOSIDES-DOCUSATE SODIUM 1 EACH TAB PO SCH (20:47)
[2021-12-21] MEDS: INSULIN DETEMIR (LEVEMIR) 100 UNIT/ML SYR SQ SCH (20:48)
[2021-12-21] MEDS: HYDROmorphone 0.5 MG/0.5 ML SYRINGE IVP PRN (20:57)
[2021-12-22] MEDS: HYDROmorphone 1 MG/ML 1 ML SYRINGE IVP PRN ×6 (00:50→20:43)
[2021-12-22 06:52] LABS: Glucose,Whole Blood 181 mg/dL (70-110)
[2021-12-22] MEDS: IPRATROPIUM-ALBUTEROL 3 ML NEB INHALATION SCH ×4 (07:12→21:02)
[2021-12-22] MEDS: HYDROcodone/APAP 7.5-325MG 1 EACH TAB PO PRN ×2 (07:18→14:03)
[2021-12-22] MEDS: PANTOPRAZOLE 40 MG TABLET PO SCH (07:19)
[2021-12-22] MEDS: metFORMIN 500 MG TAB PO SCH ×2 (07:19→17:04)
[2021-12-22] MEDS: ATORVASTATIN 80 MG TAB PO SCH (08:08)
[2021-12-22] MEDS: DILTIAZEM CD 240 MG CAP.ER.24H PO SCH (08:08)
[2021-12-22] MEDS: lisinopriL 20 MG TAB PO SCH (08:08)
[2021-12-22] MEDS: APIXABAN 5 MG TAB PO SCH ×2 (08:08→20:44)
[2021-12-22] MEDS: PREGABALIN 75 MG CAP PO SCH ×3 (08:08→20:43)
--- NOTE | 2021-12-22 09:37 | P.PN ---
Subjective Progress Note Date: 12/22/21 Principal diagnosis: Status post right total hip arthroplasty, lateral approach Patient was evaluated today, patient was transferred out of the ICU yesterday to the medical/surgical floor. Patient is doing well, he was up and ambulating with therapy earlier today. He has some generalized soreness in the right lower extremity. Patient is urinating with no difficulties at this time. His lab/vital seem to be improving. Currently denies any changes in shortness of breath, denies chest pain, headaches, lightheadedness. Objective - Vital Signs Vital signs: Vital Signs Temp 98.1 F 12/22/21 08:00 Pulse 58 L 12/22/21 08:00 Resp 17 12/22/21 08:00 BP 106/47 12/22/21 08:00 Pulse Ox 96 12/22/21 08:00 FiO2 45 12/21/21 04:00 Intake & Output 12/21/21 12/22/21 12/22/21 18:59 06:59 18:59 Intake Total 1660 Output Total 450 2230 Balance 1210 -2230 Intake: IV 220 Lactated Ringers 1,000 ml 220 @ 20 mls/hr IV .Q24H [facility] Rx#:[id number] Oral 1440 Output: Urine 450 2230 Other: Voiding Method Urinal Urinal - Exam Right lower extremity: Postoperative dressing was removed, tape dressing is in good position and condition. Generalized swelling present in the anterior posterior thigh. Soft, no tenderness with palpation. Plantar flexion, dorsiflexion, EHL, FHL are intact. Sensory exam to light touch is intact throughout the extremity. Dorsalis pedis pulses 2+. - Labs CBC & Chem 7: 12/21/21 05:36 12/21/21 05:36 Labs: Abnormal Lab Results - Last 24 Hours (Table) 12/21/21 12/21/21 12/22/21 Range/Units 16:50 20:17 06:51 POC Glucose (mg/dL) 381 H 309 H 181 H (70-110) mg/dL Assessment and Plan Assessment: Postoperative day #2 status post total hip arthroplasty, lateral approach Other medical comorbidities Plan: Pain control, continue current medications. Avoid IV narcotics DVT prophylaxis, Eliquis has been restarted Wound care, light bandage to be applied over the skin tape Weight-bear as tolerated, utilize walker ambulation Encourage incentive spirometer PT/OT evaluation Other pesticide use medical coordinator recommendations Discharge planning: Patient is continued to progress, would like 1 additional night in hospital to monitor. Plan for discharge to home with home healthcare on 12/23/2021 Time with Patient: Less than 30
[2021-12-22 10:58] LABS: Basophils # (A) 0.01 X 10*3/uL (0.00-0.10); Basophils % (A) 0.1 %; Eosinophils # (A) 0 X 10*3/uL (0.04-0.35); Eosinophils % (A) 0 %; HCT 29.3 % (39.6-50.0); HGB 8.9 g/dL (13.0-17.0); Immature Grans, Automated 0.7 %; Lymphocytes # (A) 0.53 X 10*3/uL (0.90-5.00); Lymphocytes % (A) 3.8 %; MCH 27.4 pg (27.0-32.0); MCHC 30.4 g/dL (32.0-37.0); MCV 90.2 fL (80.0-97.0); Mean Platelet Volume 10.8 fL (9.5-12.2); Monocytes # (A) 0.73 X 10*3/uL (0.20-1.00); Monocytes % (A) 5.2 %; NRBC Per 100 WBC 0 /100 WBCS (0.0-0.0); Neutrophils # (A) 12.62 X 10*3/uL (1.80-7.70); Neutrophils % (A) 90.2 %; Platelet Count 220 X 10*3/uL (140-440); RBC 3.25 X 10*6/uL (4.40-5.60); RDW 15.1 % (11.5-14.5); WBC 13.99 X 10*3/uL (4.50-10.00)
[2021-12-22 10:59] LABS: ALT 11 U/L (10-49); AST 17 U/L (14-35); African American GFR (CKD) 97.1 (60.0-200.0); Albumin 3.4 g/dL (3.8-4.9); Alkaline Phosphatase 111 U/L (41-126); Blood Urea Nitrogen 49.5 mg/dL (9.0-27.0); Calcium 8.9 mg/dL (8.7-10.3); Carbon Dioxide 24.2 mmol/L (20.0-27.5); Chloride 98 mmol/L (96-109); Glucose 156 mg/dL (70-110); Non-African American GFR(CKD) 83.8 (60.0-200.0); Potassium 5.2 mmol/L (3.5-5.5); Sodium 135 mmol/L (135-145); Total Bilirubin <0.15 mg/dL (0.30-1.20); Total Protein 5.4 g/dL (6.2-8.2)
[2021-12-22 11:42] LABS: Glucose,Whole Blood 212 mg/dL (70-110)
--- NOTE | 2021-12-22 11:45 | P.PN ---
Subjective Progress Note Date: 12/22/21 Principal diagnosis: Acute on chronic hypercapnic respiratory failure This is a 56-year-old male patient with past medical history of COPD on home oxygen, with baseline FEV1 of 40% of predicted, former smoker, obstructive sleep apnea with AHI of 49 on home CPAP device at 15 cm of water, diabetes mellitus with diabetic neuropathy, atrial fibrillation on Eliquis and osteoarthritis with progressive right hip pain for the past year. Patient has been using a cane, and his pain was significantly limiting his normal function and activities. Today, 12/20/2021 patient came in for elective right total hip arthroplastybreastfitlateral approach under general anesthesia. Following his surgery in the recovery room patient was noted to be hypoxic, with increased work of breathing, and he was placed on BiPAP support with pressures of 14/5 and FiO2 of 50%. Blood gas was obtained showing pH of 7.25, pCO2 of 67 and pO2 of 78 and this was done on the above-mentioned BiPAP settings. Postoperative chest x-ray show cardiomegaly with pulmonary vessel congestion suggestive of acute exacerbation of CHF. Patient is having postoperative pain in his right hip, he did have a nerve block performed by anesthesia services preoperatively. He is requiring IV dilated for pain control following which he does become more sedated, and tends to drop his O2 saturations into the low 80s. There was some blood work was reviewed showing white blood cell count of 7.8, hemoglobin was 11.1, platelet count of 210, sodium is 136, erythematous electrolytes and renal profile were unremarkable. Patient was seen in the recovery room, he is awaiting a bed in the intensive care unit, he does wake up to verbal stimulation, does not appear to be in any acute distress, he is achieving 790 mL tidal volume on the BiPAP support, his respiratory rate is 17-18 BPM. Tolerating BiPAP support very well, current pulse ox is 97% on BiPAP support with FiO2 of 50%. 12/21/2021 patient seen in follow-up in intensive care unit, today is postoperative day #1, status post right total hip arthroplasty on 12/20/2021. Patient wore the BiPAP support overnight with pressures of 16 of 5 and FiO2 of 45%. This morning he is on 6 L of oxygen satting 89-94%, breathing comfortable, lung sounds are clear, diminished, patient has received 4 doses of IV Solu- Medrol, he is on bronchodilators, vital signs have been stable overnight, blood pressure is stable, not requiring any pressors, he has been afebrile. He is working on incentive spirometer, he is awake and alert and oriented 3 this morning, he states his right hip postoperative pain is better controlled with combination of oral [place]'s, and IV Dilaudid for breakthrough pain. Currently he is on lactated Ringer's at a rate of 20 ML per hour, no other drips. Patient is in atrial fibrillation with a rate of 50 BPM, is likely his has been restarted last night for orthopedic surgery at 5 mg twice daily. Vitals have been stable, heart rate has been stable, a little bradycardic and his oral Cardizem has been held this morning. His labs showed a white blood cell count of 10.0, hemoglobin of 10.5, platelet count of 185, sodium of 133, potassium is 5.7, chloride is 99, CO2 is 32, B1 is 35 creatinine is 1.0, LFTs were within normal limits. Today's chest x-ray is showing bibasilar subsegmental atelectatic changes, no pneumothorax, or pleural effusions. Patient is tolerating oral intake, no nausea or vomiting, no abdominal pain, he is getting very to get up in the chair with assistance with physical therapy. On 12/22/2021 patient seen in follow-up on medical surgical floor. Patient was transferred out of intensive care unit yesterday, he is doing well, he is currently on 6 L of oxygen, breathing comfortably, he is satting 96% on 6 L and FiO2 is being weaned, no fever or chills, blood pressure is stable, he did wear his CPAP unit from home last night. His postoperative right hip pain is better controlled. Patient has been up out of bed with a walker and therapy, tolerated activity well. Chest x-ray showing subsegmental basilar atelectatic changes. His labs have been reviewed, white blood cell, 13.9, hemoglobin is 8.9, platelet count is 220, electrolytes are within normal limits, BUN is 49 and creatinine is 1.0. Objective - Vital Signs Vital signs: Vital Signs Temp 98.1 F 12/22/21 08:00 Pulse 55 L 12/22/21 11:04 Resp 17 12/22/21 08:00 BP 106/47 12/22/21 08:00 Pulse Ox 96 12/22/21 08:00 FiO2 45 12/21/21 04:00 Intake & Output 12/21/21 12/22/21 12/22/21 18:59 06:59 18:59 Intake Total 1660 Output Total 450 2230 Balance 1210 -2230 Intake: IV 220 Lactated Ringers 1,000 ml 220 @ 20 mls/hr IV .Q24H [facility] Rx#:[id number] Oral 1440 Output: Urine 450 2230 Other: Voiding Method Urinal Urinal Urinal - Exam GENERAL EXAM: Awake and alert, in no acute distress, 56-year-old white male, on 6 L of oxygen, satting 93% HEAD: Normocephalic/atraumatic. EYES: Normal reaction of pupils, equal size. Conjunctiva pink, sclera white. NOSE: Clear with pink turbinates. THROAT: No erythema or exudates. NECK: No masses, no JVD, no thyroid enlargement, no adenopathy. CHEST: No chest wall deformity. Symmetrical expansion. LUNGS: Equal air entry with no crackles, wheeze, rhonchi or dullness. CVS: Regular rate and rhythm, normal S1 and S2, no gallops, no murmurs, no rubs ABDOMEN: Soft, nontender. No hepatosplenomegaly, normal bowel sounds, no guarding or rigidity. EXTREMITIES: No clubbing, no edema, no cyanosis, 2+ pulses and upper and lower extremities. Right hip incision is clean dry and intact, covered with a surgical dressing MUSCULOSKELETAL: Muscle strength and tone normal. SPINE: No scoliosis or deformity SKIN: No rashes CENTRAL NERVOUS SYSTEM: No focal deficits, tone is normal in all 4 extremities. - Labs CBC & Chem 7: 12/22/21 06:11 12/22/21 06:11 Labs: Abnormal Lab Results - Last 24 Hours (Table) 12/21/21 12/21/21 12/22/21 Range/Units 16:50 20:17 06:11 WBC 13.99 H (4.50-10.00) X 10*3/uL RBC 3.25 L (4.40-5.60) X 10*6/uL Hgb 8.9 L (13.0-17.0) g/dL Hct 29.3 L (39.6-50.0) % MCHC 30.4 L (32.0-37.0) g/dL RDW 15.1 H (11.5-14.5) % Immature Gran # 0.10 H (0.00-0.04) X 10*3/uL Neutrophils # 12.62 H (1.80-7.70) X 10*3/uL Lymphocytes # 0.53 L (0.90-5.00) X 10*3/uL Eosinophils # 0 L (0.04-0.35) X 10*3/uL BUN (9.0-27.0) mg/dL BUN/Creatinine Ratio (12.00-20.00) Ratio Glucose (70-110) mg/dL POC Glucose (mg/dL) 381 H 309 H (70-110) mg/dL Total Bilirubin (0.30-1.20) mg/dL Total Protein (6.2-8.2) g/dL Albumin (3.8-4.9) g/dL 12/22/21 12/22/21 Range/Units 06:11 06:51 WBC (4.50-10.00) X 10*3/uL RBC (4.40-5.60) X 10*6/uL Hgb (13.0-17.0) g/dL Hct (39.6-50.0) % MCHC (32.0-37.0) g/dL RDW (11.5-14.5) % Immature Gran # (0.00-0.04) X 10*3/uL Neutrophils # (1.80-7.70) X 10*3/uL Lymphocytes # (0.90-5.00) X 10*3/uL Eosinophils # (0.04-0.35) X 10*3/uL BUN 49.5 H (9.0-27.0) mg/dL BUN/Creatinine Ratio 49.50 H (12.00-20.00) Ratio Glucose 156 H (70-110) mg/dL POC Glucose (mg/dL) 181 H (70-110) mg/dL Total Bilirubin <0.15 L (0.30-1.20) mg/dL Total Protein 5.4 L (6.2-8.2) g/dL Albumin 3.4 L (3.8-4.9) g/dL Assessment and Plan Plan: Assessment: Acute on chronic hypercapnic respiratory failure related to operative anesthesia, and hypoventilation, and underlying history of obstructive sleep apnea and COPD. improved with BiPAP support and patient is awake and alert and is postoperative day # 2, breathing comfortably on 6 L of oxygen Right hip severe osteoarthrosis, status post right total hip arthroplasty on 12/20/2021 Chronic hypoxic and hypercapnic respiratory failure related to advanced COPD and obstructive sleep apnea Stage III COPD, on home oxygen, with baseline FEV1 of 40% Former smoker Osteoarthritis History of atrial fibrillation, on Eliquis, which is currently on hold for surgery History of chronic diastolic CHF Diabetes mellitus type 2 with diabetic neuropathy Hypertension Hyperlipidemia Obstructive sleep apnea on CPAP at a pressure of 15 cm of water Urinary retention Plan: Patient is breathing comfortably, he wore his CPAP unit from home last night Continue weaning FiO2 patient normally wears 5 L of oxygen on a regular basis at home Continue bronchodilators IV steroids have been discontinued His postoperative pain is controlled Patient is tolerating ambulation with a walker and physical therapy Patient is anticipated to be going home tomorrow I have personally seen and examined the patient, performed the documentation and the assessment and plan as written. I have personally seen and examined the patient and reviewed the documentation. I performed a joint evaluation with the nurse practitioner in this evaluation was done more than 20 minutes. I fully agree with the documentation above and the plan of care. Pain is under adequate control and the patient has no signs of any CO2 narcosis. The patient remains on 5 L about 2 by nasal cannula. Ambulating. Possible discharge within the next 24-48 hours. He is currently postop day #2. Time with Patient: Less than 30
[2021-12-22] MEDS: LACTATED RINGERS 1,000 ML IV SCH (13:01)
--- NOTE | 2021-12-22 16:02 | P.PN ---
Subjective Progress Note Date: 12/22/21 Principal diagnosis: Right hip pain Patient was seen and examined. No acute events overnight. Patient reports well-controlled pain in his right hip. Breathing back to normal. Currently on 5 L nasal cannula. Brought in his CPAP from home. He denies any chest pain, shortness breath or palpitations. No nausea or vomiting. No fever or chills. Objective - Vital Signs Vital signs: Vital Signs Temp 97.6 F 12/22/21 14:00 Pulse 63 12/22/21 14:00 Resp 17 12/22/21 14:00 BP 101/61 12/22/21 14:00 Pulse Ox 94 L 12/22/21 14:00 FiO2 45 12/21/21 04:00 Intake & Output 12/21/21 12/22/21 12/22/21 18:59 06:59 18:59 Intake Total 1660 Output Total 450 2230 Balance 1210 -2230 Intake: IV 220 Lactated Ringers 1,000 ml 220 @ 20 mls/hr IV .Q24H [facility] Rx#:[id number] Oral 1440 Output: Urine 450 2230 Other: Voiding Method Urinal Urinal Urinal - Exam General: [non toxic], [no distress], [appears at stated age] Derm: [warm], [dry] Head: [atraumatic], [normocephalic], [symmetric] Eyes: [EOMI], [no lid lag], [anicteric sclera] Mouth: [no lip lesion], [mucus membranes moist] Cardiovascular: [S1S2 reg], [no murmur] Lungs: [Decreased BS bilateral], [no rhonchi, no rales] , [no accessory muscle use] Abdominal: [soft], [ nontender to palpation], [no guarding], [no appreciable organomegaly] Ext: [no gross muscle atrophy], [no edema], [no contractures] Neuro: [no focal neuro deficits] Psych: [Alert], [oriented], [appropriate affect] - Labs CBC & Chem 7: 12/22/21 06:11 12/22/21 06:11 Labs: Abnormal Lab Results - Last 24 Hours (Table) 12/21/21 12/21/21 12/22/21 Range/Units 16:50 20:17 06:11 WBC 13.99 H (4.50-10.00) X 10*3/uL RBC 3.25 L (4.40-5.60) X 10*6/uL Hgb 8.9 L (13.0-17.0) g/dL Hct 29.3 L (39.6-50.0) % MCHC 30.4 L (32.0-37.0) g/dL RDW 15.1 H (11.5-14.5) % Immature Gran # 0.10 H (0.00-0.04) X 10*3/uL Neutrophils # 12.62 H (1.80-7.70) X 10*3/uL Lymphocytes # 0.53 L (0.90-5.00) X 10*3/uL Eosinophils # 0 L (0.04-0.35) X 10*3/uL BUN (9.0-27.0) mg/dL BUN/Creatinine Ratio (12.00-20.00) Ratio Glucose (70-110) mg/dL POC Glucose (mg/dL) 381 H 309 H (70-110) mg/dL Total Bilirubin (0.30-1.20) mg/dL Total Protein (6.2-8.2) g/dL Albumin (3.8-4.9) g/dL 12/22/21 12/22/21 12/22/21 Range/Units 06:11 06:51 11:40 WBC (4.50-10.00) X 10*3/uL RBC (4.40-5.60) X 10*6/uL Hgb (13.0-17.0) g/dL Hct (39.6-50.0) % MCHC (32.0-37.0) g/dL RDW (11.5-14.5) % Immature Gran # (0.00-0.04) X 10*3/uL Neutrophils # (1.80-7.70) X 10*3/uL Lymphocytes # (0.90-5.00) X 10*3/uL Eosinophils # (0.04-0.35) X 10*3/uL BUN 49.5 H (9.0-27.0) mg/dL BUN/Creatinine Ratio 49.50 H (12.00-20.00) Ratio Glucose 156 H (70-110) mg/dL POC Glucose (mg/dL) 181 H 212 H (70-110) mg/dL Total Bilirubin <0.15 L (0.30-1.20) mg/dL Total Protein 5.4 L (6.2-8.2) g/dL Albumin 3.4 L (3.8-4.9) g/dL Assessment and Plan Assessment: Assessment and plan: Acute on chronic hypercapnic respiratory failure: On BiPAP, pulmonology fol lowlalit. Currently off BiPAP and baseline O2 Normocytic anemia: Continue to monitor Obstructive sleep apnea: Supportive care, currently on BiPAP COPD with chronic hypoxic respiratory failure on home oxygen 5 L: Supportive care, currently on 6 L of oxygen. IV steroids discontinued. Continue [facility] hodilators. Obesity: BMI 31 Chronic atrial fibrillation: On Cardizem and Eliquis Diabetes type 2 with diabetic neuropathy: Continue sliding scale and Levemir Resolved: Hyperkalemia Thank you for the consultation we will follow with you. Anticipate DC home tomorrow.
[2021-12-22 16:42] LABS: Glucose,Whole Blood 220 mg/dL (70-110)
[2021-12-22] MEDS: TAMSULOSIN 0.4 MG CAP.ER.24H PO SCH (17:39)
[2021-12-22] MEDS: SENNOSIDES-DOCUSATE SODIUM 1 EACH TAB PO SCH (20:44)
[2021-12-22] MEDS: INSULIN DETEMIR (LEVEMIR) 100 UNIT/ML SYR SQ SCH (20:44)
[2021-12-22 21:12] LABS: Glucose,Whole Blood 276 mg/dL (70-110)
[2021-12-23] MEDS: HYDROmorphone 1 MG/ML 1 ML SYRINGE IVP PRN (00:33)
[2021-12-23] MEDS ORDERED: SODIUM CHLORIDE 0.9% 500 ML 500 ML IV ONE (01:22)
[2021-12-23 07:05] LABS: Glucose,Whole Blood 130 mg/dL (70-110)
[2021-12-23] MEDS: IPRATROPIUM-ALBUTEROL 3 ML NEB INHALATION SCH ×2 (07:52→11:30)
[2021-12-23 08:03] VITALS: BP 105/56; RESP 18; TEMP 97.7
[2021-12-23] MEDS: PREGABALIN 75 MG CAP PO SCH (08:11)
[2021-12-23] MEDS: APIXABAN 5 MG TAB PO SCH (08:11)
[2021-12-23] MEDS: DILTIAZEM CD 240 MG CAP.ER.24H PO SCH (08:11)
[2021-12-23] MEDS: metFORMIN 500 MG TAB PO SCH (08:11)
[2021-12-23] MEDS: ATORVASTATIN 80 MG TAB PO SCH (08:11)
[2021-12-23] MEDS: HYDROcodone/APAP 7.5-325MG 1 EACH TAB PO PRN ×2 (08:11→14:08)
[2021-12-23] MEDS: lisinopriL 20 MG TAB PO SCH (08:12)
[2021-12-23] MEDS: PANTOPRAZOLE 40 MG TABLET PO SCH (08:12)
--- NOTE | 2021-12-23 08:30 | P.PN ---
Subjective Progress Note Date: 12/23/21 Principal diagnosis: Status post right total hip arthroplasty, lateral approach Patient was evaluated today. He has some generalized soreness in the right lower extremity. Currently denies any changes in shortness of breath, denies chest pain, headaches, lightheadedness. Objective - Vital Signs Vital signs: Vital Signs Temp 97.7 F 12/23/21 08:00 Pulse 67 12/23/21 08:02 Resp 18 12/23/21 08:00 BP 105/56 12/23/21 08:00 Pulse Ox 96 12/23/21 08:00 FiO2 45 12/21/21 04:00 Intake & Output 12/22/21 12/23/21 12/23/21 18:59 06:59 18:59 Intake Total 1040 Output Total 775 Balance 265 Intake: Intake, IV Titration 240 Amount Lactated Ringers 1,000 ml 240 @ 20 mls/hr IV .Q24H CASTRO Rx#:[id number] Oral 800 Output: Urine 775 Other: Voiding Method Urinal Toilet Urinal # Voids 1 # Bowel Movements 0 - Exam Right lower extremity: Postoperative dressing was removed, tape dressing is in good position and condition. Generalized swelling present in the anterior posterior thigh. Soft, no tenderness with palpation. Plantar flexion, dorsiflexion, EHL, FHL are intact. Sensory exam to light touch is intact throughout the extremity. Dorsalis pedis pulses 2+. - Labs CBC & Chem 7: 12/22/21 06:11 12/22/21 06:11 Labs: Abnormal Lab Results - Last 24 Hours (Table) 12/22/21 12/22/21 12/22/21 Range/Units 06:11 06:11 11:40 WBC 13.99 H (4.50-10.00) X 10*3/uL RBC 3.25 L (4.40-5.60) X 10*6/uL Hgb 8.9 L (13.0-17.0) g/dL Hct 29.3 L (39.6-50.0) % MCHC 30.4 L (32.0-37.0) g/dL RDW 15.1 H (11.5-14.5) % Immature Gran # 0.10 H (0.00-0.04) X 10*3/uL Neutrophils # 12.62 H (1.80-7.70) X 10*3/uL Lymphocytes # 0.53 L (0.90-5.00) X 10*3/uL Eosinophils # 0 L (0.04-0.35) X 10*3/uL BUN 49.5 H (9.0-27.0) mg/dL BUN/Creatinine Ratio 49.50 H (12.00-20.00) Ratio Glucose 156 H (70-110) mg/dL POC Glucose (mg/dL) 212 H (70-110) mg/dL Total Bilirubin <0.15 L (0.30-1.20) mg/dL Total Protein 5.4 L (6.2-8.2) g/dL Albumin 3.4 L (3.8-4.9) g/dL 12/22/21 12/22/21 12/23/21 Range/Units 16:40 21:11 07:03 WBC (4.50-10.00) X 10*3/uL RBC (4.40-5.60) X 10*6/uL Hgb (13.0-17.0) g/dL Hct (39.6-50.0) % MCHC (32.0-37.0) g/dL RDW (11.5-14.5) % Immature Gran # (0.00-0.04) X 10*3/uL Neutrophils # (1.80-7.70) X 10*3/uL Lymphocytes # (0.90-5.00) X 10*3/uL Eosinophils # (0.04-0.35) X 10*3/uL BUN (9.0-27.0) mg/dL BUN/Creatinine Ratio (12.00-20.00) Ratio Glucose (70-110) mg/dL POC Glucose (mg/dL) 220 H 276 H 130 H (70-110) mg/dL Total Bilirubin (0.30-1.20) mg/dL Total Protein (6.2-8.2) g/dL Albumin (3.8-4.9) g/dL Assessment and Plan Assessment: Postoperative day #3 status post total hip arthroplasty, lateral approach Other medical comorbidities Plan: Pain control, plan for discharge on [place] 7.5 mg/325 mg DVT prophylaxis, Eliquis has been restarted Wound care, light bandage to be applied over the skin tape Weight-bear as tolerated, utilize walker ambulation Encourage incentive spirometer PT/OT evaluation Other certified medical aide recommendations Discharge planning: Plan for discharge home today
--- NOTE | 2021-12-23 08:35 | P.DS ---
Providers Date of admission: 12/20/21 14:58 Expected date of discharge: 12/23/21 Attending physician: Akil Hernandez Consults: 12/20/21 12:10 Consult Physician Routine Consulting Provider: Nicole Vo Consult Reason/Comments: Medical Management s/p right total hip arthroplasty Do you want consulting provider notified?: Yes 12/20/21 13:17 Consult Physician Urgent Consulting Provider: Armin Degroot Consult Reason/Comments: on bipap in pacu Do you want consulting provider notified?: Already Contacted 12/23/21 03:03 Consult Physician Urgent Consulting Provider: Ankur Suarez Consult Reason/Comments: Junctional bradycardia Do you want consulting provider notified?: Yes Primary care physician: Kimberlee Gilman MD Hospital Course: Date of admission: 12/20/2021 Date of discharge: 12/23/2021 Admission diagnosis: Status post right total hip arthroplasty, lateral approach Discharge diagnosis: Same Attending physician: Dr. Hernandez Surgical procedures: Right total hip arthroplasty, lateral approach Brief history: Patient is a 56-year-old male with a history of progressive primary right hip osteoarthritis. At this point patient has failed conservative treatment measures and has opted to proceed with a elective total hip arthroplasty. Hospital course: Details of patient's surgery can be found in operative report. Patient tolerated the procedure well and was subsequently transported to orthopedic floor. Patient's orthopeidc and medical care was provided daily. Patient had daily laboratory tests performed for evaluation of overall blood counts. Patient had daily physical therapy to include strengthening range of motion as well as education with walker ambulation. Patient was treated with Eliquis for their postoperative DVT prophylaxis during their inpatient stay. Patient was noted to have a relatively uneventful postoperative course. Patient reported satisfactory pain control with oral pain medications by postoperative day 0. Patient showed satisfactory progress with physical therapy. Patient moved steadily through the program and had no difficulty meeting the goals by postoperative day 3. Given patient's otherwise satisfactory course and having met physical therapy goals, plan is to discharge patient home on postoperative day 3. Discharge condition/disposition: Patient will be discharged home in stable condition. Discharge medications: Instructions are given on resumption of patient's normal daily medications per primary care recommendation, in addition patient will be prescribed [place] 7.5 mg/325 mg, Colace 100 mg. Discharge instructions: 1. Wound care and infection precautions, keep incision dry and covered while showering, no lotions, creams, moisturizers. No soaking, tubs, pools, hottubs. Do not scrub over the incision. 2. Weight-bear as tolerated with walker / cane until follow-up. 3. Ice and elevate when necessary. Do not exceed 20 minutes per hour with ice pack. 4. Utilize compression sleeve until seen at first follow up appointment. 5. Visiting nursing care. 6. Home physical therapy. 7. Pain meds and anticoagulants per prescription. 8. Pain medication has potential to cause constipation. Increase oral fluid and fiber intake. Contact primary care provider if you have not had a bowel movement within 48 hours after discharge 9. No anti-inflammatory medication until discussed at first post operative visit, this including Motrin, Aleve, Mobic, Diclofenac. 10. Follow up in office at 2 weeks postop with Mariano Navarro PA-C/Dominick Ramirez 11. Follow up with your primary care doctor 7-10 days after discharge. 12. Contact [facility] with any questions, . Procedures: Right total hip arthroplasty, lateral approach Patient Condition at Discharge: Stable Plan - Discharge Summary Discharge Rx Participant: No New Discharge Prescriptions: New Docusate [Colace] 100 mg PO DAILY #30 capsule HYDROcodone/APAP 7.5-325MG [[place] 7.5] 1 each PO Q6HR PRN #28 tab PRN Reason: Pain No Action metFORMIN HCL [Glucophage] 1,000 mg PO BID Omeprazole 20 mg PO DAILY Fluticasone Propion/Salmeterol [Advair 250-50 Diskus] 1 puff INHALATION RT- BID Pregabalin 150 mg PO TID Albuterol Sulfate [Proair Hfa] 2 puff INHALATION RT-Q6H PRN PRN Reason: Shortness Of Breath Ipratropium-Albuterol Nebulize [Duoneb 0.5 mg-3 mg/3 ml Soln] 3 ml INHALATION RT-QID Tiotropium Early [Spiriva] 1 cap INHALATION RT-DAILY Insulin Glargine,Hum.rec.anlog [Lantus Solostar Pen] 40 unit SQ HS Furosemide [Lasix] 40 - 80 mg PO DAILY PRN PRN Reason: Edema dilTIAZem HCL [dilTIAZem HCL 24Hr ER (Xr)] 240 mg PO DAILY Atorvastatin [Lipitor] 80 mg PO DAILY lisinopriL 40 mg PO DAILY Apixaban [Eliquis] 5 mg PO BID Discharge Medication List Fluticasone Propion/Salmeterol [Advair 250-50 Diskus] 1 puff INHALATION RT-BID 03/16/15 [History] Omeprazole 20 mg PO DAILY 03/16/15 [History] metFORMIN HCL [Glucophage] 1,000 mg PO BID 03/16/15 [History] Atorvastatin [Lipitor] 80 mg PO DAILY 09/17/20 [History] Pregabalin 150 mg PO TID 09/17/20 [History] dilTIAZem HCL [dilTIAZem HCL 24Hr ER (Xr)] 240 mg PO DAILY 09/17/20 [History] Albuterol Sulfate [Proair Hfa] 2 puff INHALATION RT-Q6H PRN 10/24/20 [History] lisinopriL 40 mg PO DAILY 10/24/20 [History] Ipratropium-Albuterol Nebulize [Duoneb 0.5 mg-3 mg/3 ml Soln] 3 ml INHALATION RT-QID 02/25/21 [History] Tiotropium Early [Spiriva] 1 cap INHALATION RT-DAILY 02/25/21 [History] Apixaban [Eliquis] 5 mg PO BID 09/12/21 [History] Furosemide [Lasix] 40 - 80 mg PO DAILY PRN 09/12/21 [History] Insulin Glargine,Hum.rec.anlog [Lantus Solostar Pen] 40 unit SQ HS 09/12/21 [History] Docusate [Colace] 100 mg PO DAILY #30 capsule 12/23/21 [Rx] HYDROcodone/APAP 7.5-325MG [[place] 7.5] 1 each PO Q6HR PRN #28 tab 12/23/21 [Rx] Follow up Appointment(s)/Referral(s): Dominick Peter PAC [PHYSICIAN KINESEOLOGIST] - 01/05/22 [facility], [NON-STAFF] - (Formerly [facility] will call you to arrange a visit. ) Patient Instructions/Handouts: Total Hip Replacement (DC) Activity/Diet/Wound Care/Special Instructions: Orthopedic Discharge Instructions: 1. Wound care and infection precautions, [keep incision dry and covered while showering], no lotions, creams, moisturizers. No soaking, pools, hot tubs. Do not scrub over incision. 2. Weight-bear [as tolerated] with walker / cane until follow-up. 3. Ice and elevate when necessary. Do not exceed 20 minutes per hour with ice pack. 4. Utilize compression sleeve until seen at first follow up appointment. 5. Pain meds and anticoagulants per prescription. 6. Pain medication has potential to cause constipation. Increase oral fluid and fiber intake. Contact primary care provider if you have not had a bowel movement within 48 hours after discharge. 7. No anti-inflammatory medication until discussed at first post operative visit, this including Motrin, Aleve, Mobic, Diclofenac, [Aspirin]. 8. Follow up in office at 2 weeks postop with Mariano Navarro PA-C / Dominick Peter PA-C 9. Follow up with your primary care doctor 7-10 days after discharge. 10. Contact [facility] with any questions, . Discharge Disposition: HOME WITH HOME HEALTH SERVICES
[2021-12-23] MEDS ORDERED: FUROSEMIDE 40 MG TAB PO SCH (09:30)
[2021-12-23 10:50] LABS: Basophils # (A) 0.02 X 10*3/uL (0.00-0.10); Basophils % (A) 0.2 %; Eosinophils # (A) 0.08 X 10*3/uL (0.04-0.35); Eosinophils % (A) 0.8 %; HCT 30.6 % (39.6-50.0); HGB 9.3 g/dL (13.0-17.0); Immature Grans, Automated 1.2 %; Lymphocytes # (A) 1.42 X 10*3/uL (0.90-5.00); Lymphocytes % (A) 13.6 %; MCH 27.4 pg (27.0-32.0); MCHC 30.4 g/dL (32.0-37.0); Mean Platelet Volume 10.6 fL (9.5-12.2); Monocytes # (A) 0.93 X 10*3/uL (0.20-1.00); Monocytes % (A) 8.9 %; NRBC Per 100 WBC 0 /100 WBCS (0.0-0.0); Neutrophils # (A) 7.85 X 10*3/uL (1.80-7.70); Neutrophils % (A) 75.3 %; Platelet Count 222 X 10*3/uL (140-440); RDW 15.4 % (11.5-14.5); WBC 10.43 X 10*3/uL (4.50-10.00)
--- NOTE | 2021-12-23 10:50 | P.PN ---
Subjective Progress Note Date: 12/23/21 Principal diagnosis: Right hip pain Patient was seen and examined. No acute events overnight. Patient reports well-controlled pain in his right hip. Breathing back to normal. Currently on 5 L nasal cannula. He denies any chest pain, shortness breath or palpitations. No nausea or vomiting. No fever or chills. Objective - Vital Signs Vital signs: Vital Signs Temp 97.7 F 12/23/21 08:00 Pulse 67 12/23/21 08:02 Resp 18 12/23/21 08:10 BP 105/56 12/23/21 08:00 Pulse Ox 96 12/23/21 08:00 FiO2 45 12/21/21 04:00 Intake & Output 12/22/21 12/23/21 12/23/21 18:59 06:59 18:59 Intake Total 1040 Output Total 775 Balance 265 Intake: Intake, IV Titration 240 Amount Lactated Ringers 1,000 ml 240 @ 20 mls/hr IV .Q24H CASTRO Rx#:[id number] Oral 800 Output: Urine 775 Other: Voiding Method Urinal Toilet Toilet Urinal Urinal # Voids 1 # Bowel Movements 0 - Exam General: [non toxic], [no distress], [appears at stated age] Derm: [warm], [dry] Head: [atraumatic], [normocephalic], [symmetric] Eyes: [EOMI], [no lid lag], [anicteric sclera] Mouth: [no lip lesion], [mucus membranes moist] Cardiovascular: [S1S2 reg], [no murmur] Lungs: [Decreased BS bilateral], [no rhonchi, no rales] , [no accessory muscle use] Abdominal: [soft], [ nontender to palpation], [no guarding], [no appreciable organomegaly] Ext: [no gross muscle atrophy], [no edema], [no contractures] Neuro: [no focal neuro deficits] Psych: [Alert], [oriented], [appropriate affect] - Labs CBC & Chem 7: 12/22/21 06:11 12/22/21 06:11 Labs: Abnormal Lab Results - Last 24 Hours (Table) 12/22/21 12/22/21 12/22/21 Range/Units 06:11 06:11 11:40 WBC 13.99 H (4.50-10.00) X 10*3/uL RBC 3.25 L (4.40-5.60) X 10*6/uL Hgb 8.9 L (13.0-17.0) g/dL Hct 29.3 L (39.6-50.0) % MCHC 30.4 L (32.0-37.0) g/dL RDW 15.1 H (11.5-14.5) % Immature Gran # 0.10 H (0.00-0.04) X 10*3/uL Neutrophils # 12.62 H (1.80-7.70) X 10*3/uL Lymphocytes # 0.53 L (0.90-5.00) X 10*3/uL Eosinophils # 0 L (0.04-0.35) X 10*3/uL BUN 49.5 H (9.0-27.0) mg/dL BUN/Creatinine Ratio 49.50 H (12.00-20.00) Ratio Glucose 156 H (70-110) mg/dL POC Glucose (mg/dL) 212 H (70-110) mg/dL Total Bilirubin <0.15 L (0.30-1.20) mg/dL Total Protein 5.4 L (6.2-8.2) g/dL Albumin 3.4 L (3.8-4.9) g/dL 12/22/21 12/22/21 12/23/21 Range/Units 16:40 21:11 07:03 WBC (4.50-10.00) X 10*3/uL RBC (4.40-5.60) X 10*6/uL Hgb (13.0-17.0) g/dL Hct (39.6-50.0) % MCHC (32.0-37.0) g/dL RDW (11.5-14.5) % Immature Gran # (0.00-0.04) X 10*3/uL Neutrophils # (1.80-7.70) X 10*3/uL Lymphocytes # (0.90-5.00) X 10*3/uL Eosinophils # (0.04-0.35) X 10*3/uL BUN (9.0-27.0) mg/dL BUN/Creatinine Ratio (12.00-20.00) Ratio Glucose (70-110) mg/dL POC Glucose (mg/dL) 220 H 276 H 130 H (70-110) mg/dL Total Bilirubin (0.30-1.20) mg/dL Total Protein (6.2-8.2) g/dL Albumin (3.8-4.9) g/dL Assessment and Plan Assessment: Assessment and plan: Acute on chronic hypercapnic respiratory failure: On BiPAP, pulmonology following. Currently off BiPAP and baseline O2 Normocytic anemia: Continue to monitor Obstructive sleep apnea: Supportive care, currently on BiPAP COPD with chronic hypoxic respiratory failure on home oxygen 5 L: Supportive care, currently on 6 L of oxygen. IV steroids discontinued. Continue bronchodilators. Obesity: BMI 31 Chronic atrial fibrillation: On Cardizem and Eliquis Diabetes type 2 with diabetic neuropathy: Continue sliding scale and Levemir Resolved: Hyperkalemia Thank you for the consultation we will follow with you. Medically cleared for DC.
[2021-12-23 11:39] VITALS: PULSE 68
[2021-12-23 12:00] LABS: Glucose,Whole Blood 262 mg/dL (70-110)
--- NOTE | 2021-12-23 12:11 | P.CRDCN ---
History of Present Illness History of present illness: HISTORY OF PRESENTING ILLNESS This is a pleasant 56-year-old male with a past medical history of persistent atrial fibrillation on Eliquis, hypertension, type 2 diabetes, COPD, former smoker, obstructive sleep apnea, diabetic neuropathy, osteoarthritis with progressive right hip pain. He follows with Dr. Hoffman. Patient presented to the hospital for elective right total hip arthroplasty. His performed on 12/20/2021. Following the patient's surgery patient noted to be hypoxic and req uired BiPAP support. He is now stable, improved and wean down the nasal cannula. He normally wears oxygen at home. Overnight while patient was sleeping he was noted to be bradycardic in atrial fibrillation heart rate in the 40s. Patient was asymptomatic and sleeping. EKG was performed which revealed atrial fibrillation with slow ventricular rate heart rate 42. He denies any chest pain, lightheadedness, dizziness, palpitations, syncope or near syncope. She is asymptomatic and feeling well. Possible discharge home today. He denies any history of CAD, UT, stroke. Former smoker. DIAGNOSTICS * EKG revealed atrial fibrillation with slow ventricular response, heart rate 42 * Telemetry tracings indicate Atrial fibrillation with controlled ventricular rates, heart rate 4360s * Laboratory reviewed, CBC 10.4, and low 9.3, platelets 222 * Current home cardiac medications include lisinopril 40 mg daily, Cardizem 240 mg daily, Lasix 4080 milligrams when necessary, atorvastatin 80 mg daily, E liquis 5 mg twice a day * Echocardiogram 09/2021 revealed an EF of 60-65%, mild mitral regurgitation, mild tricuspid regurgitation, moderate pulmonary hypertension with RVSP of 48 mmHg REVIEW OF SYSTEMS At the time of my exam: CONSTITUTIONAL: Denies fever or chills. CARDIOVASCULAR: Denies chest pain, shortness of breath, orthopnea, PND or palpitations. RESPIRATORY: Denies cough. GASTROINTESTINAL: Denies abdominal pain, diarrhea, constipation, nausea or vomiting. MUSCULOSKELETAL: Denies myalgias. NEUROLOGIC: Denies numbness, tingling, headacbe or weakness. ENDOCRINE: Denies fatigue, weight change, polydipsia or polyurina. GENITOURINARY: Denies burning, hematuria or urgency with micturation. HEMATOLOGIC: Denies history of anemia or bleeding. PHYSICAL EXAMINATION Blood pressure 105/56, heart rate 55, afebrile, oxygen saturations 96% on 5 L nasal cannula CONSTITUTIONAL: No apparent distress. HEENT: Head is normocephalic. Pupils are equal, round. Sclerae anicteric. Mucous membranes of the mouth are moist. No JVD. No carotid bruit. CHEST EXAMINATION: Lungs are clear to auscultation. No chest wall tenderness is noted on palpation or with deep breathing. HEART EXAMINATION: Irregular rate and rhythm. S1, S2 heard. No murmurs, gallops or rub. ABDOMEN: Soft, nontender. Positive bowel sounds. EXTREMITIES: 2+ peripheral pulses, 2+ bilateral lower extremity extremity edema and no calf tenderness. NEUROLOGIC EXAMINATION: Patient is awake, alert and oriented x3. ASSESSMENT Atrial fibrillation with slow ventricular response, occurring overnight while patient is sleeping, asymptomatic Status post right total hip arthroplasty on 12/20/2021 Persistent atrial fibrillation on Eliquis Hypertension Type 2 diabetes COPD Former smoker Obstructive sleep apnea Osteoarthritis PLAN From a cardiology perspective, no further inpatient workup indicated at this time. Patient's slow ventricular response occurring overnight while patient sleeping which is common. EKG reviewed and no junctional bradycardia noted. Patient also with increased bilateral LE edema likely related to Lasix held and recent surgery, fluids given. Would continue Eliquis, Cardizem. Start Lasix 40mg daily today and on discharge. Follow up with Dr. Hoffman or Dr. Flanagan outpatient based on patient's preference. Nurse practitioner note has been reviewed by physician. Signing provider agrees with the documented findings, assessment, and plan of care. Past Medical History Past Medical History: Atrial Fibrillation, Heart Failure, COPD, Diabetes Mellitus, Hyperlipidemia, Hypertension, Sleep Apnea/CPAP/BIPAP Additional Past Medical History / Comment(s): neuropathy, A-fib, glaucoma History of Any Multi-Drug Resistant Organisms: None Reported Past Surgical History: Orthopedic Surgery Additional Past Surgical History / Comment(s): Left shoulder, left hand 2 digits crushed/surg with pins placed, left foot third toe ampulation 2020, Past Anesthesia/Blood Transfusion Reactions: No Reported Reaction Additional Past Anesthesia/Blood Transfusion Reaction / Comment(s): Never received Smoking Status: Former smoker - Past Family History Mother Family Medical History: No Reported History Father Family Medical History: No Reported History Additional Family Medical History / Comment(s): small cell in bladder Medications and Allergies Home Medications Medication Instructions Recorded Confirmed Type Fluticasone Propion/Salmeterol 1 puff INHALATION RT-BID 03/16/15 12/20/21 History [Advair 250-50 Diskus] Omeprazole 20 mg PO DAILY 03/16/15 12/20/21 History metFORMIN HCL [Glucophage] 1,000 mg PO BID 03/16/15 12/20/21 History Atorvastatin [Lipitor] 80 mg PO DAILY 09/17/20 12/20/21 History Pregabalin 150 mg PO TID 09/17/20 12/20/21 History dilTIAZem HCL [dilTIAZem HCL 24Hr 240 mg PO DAILY 09/17/20 12/20/21 History ER (Xr)] Albuterol Sulfate [Proair Hfa] 2 puff INHALATION RT-Q6H PRN 10/24/20 12/20/21 History lisinopriL 40 mg PO DAILY 10/24/20 12/20/21 History Ipratropium-Albuterol Nebulize 3 ml INHALATION RT-QID 02/25/21 12/20/21 History [Duoneb 0.5 mg-3 mg/3 ml Soln] Tiotropium [place] [Spiriva] 1 cap INHALATION RT-DAILY 02/25/21 12/20/21 History Apixaban [Eliquis] 5 mg PO BID 09/12/21 12/20/21 History Furosemide [Lasix] 40 - 80 mg PO DAILY PRN 09/12/21 12/20/21 History Insulin Glargine,Hum.rec.anlog 40 unit SQ HS 09/12/21 12/20/21 History [Lantus Solostar Pen] Docusate [Colace] 100 mg PO DAILY #30 capsule 12/23/21 Rx HYDROcodone/APAP 7.5-325MG [[place] 1 each PO Q6HR PRN #28 tab 12/23/21 Rx 7.5] Tamsulosin [Flomax] 0.4 mg PO PC-SUPPER cap 12/23/21 Rx Allergies Allergy/AdvReac Type Severity Reaction Status Date / Time No Known Allergies Allergy Verified 12/20/21 09:51 Physical Exam Vitals: Vital Signs Temp Pulse Pulse Pulse Pulse Resp BP 12/23/21 11:39 68 12/23/21 11:30 55 L 12/23/21 08:10 18 12/23/21 08:02 67 12/23/21 08:00 97.7 F 59 L 18 105/56 12/23/21 07:53 60 12/23/21 02:36 45 L 95/54 12/23/21 01:21 82/46 12/23/21 01:00 97.4 F L 47 L 19 88/50 12/22/21 21:19 58 L 12/22/21 21:02 62 12/22/21 19:22 63 19 12/22/21 18:26 97.7 F 52 L 19 107/56 12/22/21 16:52 58 L 16 12/22/21 16:40 55 L 18 12/22/21 14:00 97.6 F 63 17 101/61 Pulse Ox 12/23/21 11:39 12/23/21 11:30 12/23/21 08:10 12/23/21 08:02 12/23/21 08:00 96 12/23/21 07:53 12/23/21 02:36 12/23/21 01:21 12/23/21 01:00 92 L 12/22/21 21:19 12/22/21 21:02 12/22/21 19:22 12/22/21 18:26 96 12/22/21 16:52 12/22/21 16:40 95 12/22/21 14:00 94 L Intake and Output 12/22/21 12/23/21 12/23/21 22:59 06:59 14:59 Intake Total 1040 Output Total 775 Balance 265 Intake: Intake, IV Titration 240 Amount Lactated Ringers 1,000 ml 240 @ 20 mls/hr IV .Q24H [facility] Rx#:[id number] Oral 800 Output: Urine 775 Other: Voiding Method Toilet Toilet Urinal Urinal # Voids 1 # Bowel Movements 0 Results 12/23/21 07:10 12/22/21 06:11 CBC 12/23/21 Range/Units 07:10 WBC 10.43 H (4.50-10.00) X 10*3/uL RBC 3.40 L (4.40-5.60) X 10*6/uL Hgb 9.3 L (13.0-17.0) g/dL Hct 30.6 L (39.6-50.0) % Plt Count 222 (140-440) X 10*3/uL Current Medications Generic Name Dose Route Start Last Admin Trade Name Freq PRN Reason Stop Dose Admin Hydrocodone Bitart/Acetaminophen 1 each 12/20/21 12:04 Hydrocodone/Apap 5-325mg 1 Each Tab PO 01/19/22 12:05 Q6HR PRN Pain Scale 1 to 5 Hydrocodone Bitart/Acetaminophen 1 each 12/20/21 12:04 12/23/21 08:11 Hydrocodone/Apap 7.5-325mg 1 Each Tab PO 01/19/22 12:05 1 each Q6H PRN Administration Pain Scale 6 to 10 Albuterol/Ipratropium 3 ml 12/20/21 16:00 12/23/21 11:30 Ipratropium-Albuterol 3 Ml Neb INHALATION 01/19/22 16:01 3 ml RT-QID [facility] Administration Apixaban 5 mg 12/20/21 21:00 12/23/21 08:11 Apixaban 5 Mg Tab PO 01/19/22 21:01 5 mg BID [facility] Administration Protocol Atorvastatin Calcium 80 mg 12/21/21 09:00 12/23/21 08:11 Atorvastatin 80 Mg Tab PO 01/20/22 09:01 80 mg DAILY [facility] Administration Diltiazem HCl 240 mg 12/21/21 09:00 12/23/21 08:11 Diltiazem Cd 240 Mg Cap.Er.24h PO 01/20/22 09:01 240 mg DAILY [facility] Administration Furosemide 40 mg 12/23/21 09:30 12/23/21 11:04 Furosemide 40 Mg Tab PO 40 mg DAILY [facility] Administration Hydromorphone HCl 0.5 mg 12/20/21 12:04 12/21/21 20:57 Hydromorphone 0.5 Mg/0.5 Ml Syringe IVP 01/19/22 12:05 0.5 mg Q3HR PRN Administration Pain Scale 4 to 6 Hydromorphone HCl 1 mg 12/20/21 12:04 12/23/21 00:33 Hydromorphone 1 Mg/Ml 1 Ml Syringe IVP 01/19/22 12:05 1 mg Q3HR PRN Administration Pain Scale 7 to 10 Lactated Ringer's 1,000 mls @ 20 mls/hr 12/17/21 10:30 12/22/21 13:01 Lactated Ringers IV 01/16/22 10:31 20 mls/hr .Q24H [facility] Administration Insulin Detemir 40 unit 12/20/21 21:00 12/22/21 20:44 Insulin Detemir (Levemir) 100 Unit/Ml Syr SQ 01/19/22 21:01 40 unit HS [facility] Administration Lisinopril 40 mg 12/21/21 09:00 12/23/21 08:12 Lisinopril 20 Mg Tab PO 01/20/22 09:01 Not Given DAILY [facility] Metformin HCl 1,000 mg 12/20/21 17:30 12/23/21 08:11 Metformin 500 Mg Tab PO 1,000 mg AC-BID [facility] Administration Naloxone HCl 0.2 mg 12/20/21 12:04 Naloxone 0.4 Mg/Ml 1 Ml Vial IV 01/19/22 12:05 Q2M PRN Opioid Reversal Pantoprazole Sodium 40 mg 12/21/21 07:30 12/23/21 08:12 Pantoprazole 40 Mg Tablet PO 01/20/22 07:31 40 mg AC-BRKFST [facility] Administration Pregabalin 150 mg 12/20/21 16:00 12/23/21 08:11 Pregabalin 75 Mg Cap PO 01/19/22 16:01 150 mg TID [facility] Administration Senna/Docusate Sodium 2 each 12/20/21 21:00 12/22/21 20:44 Sennosides-Docusate Sodium 1 Each Tab PO 01/19/22 21:01 2 each HS [facility] Administration Tamsulosin HCl 0.4 mg 12/21/21 18:30 12/22/21 17:39 Tamsulosin 0.4 Mg Cap.Er.24h PO 0.4 mg PC-SUPPER [facility] Administration Intake and Output 12/22/21 12/23/21 12/23/21 22:59 06:59 14:59 Intake Total 1040 Output Total 775 Balance 265 Intake: Intake, IV Titration 240 Amount Lactated Ringers 1,000 ml 240 @ 20 mls/hr IV .Q24H [facility] Rx#:[id number] Oral 800 Output: Urine 775 Other: Voiding Method Toilet Toilet Urinal Urinal # Voids 1 # Bowel Movements 0 12/23/21 07:10 12/22/21 06:11
--- NOTE | 2021-12-23 13:10 | P.PN ---
Subjective Progress Note Date: 12/23/21 Principal diagnosis: Acute on chronic hypercapnic respiratory failure This is a 56-year-old male patient with past medical history of COPD on home oxygen, with baseline FEV1 of 40% of predicted, former smoker, obstructive sleep apnea with AHI of 49 on home CPAP device at 15 cm of water, diabetes mellitus with diabetic neuropathy, atrial fibrillation on Eliquis and osteoarthritis with progressive right hip pain for the past year. Patient has been using a cane, and his pain was significantly limiting his normal function and activities. Today, 12/20/2021 patient came in for elective right total hip arthroplastybreastfitlateral approach under general anesthesia. Following his surgery in the recovery room patient was noted to be hypoxic, with increased work of breathing, and he was placed on BiPAP support with pressures of 14/5 and FiO2 of 50%. Blood gas was obtained showing pH of 7.25, pCO2 of 67 and pO2 of 78 and this was done on the above-mentioned BiPAP settings. Postoperative chest x-ray show cardiomegaly with pulmonary vessel congestion suggestive of acute exacerbation of CHF. Patient is having postoperative pain in his right hip, he did have a nerve block performed by anesthesia services preoperatively. He is requiring IV dilated for pain control following which he does become more sedated, and tends to drop his O2 saturations into the low 80s. There was some blood work was reviewed showing white blood cell count of 7.8, hemoglobin was 11.1, platelet count of 210, sodium is 136, erythematous electrolytes and renal profile were unremarkable. Patient was seen in the recovery room, he is awaiting a bed in the intensive care unit, he does wake up to verbal stimulation, does not appear to be in any acute distress, he is achieving 790 mL tidal volume on the BiPAP support, his respiratory rate is 17-18 BPM. Tolerating BiPAP support very well, current pulse ox is 97% on BiPAP support with FiO2 of 50%. 12/21/2021 patient seen in follow-up in intensive care unit, today is postoperative day #1, status post right total hip arthroplasty on 12/20/2021. Patient wore the BiPAP support overnight with pressures of 16 of 5 and FiO2 of 45%. This morning he is on 6 L of oxygen satting 89-94%, breathing comfortable, lung sounds are clear, diminished, patient has received 4 doses of IV Solu- Medrol, he is on bronchodilators, vital signs have been stable overnight, blood pressure is stable, not requiring any pressors, he has been afebrile. He is working on incentive spirometer, he is awake and alert and oriented 3 this morning, he states his right hip postoperative pain is better controlled with combination of oral Aldrich's, and IV Dilaudid for breakthrough pain. Currently he is on lactated Ringer's at a rate of 20 ML per hour, no other drips. Patient is in atrial fibrillation with a rate of 50 BPM, is likely his has been restarted last night for orthopedic surgery at 5 mg twice daily. Vitals have been stable, heart rate has been stable, a little bradycardic and his oral Cardizem has been held this morning. His labs showed a white blood cell count of 10.0, hemoglobin of 10.5, platelet count of 185, sodium of 133, potassium is 5.7, chloride is 99, CO2 is 32, B1 is 35 creatinine is 1.0, LFTs were within normal limits. Today's chest x-ray is showing bibasilar subsegmental atelectatic changes, no pneumothorax, or pleural effusions. Patient is tolerating oral intake, no nausea or vomiting, no abdominal pain, he is getting very to get up in the chair with assistance with physical therapy. On 12/22/2021 patient seen in follow-up on medical surgical floor. Patient was transferred out of intensive care unit yesterday, he is doing well, he is currently on 6 L of oxygen, breathing comfortably, he is satting 96% on 6 L and FiO2 is being weaned, no fever or chills, blood pressure is stable, he did wear his CPAP unit from home last night. His postoperative right hip pain is better controlled. Patient has been up out of bed with a walker and therapy, tolerated activity well. Chest x-ray showing subsegmental basilar atelectatic changes. His labs have been reviewed, white blood cell, 13.9, hemoglobin is 8.9, platelet count is 220, electrolytes are within normal limits, BUN is 49 and creatinine is 1.0. The patient is seen today 12/23/2021 in follow-up on the regular medical floor. He is currently sitting up in a chair at the bedside. He is awake and alert in no acute distress. Currently maintaining O2 saturations in the 90s on 5 L/m per nasal cannula. He's been afebrile. Hemodynamically stable. White count 10.4. Hemoglobin 9.3. Platelets 222. Glucose 130. He is currently on DuoNeb inhalations. Anticoagulated with Eliquis. Objective - Vital Signs Vital signs: Vital Signs Temp 97.7 F 12/23/21 08:00 Pulse 68 12/23/21 11:39 Resp 18 12/23/21 08:10 BP 105/56 12/23/21 08:00 Pulse Ox 96 12/23/21 08:00 FiO2 45 12/21/21 04:00 Intake & Output 12/22/21 12/23/21 12/23/21 18:59 06:59 18:59 Intake Total 1040 Output Total 775 Balance 265 Intake: Intake, IV Titration 240 Amount Lactated Ringers 1,000 ml 240 @ 20 mls/hr IV .Q24H [facility] Rx#:[id number] Oral 800 Output: Urine 775 Other: Voiding Method Urinal Toilet Toilet Urinal Urinal # Voids 1 # Bowel Movements 0 - Exam GENERAL EXAM: Awake and alert, in no acute distress, 56-year-old white male, on 6 L of oxygen, satting 93% HEAD: Normocephalic/atraumatic. EYES: Normal reaction of pupils, equal size. Conjunctiva pink, sclera white. NOSE: Clear with pink turbinates. THROAT: No erythema or exudates. NECK: No masses, no JVD, no thyroid enlargement, no adenopathy. CHEST: No chest wall deformity. Symmetrical expansion. LUNGS: Equal air entry with no crackles, wheeze, rhonchi or dullness. CVS: Regular rate and rhythm, normal S1 and S2, no gallops, no murmurs, no rubs ABDOMEN: Soft, nontender. No hepatosplenomegaly, normal bowel sounds, no guarding or rigidity. EXTREMITIES: No clubbing, no edema, no cyanosis, 2+ pulses and upper and lower extremities. Right hip incision is clean dry and intact, covered with a surgical dressing MUSCULOSKELETAL: Muscle strength and tone normal. SPINE: No scoliosis or deformity SKIN: No rashes CENTRAL NERVOUS SYSTEM: No focal deficits, tone is normal in all 4 extremities. - Labs CBC & Chem 7: 12/23/21 07:10 12/22/21 06:11 Labs: Abnormal Lab Results - Last 24 Hours (Table) 12/22/21 12/22/21 12/23/21 Range/Units 16:40 21:11 07:03 WBC (4.50-10.00) X 10*3/uL RBC (4.40-5.60) X 10*6/uL Hgb (13.0-17.0) g/dL Hct (39.6-50.0) % MCHC (32.0-37.0) g/dL RDW (11.5-14.5) % Immature Gran # (0.00-0.04) X 10*3/uL Neutrophils # (1.80-7.70) X 10*3/uL POC Glucose (mg/dL) 220 H 276 H 130 H (70-110) mg/dL 12/23/21 12/23/21 Range/Units 07:10 11:59 WBC 10.43 H (4.50-10.00) X 10*3/uL RBC 3.40 L (4.40-5.60) X 10*6/uL Hgb 9.3 L (13.0-17.0) g/dL Hct 30.6 L (39.6-50.0) % MCHC 30.4 L (32.0-37.0) g/dL RDW 15.4 H (11.5-14.5) % Immature Gran # 0.13 H (0.00-0.04) X 10*3/uL Neutrophils # 7.85 H (1.80-7.70) X 10*3/uL POC Glucose (mg/dL) 262 H (70-110) mg/dL Assessment and Plan Assessment: Acute on chronic hypercapnic respiratory failure related to operative anesthesia, and hypoventilation, and underlying history of obstructive sleep apnea and COPD. improved with BiPAP support and patient is awake and alert and is postoperative day #3, breathing comfortably on 6 L of oxygen Right hip severe osteoarthrosis, status post right total hip arthroplasty on 12/20/2021 Chronic hypoxic and hypercapnic respiratory failure related to advanced COPD and obstructive sleep apnea Stage III COPD, on home oxygen, with baseline FEV1 of 40% Former smoker Osteoarthritis History of atrial fibrillation, on Eliquis, which is currently on hold for surg heike History of chronic diastolic CHF Diabetes mellitus type 2 with diabetic neuropathy Hypertension Hyperlipidemia Obstructive sleep apnea on CPAP at a pressure of 15 cm of water Urinary retention Plan: The patient was seen and evaluated Stable for discharge from the pulmonary standpoint Continue his home pulmonary medications Continue his home oxygen Follow-up in the office as scheduled I have personally seen and examined the patient, performed the documentation and the assessment and plan as written. I have personally seen and examined the patient and reviewed the documentation. I performed a joint evaluation with the nurse practitioner in this evaluation was done more than 20 minutes. I fully agree with the documentation above and the plan of care. Condition is stable and possible discharge in a.m. Continue utilizing CPAP overnight
[2021-12-23] MEDS: LACTATED RINGERS 1,000 ML IV SCH (14:25)
== END 2021-12-23 15:08 | disposition home health service (06) | DRG 982 ==
LOC: OR 08:42 → 3SCARD 12:20 → 2SICU 12:20 → OR 12:20 → 2SICU 14:58 → OR 14:58 → 4SSUR 12-21 20:10
PROVIDERS: ADMIT Orthopaedic Surgery; ATTEND Orthopaedic Surgery
PROC: 5A09357 Assistance with Respiratory Ventilation, Less than 24 Consecutive Hours, Continuous Positive Airway Pressure (ICD-10-PCS; 2021-12-20)
PROC: 0SR902A Replacement of Right Hip Joint with Metal on Polyethylene Synthetic Substitute, Uncemented, Open Approach (ICD-10-PCS; principal; 2021-12-20 10:25)
DX: J96.22 Acute and chronic respiratory failure with hypercapnia (principal); I48.19 Other persistent atrial fibrillation; I50.32 Chronic diastolic (congestive) heart failure; I11.0 Hypertensive heart disease with heart failure; E11.40 Type 2 diabetes mellitus with diabetic neuropathy, unspecified; D64.9 Anemia, unspecified; E66.9 Obesity, unspecified; J96.21 Acute and chronic respiratory failure with hypoxia; M16.11 Unilateral primary osteoarthritis, right hip; J44.9 Chronic obstructive pulmonary disease, unspecified; Z89.422 Acquired absence of other left toe(s); Z79.4 Long term (current) use of insulin; Z68.31 Body mass index [BMI] 31.0-31.9, adult; G47.33 Obstructive sleep apnea (adult) (pediatric); E78.5 Hyperlipidemia, unspecified; E87.5 Hyperkalemia; R33.9 Retention of urine, unspecified; R00.1 Bradycardia, unspecified; H40.9 Unspecified glaucoma; Z99.81 Dependence on supplemental oxygen; Z79.01 Long term (current) use of anticoagulants; Z79.51 Long term (current) use of inhaled steroids; Z79.84 Long term (current) use of oral hypoglycemic drugs; Z79.899 Other long term (current) drug therapy; Z87.891 Personal history of nicotine dependence; Z80.52 Family history of malignant neoplasm of bladder
CPT/HCPCS: 36600; 64999; 71045; 73501; 80053; 82805; 85025; 85610; 86850; 86900; 86901; 88300; 94640; 94660; 94760

== ENCOUNTER 2021-12-27 13:18 | Inpatient (IN) | payer OTHER ==
[2021-12-27] MEDS ORDERED: SODIUM CHLORIDE 0.9% 2,000 ML IV STA (14:16)
[2021-12-27] MEDS ORDERED: FUROSEMIDE 40 MG TAB PO STA (14:25)
[2021-12-27] MEDS ORDERED: FUROSEMIDE 10 MG/ML 4 ML VIAL IV STA (14:25)
--- NOTE | 2021-12-27 15:05 | US ---
EXAMINATION TYPE: US venous doppler duplex LE RT DATE OF EXAM: 12/27/2021 2:52 PM COMPARISON: Bilateral lower extremity venous Doppler ultrasound 09/12/2021 CLINICAL HISTORY: calf pain, recent right hip surgery. Right leg edema. Recent right hip surgery. Pat ient on blood thinner - A FIB SIDE PERFORMED: right TECHNIQUE: The lower extremity deep venous system is examined utilizing real time linear array sonog nina with graded compression, doppler sonography and color-flow sonography. VESSELS IMAGED: Common Femoral Vein Deep Femoral Vein Greater Saphenous Vein * Femoral Vein Popliteal Vein Small Saphenous Vein * Proximal Calf Veins (* superficial vessels) Right Leg: no evidence of DVT. Cystic area right popliteal fossa = 6.3 x 1.1 x 2.3cm, Sloan's cyst Grayscale, color doppler, spectral doppler imaging performed of the deep veins of the right lower ext remity. There is normal flow, compressibility, vascular waveforms. IMPRESSION: * No deep venous thrombosis of the right lower extremity. * Right popliteal fossa cyst.
[2021-12-27] MEDS ORDERED: HYDROcodone/APAP 10-325MG 1 EACH TAB PO ONE ×2 (15:34→19:47)
[2021-12-27 15:38] LABS: Basophils % (A) 0 %; Eosinophils # (A) 0.1 k/uL (0-0.7); Eosinophils % (A) 0 %; HCT 31.1 % (39.0-53.0); HGB 10.1 gm/dL (13.0-17.5); Hypochromasia Slight; Lymphocytes # (A) 1.1 k/uL (1.0-4.8); Lymphocytes % (A) 6 %; MCH 29.3 pg (25.0-35.0); MCHC 32.4 g/dL (31.0-37.0); MCV 90.5 fL (80.0-100.0); Mean Platelet Volume 8.4; Monocytes # (A) 1.3 k/uL (0-1.0); Monocytes % (A) 7 %; Neutrophils # (A) 16.7 k/uL (1.3-7.7); Neutrophils % (A) 86 %; Platelet Count 241 k/uL (150-450); RBC 3.44 m/uL (4.30-5.90); RDW 15.2 % (11.5-15.5); WBC 19.5 k/uL (3.8-10.6)
[2021-12-27 15:50] LABS: Partial Thromboplastin Time 26.9 sec (22.0-30.0); Prothrombin Time 11.1 sec (9.0-12.0)
[2021-12-27 16:00] LABS: Albumin 3.2 g/dL (3.5-5.0); Calcium 8.9 mg/dL (8.4-10.2); Magnesium 1.6 mg/dL (1.6-2.3); Total Bilirubin 0.5 mg/dL (0.2-1.3); Total Protein 5.4 g/dL (6.3-8.2)
--- NOTE | 2021-12-27 16:03 | XR ---
EXAMINATION TYPE: XR chest 2V DATE OF EXAM: 12/27/2021 3:46 PM COMPARISON: Chest radiographs from 12/21/2021 TECHNIQUE: XR chest 2V Frontal and lateral views of the chest. CLINICAL INDICATION:Male, 56 years old with history of pitting edema; FINDINGS: Lungs/Pleura: There is no evidence of pleural effusion, focal consolidation, or pneumothorax. Pulmonary vascularity: Unremarkable. Heart/mediastinum: Cardiomediastinal silhouette is prominent in size and stable. Musculoskeletal: No acute osseous pathology. IMPRESSION: No acute cardiopulmonary disease/process. No significant change from prior examination.
[2021-12-27] MEDS ORDERED: IPRATROPIUM-ALBUTEROL 3 ML NEB INHALATION STA (16:27)
[2021-12-27] MEDS ORDERED: methylPREDNISolone SOD SUCCI 125 MG/2 ML VIAL IV STA (16:27)
--- NOTE | 2021-12-27 17:56 | ED ---
Extremity Problem HPI - General Chief complaint: Extremity Problem,Nontraumatic Stated complaint: edema Time Seen by Provider: 12/27/21 13:38 Source: patient, EMS Mode of arrival: EMS Limitations: no limitations - History of Present Illness Initial comments: Patient is a 56 year old male with a past medical history of heart failure, atrial fibrillation on Eliquis, diabetes mellitus, hyperlipidemia, hypertension, COPD, and elective total right hip replacement 1 week ago who presents to the emergency department for evaluation of lower extremity swelling. Patient states he noticed the swelling yesterday. He takes Lasix as needed for leg swelling however states he was told by his primary care providers to take it daily for 2 weeks which he has been compliant with. Unknown dose. Patient states he had a very large episode of diarrhea before while otherwise feels well. He was unable to make it to the toilet to increased urgency and recent surgery. States he was not discharged with antibiotics after his hip replacement. Denies history of C. diff. Does admit to shortness of breath however states it is not changed from his baseline. Patient wears 4 L of supplemental oxygen at home. Denies fever, chills, upper respiratory symptoms, cough, chest pain, abdominal pain, nausea, and vomiting. Denies pain around the surgical incision however does admit to pain in his right calf. Denies history of DVT and PE. - Related Data Home Medications Medication Instructions Recorded Confirmed Fluticasone Propion/Salmeterol 1 puff INHALATION RT-BID 03/16/15 12/20/21 [Advair 250-50 Diskus] Omeprazole 20 mg PO DAILY 03/16/15 12/20/21 metFORMIN HCL [Glucophage] 1,000 mg PO BID 03/16/15 12/20/21 Atorvastatin [Lipitor] 80 mg PO DAILY 09/17/20 12/20/21 Pregabalin 150 mg PO TID 09/17/20 12/20/21 dilTIAZem HCL [dilTIAZem HCL 24Hr 240 mg PO DAILY 09/17/20 12/20/21 ER (Xr)] Albuterol Sulfate [Proair Hfa] 2 puff INHALATION RT-Q6H PRN 10/24/20 12/20/21 lisinopriL 40 mg PO DAILY 10/24/20 12/20/21 Ipratropium-Albuterol Nebulize 3 ml INHALATION RT-QID 02/25/21 12/20/21 [Duoneb 0.5 mg-3 mg/3 ml Soln] Tiotropium [place] [Spiriva] 1 cap INHALATION RT-DAILY 02/25/21 12/20/21 Apixaban [Eliquis] 5 mg PO BID 09/12/21 12/20/21 Furosemide [Lasix] 40 - 80 mg PO DAILY PRN 09/12/21 12/20/21 Insulin Glargine,Hum.rec.anlog 40 unit SQ HS 09/12/21 12/20/21 [Lantus Solostar Pen] Previous Rx's Medication Instructions Recorded Docusate [Colace] 100 mg PO DAILY #30 capsule 12/23/21 HYDROcodone/APAP 7.5-325MG [[place] 1 each PO Q4HR PRN #42 tab 12/23/21 7.5] Tamsulosin [Flomax] 0.4 mg PO DAILY 30 Days #30 cap 12/23/21 Allergies Allergy/AdvReac Type Severity Reaction Status Date / Time No Known Allergies Allergy Verified 12/27/21 13:34 Review of Systems ROS Statement: Those systems with pertinent positive or pertinent negative responses have been documented in the HPI. ROS Other: All systems not noted in ROS Statement are negative. Past Medical History Past Medical History: Atrial Fibrillation, Heart Failure, COPD, Diabetes Mellitus, Hyperlipidemia, Hypertension, Sleep Apnea/CPAP/BIPAP Additional Past Medical History / Comment(s): neuropathy, A-fib, glaucoma History of Any Multi-Drug Resistant Organisms: None Reported Past Surgical History: Orthopedic Surgery Additional Past Surgical History / Comment(s): Left shoulder, left hand 2 digits crushed/surg with pins placed, left foot third toe ampulation 2020, Past Anesthesia/Blood Transfusion Reactions: No Reported Reaction Additional Past Anesthesia/Blood Transfusion Reaction / Comment(s): Never received Past Psychological History: No Psychological Hx Reported Smoking Status: Former smoker - Past Family History Mother Family Medical History: No Reported History Father Family Medical History: No Reported History Additional Family Medical History / Comment(s): small cell in bladder General Exam Limitations: no limitations General appearance: alert, in no apparent distress Head exam: Present: atraumatic, normocephalic, normal inspection Respiratory exam: Present: normal lung sounds bilaterally, wheezes, rales (throughout ). Absent: respiratory distress, rhonchi, stridor Cardiovascular Exam: Present: regular rate, irregular rhythm (patient has known atrial fibrillation ), normal heart sounds. Absent: normal rhythm, systolic murmur, diastolic murmur, rubs, gallop, clicks GI/Abdominal exam: Present: soft, normal bowel sounds. Absent: distended, tenderness, guarding, rebound, rigid Extremities exam: Present: pedal edema (3+ bilaterally ), calf tenderness (right, positive carrillo sign ), other (right thigh surgi) Neurological exam: Present: alert, oriented X3, CN II-XII intact Psychiatric exam: Present: normal affect, normal mood Skin exam: Present: warm, dry, intact, normal color. Absent: rash Course Vital Signs 12/27/21 12/27/21 12/27/21 13:20 15:07 17:09 Temperature 98 F Pulse Rate 69 60 61 Respiratory 22 20 18 Rate Blood Pressure 95/51 103/61 O2 Sat by Pulse 97 97 Oximetry 12/27/21 17:20 Temperature Pulse Rate 65 Respiratory 18 Rate Blood Pressure O2 Sat by Pulse Oximetry Medical Decision Making - Medical Decision Making This is a 56-year-old male with extensive history of cardiac disease, COPD, and recent total right hip replacement who presents to the emergency department for evaluation of lower leg swelling and diarrhea. Thorough history and examination were performed. Patient is in no apparent distress. His pressure is low at 95/51 however this appears to be similar to his baseline. Oxygen saturation is 95% on 4 L. He denies chest pain and any worsening of shortness of breath. Lung auscultation reveals rhonchi and wheezing throughout. There is 3+ pitting edema of the extremities. No JVD. There is tenderness of the right calf. Positive Homans sign. Surgical wound over the right thigh/hip does not appear infected. There is mild ecchymosis without erythema, swelling, or drainage. Patient given IV and oral Lasix. Also given a breathing treatment. Laboratory studies significant for leukocytosis of 19.5. Blood cultures pending. Troponin is within normal limits. BNP is elevated at 1400. EKG shows atrial fibrillation without RVR. Chest x-ray is negative for acute process. Right lower extremity ultrasound with Doppler shows a Sloan's cyst and is negative for DVT. Patient had multiple episodes of diarrhea in the emergency department. CT of abdomen and pelvis with contrast was obtained which shows a dilated bladder with urinary retention. C. diff ordered however could not be obtained. Etiology of leukocytosis was explored. Patient denies current and recent steroid use. States he has not had trouble urinating at home recently however is unable to urinate currently. Denies burning with urination. Urinalysis pending. The nurse was unable to collect urine via straight cath so Noyola was placed. Patient will be admitted for heart failure exacerbation and leukocytosis possibly due to urinary tract infection. Dr. Mayfield agreeable to admission. Cardiology consulted. Echocardiogram ordered. Patient admitted in stable co ndition. Dr. Krause is my attending. - Lab Data Result diagrams: 12/27/21 15:04 12/27/21 15:04 Lab Results 12/27/21 12/27/21 12/27/21 Range/Units 15:04 15:04 15:04 WBC 19.5 H (3.8-10.6) k/uL RBC 3.44 L (4.30-5.90) m/uL Hgb 10.1 L (13.0-17.5) gm/dL Hct 31.1 L (39.0-53.0) % MCV 90.5 (80.0-100.0) fL MCH 29.3 (25.0-35.0) pg MCHC 32.4 (31.0-37.0) g/dL RDW 15.2 (11.5-15.5) % Plt Count 241 (150-450) k/uL MPV 8.4 Neutrophils % 86 % Lymphocytes % 6 % Monocytes % 7 % Eosinophils % 0 % Basophils % 0 % Neutrophils # 16.7 H (1.3-7.7) k/uL Lymphocytes # 1.1 (1.0-4.8) k/uL Monocytes # 1.3 H (0-1.0) k/uL Eosinophils # 0.1 (0-0.7) k/uL Basophils # 0.0 (0-0.2) k/uL Hypochromasia Slight PT 11.1 (9.0-12.0) sec INR 1.0 (<1.2) APTT 26.9 (22.0-30.0) sec Sodium 132 L (137-145) mmol/L Potassium 5.0 (3.5-5.1) mmol/L Chloride 98 (98-107) mmol/L Carbon Dioxide 28 (22-30) mmol/L Anion Gap 6 mmol/L BUN 50 H (9-20) mg/dL Creatinine 1.53 H (0.66-1.25) mg/dL Est GFR (CKD-EPI)AfAm 58 (>60 ml/min/1.73 sqM) Est GFR (CKD-EPI)NonAf 50 (>60 ml/min/1.73 sqM) Glucose 134 H (74-99) mg/dL Calcium 8.9 (8.4-10.2) mg/dL Magnesium 1.6 (1.6-2.3) mg/dL Total Bilirubin 0.5 (0.2-1.3) mg/dL AST 29 (17-59) U/L ALT 18 (4-49) U/L Alkaline Phosphatase 102 (38-126) U/L Troponin I (0.000-0.034) ng/mL NT-Pro-B Natriuret Pep pg/mL Total Protein 5.4 L (6.3-8.2) g/dL Albumin 3.2 L (3.5-5.0) g/dL Coronavirus (PCR) (Not Detectd) Influenza Type A RNA (Not Detectd) Influenza Type B (PCR) (Not Detectd) 12/27/21 12/27/21 12/27/21 Range/Units 15:04 15:04 18:50 WBC (3.8-10.6) k/uL RBC (4.30-5.90) m/uL Hgb (13.0-17.5) gm/dL Hct (39.0-53.0) % MCV (80.0-100.0) fL MCH (25.0-35.0) pg MCHC (31.0-37.0) g/dL RDW (11.5-15.5) % Plt Count (150-450) k/uL MPV Neutrophils % % Lymphocytes % % Monocytes % % Eosinophils % % Basophils % % Neutrophils # (1.3-7.7) k/uL Lymphocytes # (1.0-4.8) k/uL Monocytes # (0-1.0) k/uL Eosinophils # (0-0.7) k/uL Basophils # (0-0.2) k/uL Hypochromasia PT (9.0-12.0) sec INR (<1.2) APTT (22.0-30.0) sec Sodium (137-145) mmol/L Potassium (3.5-5.1) mmol/L Chloride (98-107) mmol/L Carbon Dioxide (22-30) mmol/L Anion Gap mmol/L BUN (9-20) mg/dL Creatinine (0.66-1.25) mg/dL Est GFR (CKD-EPI)AfAm (>60 ml/min/1.73 sqM) Est GFR (CKD-EPI)NonAf (>60 ml/min/1.73 sqM) Glucose (74-99) mg/dL Calcium (8.4-10.2) mg/dL Magnesium (1.6-2.3) mg/dL Total Bilirubin (0.2-1.3) mg/dL AST (17-59) U/L ALT (4-49) U/L Alkaline Phosphatase (38-126) U/L Troponin I 0.027 (0.000-0.034) ng/mL NT-Pro-B Natriuret Pep 1400 pg/mL Total Protein (6.3-8.2) g/dL Albumin (3.5-5.0) g/dL Coronavirus (PCR) Not Detected (Not Detectd) Influenza Type A RNA (Not Detectd) Influenza Type B (PCR) (Not Detectd) 12/27/21 Range/Units 18:52 WBC (3.8-10.6) k/uL RBC (4.30-5.90) m/uL Hgb (13.0-17.5) gm/dL Hct (39.0-53.0) % MCV (80.0-100.0) fL MCH (25.0-35.0) pg MCHC (31.0-37.0) g/dL RDW (11.5-15.5) % Plt Count (150-450) k/uL MPV Neutrophils % % Lymphocytes % % Monocytes % % Eosinophils % % Basophils % % Neutrophils # (1.3-7.7) k/uL Lymphocytes # (1.0-4.8) k/uL Monocytes # (0-1.0) k/uL Eosinophils # (0-0.7) k/uL Basophils # (0-0.2) k/uL Hypochromasia PT (9.0-12.0) sec INR (<1.2) APTT (22.0-30.0) sec Sodium (137-145) mmol/L Potassium (3.5-5.1) mmol/L Chloride (98-107) mmol/L Carbon Dioxide (22-30) mmol/L Anion Gap mmol/L BUN (9-20) mg/dL Creatinine (0.66-1.25) mg/dL Est GFR (CKD-EPI)AfAm (>60 ml/min/1.73 sqM) Est GFR (CKD-EPI)NonAf (>60 ml/min/1.73 sqM) Glucose (74-99) mg/dL Calcium (8.4-10.2) mg/dL Magnesium (1.6-2.3) mg/dL Total Bilirubin (0.2-1.3) mg/dL AST (17-59) U/L ALT (4-49) U/L Alkaline Phosphatase (38-126) U/L Troponin I (0.000-0.034) ng/mL NT-Pro-B Natriuret Pep pg/mL Total Protein (6.3-8.2) g/dL Albumin (3.5-5.0) g/dL Coronavirus (PCR) (Not Detectd) Influenza Type A RNA Not Detected (Not Detectd) Influenza Type B (PCR) Not Detected (Not Detectd) Disposition Clinical Impression: CHF exacerbation, Acute diarrhea, Urinary retention, COPD exacerbation Disposition: ADMITTED IP TO THIS HOSP Condition: Fair Referrals: Kimberlee Gilman MD [Primary Care Provider] - 1-2 days Time of Disposition: 19:41
--- NOTE | 2021-12-27 18:47 | CT ---
EXAMINATION TYPE: CT abdomen pelvis w con CT DLP: 1796.6 mGycm, Automated exposure control for dose reduction was used. DATE OF EXAM: 12/27/2021 6:22 PM COMPARISON: None CLINICAL INDICATION:Male, 56 years old with history of diarrhea; bilateral lower limb swelling TECHNIQUE: Axial CT of the abdomen and pelvis . Sagittal and coronal reformats were created on a [employer] workstation. Contrast used:80cc mL of Isovue 300 with IV Contrast, Oral contrast used: without Oral Contrast FINDINGS: LOWER CHEST: Streaky atelectasis changes in the lung bases. The heart is moderately enlarged and part ially visualized. ABDOMEN Motion limits evaluation the abdomen. LIVER: Unremarkable GALLBLADDER AND BILE DUCTS: Unremarkable. PANCREAS: Unremarkable. SPLEEN: Unremarkable. ADRENAL GLANDS: Unremarkable. KIDNEYS AND URETERS: No evidence of hydronephrosis or renal calculus. The ureters are unremarkable. Left renal cyst. PELVIS BLADDER: Bladder is distended. REPRODUCTIVE: Unremarkable. ABDOMEN & PELVIS STOMACH AND BOWEL: Multiple scattered colonic diverticula present. No evidence of bowel obstruction. Appendix is normal. PERITONEUM: No evidence of pneumoperitoneum or free fluid. VASCULATURE: No evidence of aortic aneurysm. Moderate atherosclerosis of the arterial vasculature. MUSCULOSKELETAL: No acute osseous abnormalities., Right hip prosthesis with hardware appearing intact and in appropriate alignment. Multilevel disc degeneration changes. LYMPH NODES: No gross evidence for lymphadenopathy. SOFT TISSUE/ABDOMINAL WALL: Bilateral fat filled inguinal hernia. Umbilical hernia containing wall of a loop of small bowel. IMPRESSION: 1. Motion limited abdominal examination. No evidence of acute process to explain patient's lower extr emity edema. 2. Colonic diverticulosis. 3. Umbilical [place] hernia 4. Distended urinary bladder with urinary retention.
[2021-12-27] MEDS ORDERED: NALOXONE 0.4 MG/ML 1 ML VIAL IV PRN (19:45)
[2021-12-27] MEDS ORDERED: ALBUTEROL HFA INHALER INHALATION PRN (19:48)
[2021-12-27] MEDS ORDERED: lisinopriL 20 MG TAB PO SCH (20:00)
[2021-12-27 20:03] LABS: Appearance,Urine Clear (Clear); Bilirubin,Urine Negative (Negative); Blood,Urine Negative (Negative); Color,Urine Yellow; Glucose,Urine (UA) Negative (Negative); Ketones,Urine Negative (Negative); Leukocyte Esterase,Urine Negative (Negative); Nitrite,Urine Negative (Negative); Protein,Urine Negative (Negative); Specific Gravity,Urine 1.013 (1.001-1.035); Urobilinogen,Urine <2.0 mg/dL (<2.0)
[2021-12-27] MEDS: DOCUSATE 100 MG CAP PO SCH (20:45)
[2021-12-27] MEDS ORDERED: FUROSEMIDE 10 MG/ML 4 ML VIAL IV SCH (21:00)
[2021-12-27] MEDS ORDERED: INSULIN DETEMIR (LEVEMIR) 100 UNIT/ML SYR SQ SCH (21:00)
[2021-12-27] MEDS ORDERED: metFORMIN 500 MG TAB PO SCH (21:00)
[2021-12-27] MEDS: IPRATROPIUM-ALBUTEROL 3 ML NEB INHALATION SCH (21:07)
[2021-12-27] MEDS ORDERED: IPRATROPIUM-ALBUTEROL 3 ML NEB INHALATION PRN (21:12)
[2021-12-27] MEDS ORDERED: VANCOMYCIN 125 MG CAPSULE PO SCH (22:00)
[2021-12-27 22:11] LABS: Glucose,Whole Blood 188 mg/dL (70-110)
[2021-12-27 22:15] LABS: ABG Base Excess 1.1 mmol/L; ABG HCO3 29 mmol/L (21-25); ABG Oxygen Saturation 78.5 % (94-97); ABG PCO2 68 mmHg (35-45); ABG PH 7.23 (7.35-7.45); ABG TCO2 31 mmol/L (19-24); Allen Test Performed? Yes
[2021-12-27 22:38] LABS: ABG PO2 50 mmHg (83-108)
--- NOTE | 2021-12-27 22:38 | P.HPIM ---
History of Present Illness H&P Date: 12/27/21 Chief Complaint: Explosive diarrhea 56-year-old male with A. fib on a liquids rate controlled, COPD on 4 L, nasal cannula compensated, obstructive sleep apnea on CPAP, diabetes mellitus on insulin Today patient had an episode of explosive diarrhea was not feeling well for w sandy the decided to bring him to the hospital for evaluation. She mentioned that he was not looking well since yesterday and EMS was notified however upon their evaluation they decided that he doesn't need to go to the hospital. Patient mother has been concerned since his surgery which was done about a week ago where he had right total hip replacement he has not been active since then she noticed swollen right leg since yesterday with patient reporting calf tenderness. Patient is already on [place] for A. fib. Denies any history of blood clots. No reports of abdominal pain nausea or vomiting. Patient is having low-grade fevers. Plus of diarrhea of one-day duration nonbloody no melena. At time of my evaluation in the ED patient was sleeping, response to gentle tactile stimulation however he drifts back to sleeping. Patient mother indicated that he had long day and he just had a Shanks. Patient also known to have obstructive sleep apnea and COPD In the ED workup showed borderline blood pressure which is his baseline, elevated white count 19.5, chest x-ray showed no acute pathology. Venous duplex ultrasound of the right lower extremity showed no acute DVT however did show positive Sloan's cyst. Viral panel was negative Acute kidney injury with elevated creatinine 1.5 some mild hyponatremia and chronic anemia Review of Systems ROS unobtainable: due to mental status Past Medical History Past Medical History: Atrial Fibrillation, Heart Failure, COPD, Diabetes Mellitus, Hyperlipidemia, Hypertension, Sleep Apnea/CPAP/BIPAP Additional Past Medical History / Comment(s): neuropathy, A-fib, glaucoma History of Any Multi-Drug Resistant Organisms: None Reported Past Surgical History: Orthopedic Surgery Additional Past Surgical History / Comment(s): Left shoulder, left hand 2 digits crushed/surg with pins placed, left foot third toe ampulation 2020, Past Anesthesia/Blood Transfusion Reactions: No Reported Reaction Additional Past Anesthesia/Blood Transfusion Reaction / Comment(s): Never received Past Psychological History: No Psychological Hx Reported Smoking Status: Former smoker - Past Family History Mother Family Medical History: No Reported History Father Family Medical History: No Reported History Additional Family Medical History / Comment(s): small cell in bladder Medications and Allergies Home Medications Medication Instructions Recorded Confirmed Type Fluticasone Propion/Salmeterol 1 puff INHALATION RT-BID 03/16/15 12/27/21 History [Advair 250-50 Diskus] Omeprazole 20 mg PO DAILY 03/16/15 12/27/21 History metFORMIN HCL [Glucophage] 1,000 mg PO BID 03/16/15 12/27/21 History Atorvastatin [Lipitor] 80 mg PO DAILY 09/17/20 12/27/21 History Pregabalin 150 mg PO TID 09/17/20 12/27/21 History dilTIAZem HCL [dilTIAZem HCL 24Hr 240 mg PO DAILY 09/17/20 12/27/21 History ER (Xr)] Albuterol Sulfate [Proair Hfa] 2 puff INHALATION RT-Q6H PRN 10/24/20 12/27/21 History lisinopriL 40 mg PO DAILY 10/24/20 12/27/21 History Ipratropium-Albuterol Nebulize 3 ml INHALATION RT-QID 02/25/21 12/27/21 History [Duoneb 0.5 mg-3 mg/3 ml Soln] Tiotropium [place] [Spiriva] 1 cap INHALATION RT-DAILY 02/25/21 12/27/21 History Apixaban [Eliquis] 5 mg PO BID 09/12/21 12/27/21 History Insulin Glargine,Hum.rec.anlog 40 unit SQ HS 09/12/21 12/27/21 History [Lantus Solostar Pen] Docusate [Colace] 100 mg PO DAILY #30 capsule 12/23/21 12/27/21 Rx Tamsulosin [Flomax] 0.4 mg PO DAILY 30 Days #30 cap 12/23/21 12/27/21 Rx HYDROcodone/APAP 7.5-325MG [[place] 1 tab PO Q4H PRN 12/27/21 12/27/21 History 7.5-325] Spironolactone [Aldactone] 50 mg PO DAILY 12/27/21 12/27/21 History Allergies Allergy/AdvReac Type Severity Reaction Status Date / Time No Known Allergies Allergy Verified 12/27/21 20:30 Physical Exam Vitals: Vital Signs Temp Pulse Resp BP Pulse Ox 12/27/21 17:20 65 18 12/27/21 17:09 61 18 12/27/21 15:07 60 20 103/61 97 12/27/21 13:20 98 F 69 22 95/51 97 Intake and Output 12/27/21 12/27/21 12/27/21 06:59 14:59 22:59 Other: Weight 82.1 kg Constitutional: No acute distress, patient is sleepy wakes up to verbal and tactile stimulation however drifts back to sleeping no acute complaints Eyes: Anicteric sclerae, moist conjunctiva, Pupils equal round reactive to light ENMT: NC/AT Oropharynx clear, no erythema, or exudates Neck: Supple, no masses, or JVD No carotid bruits No thyromegaly Lungs: Good breath sounds bilaterally no wheezing Clear to percussion Normal respiratory effort, no accessory muscle use Cardiovascular: Heart irregular in rate and rhythm, No murmurs, gallops, or rubs +1 bilateral peripheral leg edema Abdominal: Soft Nontender, no guarding, rebound or rigidity Abdomen moving with respiration Normoactive bowel sounds No hepatomegaly, No splenomegaly No palpable mass No abdominal wall hernia noted Skin: Normal temperature, tone, texture, turgor No induration No subcutaneous nodules No rash, lesions No ulcers Extremities: No digital cyanosis No clubbing Pedal pulses intact and symmetrical Radial pulses intact and symmetrical No calf tenderness Psychiatric: Patient is sleepy and difficult to arouse drifts back to sleeping Neuro Muscles Strength 4/5 in all 4 extremities Sensation to light touch grossly present throughout Patient couldn't cooperate with cranial nerve exam Lymphatics: no palpable cervical or supraclavicular , or inguinal lymph nodes Results CBC & Chem 7: 12/27/21 15:04 12/27/21 15:04 Labs: Abnormal Lab Results - Last 24 Hours (Table) 12/27/21 12/27/21 Range/Units 15:04 15:04 WBC 19.5 H (3.8-10.6) k/uL RBC 3.44 L (4.30-5.90) m/uL Hgb 10.1 L (13.0-17.5) gm/dL Hct 31.1 L (39.0-53.0) % Neutrophils # 16.7 H (1.3-7.7) k/uL Monocytes # 1.3 H (0-1.0) k/uL Sodium 132 L (137-145) mmol/L BUN 50 H (9-20) mg/dL Creatinine 1.53 H (0.66-1.25) mg/dL Glucose 134 H (74-99) mg/dL Total Protein 5.4 L (6.3-8.2) g/dL Albumin 3.2 L (3.5-5.0) g/dL Assessment and Plan Assessment: Acute acute severe Clostridium difficile infection CT of the abdomen and pelvis showed no evidence of megacolon Patient initiated on vancomycin 125 mg orally 4 times a day, continue for 10 days Contact precautions IV fluid hydration with normal saline Monitor vital signs Patient blood pressure at baseline is borderline with systolic ranging around 100-95 Check lactic acid Acute kidney injury Mild hyponatremia Patient has Noyola catheter from home due to urinary retention Consider outpatient follow-up with urology due to urinary retention IV fluid hydration normal saline Monitor urine output Avoid nephrotoxic meds Discontinue lisinopril and Lasix 1 week postop right total hip replacement Consider outpatient follow-up with orthopedics New finding of Sloan's cyst right lower extremity again consider follow-up with orthopedic outpatient Acute metabolic encephalopathy Blood sugar 188 Check stat ABG, showed acute hypercapnic respiratory failure Patient will be given Narcan and started on BiPAP and continue to monitor clos marquez Chronic anemia no reported GI bleeding Continue to monitor hemoglobin Patient on Ellquis for A. fib Chronic conditions A. fib rate controlled on Ellquis no reported GI bleeding Diabetes mellitus, insulin sliding scale, hold Levemir DVT prophylaxis patient on anticoagulation for A. fib CODE STATUS, patient family could not make a decision about CODE STATUS the asked for more time and said to be contacted if decisions need to be made
[2021-12-27] MEDS: PANTOPRAZOLE 40 MG TABLET PO SCH (22:46)
[2021-12-27] MEDS: TAMSULOSIN 0.4 MG CAP.ER.24H PO SCH (22:46)
[2021-12-27] MEDS: PREGABALIN 75 MG CAP PO SCH (22:46)
[2021-12-27] MEDS: APIXABAN 5 MG TAB PO SCH (22:46)
[2021-12-28 00:26] LABS: Glucose,Whole Blood 194 mg/dL (70-110)
[2021-12-28] MEDS ORDERED: VANCOMYCIN 125 MG CAPSULE PO SCH (00:30)
[2021-12-28 00:41] LABS: Allen Test Performed? Yes
[2021-12-28 00:57] LABS: ABG Base Excess 1.8 mmol/L; ABG HCO3 30 mmol/L (21-25); ABG PCO2 72 mmHg (35-45); ABG PH 7.22 (7.35-7.45); ABG PO2 146 mmHg (83-108); ABG TCO2 32 mmol/L (19-24)
[2021-12-28] MEDS ORDERED: SODIUM CHLORIDE 0.9% 500 ML 500 ML IV ONE (01:04)
[2021-12-28] MEDS: SODIUM CHLORIDE 0.9% 1,000 ML IV SCH ×3 (01:31→12:44)
[2021-12-28] MEDS: metroNIDAZOLE-NS PMX 500 MG in SALINE 1 100ML.BAG IVPB SCH ×3 (01:31→15:57)
[2021-12-28 02:08] LABS: ABG Base Excess 2.3 mmol/L; ABG HCO3 29 mmol/L (21-25); ABG Oxygen Saturation 95.1 % (94-97); ABG PCO2 67 mmHg (35-45); ABG PH 7.25 (7.35-7.45); ABG PO2 84 mmHg (83-108); ABG TCO2 32 mmol/L (19-24); Allen Test Performed? Yes
--- NOTE | 2021-12-28 02:20 | P.PN ---
Progress Note - Text Progress Note Date: 12/28/21 56 year old male with COPD on 4 L NC, STORMY, and recent hip replacement admitted today for C diff infection . patient mentation continues to get worse, he is hard to arouse now, despite being on bipap for the past 4 hours, with RN at bedside for safety. he is also becoming hypotensive despite 2.5 L boluses of normal saline and continues 130 cc per hour saline for the past 4 hours. patient barely responds to sternal rub. SBP 85-95, HR 50s, on biapap 14/5 40% lungs good breath sounds bilaterally abd soft assessment acute hypercapnic respiratory failure , continue with NIPAV with BIPAP fulminant C diff infection , vanco PO and flagyl IVPB normal saline @ 130cc per hour, and boluses as needed will follow up on another ABG , prior was 7.22/72/149 lactic acid <0.5 case discussed with ICU Dr Degroot, who accepted the patient plan to insert central line and initiate levo, more fluid boluses if ABG and mentation dont improve , will consider vent support. 40 minutes spent in critical care time in the care of this patient , not counting time spent doing procedures.
[2021-12-28] MEDS: NOREPINEPHRINE 4 MG in SODIUM CHLORIDE 0.9% 250 ML IV SCH ×2 (03:25→20:27)
[2021-12-28] MEDS ORDERED: VANCOMYCIN IV PER PHARMACY 1 EACH MISC MISCELLANE SCH (04:15)
[2021-12-28] MEDS ORDERED: VANCOMYCIN 500 MG in SODIUM CHLORIDE 0.9% 100 ML MISCELLANE SCH (04:30)
[2021-12-28] MEDS: VANCOMYCIN ORAL SOLUTION 250 MG/5 ML BOTTLE NG-TUBE SCH ×5 (05:54→20:38)
[2021-12-28] MEDS: CHERRY FLAVOR 60 ML BOTTLE PO SCH ×5 (05:54→20:38)
[2021-12-28 06:33] LABS: Glucose,Whole Blood 149 mg/dL (70-110)
[2021-12-28] MEDS: INSULIN ASPART (NovoLOG) 100 UNIT/ML VIAL SQ SCH ×4 (06:53→20:38)
[2021-12-28] MEDS: PANTOPRAZOLE 40 MG TABLET PO SCH (06:57)
[2021-12-28] MEDS ORDERED: TIOTROPIUM 2.5 MCG INHALER INHALATION SCH (08:00)
[2021-12-28] MEDS: SYMBICORT 80-4.5 MCG INHALER INHALATION SCH ×2 (08:09→20:00)
[2021-12-28] MEDS: IPRATROPIUM-ALBUTEROL 3 ML NEB INHALATION SCH ×4 (08:10→20:00)
[2021-12-28] MEDS: TAMSULOSIN 0.4 MG CAP.ER.24H PO SCH (08:51)
[2021-12-28] MEDS: ATORVASTATIN 80 MG TAB PO SCH (08:52)
[2021-12-28] MEDS: DOCUSATE 100 MG CAP PO SCH (08:52)
[2021-12-28] MEDS: APIXABAN 5 MG TAB PO SCH ×2 (08:52→20:37)
[2021-12-28] MEDS: PREGABALIN 75 MG CAP PO SCH ×3 (08:52→20:37)
[2021-12-28 09:09] LABS: Basophils % (A) 0 %; Eosinophils % (A) 0 %; HCT 32.5 % (39.0-53.0); HGB 10.3 gm/dL (13.0-17.5); Hypochromasia Slight; Lymphocytes # (A) 0.6 k/uL (1.0-4.8); Lymphocytes % (A) 4 %; MCH 28.6 pg (25.0-35.0); MCHC 31.6 g/dL (31.0-37.0); MCV 90.5 fL (80.0-100.0); Monocytes # (A) 0.3 k/uL (0-1.0); Monocytes % (A) 2 %; Neutrophils # (A) 12.2 k/uL (1.3-7.7); Neutrophils % (A) 93 %; Platelet Count 218 k/uL (150-450); RBC 3.59 m/uL (4.30-5.90); RDW 14.8 % (11.5-15.5); WBC 13.1 k/uL (3.8-10.6)
[2021-12-28 09:16] LABS: Partial Thromboplastin Time 25.2 sec (22.0-30.0); Prothrombin Time 10.6 sec (9.0-12.0)
[2021-12-28 09:54] LABS: ALT 23 U/L (4-49); AST 34 U/L (17-59); African American GFR (CKD) >90 (>60 ml/min/1.73 sqM); Albumin 3.1 g/dL (3.5-5.0); Alkaline Phosphatase 103 U/L (38-126); Anion Gap 5 mmol/L; Blood Urea Nitrogen 42 mg/dL (9-20); Calcium 8.1 mg/dL (8.4-10.2); Carbon Dioxide 28 mmol/L (22-30); Chloride 104 mmol/L (98-107); Glucose 187 mg/dL (74-99); Non-African American GFR(CKD) >90 (>60 ml/min/1.73 sqM); Sodium 137 mmol/L (137-145); Total Bilirubin 0.4 mg/dL (0.2-1.3); Total Protein 5.5 g/dL (6.3-8.2)
--- NOTE | 2021-12-28 10:11 | P.CRDCN ---
History of Present Illness Consult date: 12/28/21 History of present illness: Patient has a known history of chronic diastolic heart failure persistent atrial fibrillation on Eliquis, hyperlipidemia, hypertension, COPD, type 2 diabetes, obstructive sleep apnea, and recent right hip replacement one week ago. He follows with Dr. Sal. Patient presented to the hospital with increase lower extremity edema. He had 3+ pitting edema. The lumen asked to see the patient for acute on chronic diastolic congestive heart failure. Patient's troponins were negative 3 BNP was 1400. EKG showed atrial fibrillation with a controlled ventricular rate. Chest x-ray showed no acute cardiopulmonary disease or process. His bilateral lower extremity venous Doppler showed no evidence of DVT positive for Sloan's cyst. CT of the abdomen showed motion limited abdominal exam. No evidence of acute process to explain lower extremity edema., diverticulosis, umbilical hernia, and distended bladder demonstrating urinary retention. Patient was given IV Lasix 40 mg 2. Patient had 3 loose bowel movements and was found to be c.diff positive. Patient is being treated with vancomycin Additional labs show WBC 13.1 hemoglobin 10.3 platelets 218, initial BUNs 50 and creatinine 1.53. Today patient is seen resting comfortably in bed eating his breakfast in no signs of acute distress. He will receive a repeat limited echo. Prior echo from September 2021 shows a normal LV function with an EF of 60-65% mild mitral regurgitation. Blood pressures are stable. Systolically in the low 100s. Patient remains in atrial fibrillation with a controlled ventricle rate on the monitor. He is on Eliquis for anticoagulation. He still has moderate lower extremity edema. Creatinine has improved to 1.15. At this time will continue to monitor fluid volume and blood pressure. Patient has no complaints of shortness of breath and is in no acute respiratory distress. If needed will start diuretics for fluid overload, but will hold off at this time due to low blood pressure and positive C. diff. Review of Systems REVIEW OF SYSTEMS At the time of my exam: CONSTITUTIONAL: Denies fever or chills. EYES: Negative for vision changes ENT: Negative for hearing loss CARDIOVASCULAR: Denies chest pain, shortness of breath, diaphoresis, orthopnea, PND or palpitations. VASCULAR: Denies edema RESPIRATORY: Denies cough. GASTROINTESTINAL: Denies abdominal pain, diarrhea, constipation, nausea or vomiting. MUSCULOSKELETAL: Denies myalgias. NEUROLOGIC: Denies numbness, tingling, headache or weakness. ENDOCRINE: Denies fatigue, weight change, polydipsia or polyurina. GENITOURINARY: Denies burning, hematuria or urgency with micturation. HEMATOLOGIC: Denies history of anemia or bleeding. DERMATOLOGY: Denies rash or skin sores PSYCH: Negative for depression or hallucinations. Past Medical History Past Medical History: Atrial Fibrillation, Heart Failure, COPD, Diabetes M ellitus, Hyperlipidemia, Hypertension, Sleep Apnea/CPAP/BIPAP Additional Past Medical History / Comment(s): neuropathy, A-fib, glaucoma History of Any Multi-Drug Resistant Organisms: None Reported Past Surgical History: Orthopedic Surgery Additional Past Surgical History / Comment(s): Left shoulder, left hand 2 digits crushed/surg with pins placed, left foot third toe ampulation 2020, Past Anesthesia/Blood Transfusion Reactions: No Reported Reaction Additional Past Anesthesia/Blood Transfusion Reaction / Comment(s): Never received Past Psychological History: No Psychological Hx Reported Smoking Status: Former smoker - Past Family History Mother Family Medical History: No Reported History Father Family Medical History: No Reported History Additional Family Medical History / Comment(s): small cell in bladder Medications and Allergies Home Medications Medication Instructions Recorded Confirmed Type Fluticasone Propion/Salmeterol 1 puff INHALATION RT-BID 03/16/15 12/27/21 History [Advair 250-50 Diskus] Omeprazole 20 mg PO DAILY 03/16/15 12/27/21 History metFORMIN HCL [Glucophage] 1,000 mg PO BID 03/16/15 12/27/21 History Atorvastatin [Lipitor] 80 mg PO DAILY 09/17/20 12/27/21 History Pregabalin 150 mg PO TID 09/17/20 12/27/21 History dilTIAZem HCL [dilTIAZem HCL 24Hr 240 mg PO DAILY 09/17/20 12/27/21 History ER (Xr)] Albuterol Sulfate [Proair Hfa] 2 puff INHALATION RT-Q6H PRN 10/24/20 12/27/21 Hi story lisinopriL 40 mg PO DAILY 10/24/20 12/27/21 History Ipratropium-Albuterol Nebulize 3 ml INHALATION RT-QID 02/25/21 12/27/21 History [Duoneb 0.5 mg-3 mg/3 ml Soln] Tiotropium [place] [Spiriva] 1 cap INHALATION RT-DAILY 02/25/21 12/27/21 History Apixaban [Eliquis] 5 mg PO BID 09/12/21 12/27/21 History Insulin Glargine,Hum.rec.anlog 40 unit SQ HS 09/12/21 12/27/21 History [Lantus Solostar Pen] Docusate [Colace] 100 mg PO DAILY #30 capsule 12/23/21 12/27/21 Rx Tamsulosin [Flomax] 0.4 mg PO DAILY 30 Days #30 cap 12/23/21 12/27/21 Rx HYDROcodone/APAP 7.5-325MG [[place] 1 tab PO Q4H PRN 12/27/21 12/27/21 History 7.5-325] Spironolactone [Aldactone] 50 mg PO DAILY 12/27/21 12/27/21 History Allergies Allergy/AdvReac Type Severity Reaction Status Date / Time No Known Allergies Allergy Verified 12/27/21 20:30 Physical Exam Vitals: Vital Signs Temp Pulse Resp BP BP Pulse Ox FiO2 12/28/21 07:00 45 L 14 101/53 97 12/28/21 06:50 53 L 12 101/53 97 12/28/21 06:40 57 L 11 L 103/53 96 12/28/21 06:30 48 L 14 101/51 96 12/28/21 06:20 54 L 14 101/51 98 12/28/21 06:10 51 L 10 L 108/51 94 L 12/28/21 06:00 53 L 8 L 118/71 94 L 12/28/21 05:50 77 19 118/71 96 12/28/21 05:40 44 L 11 L 113/60 97 12/28/21 05:30 50 L 13 110/55 97 12/28/21 05:20 46 L 16 110/55 98 12/28/21 05:10 51 L 13 109/65 97 12/28/21 05:00 49 L 13 111/59 96 12/28/21 04:50 54 L 18 111/59 97 12/28/21 04:40 54 L 11 L 101/59 97 12/28/21 04:30 57 L 14 99/56 97 12/28/21 04:20 57 L 35 H 99/56 95 12/28/21 04:10 54 L 17 113/55 97 12/28/21 04:00 60 18 111/76 97 12/28/21 03:50 51 L 15 111/76 97 12/28/21 03:40 54 L 25 H 123/60 95 12/28/21 03:30 54 L 14 135/66 96 12/28/21 03:20 15 96 12/28/21 03:17 97.7 F 78 18 113/60 93 L 40 12/28/21 03:16 40 12/28/21 02:00 98.9 F 15 89/53 94 L 40 12/28/21 00:47 40 12/28/21 00:29 82/45 12/28/21 00:18 71 18 99 12/27/21 22:40 60 12/27/21 22:39 60 12/27/21 22:38 16 12/27/21 21:15 60 12/27/21 21:10 60 12/27/21 20:30 97.5 F L 55 L 24 100/57 89 L 12/27/21 17:20 65 18 12/27/21 17:09 61 18 12/27/21 15:07 60 20 103/61 97 12/27/21 13:20 98 F 69 22 95/51 97 Intake and Output 12/27/21 12/28/21 12/28/21 22:59 06:59 14:59 Intake Total 397.299 130 Output Total 1100 1000 80 Balance -1100 -602.701 50 Intake: IV 390 130 Sodium Chloride 0.9% 1, 390 130 000 ml @ 130 mls/hr IV . Q7H42M [facility] Rx#:[id number] Intake, IV Titration 7.299 Amount Norepinephrine 4 mg In 7.299 Sodium Chloride 0.9% 250 ml @ 0.05 MCG/KG/MIN 15. 64 mls/hr IV .[id number] [facility] Rx#:[id number] Output: Urine 1100 1000 80 Other: Voiding Method Indwelling Catheter Weight 82.1 kg PHYSICAL EXAMINATION General: The patient is awake and alert, in no distress, and does not appear acutely ill. Skin: Skin is warm and dry and no rashes or lesions are noted. Eye: Pupils are equal, round and reactive to light, extra-ocular movements are intact; there is normal conjunctiva bilaterally. Ears, nose, mouth and throat: There are moist mucous membranes and no oral lesions. Neck: The neck is supple, there is no tenderness or JVD. Cardiovascular: There is irregular regular rate and rhythm. No murmur, rub or gallop is appreciated. Respiratory: Lungs are clear to auscultation, respirations are non-labored, breath sounds are equal. Supplemental oxygen Gastrointestinal: Soft, non-distended, non-tender abdomen without masses or organomegaly noted. There is no rebound or guarding present. Bowel sounds are unremarkable. Back: There is no tenderness to palpation in the midline. There is no obvious deformity. Musculoskeletal: Normal ROM, no tenderness, There is no pedal edema. calf tenderness and lower extremity swelling present. Right hip incision intact Extremities: bilateral pitting edema worse on the right. Vascular: Femoral pulse is normal. Posterior tibial pulses are normal .Dorsalis pedis is palpable. Neurological: CN II-XII intact. There are no obvious motor or sensory deficits. Speech is normal. Psychiatric: Cooperative, appropriate mood & affect, normal judgment Results 12/28/21 08:50 12/28/21 03:40 Cardiac Enzymes 12/27/21 12/27/21 12/27/21 Range/Units 15:04 15:04 21:15 AST 29 (17-59) U/L Troponin I 0.027 0.020 (0.000-0.034) ng/mL 12/27/21 Range/Units 22:43 AST (17-59) U/L Troponin I 0.017 (0.000-0.034) ng/mL Coagulation 12/27/21 12/28/21 Range/Units 15:04 08:50 PT 11.1 10.6 (9.0-12.0) sec APTT 26.9 25.2 (22.0-30.0) sec CBC 12/27/21 12/28/21 Range/Units 15:04 08:50 WBC 19.5 H 13.1 H (3.8-10.6) k/uL RBC 3.44 L 3.59 L (4.30-5.90) m/uL Hgb 10.1 L 10.3 L (13.0-17.5) gm/dL Hct 31.1 L 32.5 L (39.0-53.0) % Plt Count 241 218 (150-450) k/uL Comprehensive Metabolic Panel 12/27/21 12/28/21 Range/Units 15:04 03:40 Sodium 132 L (137-145) mmol/L Potassium 5.0 (3.5-5.1) mmol/L Chloride 98 (98-107) mmol/L Carbon Dioxide 28 (22-30) mmol/L BUN 50 H (9-20) mg/dL Creatinine 1.53 H 1.15 (0.66-1.25) mg/dL Glucose 134 H (74-99) mg/dL Calcium 8.9 (8.4-10.2) mg/dL AST 29 (17-59) U/L ALT 18 (4-49) U/L Alkaline Phosphatase 102 (38-126) U/L Total Protein 5.4 L (6.3-8.2) g/dL Albumin 3.2 L (3.5-5.0) g/dL Current Medications Generic Name Dose Route Start Last Admin Trade Name Freq PRN Reason Stop Dose Admin Albuterol/Ipratropium 3 ml 12/27/21 20:00 12/28/21 08:10 Ipratropium-Albuterol 3 Ml Neb INHALATION Not Given RT-QID [facility] Albuterol/Ipratropium 3 ml 12/27/21 21:12 Ipratropium-Albuterol 3 Ml Neb INHALATION RT-Q2H PRN Shortness Of Breath Or Wheezing Apixaban 5 mg 12/27/21 21:00 12/28/21 08:52 Apixaban 5 Mg Tab PO 5 mg BID [facility] Administration Protocol Atorvastatin Calcium 80 mg 12/28/21 09:00 12/28/21 08:52 Atorvastatin 80 Mg Tab PO 80 mg DAILY [facility] Administration Budesonide/Formoterol Fumarate 2 puff 12/28/21 08:00 12/28/21 08:09 Symbicort 80-4.5 Mcg Inhaler INHALATION Not Given RT-BID [facility] [place] Syrup 5 ml 12/28/21 05:15 12/28/21 08:52 [place] Flavor 60 Ml Bottle PO 5 ml QID [facility] Administration Diltiazem HCl 240 mg 12/28/21 09:00 Diltiazem Cd 240 Mg Cap.Er.24h PO DAILY [facility] Docusate Sodium 100 mg 12/27/21 20:00 12/28/21 08:52 Docusate 100 Mg Cap PO 100 mg DAILY [facility] Administration Sodium Chloride 1,000 mls @ 75 mls/hr 12/27/21 19:45 12/28/21 03:52 Saline 0.9% IV 130 mls/hr .[id number] [facility] Administration Metronidazole 500 mg/ IV 100 mls @ 100 mls/hr 12/28/21 00:30 12/28/21 08:51 Solution IVPB 100 mls/hr Q8H [facility] Administration Protocol Norepinephrine Bitartrate 4 mg 254 mls @ 15.64 mls/hr 12/28/21 02:15 12/28/21 03:53 / Sodium Chloride IV 0.03 mcg/kg/min .[id number] [facility] 9.384 mls/hr Titration Protocol 0.05 MCG/KG/MIN Insulin Aspart 0 unit 12/28/21 07:30 12/28/21 06:53 Insulin Aspart (Novolog) 100 Unit/Ml Vial SQ Not Given ACHS [facility] Protocol Naloxone HCl 0.2 mg 12/27/21 19:45 12/27/21 22:38 Naloxone 0.4 Mg/Ml 1 Ml Vial IV 0.2 mg Q2M PRN Administration Opioid Reversal Pantoprazole Sodium 40 mg 12/27/21 20:00 12/28/21 06:57 Pantoprazole 40 Mg Tablet PO 40 mg DAILY@0730 [facility] Administration Pregabalin 150 mg 12/27/21 22:00 12/28/21 08:52 Pregabalin 75 Mg Cap PO 150 mg TID [facility] Administration Tamsulosin HCl 0.4 mg 12/27/21 20:00 12/28/21 08:51 Tamsulosin 0.4 Mg Cap.Er.24h PO 0.4 mg DAILY [facility] Administration Vancomycin HCl 500 mg 12/28/21 04:30 12/28/21 08:53 Vancomycin Oral Solution 250 Mg/5 Ml Bottle NG-TUBE 500 mg QID [facility] Administration Intake and Output 12/27/21 12/28/21 12/28/21 22:59 06:59 14:59 Intake Total 397.299 130 Output Total 1100 1000 80 Balance -1100 -602.701 50 Intake: IV 390 130 Sodium Chloride 0.9% 1, 390 130 000 ml @ 130 mls/hr IV . Q7H42M [facility] Rx#:[id number] Intake, IV Titration 7.299 Amount Norepinephrine 4 mg In 7.299 Sodium Chloride 0.9% 250 ml @ 0.05 MCG/KG/MIN 15. 64 mls/hr IV .[id number] [facility] Rx#:[id number] Output: Urine 1100 1000 80 Other: Voiding Method Indwelling Catheter Weight 82.1 kg 12/28/21 08:50 12/28/21 03:40 Assessment and Plan Assessment: Acute on chronic diastolic congestive heart failure Acute respiratory distress Lower extremity edema Persistent atrial fibrillation acute kidney injury Hyponatremia Chronic anemia Plan: Limited echo pending Continue with Eliquis for anticoagulation for atrial fibrillation Continue with all current cardiac medications Continue to monitor fluid volume status with strict I's and O's and daily weights Continue with telemetry monitoring Further recommendations based on clinical course The above impression and plan of care have been discussed and directed by the signing physician. Concetta Don, nurse practitioner, acting as scribe for signing physician.
[2021-12-28] MEDS: DILTIAZEM CD 240 MG CAP.ER.24H PO SCH (11:33)
[2021-12-28 12:02] LABS: Glucose,Whole Blood 404 mg/dL (70-110)
[2021-12-28 12:08] LABS: Glucose,Whole Blood 321 mg/dL (70-110)
[2021-12-28] MEDS: INSULIN DETEMIR (LEVEMIR) 100 UNIT/ML SYR SQ SCH ×2 (12:44→20:37)
--- NOTE | 2021-12-28 13:03 | CA ---
Transthoracic Echo Report Name: Hamzah Lopez Age: 56 Gender: M : 1965 Exam Date: 12/28/2021 08:15 Exam Location: [facility] Ht (in): 71 Wt (lb): 181 Ordering Physician: Radhika Lrod Attending/Referring Phys: Tool Machine Set Up Operator Rach An RDCS Procedure CPT: Indications: chf exacerbation Cardiac Hx: Technical Quality: Fair Contrast 1: Total Dose (mL): Contrast 2: Total Dose (mL): MEASUREMENTS (Male / Female) Normal Values 2D ECHO LV Diastolic Diameter PLAX 2.9 cm 4.2 - 5.9 / 3.9 - 5.3 cm LV Systolic Diameter PLAX 2.1 cm IVS Diastolic Thickness 1.9 cm 0.6 - 1.0 / 0.6 - 0.9 cm LVPW Diastolic Thickness 1.7 cm 0.6 - 1.0 / 0.6 - 0.9 cm LV Relative Wall Thickness 1.3 DOPPLER TR Peak Velocity 265.5 cm/s TR Peak Gradient 28.2 mmHg Right Ventricular Systolic Press 33.2 mmHg FINDINGS Left Ventricle Severely increased septal wall thickness. Left ventricular ejection fraction is estimated at 55-60 %. Right Ventricle Right Atrium Left Atrium Mitral Valve Aortic Valve Tricuspid Valve Pulmonic Valve Pericardium No pericardial effusion. Aorta CONCLUSIONS Normal LV size and systolic function. There is mild concentric LVH and also proximal septum has some asymmetric septal hypertrophy. No pericardial effusion Previewed by: Dr. Chen Sterling MD (Electronically Signed) Final Date: 28 December 2021 13:02
--- NOTE | 2021-12-28 13:27 | P.CNPUL ---
History of Present Illness Consult date: 12/28/21 Requesting physician: David Mayfield Reason for consult: COPD, other (C. difficile colitis and sepsis) Chief complaint: Diarrhea. History of present illness: This is a 56-year-old white male with history of multiple medical problems including COPD, obstructive sleep apnea syndrome, chronic atrial fibrillation, hypertension, type 2 diabetes, patient was recently discharged from the hospital, we saw him on consultation back on 12/20/21 patient had right hip arthroplasty on 12/20 and he developed acute on chronic hypercapnic respiratory failure secondary to operative anesthesia and hypoventilation. Not to mention the patient has severe underlying obstructive sleep apnea syndrome and severe COPD, FEV1 of 40%. Patient was seen by Dr. Toro on consultation, he was eventually discharged home, and his discharge date was 12/23/21. Yesterday the patient came into the ER with multiple complaints including diarrhea, increased lower extremity edema, workup in the ER showed no evidence of DVT, CT of the abdomen and pelvis was basically unremarkable, however the patient tested positive for C. difficile colitis. In the ER, patient was hypotensive requiring fluid boluses, and he required a central line placement and he was placed briefly on norepinephrine. By the time he arrived to the ER, his norepinephrine was discontinued. ABG prior to admission to the ICU showed significant hype rcapnia with severe respiratory acidosis, remains on BiPAP on telemetry this morning. ABG this morning on BiPAP showed a pO2 of 84 pCO2 67 pH of 7.25 patient was seen by internal medicine and he is receiving vancomycin orally and he is receiving Flagyl for his C. difficile colitis. Norepinephrine was discontinued early this morning. Review of Systems CONSTITUTIONAL: Feels generally weak. EYES: Negative ENT: Negative CARDIOVASCULAR: Denies chest pain or palpitation. Denies orthopnea VASCULAR: Negative RESPIRATORY: As noted in HPI. GASTROINTESTINAL: Diarrhea MUSCULOSKELETAL: Negative NEUROLOGIC: Negative ENDOCRINE: Negative GENITOURINARY: Negative HEMATOLOGIC: Negative DERMATOLOGY: Negative PSYCH: Negative Past Medical History Past Medical History: Atrial Fibrillation, Heart Failure, COPD, Diabetes Mellitus, Hyperlipidemia, Hypertension, Sleep Apnea/CPAP/BIPAP Additional Past Medical History / Comment(s): neuropathy, A-fib, glaucoma History of Any Multi-Drug Resistant Organisms: None Reported Past Surgical History: Orthopedic Surgery Additional Past Surgical History / Comment(s): Left shoulder, left hand 2 digits crushed/surg with pins placed, left foot third toe ampulation 2020, Past Anesthesia/Blood Transfusion Reactions: No Reported Reaction Additional Past Anesthesia/Blood Transfusion Reaction / Comment(s): Never received Past Psychological History: No Psychological Hx Reported Smoking Status: Former smoker - Past Family History Mother Family Medical History: No Reported History Father Family Medical History: No Reported History Additional Family Medical History / Comment(s): small cell in bladder Medications and Allergies Home Medications Medication Instructions Recorded Confirmed Type Fluticasone Propion/Salmeterol 1 puff INHALATION RT-BID 03/16/15 12/27/21 History [Advair 250-50 Diskus] Omeprazole 20 mg PO DAILY 03/16/15 12/27/21 History metFORMIN HCL [Glucophage] 1,000 mg PO BID 03/16/15 12/27/21 History Atorvastatin [Lipitor] 80 mg PO DAILY 09/17/20 12/27/21 History Pregabalin 150 mg PO TID 09/17/20 12/27/21 History dilTIAZem HCL [dilTIAZem HCL 24Hr 240 mg PO DAILY 09/17/20 12/27/21 History ER (Xr)] Albuterol Sulfate [Proair Hfa] 2 puff INHALATION RT-Q6H PRN 10/24/20 12/27/21 History lisinopriL 40 mg PO DAILY 10/24/20 12/27/21 History Ipratropium-Albuterol Nebulize 3 ml INHALATION RT-QID 02/25/21 12/27/21 History [Duoneb 0.5 mg-3 mg/3 ml Soln] Tiotropium Vale [Spiriva] 1 cap INHALATION RT-DAILY 02/25/21 12/27/21 History Apixaban [Eliquis] 5 mg PO BID 09/12/21 12/27/21 History Insulin Glargine,Hum.rec.anlog 40 unit SQ HS 09/12/21 12/27/21 History [Lantus Solostar Pen] Docusate [Colace] 100 mg PO DAILY #30 capsule 12/23/21 12/27/21 Rx Tamsulosin [Flomax] 0.4 mg PO DAILY 30 Days #30 cap 12/23/21 12/27/21 Rx HYDROcodone/APAP 7.5-325MG [Ignacio 1 tab PO Q4H PRN 12/27/21 12/27/21 History 7.5-325] Spironolactone [Aldactone] 50 mg PO DAILY 12/27/21 12/27/21 History Allergies Allergy/AdvReac Type Severity Reaction Status Date / Time No Known Allergies Allergy Verified 12/27/21 20:30 Physical Exam Vitals: Vital Signs Temp Pulse Resp BP BP Pulse Ox FiO2 12/28/21 12:50 58 L 16 104/56 93 L 12/28/21 12:40 53 L 18 111/60 93 L 12/28/21 12:30 58 L 11 L 94 L 12/28/21 12:20 58 L 22 122/53 93 L 12/28/21 12:10 64 12 126/60 98 12/28/21 12:00 97.6 F 58 L 18 128/57 97 12/28/21 11:50 58 L 18 128/57 96 12/28/21 11:40 66 15 128/55 97 12/28/21 11:30 62 16 110/56 97 12/28/21 11:20 56 L 16 110/56 99 12/28/21 11:16 55 L 12/28/21 11:10 52 L 12 114/58 99 12/28/21 11:06 58 L 12/28/21 11:00 64 13 119/59 96 12/28/21 10:50 53 L 15 119/59 96 12/28/21 10:40 55 L 16 102/52 93 L 12/28/21 10:30 59 L 12 104/59 93 L 12/28/21 10:20 61 10 L 104/59 95 12/28/21 10:10 60 16 116/66 94 L 12/28/21 10:00 65 15 113/68 98 12/28/21 09:50 65 15 113/68 95 12/28/21 09:40 62 17 118/60 95 12/28/21 09:30 67 12 108/63 96 12/28/21 09:20 64 18 108/63 95 12/28/21 09:10 60 9 L 111/56 97 12/28/21 09:00 66 13 109/56 97 12/28/21 08:50 71 11 L 109/56 97 12/28/21 08:40 65 15 126/60 96 12/28/21 08:30 62 14 121/104 98 12/28/21 08:20 71 12 121/104 87 L 12/28/21 08:10 72 15 118/75 78 L 12/28/21 08:00 98.4 F 64 10 L 120/65 92 L 12/28/21 07:50 54 L 11 L 120/65 96 12/28/21 07:40 49 L 15 132/64 98 12/28/21 07:30 49 L 10 L 122/57 96 12/28/21 07:20 47 L 15 122/57 99 12/28/21 07:10 56 L 17 116/61 97 12/28/21 07:00 45 L 14 101/53 97 12/28/21 06:50 53 L 12 101/53 97 12/28/21 06:40 57 L 11 L 103/53 96 12/28/21 06:30 48 L 14 101/51 96 12/28/21 06:20 54 L 14 101/51 98 12/28/21 06:10 51 L 10 L 108/51 94 L 12/28/21 06:00 53 L 8 L 118/71 94 L 12/28/21 05:50 77 19 118/71 96 12/28/21 05:40 44 L 11 L 113/60 97 12/28/21 05:30 50 L 13 110/55 97 12/28/21 05:20 46 L 16 110/55 98 12/28/21 05:10 51 L 13 109/65 97 12/28/21 05:00 49 L 13 111/59 96 12/28/21 04:50 54 L 18 111/59 97 12/28/21 04:40 54 L 11 L 101/59 97 12/28/21 04:30 57 L 14 99/56 97 12/28/21 04:20 57 L 35 H 99/56 95 12/28/21 04:10 54 L 17 113/55 97 12/28/21 04:00 60 18 111/76 97 12/28/21 03:50 51 L 15 111/76 97 12/28/21 03:40 54 L 25 H 123/60 95 12/28/21 03:30 54 L 14 135/66 96 12/28/21 03:20 15 96 12/28/21 03:17 97.7 F 78 18 113/60 93 L 40 12/28/21 03:16 40 12/28/21 02:00 98.9 F 15 89/53 94 L 40 12/28/21 00:47 40 12/28/21 00:29 82/45 12/28/21 00:18 71 18 99 12/27/21 22:40 60 12/27/21 22:39 60 12/27/21 22:38 16 12/27/21 21:15 60 12/27/21 21:10 60 12/27/21 20:30 97.5 F L 55 L 24 100/57 89 L 12/27/21 17:20 65 18 12/27/21 17:09 61 18 12/27/21 15:07 60 20 103/61 97 12/27/21 13:20 98 F 69 22 95/51 97 Intake and Output 12/27/21 12/28/21 12/28/21 22:59 06:59 14:59 Intake Total 397.299 615 Output Total 1100 1000 875 Balance -1100 -602.701 -260 Intake: IV 390 615 Sodium Chloride 0.9% 1, 390 615 000 ml @ 75 mls/hr IV . [id number] [facility] Rx#:[id number] Intake, IV Titration 7.299 Amount Norepinephrine 4 mg In 7.299 Sodium Chloride 0.9% 250 ml @ 0.05 MCG/KG/MIN 15. 64 mls/hr IV .[id number] [facility] Rx#:[id number] Output: Urine 1100 1000 875 Other: Voiding Method Indwelling Catheter Indwelling Catheter Weight 82.1 kg Physical Exam: Revealed a 56-year-old white male, obese, on 2 L nasal cannula, in no distress. Refuses to use BiPAP. Head: Atraumatic, normocephalic HEENT: Short obese neck. [Neck is supple.] [No neck masses.] [No thyromegaly.] [No JVD.] Chest: [Symmetrical chest expansion, diminished breath sounds at the bases no rhonchi no wheezes. Cardiac Exam: [Normal S1 and S2, no S3 gallop, no murmur.] Abdomen: [Soft, nontender, no megaly, no rebound, no guarding, normal bowel sounds.] Extremities: [No clubbing, 2+ bipedal edema, no cyanosis.] Neurological Exam: [No focal neurologic deficit.] Alert oriented 3. Psychiatric: Normal mood affect and normal mental status examination. Skin: No rashes. Results - Laboratory Findings CBC and BMP: 12/28/21 08:50 12/28/21 08:50 ABG ABG pH 7.25 (7.35-7.45) L 12/28/21 02:06 ABG pCO2 67 mmHg (35-45) H 12/28/21 02:06 ABG pO2 84 mmHg (83-108) 12/28/21 02:06 ABG O2 Saturation 95.1 % (94-97) 12/28/21 02:06 PT/INR, D-dimer PT 10.6 sec (9.0-12.0) 12/28/21 08:50 INR 1.0 (<1.2) 12/28/21 08:50 Abnormal lab findings: Abnormal Labs 12/27/21 12/27/21 12/27/21 15:04 15:04 18:54 WBC 19.5 H RBC 3.44 L Hgb 10.1 L Hct 31.1 L Neutrophils # 16.7 H Lymphocytes # Monocytes # 1.3 H ABG pH ABG pCO2 ABG pO2 ABG HCO3 ABG Total CO2 ABG O2 Saturation Sodium 132 L BUN 50 H Creatinine 1.53 H Glucose 134 H POC Glucose (mg/dL) Plasma Lactic Acid Tee Calcium Total Protein 5.4 L Albumin 3.2 L C. difficile (EIA) Intrp Positive A 12/27/21 12/27/21 12/27/21 22:09 22:13 22:43 WBC RBC Hgb Hct Neutrophils # Lymphocytes # Monocytes # ABG pH 7.23 L ABG pCO2 68 H ABG pO2 50 L* ABG HCO3 29 H ABG Total CO2 31 H ABG O2 Saturation 78.5 L Sodium BUN Creatinine Glucose POC Glucose (mg/dL) 188 H Plasma Lactic Acid Tee <0.5 L Calcium Total Protein Albumin C. difficile (EIA) Intrp 12/28/21 12/28/21 12/28/21 00:24 00:40 02:06 WBC RBC Hgb Hct Neutrophils # Lymphocytes # Monocytes # ABG pH 7.22 L 7.25 L ABG pCO2 72 H* 67 H ABG pO2 146 H ABG HCO3 30 H 29 H ABG Total CO2 32 H 32 H ABG O2 Saturation 99.0 H Sodium BUN Creatinine Glucose POC Glucose (mg/dL) 194 H Plasma Lactic Acid Tee Calcium Total Protein Albumin C. difficile (EIA) Intrp 12/28/21 12/28/21 12/28/21 06:32 08:50 08:50 WBC 13.1 H RBC 3.59 L Hgb 10.3 L Hct 32.5 L Neutrophils # 12.2 H Lymphocytes # 0.6 L Monocytes # ABG pH ABG pCO2 ABG pO2 ABG HCO3 ABG Total CO2 ABG O2 Saturation Sodium BUN 42 H Creatinine Glucose 187 H POC Glucose (mg/dL) 149 H Plasma Lactic Acid Tee Calcium 8.1 L Total Protein 5.5 L Albumin 3.1 L C. difficile (EIA) Intrp 12/28/21 12/28/21 12/28/21 08:50 12:01 12:07 WBC RBC Hgb Hct Neutrophils # Lymphocytes # Monocytes # ABG pH ABG pCO2 ABG pO2 ABG HCO3 ABG Total CO2 ABG O2 Saturation Sodium BUN Creatinine Glucose POC Glucose (mg/dL) 404 H 321 H Plasma Lactic Acid Tee 0.6 L Calcium Total Protein Albumin C. difficile (EIA) Intrp - Diagnostic Findings Chest x-ray: image reviewed (As noted in HPI.) Assessment and Plan Assessment: Impression: Acute C. difficile colitis Acute sepsis, possible septic shock secondary to C. difficile colitis Acute on chronic hypercapnic respiratory failure secondary to underlying COPD and obstructive sleep apnea syndrome Chronic atrial fibrillation, maintained on eliquis. Acute kidney injury secondary to hypotension and sepsis Hypovolemic hyponatremia Chronic anemia Severe COPD, FEV1 of 40% History of obstructive sleep apnea syndrome. Type 2 diabetes with diabetic neuropathy Degenerative joint disease and recent right hip arthroplasty Former smoker. DyslipidemIA Recommendation: continue present supportive care measures Continue IV fluids, patient is off norepinephrine Continue vancomycin orally and Flagyl IV. Continue BiPAP as needed Continue bronchodilators and no need for methylprednisolone. Resume home meds. We'll continue to monitor in the ICU for the next 24 hours We'll continue to follow. Prognosis is relatively guarded. Time with Patient: Greater than 30
--- NOTE | 2021-12-28 14:15 | CDI ---
Documentation Clarification Form Date: 12/28/2021 01:42:41 PM From: Luzmaria Boucher RN CCDS Admit Date: 12/28/2021 02:03:00 AM Patient Name: Hamzah Lopze Visit Number: [id number] Discharge Date: ATTENTION: The Clinical Documentation Specialists (CDI) and [facility] Coding Staff appreciate your assistance in clarifying documentation. Please respond to the clarification below the line at the bottom and electronically sign. The CDI & [facility] Coding staff will review the response and follow-up if needed. Please note: Queries are made part of the Legal Health Record. If you have any questions, please contact the author of this message via ITS. Dr. Cliff Andrade The patient presented with the following clinical indicators. Additional clarification regarding the etiology/cause of the clinical indicators is requested. History/Risk Factors: 56-year-old male presents to the ED via EMS had explosive diarrhea and not feeling well. Patient had a total hip replacement about a week ago and right leg is swollen. Medical History: COPD, Sleep Apnea, CHF, Heart Failure, HTN and DVT. 12/27, H&P. Clinical Indicators: WBC: 12/27 19.5 Neutrophils: 12/27 16.7 C.difficile: 12/27 positive. CXR: 12/27 No acute cardiopulmonary disease / process. No significant change from prior examination. ABD Pelv: 12/27 No acute process to explain patients lower extremity. Colonic diverticulosis. Umbilical [place] hernia. Distended urinary bladder with urinary retention. Vitals signs: 12/27 B/P 95/51; HR 69; Temp 98. F Oral; RR 22; SpO2 97% 5L nasal cannula Critical care progress note: 12/28 02:14 patient mentation continues to get worse, he is hard to arouse now, despite being on bipap for the past 4 hours, he is also becoming hypotensive despite 2.5L boluses of normal saline and and continues 130cc per houir saline for past 4 hours. Patient barely responds to sternal rub. SBP 85-95, hr 50s on BiPAP 14/5 40% Lungs good breath sounds bilaterally abd soft. Treatment: Antibiotics: 12/27 Vancomycin 125mg PO BID patient refused. 12/28 Metronidazole 500mg IVPB Q8H; 12/28 Norepinephrine Bitartrate IV; Vancomycin 500mg NG tube QID [facility]STRO IV Bolus: 12/28 0.9ns 1L IV bolus In your professional opinion, please clarify if these findings signify one of the following conditions: [ ] Sepsis POA [ ] Sepsis ruled out [ ] Sepsis with Septic Shock POA [ ] Other, please specify [ ] Unable to determine SIRS Criteria: 2 or more of the following may indicate SIRS -Temperature < 96.8F (36C) or > 101.0F (38.3C) -Heart Rate > 90 bpm -Respiratory Rate > 20 breaths/min or PaCO2 < 32 mmHg -White Blood Cell Count > 12,000 or < 4,000 cells/mm3 or > 10% bands (Template Last Reviewed: July 2020) NOT MY PATIENT. PLEASE SEND TO DR. KE MAGUIRE
[2021-12-28 17:36] LABS: Glucose,Whole Blood 349 mg/dL (70-110)
[2021-12-28 20:30] LABS: Glucose,Whole Blood 218 mg/dL (70-110)
[2021-12-29] MEDS: metroNIDAZOLE-NS PMX 500 MG in SALINE 1 100ML.BAG IVPB SCH ×3 (01:18→15:32)
[2021-12-29] MEDS: SODIUM CHLORIDE 0.9% 1,000 ML IV SCH (04:44)
[2021-12-29 06:36] LABS: Glucose,Whole Blood 163 mg/dL (70-110)
[2021-12-29] MEDS: PANTOPRAZOLE 40 MG TABLET PO SCH (07:00)
[2021-12-29] MEDS: INSULIN ASPART (NovoLOG) 100 UNIT/ML VIAL SQ SCH ×4 (07:01→21:16)
[2021-12-29] MEDS: INSULIN DETEMIR (LEVEMIR) 100 UNIT/ML SYR SQ SCH ×2 (07:01→21:16)
[2021-12-29] MEDS: IPRATROPIUM-ALBUTEROL 3 ML NEB INHALATION SCH ×4 (07:06→19:24)
[2021-12-29] MEDS: SYMBICORT 80-4.5 MCG INHALER INHALATION SCH ×2 (07:06→19:24)
[2021-12-29] MEDS: DOCUSATE 100 MG CAP PO SCH (08:46)
[2021-12-29] MEDS: ATORVASTATIN 80 MG TAB PO SCH (08:46)
[2021-12-29] MEDS: TAMSULOSIN 0.4 MG CAP.ER.24H PO SCH (08:47)
[2021-12-29] MEDS: DILTIAZEM CD 240 MG CAP.ER.24H PO SCH (08:47)
[2021-12-29] MEDS: PREGABALIN 75 MG CAP PO SCH ×3 (08:47→21:16)
[2021-12-29] MEDS: APIXABAN 5 MG TAB PO SCH ×2 (08:47→21:43)
[2021-12-29] MEDS: CHERRY FLAVOR 60 ML BOTTLE PO SCH ×4 (08:48→21:53)
[2021-12-29] MEDS: VANCOMYCIN ORAL SOLUTION 250 MG/5 ML BOTTLE NG-TUBE SCH ×4 (08:49→21:52)
--- NOTE | 2021-12-29 08:58 | P.PN ---
Subjective Patient was examined at bedside today not complaining of any worsening symptomatology. Vital signs continue to be stable. Case discussed with [facility] care team patient has been downgraded to the medical floor. Objective - Vital Signs Vital signs: Vital Signs Temp 98.2 F 12/29/21 08:00 Pulse 56 L 12/29/21 08:30 Resp 12 12/29/21 08:30 BP 104/46 12/29/21 08:30 Pulse Ox 94 L 12/29/21 08:30 FiO2 40 12/29/21 00:00 Intake & Output 12/28/21 12/29/21 12/29/21 18:59 06:59 18:59 Intake Total 1065 900 75 Output Total 1560 760 65 Balance -495 140 10 Weight 107 kg Intake: IV 1065 900 75 Sodium Chloride 0.9% 1, 1065 900 75 000 ml @ 75 mls/hr IV . [id number] [facility] Rx#:[id number] Output: Urine 1560 760 65 Other: Voiding Method Indwelling Catheter Indwelling Catheter - Exam Gen. patient is awake alert oriented 3 Currently on supplemental oxygen Respiratory no wheezing or rhonchi appreciated bilateral air entry Abdomen soft, nontender, positive bowel sounds Extremities no pitting edema Psychiatry patient is good spirits. However feels weak - Labs CBC & Chem 7: 12/28/21 08:50 12/28/21 08:50 Labs: Abnormal Lab Results - Last 24 Hours (Table) 12/28/21 12/28/21 12/28/21 Range/Units 08:50 08:50 08:50 WBC 13.1 H (3.8-10.6) k/uL RBC 3.59 L (4.30-5.90) m/uL Hgb 10.3 L (13.0-17.5) gm/dL Hct 32.5 L (39.0-53.0) % Neutrophils # 12.2 H (1.3-7.7) k/uL Lymphocytes # 0.6 L (1.0-4.8) k/uL BUN 42 H (9-20) mg/dL Glucose 187 H (74-99) mg/dL POC Glucose (mg/dL) (70-110) mg/dL Plasma Lactic Acid Tee 0.6 L (0.7-2.0) mmol/L Calcium 8.1 L (8.4-10.2) mg/dL Total Protein 5.5 L (6.3-8.2) g/dL Albumin 3.1 L (3.5-5.0) g/dL 12/28/21 12/28/21 12/28/21 Range/Units 12:01 12:07 17:34 WBC (3.8-10.6) k/uL RBC (4.30-5.90) m/uL Hgb (13.0-17.5) gm/dL Hct (39.0-53.0) % Neutrophils # (1.3-7.7) k/uL Lymphocytes # (1.0-4.8) k/uL BUN (9-20) mg/dL Glucose (74-99) mg/dL POC Glucose (mg/dL) 404 H 321 H 349 H (70-110) mg/dL Plasma Lactic Acid Tee (0.7-2.0) mmol/L Calcium (8.4-10.2) mg/dL Total Protein (6.3-8.2) g/dL Albumin (3.5-5.0) g/dL 12/28/21 12/29/21 Range/Units 20:28 06:34 WBC (3.8-10.6) k/uL RBC (4.30-5.90) m/uL Hgb (13.0-17.5) gm/dL Hct (39.0-53.0) % Neutrophils # (1.3-7.7) k/uL Lymphocytes # (1.0-4.8) k/uL BUN (9-20) mg/dL Glucose (74-99) mg/dL POC Glucose (mg/dL) 218 H 163 H (70-110) mg/dL Plasma Lactic Acid Tee (0.7-2.0) mmol/L Calcium (8.4-10.2) mg/dL Total Protein (6.3-8.2) g/dL Albumin (3.5-5.0) g/dL Microbiology - Last 24 Hours (Table) 12/27/21 17:25 Blood Culture - Preliminary Blood No Growth after 24 hours 12/27/21 17:10 Blood Culture - Preliminary Blood No Growth after 24 hours Assessment and Plan Assessment: Assessment: #1 acute hypoxic respiratory failure #2 fulminant C. diff #3 atrial fibrillation currently rate controlled #4 COPD not in acute exacerbation #5 history of recent hip replacement Plan: -Patient has been downgraded from the intensive care unit to the medical floor -Agree with by mouth vancomycin and IV Flagyl secondary to fulminant C. diff -Continue with breathing treatments when necessary -home insulin regimen continued. Continue with sliding scale maintain inpatient glucose levels less than 180 -Cardiology on board pending 2-D echocardiogram limited which shows some septal hypertrophy. -Dvt prophylaxis currently on a Eliquis
--- NOTE | 2021-12-29 09:36 | P.PN ---
Subjective Progress Note Date: 12/29/21 Patient has a known history of chronic diastolic heart failure persistent atrial fibrillation on Eliquis, hyperlipidemia, hypertension, COPD, type 2 diabetes, obstructive sleep apnea, and recent right hip replacement one week ago. He follows with Dr. Sal. Patient presented to the hospital with increase lower extremity edema. He had 3+ pitting edema. The lumen asked to see the patient for acute on chronic diastolic congestive heart failure. Patient's troponins were negative 3 BNP was 1400. EKG showed atrial fibrillation with a controlled ventricular rate. Chest x-ray showed no acute cardiopulmonary disease or process. His bilateral lower extremity venous Doppler showed no evidence of DVT positive for Sloan's cyst. CT of the abdomen showed motion limited abdominal exam. No evidence of acute process to explain lower extremity edema., diverticulosis, umbilical hernia, and distended bladder demonstrating urinary retention. Patient was given IV Lasix 40 mg 2. Patient had 3 loose bowel movements and was found to be c.diff positive. Patient is being treated with vancomycin additional labs show WBC 13.1 hemoglobin 10.3 platelets 218, initial BUNs 50 and creatinine 1.53. Patient is seen today resting comfortably in bed he remains free from increased shortness of breath or chest pain. Patient still has lower extremity edema mild in his left and moderate in his right. Which has improved since yesterday. Kidney function has improved BUN is 42 creatinine 0.88. Patient's blood pressure remained stable, systolically in the low 100s. Will continue to monitor fluid status, if needed will start on a low dose of oral diuretics. Patient remains in atrial fibrillation with a controlled ventricle rate he continues on Eliquis for anticoagulation. His echocardiogram reviewed showed normal LV function with an EF of 55-60% mild concentric LVH also proximal septal has some asymptomatic septal hypertrophy Reported improvement in diarrhea, last bowel movement was yesterday. He continues on IV antibiotics Objective - Vital Signs Vital signs: Vital Signs Temp 98.2 F 12/29/21 08:00 Pulse 60 12/29/21 09:00 Resp 23 12/29/21 09:00 BP 112/59 12/29/21 09:00 Pulse Ox 93 L 12/29/21 09:00 FiO2 40 12/29/21 00:00 Intake & Output 12/28/21 12/29/21 12/29/21 18:59 06:59 18:59 Intake Total 1065 900 325 Output Total 1560 760 225 Balance -495 140 100 Weight 107 kg Intake: IV 1065 900 225 Sodium Chloride 0.9% 1, 1065 900 225 000 ml @ 75 mls/hr IV . [id number] [facility] Rx#:[id number] Intake, IV Titration 100 Amount metroNIDAZOLE-NS PMX 500 100 mg In Saline 1 100ml.bag @ 100 mls/hr IVPB Q8H [facility] Rx#:[id number] Output: Urine 1560 760 225 Other: Voiding Method Indwelling Catheter Indwelling Catheter - Exam PHYSICAL EXAM: VITAL SIGNS: Reviewed. GENERAL: Well-developed in no acute distress. HEENT: Head is normocephalic. Pupils are equal, round. Sclerae anicteric. Mucous membranes of the mouth are moist. NECK: Supple. No JVD or thyromegaly RESPIRATORY: Respirations even and unlabored. Lungs diminished to auscultation bilaterally. CARDIO: Regular rate and rhythm. S1 and S2 heard. No murmur or gallops. EXTREMITIES: Normal range of motion. No clubbing or cyanosis. Peripheral pulses intact. bilateral lower extremity edema, worse on the right NEURO: Orientated to person, time, mood is appropriate - Labs CBC & Chem 7: 12/28/21 08:50 12/28/21 08:50 Labs: Abnormal Lab Results - Last 24 Hours (Table) 12/28/21 12/28/21 12/28/21 Range/Units 08:50 08:50 12:01 BUN 42 H (9-20) mg/dL Glucose 187 H (74-99) mg/dL POC Glucose (mg/dL) 404 H (70-110) mg/dL Plasma Lactic Acid Tee 0.6 L (0.7-2.0) mmol/L Calcium 8.1 L (8.4-10.2) mg/dL Total Protein 5.5 L (6.3-8.2) g/dL Albumin 3.1 L (3.5-5.0) g/dL 12/28/21 12/28/21 12/28/21 Range/Units 12:07 17:34 20:28 BUN (9-20) mg/dL Glucose (74-99) mg/dL POC Glucose (mg/dL) 321 H 349 H 218 H (70-110) mg/dL Plasma Lactic Acid Tee (0.7-2.0) mmol/L Calcium (8.4-10.2) mg/dL Total Protein (6.3-8.2) g/dL Albumin (3.5-5.0) g/dL 12/29/21 Range/Units 06:34 BUN (9-20) mg/dL Glucose (74-99) mg/dL POC Glucose (mg/dL) 163 H (70-110) mg/dL Plasma Lactic Acid Tee (0.7-2.0) mmol/L Calcium (8.4-10.2) mg/dL Total Protein (6.3-8.2) g/dL Albumin (3.5-5.0) g/dL Microbiology - Last 24 Hours (Table) 12/27/21 17:25 Blood Culture - Preliminary Blood No Growth after 24 hours 12/27/21 17:10 Blood Culture - Preliminary Blood No Growth after 24 hours Assessment and Plan Assessment: Acute on chronic diastolic congestive heart failure Acute respiratory distress Lower extremity edema Persistent atrial fibrillation acute kidney injury Hyponatremia Chronic anemia Plan: Echocardiogram reviewed Continue with Eliquis for anticoagulation for atrial fibrillation Continue with all current cardiac medications Continue to monitor fluid volume status with strict I's and O's and daily we ights Continue with telemetry monitoring Further recommendations based on clinical course The above impression and plan of care have been discussed and directed by the signing physician. Concetta Don, nurse practitioner, acting as scribe for signing physician.
--- NOTE | 2021-12-29 11:02 | P.PN ---
Subjective Progress Note Date: 12/29/21 Principal diagnosis: Acute C. difficile colitis This is a 56-year-old white male with history of multiple medical problems including COPD, obstructive sleep apnea syndrome, chronic atrial fibrillation, hypertension, type 2 diabetes, patient was recently discharged from the [facility], we saw him on consultation back on 12/20/21 patient had right hip arthroplasty on 12/20 and he developed acute on chronic hypercapnic respiratory failure secondary to operative anesthesia and hypoventilation. Not to mention the patient has severe underlying obstructive sleep apnea syndrome and severe COPD, FEV1 of 40%. Patient was seen by Dr. Toro on consultation, he was eventually discharged home, and his discharge date was 12/23/21. Yesterday the patient came into the ER with multiple complaints including diarrhea, increased lower extremity edema, workup in the ER showed no evidence of DVT, CT of the abdomen and pelvis was basically unremarkable, however the patient tested positive for C. difficile colitis. In the ER, patient was hypotensive requiring fluid boluses, and he required a central line placement and he was placed briefly on norepinephrine. By the time he arrived to the ER, his norepinephrine was discontinued. ABG prior to admission to the ICU showed significant hypercapnia with severe respiratory acidosis, remains on BiPAP on telemetry this morning. ABG this morning on BiPAP showed a pO2 of 84 pCO2 67 pH of 7.25 patient was seen by internal medicine and he is receiving vancomycin orally and he is receiving Flagyl for his C. difficile colitis. Norepinephrine was discontinued early this morning. Reevaluated today on 12/29/21, patient remains in the ICU, he seems to be doing quite well. His diarrhea has completely resolved. Patient remains on IV fluid in the form of 0.9 normal saline at 75 mL/h he is on 4 L nasal cannula, last night he was placed on BiPAP, patient uses on BiPAP machine. Patient is not in any distress, he is hemodynamically stable, not requiring any pressors at this point. WBC count is 13.1 hemoglobin is 10.3 left. Normal renal profile is normal Objective - Vital Signs Vital signs: Vital Signs Temp 98.2 F 12/29/21 08:00 Pulse 53 L 12/29/21 10:00 Resp 12 12/29/21 10:00 BP 97/54 12/29/21 10:00 Pulse Ox 95 12/29/21 10:00 FiO2 40 12/29/21 00:00 Intake & Output 12/28/21 12/29/21 12/29/21 18:59 06:59 18:59 Intake Total 1065 900 400 Output Total 1560 760 225 Balance -495 140 175 Weight 107 kg Intake: IV 1065 900 300 Sodium Chloride 0.9% 1, 1065 900 300 000 ml @ 75 mls/hr IV . [id number] CASTRO Rx#:[id number] Intake, IV Titration 100 Amount metroNIDAZOLE-NS PMX 500 100 mg In Saline 1 100ml.bag @ 100 mls/hr IVPB Q8H CASTRO Rx#:[id number] Output: Urine 1560 760 225 Other: Voiding Method Indwelling Catheter Indwelling Catheter Indwelling Catheter # Voids 0 - Exam Physical Exam: Revealed a 56-year-old white male, obese, on 4 L nasal cannula, in no distress. Head: Atraumatic, normocephalic HEENT: Short obese neck. [Neck is supple.] [No neck masses.] [No thyromegaly.] [No JVD.] Chest: [Symmetrical chest expansion, diminished breath sounds at the bases no rhonchi no wheezes. Cardiac Exam: [Normal S1 and S2, no S3 gallop, no murmur.] Abdomen: [Soft, nontender, no megaly, no rebound, no guarding, normal bowel sounds.] Extremities: [No clubbing, 2+ bipedal edema, no cyanosis.] Neurological Exam: [No focal neurologic deficit.] Alert oriented 3. Psychiatric: Normal mood affect and normal mental status examination. Skin: No rashes. - Labs CBC & Chem 7: 12/28/21 08:50 12/28/21 08:50 Labs: Abnormal Lab Results - Last 24 Hours (Table) 12/28/21 12/28/21 12/28/21 Range/Units 12:01 12:07 17:34 POC Glucose (mg/dL) 404 H 321 H 349 H (70-110) mg/dL 12/28/21 12/29/21 Range/Units 20:28 06:34 POC Glucose (mg/dL) 218 H 163 H (70-110) mg/dL Microbiology - Last 24 Hours (Table) 12/27/21 17:25 Blood Culture - Preliminary Blood No Growth after 24 hours 12/27/21 17:10 Blood Culture - Preliminary Blood No Growth after 24 hours Assessment and Plan Assessment: Impression: Acute C. difficile colitis Acute sepsis, possible septic shock secondary to C. difficile colitis Acute on chronic hypercapnic respiratory failure secondary to underlying COPD and obstructive sleep apnea syndrome Chronic atrial fibrillation, maintained on eliquis. Acute kidney injury secondary to hypotension and sepsis Hypovolemic hyponatremia Chronic anemia Severe COPD, FEV1 of 40% History of obstructive sleep apnea syndrome. Type 2 diabetes with diabetic neuropathy Degenerative joint disease and recent right hip arthroplasty Former smoker. Dyslipidemia Recommendation: Transfer patient out of the ICU to a regular medical floor. continue present supportive care measures Continue IV fluids Patient to use his own BiPAP at night. Continue vancomycin orally and Flagyl IV. Continue bronchodilators Possible discharge planning in the next 24 hours Time with Patient: Less than 30
[2021-12-29 11:18] LABS: African American GFR (CKD) >90 (>60 ml/min/1.73 sqM); Anion Gap 3 mmol/L; Blood Urea Nitrogen 31 mg/dL (9-20); Calcium 8.1 mg/dL (8.4-10.2); Carbon Dioxide 29 mmol/L (22-30); Chloride 104 mmol/L (98-107); Glucose 159 mg/dL (74-99); Non-African American GFR(CKD) >90 (>60 ml/min/1.73 sqM); Potassium 4.1 mmol/L (3.5-5.1); Sodium 136 mmol/L (137-145)
[2021-12-29 11:30] LABS: Glucose,Whole Blood 204 mg/dL (70-110)
[2021-12-29 11:32] LABS: Basophils % (A) 0 %; Eosinophils % (A) 0 %; HCT 29.9 % (39.0-53.0); HGB 9.5 gm/dL (13.0-17.5); Hypochromasia Slight; Lymphocytes # (A) 1.1 k/uL (1.0-4.8); Lymphocytes % (A) 11 %; MCH 29.2 pg (25.0-35.0); MCHC 31.9 g/dL (31.0-37.0); MCV 91.6 fL (80.0-100.0); Mean Platelet Volume 8.8; Monocytes # (A) 0.6 k/uL (0-1.0); Monocytes % (A) 6 %; Neutrophils # (A) 7.9 k/uL (1.3-7.7); Neutrophils % (A) 81 %; Platelet Count 220 k/uL (150-450); RBC 3.26 m/uL (4.30-5.90); RDW 15.5 % (11.5-15.5); WBC 9.7 k/uL (3.8-10.6)
--- NOTE | 2021-12-29 12:18 | CDI ---
Documentation Clarification Form Date: 12/28/2021 01:42:41 PM From: Luzmaria Boucher RN CCDS Admit Date: 12/28/2021 02:03:00 AM Patient Name: Hamzah Lopez Visit Number: [id number] Discharge Date: ATTENTION: The Clinical Documentation Specialists (CDI) and [facility] Coding Staff appreciate your assistance in clarifying documentation. Please respond to the clarification below the line at the bottom and electronically sign. The CDI & [facility] Coding staff will review the response and follow-up if needed. Please note: Queries are made part of the Legal Health Record. If you have any questions, please contact the author of this message via ITS. Dr. Chandan Zelaya MD The patient presented with the following clinical indicators. Additional clarification regarding the etiology/cause of the clinical indicators is requested. History/Risk Factors: 56-year-old male presents to the ED via EMS had explosive diarrhea and not feeling well. Patient had a total hip replacement about a week ago and right leg is swollen. Medical History: COPD, Sleep Apnea, CHF, Heart Failure, HTN and DVT. 12/27, H&P. Clinical Indicators: WBC: 12/27 19.5 Neutrophils: 12/27 16.7 C.difficile: 12/27 positive. CXR: 12/27 No acute cardiopulmonary disease / process. No significant change from prior examination. ABD Pelv: 12/27 No acute process to explain patients lower extremity. Colonic diverticulosis. Umbilical De [place] Cruz hernia. Distended urinary bladder with urinary retention. Vitals signs: 12/27 B/P 95/51; HR 69; Temp 98. F Oral; RR 22; SpO2 97% 5L nasal cannula Critical care progress note: 12/28 02:14 patient mentation continues to get worse, he is hard to arouse now, despite being on bipap for the past 4 hours, he is also becoming hypotensive despite 2.5L boluses of normal saline and and continues 130cc per houir saline for past 4 hours. Patient barely responds to sternal rub. SBP 85-95, hr 50s on BiPAP 14/5 40% Lungs good breath sounds bilaterally abd soft. 12/28, Pulmonology consult: Acute sepsis, possible septic shock secondary to C. difficle colitis. Treatment: Antibiotics: 12/27 Vancomycin 125mg PO BID patient refused. 12/28 Metronidazole 500mg IVPB Q8H; 12/28 Norepinephrine Bitartrate IV; Vancomycin 500mg NG tube QID CASTRO IV Bolus: 12/28 0.9ns 1L IV bolus In your professional opinion, please clarify if these findings signify one of the following conditions: [ ] Sepsis POA [ ] Sepsis ruled out [ ] Sepsis with Septic Shock POA [ ] Other, please specify [ ] Unable to determine SIRS Criteria: 2 or more of the following may indicate SIRS -Temperature < 96.8F (36C) or > 101.0F (38.3C) -Heart Rate > 90 bpm -Respiratory Rate > 20 breaths/min or PaCO2 < 32 mmHg -White Blood Cell Count > 12,000 or < 4,000 cells/mm3 or > 10% bands Answered in DC By Dr Juan Zelaya MD: Fulminant C diff colitis with Septic Shock (Template Last Reviewed: July 2020) QINGD
[2021-12-29] MEDS: NOREPINEPHRINE 4 MG in SODIUM CHLORIDE 0.9% 250 ML IV SCH (15:20)
[2021-12-29 16:48] LABS: Glucose,Whole Blood 220 mg/dL (70-110)
[2021-12-29 18:57] LABS: Glucose,Whole Blood 205 mg/dL (70-110)
[2021-12-29] MEDS ORDERED: HYDROcodone/APAP 7.5-325MG 1 EACH TAB PO PRN (20:21)
[2021-12-29] MEDS: LIDOCAINE 5% PATCH TOPICAL SCH (21:51)
[2021-12-30] MEDS: metroNIDAZOLE-NS PMX 500 MG in SALINE 1 100ML.BAG IVPB SCH ×3 (01:59→15:55)
[2021-12-30] MEDS: SODIUM CHLORIDE 0.9% 1,000 ML IV SCH ×2 (03:31→18:55)
[2021-12-30 07:10] LABS: Glucose,Whole Blood 89 mg/dL (70-110)
[2021-12-30] MEDS: INSULIN ASPART (NovoLOG) 100 UNIT/ML VIAL SQ SCH ×4 (09:00→22:08)
[2021-12-30] MEDS: SYMBICORT 80-4.5 MCG INHALER INHALATION SCH ×2 (09:20→19:21)
[2021-12-30] MEDS: IPRATROPIUM-ALBUTEROL 3 ML NEB INHALATION SCH ×4 (09:20→19:21)
[2021-12-30 09:23] LABS: Basophils # (A) 0.01 X 10*3/uL (0.00-0.10); Basophils % (A) 0.1 %; Eosinophils # (A) 0.12 X 10*3/uL (0.04-0.35); Eosinophils % (A) 1.4 %; HCT 27.4 % (39.6-50.0); HGB 8.3 g/dL (13.0-17.0); Lymphocytes # (A) 1.75 X 10*3/uL (0.90-5.00); Lymphocytes % (A) 20.2 %; MCH 27.3 pg (27.0-32.0); MCHC 30.3 g/dL (32.0-37.0); MCV 90.1 fL (80.0-97.0); Mean Platelet Volume 10.3 fL (9.5-12.2); Monocytes # (A) 0.77 X 10*3/uL (0.20-1.00); Monocytes % (A) 8.9 %; NRBC Per 100 WBC 0 /100 WBCS (0.0-0.0); Neutrophils # (A) 5.93 X 10*3/uL (1.80-7.70); Neutrophils % (A) 68.4 %; Platelet Count 220 X 10*3/uL (140-440); RBC 3.04 X 10*6/uL (4.40-5.60); RDW 15.6 % (11.5-14.5); WBC 8.67 X 10*3/uL (4.50-10.00)
[2021-12-30] MEDS: ATORVASTATIN 80 MG TAB PO SCH (09:25)
[2021-12-30] MEDS: TAMSULOSIN 0.4 MG CAP.ER.24H PO SCH (09:25)
[2021-12-30] MEDS: PANTOPRAZOLE 40 MG TABLET PO SCH (09:25)
[2021-12-30] MEDS: APIXABAN 5 MG TAB PO SCH ×2 (09:26→22:08)
[2021-12-30] MEDS: INSULIN DETEMIR (LEVEMIR) 100 UNIT/ML SYR SQ SCH ×2 (09:26→22:08)
[2021-12-30] MEDS: CHERRY FLAVOR 60 ML BOTTLE PO SCH ×4 (09:26→22:09)
[2021-12-30] MEDS: METOPROLOL TARTRATE 25 MG TAB PO SCH ×4 (09:26→22:18)
[2021-12-30] MEDS: SPIRONOLACTONE 25 MG TAB PO SCH (09:26)
[2021-12-30] MEDS: DOCUSATE 100 MG CAP PO SCH (09:26)
[2021-12-30] MEDS: PREGABALIN 75 MG CAP PO SCH ×3 (09:26→22:08)
--- NOTE | 2021-12-30 09:48 | P.PN ---
Subjective Progress Note Date: 12/30/21 HISTORY OF PRESENT ILLNESS: Patient has a known history of chronic diastolic heart failure persistent atrial fibrillation on Eliquis, hyperlipidemia, hypertension, COPD, type 2 diabetes, obstructive sleep apnea, and recent right hip replacement one week ago. He follows with Dr. Sal. Patient presented to the hospital with increase lower extremity edema. He had 3+ pitting edema. The lumen asked to see the patient for acute on chronic diastolic congestive heart failure. Patient's troponins were negative 3 BNP was 1400. EKG showed atrial fibrillation with a controlled ventricular rate. Chest x-ray showed no acute cardiopulmonary disease or process. His bilateral lower extremity venous Doppler showed no evidence of DVT positive for Sloan's cyst. CT of the abdomen showed motion limited abdominal exam. No evidence of acute process to explain lower extremity edema., diverticulosis, umbilical hernia, and distended bladder demonstrating urinary retention. Patient was given IV Lasix 40 mg 2. Patient had 3 loose bowel movements and was found to be c.diff positive. Patient is being treated with vancomycin additional labs show WBC 13.1 hemoglobin 10.3 platelets 218, initial BUNs 50 and creatinine 1.53. Patient is seen today resting comfortably in bed he remains free from increased shortness of breath or chest pain. Patient still has lower extremity edema mild in his left and moderate in his right. Which has improved since yesterday. Kidney function has improved BUN is 42 creatinine 0.88. Patient's blood pressure remained stable, systolically in the low 100s. Will continue to monitor fluid status, if needed will start on a low dose of oral diuretics. Patient remains in atrial fibrillation with a controlled ventricle rate he continues on Eliquis for anticoagulation. His echocardiogram reviewed showed normal LV function with an EF of 55-60% mild concentric LVH also proximal septal has some asymptomatic septal hypertrophy Reported improvement in diarrhea, last bowel movement was yesterday. He continues on IV antibiotics 12/30/2021 Patient examined this morning at the bedside. Patient denies chest pain or pressure. He reports feeling SOB this morning. Telemetry reveals atrial fibrillation with controlled ventricular rate. Vital signs are stable. PHYSICAL EXAM: VITAL SIGNS: Reviewed. GENERAL: Well-developed in no acute distress. NECK: Supple. No JVD or thyromegaly LUNGS: Respirations even and unlabored. Lungs diminished to auscultation bilaterally. HEART: Regular rate and rhythm. S1 and S2 heard. EXTREMITIES: Normal range of motion. No clubbing or cyanosis. Peripheral pulses intact. Bilateral lower extremity edema ASSESSMENT: Acute C. difficile colitis Acute sepsis Shortness of breath COPD Acute on chronic heart failure with preserved ejection fraction Persistent atrial fibrillation, anticoagulated with Eliquis Acute kidney injury, resolved Hyponatremia Obstructive sleep apnea with CPAP use PLAN: Continue current cardiac medications Discontinue oral Cardizem Begin Metoprolol tartrate 25 mg 3 times a day Add aldactone 25mg daily Monitor kidney function Discontinue IV fluids Pulmonary following Further recommendations pending patient course Patient to follow up post discharge with his primary cnc service technician Nurse practitioner note has been reviewed by physician. Signing provider agrees with the documented findings, assessment, and plan of care. Objective - Vital Signs Vital signs: Vital Signs Temp 97.6 F 12/30/21 02:04 Pulse 60 12/30/21 09:33 Resp 18 12/30/21 08:00 BP 123/68 12/30/21 02:04 Pulse Ox 97 12/30/21 02:04 FiO2 40 12/29/21 00:00 Intake & Output 12/29/21 12/30/21 12/30/21 18:59 06:59 18:59 Intake Total 850 Output Total 750 Balance 100 Weight 103.1 kg Intake: IV 750 Sodium Chloride 0.9% 1, 750 000 ml @ 75 mls/hr IV . [id number] CASTRO Rx#:[id number] Intake, IV Titration 100 Amount metroNIDAZOLE-NS PMX 500 100 mg In Saline 1 100ml.bag @ 100 mls/hr IVPB Q8H CASTRO Rx#:[id number] Output: Urine 750 Other: Voiding Method Urinal Urinal Urinal # Bowel Movements 1 - Labs CBC & Chem 7: 12/30/21 03:56 12/29/21 10:47 Labs: Abnormal Lab Results - Last 24 Hours (Table) 12/29/21 12/29/21 12/29/21 Range/Units 07:35 10:47 11:28 RBC 3.26 L (4.30-5.90) m/uL Hgb 9.5 L (13.0-17.5) gm/dL Hct 29.9 L (39.0-53.0) % MCHC (32.0-37.0) g/dL RDW (11.5-14.5) % Immature Gran # (0.00-0.04) X 10*3/uL Neutrophils # 7.9 H (1.3-7.7) k/uL Sodium 136 L (137-145) mmol/L BUN 31 H (9-20) mg/dL Glucose 159 H (74-99) mg/dL POC Glucose (mg/dL) 204 H (70-110) mg/dL Calcium 8.1 L (8.4-10.2) mg/dL 12/29/21 12/29/21 12/30/21 Range/Units 16:46 18:56 03:56 RBC 3.04 L (4.30-5.90) m/uL Hgb 8.3 L (13.0-17.5) gm/dL Hct 27.4 L (39.0-53.0) % MCHC 30.3 L (32.0-37.0) g/dL RDW 15.6 H (11.5-14.5) % Immature Gran # 0.09 H (0.00-0.04) X 10*3/uL Neutrophils # (1.3-7.7) k/uL Sodium (137-145) mmol/L BUN (9-20) mg/dL Glucose (74-99) mg/dL POC Glucose (mg/dL) 220 H 205 H (70-110) mg/dL Calcium (8.4-10.2) mg/dL Microbiology - Last 24 Hours (Table) 12/27/21 17:25 Blood Culture - Preliminary Blood No Growth after 48 hours 12/27/21 17:10 Blood Culture - Preliminary Blood No Growth after 48 hours
[2021-12-30 10:19] LABS: African American GFR (CKD) 122.3 (60.0-200.0); Anion Gap 6.2 mmol/L (10.00-18.00); BUN/Creat Ratio 27.43 Ratio (12.00-20.00); Blood Urea Nitrogen 19.2 mg/dL (9.0-27.0); Calcium 8.6 mg/dL (8.7-10.3); Carbon Dioxide 26.8 mmol/L (20.0-27.5); Non-African American GFR(CKD) 105.5 (60.0-200.0)
[2021-12-30] MEDS: VANCOMYCIN ORAL SOLUTION 250 MG/5 ML BOTTLE NG-TUBE SCH ×4 (10:47→22:21)
[2021-12-30 11:39] LABS: Glucose,Whole Blood 109 mg/dL (70-110)
--- NOTE | 2021-12-30 11:39 | CA ---
Transthoracic Echo Report Name: Hamzah Lopez Age: 56 Gender: M : 1965 Exam Date: 12/30/2021 08:22 Exam Location: [facility] Ht (in): 72 Wt (lb): 235 Ordering Physician: Gabe Rodriguez MD ([id number]) Attending/Referring Phys: [employer] Pack[employer] Machine Operator Zeenat Jean RDCS Procedure CPT: Indications: bradycardia heart rate 43 Cardiac Hx: Technical Quality: Fair Contrast 1: Total Dose (mL): Contrast 2: Total Dose (mL): MEASUREMENTS (Male / Female) Normal Values DOPPLER TR Peak Velocity 400.1 cm/s TR Peak Gradient 64.0 mmHg Right Ventricular Systolic Press 69.0 mmHg FINDINGS Left Ventricle Left ventricular ejection fraction is estimated at 55-60 %. Right Ventricle Moderate right ventricular dilatation. Moderate to severe pulmonary hypertension. Right Atrium Left Atrium Mitral Valve Aortic Valve Tricuspid Valve Pulmonic Valve Pericardium No pericardial effusion. Prominent epicardial fat. Aorta CONCLUSIONS Normal LV size and systolic function. Enlarged right ventricle through significant extent with moderate to severe pulmonary hypertension. Epicardial fat pad noted no pericardial effusion Previewed by: Dr. Chen Sterling MD (Electronically Signed) Final Date: 30 December 2021 11:37
--- NOTE | 2021-12-30 12:11 | P.PN ---
Subjective Progress Note Date: 12/30/21 This is a 56-year-old white male with history of multiple medical problems including COPD, obstructive sleep apnea syndrome, chronic atrial fibrillation, hypertension, type 2 diabetes, patient was recently discharged from the hospital, we saw him on consultation back on 12/20/21 patient had right hip arthr oplasty on 12/20 and he developed acute on chronic hypercapnic respiratory failure secondary to operative anesthesia and hypoventilation. Not to mention the patient has severe underlying obstructive sleep apnea syndrome and severe COPD, FEV1 of 40%. Patient was seen by Dr. Toro on consultation, he was eventually discharged home, and his discharge date was 12/23/21. Yesterday the patient came into the ER with multiple complaints including diarrhea, increased lower extremity edema, workup in the ER showed no evidence of DVT, CT of the abdomen and pelvis was basically unremarkable, however the patient tested positive for C. difficile colitis. In the ER, patient was hypotensive requiring fluid boluses, and he required a central line placement and he was placed briefly on norepinephrine. By the time he arrived to the ER, his norepinephrine was discontinued. ABG prior to admission to the ICU showed significant hypercapnia with severe respiratory acidosis, remains on BiPAP on telemetry this morning. ABG this morning on BiPAP showed a pO2 of 84 pCO2 67 pH of 7.25 patient was seen by internal medicine and he is receiving vancomycin orally and he is receiving Flagyl for his C. difficile colitis. Norepinephrine was discontinued early this morning. Reevaluated today on 12/29/21, patient remains in the ICU, he seems to be doing quite well. His diarrhea has completely resolved. Patient remains on IV fluid in the form of 0.9 normal saline at 75 mL/h he is on 4 L nasal cannula, last night he was placed on BiPAP, patient uses on BiPAP machine. Patient is not in any distress, he is hemodynamically stable, not requiring any pressors at this point. WBC count is 13.1 hemoglobin is 10.3 left. Normal renal profile is normal Patient seen today 12/30/2021 in follow-up on the regular medical floor. He is currently sitting up in a chair at the bedside. Awake and alert in no acute distress. He is maintaining O2 saturations in the 90s on 4 L/m per nasal cannula. He did have some episodes of bradycardia with heart rate in the 50s. He is asymptomatic. Echocardiogram revealed preserved left ventricular systolic function with ejection fraction 50-60%. There is moderate right ventricular limitation with moderate to severe pulmonary edema with an RVSP of 69 mmHg. Blood cultures reveal no growth. White count 8.6. Hemoglobin 8.3. Sodium 140. Potassium 4.0. BUN 19. Creatinine 0.7. He is continued on DuoNeb inhalations, Symbicort, IV diuretics. Anticoagulated with Eliquis. On oral vancomycin and Flagyl. Currently in a -355 ml balance Objective - Vital Signs Vital signs: Vital Signs Temp 97.6 F 12/30/21 02:04 Pulse 60 12/30/21 09:33 Resp 18 12/30/21 08:00 BP 123/68 12/30/21 02:04 Pulse Ox 97 12/30/21 02:04 FiO2 40 12/29/21 00:00 Intake & Output 12/29/21 12/30/21 12/30/21 18:59 06:59 18:59 Intake Total 850 Output Total 750 Balance 100 Weight 103.1 kg Intake: IV 750 Sodium Chloride 0.9% 1, 750 000 ml @ 75 mls/hr IV . [id number] CASTRO Rx#:[id number] Intake, IV Titration 100 Amount metroNIDAZOLE-NS PMX 500 100 mg In Saline 1 100ml.bag @ 100 mls/hr IVPB Q8H CASTRO Rx#:[id number] Output: Urine 750 Other: Voiding Method Urinal Urinal Urinal # Bowel Movements 1 - Exam GENERAL EXAM: Alert, obese 56-year-old male patient, up in a chair at bedside. On 4 L nasal cannula. Comfortable in no apparent distress. HEAD: Normocephalic. EYES: Normal reaction of pupils, equal size. NOSE: Clear with pink turbinates. THROAT: No erythema or exudates. NECK: No masses, no JVD. CHEST: No chest wall deformity. LUNGS: Equal air entry with no crackles, wheeze, rhonchi or dullness. Managed. CVS: S1 and S2 normal with no audible murmur, irregular rhythm. ABDOMEN: No hepatosplenomegaly, normal bowel sounds, no guarding or rigidity. SPINE: No scoliosis or deformity SKIN: No rashes CENTRAL NERVOUS SYSTEM: No focal deficits, tone is normal in all 4 extremities. EXTREMITIES: There is 1-2+ peripheral edema. She is of chronic venous stasis. No clubbing, no cyanosis. Peripheral pulses are intact. - Labs CBC & Chem 7: 12/30/21 03:56 12/30/21 03:56 Labs: Abnormal Lab Results - Last 24 Hours (Table) 12/29/21 12/29/21 12/30/21 Range/Units 16:46 18:56 03:56 RBC 3.04 L (4.40-5.60) X 10*6/uL Hgb 8.3 L (13.0-17.0) g/dL Hct 27.4 L (39.6-50.0) % MCHC 30.3 L (32.0-37.0) g/dL RDW 15.6 H (11.5-14.5) % Immature Gran # 0.09 H (0.00-0.04) X 10*3/uL Anion Gap (10.00-18.00) mmol/L BUN/Creatinine Ratio (12.00-20.00) Ratio POC Glucose (mg/dL) 220 H 205 H (70-110) mg/dL Calcium (8.7-10.3) mg/dL 12/30/21 Range/Units 03:56 RBC (4.40-5.60) X 10*6/uL Hgb (13.0-17.0) g/dL Hct (39.6-50.0) % MCHC (32.0-37.0) g/dL RDW (11.5-14.5) % Immature Gran # (0.00-0.04) X 10*3/uL Anion Gap 6.20 L (10.00-18.00) mmol/L BUN/Creatinine Ratio 27.43 H (12.00-20.00) Ratio POC Glucose (mg/dL) (70-110) mg/dL Calcium 8.6 L (8.7-10.3) mg/dL Microbiology - Last 24 Hours (Table) 12/27/21 17:25 Blood Culture - Preliminary Blood No Growth after 48 hours 12/27/21 17:10 Blood Culture - Preliminary Blood No Growth after 48 hours Assessment and Plan Assessment: Acute C. difficile colitis, remains on oral vancomycin Acute sepsis, possible septic shock secondary to C. difficile colitis, recovered Acute on chronic hypercapnic respiratory failure secondary to underlying COPD and obstructive sleep apnea syndrome Chronic atrial fibrillation, maintained on eliquis. Acute kidney injury secondary to hypotension and sepsis, recovered Hypovolemic hyponatremia, recovered Chronic anemia Severe COPD, FEV1 of 40% History of obstructive sleep apnea syndrome. Type 2 diabetes with diabetic neuropathy Degenerative joint disease and recent right hip arthroplasty Former smoker. Dyslipidemia Plan: The patient was seen and evaluated Labs and medications reviewed Stable from the pulmonary and critical care standpoint Probable discharge to [facility] for subacute rehab I have personally seen and examined the patient, performed the documentation and the assessment and plan as written. Number of minutes spent on the visit: 10.
[2021-12-30] MEDS: FUROSEMIDE 10 MG/ML 4 ML VIAL IV SCH ×2 (12:35→22:36)
--- NOTE | 2021-12-30 14:47 | P.PN ---
Subjective Progress Note Date: 12/30/21 (delayed charting seen at 1030) Patient is a 56-year-old male with A. fib oneliquis, COPD on 4 L nasal cannula, obstructive sleep apnea on CPAP, diabetes mellitus requiring insulin who pre sented to the [facility]opital with altered mentation,. He has be diagnosed with C diff this hospital stay. Patient seen and examined at bedside. He reports feeling frustrated was still being in the hospital. He is still concerned about his right lower extremity swelling after having had a hip replacement. He denies any nausea or vomiting. He had 2 bowel movements yesterday that were both performed. He denies any shortness of breath. He does feel like he needs rehab on discharge as he is still very weak and fatigued. General: Ill-appearing, no distress, appears at stated age Derm: warm, dry Head: atraumatic, normocephalic, symmetric Eyes: EOMI, no lid lag, anicteric sclera Mouth: no lip lesion, mucus membranes moist Cardiovascular: S1S2 reg, no murmur, positive posterior tibial pulse bilateral, Lungs: Coarse breath sounds bilateral, no rhonchi, no rales , no accessory muscle use Abdominal: soft, nontender to palpation, no guarding, no appreciable organomegaly Ext: no gross muscle atrophy, 3+ edema right lower extremity, 2+ left lower extremity, no contractures Neuro: CN II-XI grossly intact, no focal neuro deficits Psych: Alert, oriented, appropriate affect Assessment/plan: Fulminant C. diff colitis with spectic shock - shock resolved - conitnue with vanco oral and metronidazol IV - now with formed stools Acute exacerbation of diastolic CHF Mod to severe pulm HTN -add lasix, continue aldactone - lopressor, not chronically on ACEI/ARB - add compression stocking for lower extremity edema Anemia acute on chronic, worsening - no bleeding per patient - follow CBC - check iron studies Diabetes mellitus type 2 insulin requiring - follow BS - levemir - SSI Severe COPD with chronic hypoxic respiratory fialure - conitnue with duoneds, symbicort - pulmonary recommendations Acute toxic metabolic encephalopathy, resolved Acute kidney injury, resolved Hyponatremia, resolved Chronic: Atrial fibrillation rate controlled and anticoagulated with eliquis. slight bharat overninght and medications being changed. Anticipate to [facility] in AM. Objective - Vital Signs Vital signs: Vital Signs Temp 97.6 F 12/30/21 02:04 Pulse 60 12/30/21 12:51 Resp 18 12/30/21 08:00 BP 123/68 12/30/21 02:04 Pulse Ox 97 12/30/21 02:04 FiO2 40 12/29/21 00:00 Intake & Output 12/29/21 12/30/21 12/30/21 18:59 06:59 18:59 Intake Total 850 Output Total 750 Balance 100 Weight 103.1 kg Intake: IV 750 Sodium Chloride 0.9% 1, 750 000 ml @ 75 mls/hr IV . [id number] CASTRO Rx#:[id number] Intake, IV Titration 100 Amount metroNIDAZOLE-NS PMX 500 100 mg In Saline 1 100ml.bag @ 100 mls/hr IVPB Q8H CASTRO Rx#:[id number] Output: Urine 750 Other: Voiding Method Urinal Urinal Urinal # Bowel Movements 1 - Labs CBC & Chem 7: 12/30/21 03:56 12/30/21 03:56 Labs: Abnormal Lab Results - Last 24 Hours (Table) 12/29/21 12/29/21 12/30/21 Range/Units 16:46 18:56 03:56 RBC 3.04 L (4.40-5.60) X 10*6/uL Hgb 8.3 L (13.0-17.0) g/dL Hct 27.4 L (39.6-50.0) % MCHC 30.3 L (32.0-37.0) g/dL RDW 15.6 H (11.5-14.5) % Immature Gran # 0.09 H (0.00-0.04) X 10*3/uL Anion Gap (10.00-18.00) mmol/L BUN/Creatinine Ratio (12.00-20.00) Ratio POC Glucose (mg/dL) 220 H 205 H (70-110) mg/dL Calcium (8.7-10.3) mg/dL 12/30/21 Range/Units 03:56 RBC (4.40-5.60) X 10*6/uL Hgb (13.0-17.0) g/dL Hct (39.6-50.0) % MCHC (32.0-37.0) g/dL RDW (11.5-14.5) % Immature Gran # (0.00-0.04) X 10*3/uL Anion Gap 6.20 L (10.00-18.00) mmol/L BUN/Creatinine Ratio 27.43 H (12.00-20.00) Ratio POC Glucose (mg/dL) (70-110) mg/dL Calcium 8.6 L (8.7-10.3) mg/dL Microbiology - Last 24 Hours (Table) 12/27/21 17:25 Blood Culture - Preliminary Blood No Growth after 48 hours 12/27/21 17:10 Blood Culture - Preliminary Blood No Growth after 48 hours
[2021-12-30 16:34] LABS: Glucose,Whole Blood 174 mg/dL (70-110)
[2021-12-30 20:58] LABS: Glucose,Whole Blood 226 mg/dL (70-110)
[2021-12-30] MEDS: LIDOCAINE 5% PATCH TOPICAL SCH (22:08)
[2021-12-31] MEDS: metroNIDAZOLE-NS PMX 500 MG in SALINE 1 100ML.BAG IVPB SCH ×2 (00:52→09:31)
[2021-12-31 02:18] VITALS: RESP 18
[2021-12-31 06:26] LABS: HCT 29.5 % (39.0-53.0); HGB 9.6 gm/dL (13.0-17.5); Hypochromasia Slight; MCHC 32.4 g/dL (31.0-37.0); MCV 89.5 fL (80.0-100.0); Mean Platelet Volume 8.3; Platelet Count 221 k/uL (150-450); RBC 3.29 m/uL (4.30-5.90); RDW 15.6 % (11.5-15.5); WBC 7.2 k/uL (3.8-10.6)
[2021-12-31 06:45] LABS: African American GFR (CKD) >90 (>60 ml/min/1.73 sqM); Anion Gap 3 mmol/L; Blood Urea Nitrogen 13 mg/dL (9-20); Calcium 8.5 mg/dL (8.4-10.2); Carbon Dioxide 30 mmol/L (22-30); Chloride 104 mmol/L (98-107); Glucose 86 mg/dL (74-99); Magnesium 1.4 mg/dL (1.6-2.3); Non-African American GFR(CKD) >90 (>60 ml/min/1.73 sqM); Potassium 3.7 mmol/L (3.5-5.1); Sodium 137 mmol/L (137-145)
[2021-12-31 07:03] LABS: Glucose,Whole Blood 109 mg/dL (70-110)
[2021-12-31 07:16] VITALS: BP 160/72; TEMP 98.9
[2021-12-31] MEDS: INSULIN ASPART (NovoLOG) 100 UNIT/ML VIAL SQ SCH ×2 (07:43→12:30)
[2021-12-31] MEDS: IPRATROPIUM-ALBUTEROL 3 ML NEB INHALATION SCH ×3 (08:05→15:23)
[2021-12-31] MEDS: SYMBICORT 80-4.5 MCG INHALER INHALATION SCH (08:05)
[2021-12-31] MEDS: METOPROLOL TARTRATE 25 MG TAB PO SCH (09:30)
[2021-12-31] MEDS: INSULIN DETEMIR (LEVEMIR) 100 UNIT/ML SYR SQ SCH (09:30)
[2021-12-31] MEDS: PREGABALIN 75 MG CAP PO SCH (09:30)
[2021-12-31] MEDS: APIXABAN 5 MG TAB PO SCH (09:30)
[2021-12-31] MEDS: ATORVASTATIN 80 MG TAB PO SCH (09:30)
[2021-12-31] MEDS: CHERRY FLAVOR 60 ML BOTTLE PO SCH ×2 (09:31→12:41)
[2021-12-31] MEDS: VANCOMYCIN ORAL SOLUTION 250 MG/5 ML BOTTLE NG-TUBE SCH ×2 (09:31→12:41)
[2021-12-31] MEDS: FUROSEMIDE 10 MG/ML 4 ML VIAL IV SCH (09:31)
[2021-12-31] MEDS: DOCUSATE 100 MG CAP PO SCH (09:31)
[2021-12-31] MEDS: TAMSULOSIN 0.4 MG CAP.ER.24H PO SCH (09:31)
[2021-12-31] MEDS: SPIRONOLACTONE 25 MG TAB PO SCH (09:31)
[2021-12-31] MEDS: PANTOPRAZOLE 40 MG TABLET PO SCH (09:31)
[2021-12-31] MEDS ORDERED: BUMETANIDE 1 MG TAB PO SCH (11:43)
--- NOTE | 2021-12-31 11:43 | P.PN ---
Subjective HISTORY OF PRESENT ILLNESS: Patient has a known history of chronic diastolic heart failure persistent atrial fibrillation on Eliquis, hyperlipidemia, hypertension, COPD, type 2 diabetes, obstructive sleep apnea, and recent right hip replacement one week ago. He follows with Dr. Sal. Patient presented to the hospital with increase lower extremity edema. He had 3+ pitting edema. The lumen asked to see the patient for acute on chronic diastolic congestive heart failure. Patient's troponins were negative 3 BNP was 1400. EKG showed atrial fibrillation with a controlled ventricular rate. Chest x-ray showed no acute cardiopulmonary disease or process. His bilateral lower extremity venous Doppler showed no evidence of DVT positive for Sloan's cyst. CT of the abdomen showed motion limited abdominal exam. No evidence of acute process to explain lower extremity edema., diverticulosis, umbilical hernia, and distended bladder demonstrating urinary retention. Patient was given IV Lasix 40 mg 2. Patient had 3 loose bowel movements and was found to be c.diff positive. Patient is being treated with vancomycin additional labs show WBC 13.1 hemoglobin 10.3 platelets 218, initial BUNs 50 and creatinine 1.53. Patient is seen today resting comfortably in bed he remains free from increased shortness of breath or chest pain. Patient still has lower extremity edema mild in his left and moderate in his right. Which has improved since yesterday. Kidney function has improved BUN is 42 creatinine 0.88. Patient's blood pressure remained stable, systolically in the low 100s. Will continue to monitor fluid status, if needed will start on a low dose of oral diuretics. Patient remains in atrial fibrillation with a controlled ventricle rate he continues on Eliquis for anticoagulation. His echocardiogram reviewed showed normal LV function with an EF of 55-60% mild concentric LVH also proximal septal has some asymptomatic septal hypertrophy Reported improvement in diarrhea, last bowel movement was yesterday. He continues on IV antibiotics 12/30/2021 Patient examined this morning at the bedside. Patient denies chest pain or pressure. He reports feeling SOB this morning. Telemetry reveals atrial fibrillation with controlled ventricular rate. Vital signs are stable. 12/31 Patient seen and examined. He was placed on Lasix and has had much improved urine output. Anxious to go to rehab. Denies any chest pain or pressure. States shortness breath is improved. States he has been keeping his legs elevated however on exam sitting in recliner with legs down. Remains in A. fib with predominantly controlled to low heart rates in the 50s to 70s. Denies any lightheadedness. PHYSICAL EXAM: VITAL SIGNS: Reviewed. GENERAL: Well-developed in no acute distress. NECK: Supple. No JVD or thyromegaly LUNGS: Respirations even and unlabored. Lungs diminished to auscultation bilaterally. HEART: Irregular rate and rhythm. S1 and S2 heard. EXTREMITIES: Normal range of motion. No clubbing or cyanosis. Peripheral pulses intact. Bilateral 2+ lower extremity edema ASSESSMENT: Acute C. difficile colitis Acute sepsis Shortness of breath COPD Acute on chronic heart failure with preserved ejection fraction Persistent atrial fibrillation, anticoagulated with Eliquis Acute kidney injury, resolved Hyponatremia Obstructive sleep apnea with CPAP use PLAN: Appears to be improving from his C. diff infection and sepsis as well as NATALY with normal creatinine. He does however have significant edema. He was placed on IV diuretics and has had good urine output with stable kidney function. Transition to oral Bumex and if good urine output with Bumex patient may be discharged to rehab with close monitoring. Otherwise heart rates controlled and borderline low however no significant lightheadedness and continue with current dose of metoprolol. Objective - Vital Signs Vital signs: Vital Signs Temp 98.9 F 12/31/21 07:13 Pulse 58 L 12/31/21 08:15 Resp 18 12/31/21 07:13 BP 160/72 12/31/21 07:13 Pulse Ox 98 12/31/21 08:05 FiO2 40 12/29/21 00:00 Intake & Output 12/30/21 12/31/21 12/31/21 18:59 06:59 18:59 Weight 104.1 kg Other: Voiding Method Urinal - Labs CBC & Chem 7: 12/31/21 05:55 12/31/21 05:55 Labs: Abnormal Lab Results - Last 24 Hours (Table) 12/30/21 12/30/21 12/31/21 Range/Units 16:32 20:51 05:55 RBC 3.29 L (4.30-5.90) m/uL Hgb 9.6 L (13.0-17.5) gm/dL Hct 29.5 L (39.0-53.0) % RDW 15.6 H (11.5-15.5) % POC Glucose (mg/dL) 174 H 226 H (70-110) mg/dL Magnesium (1.6-2.3) mg/dL 12/31/21 Range/Units 05:55 RBC (4.30-5.90) m/uL Hgb (13.0-17.5) gm/dL Hct (39.0-53.0) % RDW (11.5-15.5) % POC Glucose (mg/dL) (70-110) mg/dL Magnesium 1.4 L (1.6-2.3) mg/dL Microbiology - Last 24 Hours (Table) 12/27/21 17:25 Blood Culture - Preliminary Blood No Growth after 72 hours 12/27/21 17:10 Blood Culture - Preliminary Blood No Growth after 72 hours
[2021-12-31 12:00] LABS: Glucose,Whole Blood 189 mg/dL (70-110)
[2021-12-31 12:08] VITALS: PULSE 56
--- NOTE | 2021-12-31 12:37 | P.PN ---
Subjective Progress Note Date: 12/31/21 Principal diagnosis: Sepsis, C. diff colitis, acute exacerbation of COPD This is a 56-year-old white male with history of multiple medical problems including COPD, obstructive sleep apnea syndrome, chronic atrial fibrillation, hypertension, type 2 diabetes, patient was recently discharged from the hospital, we saw him on consultation back on 12/20/21 patient had right hip arthr oplasty on 12/20 and he developed acute on chronic hypercapnic respiratory failure secondary to operative anesthesia and hypoventilation. Not to mention the patient has severe underlying obstructive sleep apnea syndrome and severe COPD, FEV1 of 40%. Patient was seen by Dr. Toro on consultation, he was eventually discharged home, and his discharge date was 12/23/21. Yesterday the patient came into the ER with multiple complaints including diarrhea, increased lower extremity edema, workup in the ER showed no evidence of DVT, CT of the abdomen and pelvis was basically unremarkable, however the patient tested positive for C. difficile colitis. In the ER, patient was hypotensive requiring fluid boluses, and he required a central line placement and he was placed briefly on norepinephrine. By the time he arrived to the ER, his norepinephrine was discontinued. ABG prior to admission to the ICU showed significant hypercapnia with severe respiratory acidosis, remains on BiPAP on telemetry this morning. ABG this morning on BiPAP showed a pO2 of 84 pCO2 67 pH of 7.25 patient was seen by internal medicine and he is receiving vancomycin orally and he is receiving Flagyl for his C. difficile colitis. Norepinephrine was discontinued early this morning. Reevaluated today on 12/29/21, patient remains in the ICU, he seems to be doing quite well. His diarrhea has completely resolved. Patient remains on IV fluid in the form of 0.9 normal saline at 75 mL/h he is on 4 L nasal cannula, last night he was placed on BiPAP, patient uses on BiPAP machine. Patient is not in any distress, he is hemodynamically stable, not requiring any pressors at this point. WBC count is 13.1 hemoglobin is 10.3 left. Normal renal profile is normal Patient seen today 12/30/2021 in follow-up on the regular medical floor. He is currently sitting up in a chair at the bedside. Awake and alert in no acute distress. He is maintaining O2 saturations in the 90s on 4 L/m per nasal cannula. He did have some episodes of bradycardia with heart rate in the 50s. He is asymptomatic. Echocardiogram revealed preserved left ventricular systolic function with ejection fraction 50-60%. There is moderate right ventricular limitation with moderate to severe pulmonary edema with an RVSP of 69 mmHg. Blood cultures reveal no growth. White count 8.6. Hemoglobin 8.3. Sodium 140. Potassium 4.0. BUN 19. Creatinine 0.7. He is continued on DuoNeb inhalations, Symbicort, IV diuretics. Anticoagulated with Eliquis. On oral vancomycin and Flagyl. Currently in a -355 ml balance On 12/31/2021 patient seen in follow-up on medical surgical floor. He is awake and alert, oriented 3, he is on 5 L of oxygen satting 98%, breathing comfortably, he sitting up in a chair, his been tolerating ablation about the room. He has his home CPAP at the bedside which he has been wearing at bedtime. Afebrile, hemodynamically stable, no acute events overnight. He remains on oral vancomycin and IV Flagyl for C. diff, only had 1 bowel movement in the last 24 hours. Today's labs have been reviewed, electrodes and renal profile are within normal limits, white count is normal at 7.2, hemoglobin is 9.6. Objective - Vital Signs Vital signs: Vital Signs Temp 98.9 F 12/31/21 07:13 Pulse 56 L 12/31/21 12:08 Resp 18 12/31/21 07:13 BP 160/72 12/31/21 07:13 Pulse Ox 98 12/31/21 08:05 FiO2 40 12/29/21 00:00 Intake & Output 12/30/21 12/31/21 12/31/21 18:59 06:59 18:59 Weight 104.1 kg Other: Voiding Method Urinal - Exam GENERAL EXAM: Alert, very pleasant, 56-year-old white male, on 4 L of oxygen pulse ox is 97% comfortable in no apparent distress. HEAD: Normocephalic/atraumatic. EYES: Normal reaction of pupils, equal size. Conjunctiva pink, sclera white. NOSE: Clear with pink turbinates. THROAT: No erythema or exudates. NECK: No masses, no JVD, no thyroid enlargement, no adenopathy. CHEST: No chest wall deformity. Symmetrical expansion. LUNGS: Equal air entry with no crackles, wheeze, rhonchi or dullness. CVS: Regular rate and rhythm, normal S1 and S2, no gallops, no murmurs, no rubs ABDOMEN: Soft, nontender. No hepatosplenomegaly, normal bowel sounds, no guarding or rigidity. EXTREMITIES: No clubbing, no edema, no cyanosis, 2+ pulses and upper and lower extremities. MUSCULOSKELETAL: Muscle strength and tone normal. SPINE: No scoliosis or deformity SKIN: No rashes CENTRAL NERVOUS SYSTEM: Alert and oriented -3. No focal deficits, tone is no rmal in all 4 extremities. PSYCHIATRIC: Alert and oriented -3. Appropriate affect. Intact judgment and insight. - Labs CBC & Chem 7: 12/31/21 05:55 12/31/21 05:55 Labs: Abnormal Lab Results - Last 24 Hours (Table) 12/30/21 12/30/21 12/31/21 Range/Units 16:32 20:51 05:55 RBC 3.29 L (4.30-5.90) m/uL Hgb 9.6 L (13.0-17.5) gm/dL Hct 29.5 L (39.0-53.0) % RDW 15.6 H (11.5-15.5) % POC Glucose (mg/dL) 174 H 226 H (70-110) mg/dL Magnesium (1.6-2.3) mg/dL 12/31/21 12/31/21 Range/Units 05:55 11:58 RBC (4.30-5.90) m/uL Hgb (13.0-17.5) gm/dL Hct (39.0-53.0) % RDW (11.5-15.5) % POC Glucose (mg/dL) 189 H (70-110) mg/dL Magnesium 1.4 L (1.6-2.3) mg/dL Microbiology - Last 24 Hours (Table) 12/27/21 17:25 Blood Culture - Preliminary Blood No Growth after 72 hours 12/27/21 17:10 Blood Culture - Preliminary Blood No Growth after 72 hours Assessment and Plan Plan: Assessment: #1. Acute C. diff colitis, on oral vancomycin and Flagyl #2. Acute sepsis and septic shock related to C. diff colitis, recovered #3. Acute on chronic hypercapnic respiratory failure related to underlying COPD, and sepsis, improved #4. Chronic atrial fibrillation #5. Acute kidney injury related to hypotension and sepsis, recovered #6. Hypovolemic hyponatremia, recovered #7. Chronic anemia #8. Severe COPD, with FEV1 of 40% #9. History of obstructive sleep apnea syndrome on CPAP on a regular basis #10. Type 2 diabetes mellitus and diabetic neuropathy #11. Degenerative joint disease and recent right hip arthroplasty #12. Former smoker #13. Dyslipidemia Plan: Patient appears to be in no acute distress Breathing comfortably, Continue home CPAP at bedtime However still has significant lower extremity swelling Cardiology is on the case, patient was placed on Bumex Stable from COPD standpoint Continue Symbicort, and nebulized bronchodilators I have personally seen and examined the patient, performed the documentation and the assessment and plan as written. Number of minutes spent on the visit: [10] Time with Patient: Less than 30
--- NOTE | 2021-12-31 14:04 | P.DS ---
Providers Date of admission: 12/28/21 02:03 Expected date of discharge: 12/31/21 Attending physician: David Mayfield MD Consults: 12/27/21 19:47 Consult Physician Stat Consulting Provider: Ankur Suarez Consult Reason/Comments: CHF exacerbation Do you want consulting provider notified?: Yes 12/28/21 02:02 Consult Physician Stat Consulting Provider: Armin Degroot Consult Reason/Comments: Hypotension/Respiratory failure Do you want consulting provider notified?: Already Contacted Primary care physician: Kimberlee Gilman MD Hospital Course: Fulminant C. diff colitis with spectic shock Acute exacerbation of diastolic CHF Mod to severe pulm HTN Anemia acute on chronic Diabetes mellitus type 2 insulin requiring Severe COPD with chronic hypoxic respiratory fialure Acute toxic metabolic encephalopathy, resolved Acute kidney injury, resolved Hyponatremia, resolved Atrial fibrillation rate controlled and anticoagulated with eliquis. Patient is a 56-year-old male with A. fib oneliquis, COPD on 4 L nasal cannula, obstructive sleep apnea on CPAP, diabetes mellitus requiring insulin [facility],. In the ED workup showed borderline blood pressure which is his baseline, elevated white count 19.5, chest x-ray showed no acute pathology. Venous duplex ultrasound of the right lower extremity showed no acute DVT however did show positive Sloan's cyst. Viral panel was negative Acute kidney injury with elevated creatinine 1.5 some mild hyponatremia and chronic anemia. He has been diagnosed with C diff this hospital stay. He was treated initially in the ICU for septic shock secondary to C. diff full Colitis. He was treated with oral vancomycin and Flagyl. His acute kidney injury resolved to baseline. He was also noted to have acute exacerbation of diastolic heart failure as well as moderate to severe pulmonary hypertension. Lasix was added to his regimen as well as continued Aldactone. His own Cardizem was exchange with metoprolol. He put out good urine with Bumex. He is cleared by cardiology from this perspective. He also has chronic COPD which is severe. Pulmonary medicine was consulted, and he was treated with DuoNeb's and Symbicort. He was at his baseline home oxygen requirement of 4 L by day of discharge. Patient will complete a 14 day course of vancomycin for C. diff. Plan is to discharge to rehab. He'll follow up with PCP, pulmonology, cardiology afterwards. I spent 40 minutes coordinating this complex discharge Gen: awake, alert HEENT: normocephalic, atraumatic, good hearing acuity, moist mucous membranes Resp: good air exchange, breathing comfortably with no accessory muscle use CVS: good distal perfusion x 4, GI: soft, NTTP, ND : no SPT, no CVAT, prescott catheter not present MSK: no pitting edema, no clubbing Neuro: non-focal, moving all extremities Psych: cooperative, euthymic mood Patient Condition at Discharge: Good Plan - Discharge Summary Discharge Rx Participant: No New Discharge Prescriptions: New Bumetanide [BUMEX] 1 mg PO BID@0900,1600 #60 tab Potassium Chloride ER [K-Dur 20] 20 meq PO BID #60 tab Vancomycin Oral Solution 500 mg NG-TUBE QID #400 ml Metoprolol Tartrate [Lopressor] 25 mg PO TID #90 tab Continue metFORMIN HCL [Glucophage] 1,000 mg PO BID Omeprazole 20 mg PO DAILY Fluticasone Propion/Salmeterol [Advair 250-50 Diskus] 1 puff INHALATION RT- BID Albuterol Sulfate [Proair Hfa] 2 puff INHALATION RT-Q6H PRN PRN Reason: Shortness Of Breath Ipratropium-Albuterol Nebulize [Duoneb 0.5 mg-3 mg/3 ml Soln] 3 ml INHALATION RT-QID Tiotropium [place] [Spiriva] 1 cap INHALATION RT-DAILY Insulin Glargine,Hum.rec.anlog [Lantus Solostar Pen] 40 unit SQ HS Docusate [Colace] 100 mg PO DAILY #30 capsule Tamsulosin [Flomax] 0.4 mg PO DAILY 30 Days #30 cap Pregabalin 150 mg PO TID #9 cap Atorvastatin [Lipitor] 80 mg PO DAILY Apixaban [Eliquis] 5 mg PO BID HYDROcodone/APAP 7.5-325MG [[place] 7.5-325] 1 tab PO Q4H PRN #18 tab PRN Reason: Pain Changed Spironolactone [Aldactone] 25 mg PO DAILY #0 Discontinued dilTIAZem HCL [dilTIAZem HCL 24Hr ER (Xr)] 240 mg PO DAILY lisinopriL 40 mg PO DAILY Discharge Medication List Fluticasone Propion/Salmeterol [Advair 250-50 Diskus] 1 puff INHALATION RT-BID 03/16/15 [History] Omeprazole 20 mg PO DAILY 03/16/15 [History] metFORMIN HCL [Glucophage] 1,000 mg PO BID 03/16/15 [History] Atorvastatin [Lipitor] 80 mg PO DAILY 09/17/20 [History] Albuterol Sulfate [Proair Hfa] 2 puff INHALATION RT-Q6H PRN 10/24/20 [History] Ipratropium-Albuterol Nebulize [Duoneb 0.5 mg-3 mg/3 ml Soln] 3 ml INHALATION RT-QID 02/25/21 [History] Tiotropium [place] [Spiriva] 1 cap INHALATION RT-DAILY 02/25/21 [History] Apixaban [Eliquis] 5 mg PO BID 09/12/21 [History] Insulin Glargine,Hum.rec.anlog [Lantus Solostar Pen] 40 unit SQ HS 09/12/21 [History] Docusate [Colace] 100 mg PO DAILY #30 capsule 12/23/21 [Rx] Tamsulosin [Flomax] 0.4 mg PO DAILY 30 Days #30 cap 12/23/21 [Rx] Bumetanide [BUMEX] 1 mg PO BID@0900,1600 #60 tab 12/31/21 [Rx] HYDROcodone/APAP 7.5-325MG [[place] 7.5-325] 1 tab PO Q4H PRN #18 tab 12/31/21 [Rx] Metoprolol Tartrate [Lopressor] 25 mg PO TID #90 tab 12/31/21 [Rx] Potassium Chloride ER [K-Dur 20] 20 meq PO BID #60 tab 12/31/21 [Rx] Pregabalin 150 mg PO TID #9 cap 12/31/21 [Rx] Spironolactone [Aldactone] 25 mg PO DAILY #0 12/31/21 [Rx] Vancomycin Oral Solution 500 mg NG-TUBE QID #400 ml 12/31/21 [Rx] Follow up Appointment(s)/Referral(s): Kimberlee Gilman MD [Primary Care Provider] - 1-2 days Discharge Disposition: TRANSFER TO SNF/F
[2021-12-31] MEDS ORDERED: POTASSIUM CHLORIDE ER 20 MEQ TAB.ER PO SCH (21:00)
[2021-12-31 22:03] LABS: % Iron Saturation 16.18 (15.00-50.00)
== END 2021-12-31 15:24 | DRG 871 ==
LOC: EC 13:18 → 6NMEDSUR 21:04 → 3SCARD 22:23 → OBSVTOIN 12-28 02:03 → 2SICU 12-28 02:07 → 4SSUR 12-29 16:33
PROVIDERS: ADMIT Internal Medicine; ATTEND Internal Medicine
PROC: 06HM33Z Insertion of Infusion Device into Right Femoral Vein, Percutaneous Approach (ICD-10-PCS; principal; 2021-12-27)
PROC: 5A09457 Assistance with Respiratory Ventilation, 24-96 Consecutive Hours, Continuous Positive Airway Pressure (ICD-10-PCS; 2021-12-27)
PROC: 0D9670Z Drainage of Stomach with Drainage Device, Via Natural or Artificial Opening (ICD-10-PCS; 2021-12-27)
PROC: 3E043XZ Introduction of Vasopressor into Central Vein, Percutaneous Approach (ICD-10-PCS; 2021-12-28)
PROC: 5A09357 Assistance with Respiratory Ventilation, Less than 24 Consecutive Hours, Continuous Positive Airway Pressure (ICD-10-PCS; 2021-12-28)
DX: A41.4 Sepsis due to anaerobes (principal); G92.8 Other toxic encephalopathy; I50.33 Acute on chronic diastolic (congestive) heart failure; R65.21 Severe sepsis with septic shock; J96.22 Acute and chronic respiratory failure with hypercapnia; J96.21 Acute and chronic respiratory failure with hypoxia; A04.72 Enterocolitis due to Clostridium difficile, not specified as recurrent; N17.9 Acute kidney failure, unspecified; J44.1 Chronic obstructive pulmonary disease with (acute) exacerbation; I48.19 Other persistent atrial fibrillation; E87.1 Hypo-osmolality and hyponatremia; E87.2 Acidosis; E86.1 Hypovolemia; I27.20 Pulmonary hypertension, unspecified; I11.0 Hypertensive heart disease with heart failure; E11.40 Type 2 diabetes mellitus with diabetic neuropathy, unspecified; Z79.4 Long term (current) use of insulin; Z89.422 Acquired absence of other left toe(s); Z20.822 Contact with and (suspected) exposure to COVID-19; Z28.310 Unvaccinated for COVID-19; M71.21 Synovial cyst of popliteal space [Baker], right knee; D64.9 Anemia, unspecified; G47.33 Obstructive sleep apnea (adult) (pediatric); E78.5 Hyperlipidemia, unspecified; R33.9 Retention of urine, unspecified; K42.9 Umbilical hernia without obstruction or gangrene; M19.90 Unspecified osteoarthritis, unspecified site; K57.30 Diverticulosis of large intestine without perforation or abscess without bleeding; H40.9 Unspecified glaucoma; E66.9 Obesity, unspecified; Z68.31 Body mass index [BMI] 31.0-31.9, adult; Z79.01 Long term (current) use of anticoagulants; Z79.51 Long term (current) use of inhaled steroids; Z79.84 Long term (current) use of oral hypoglycemic drugs; Z79.899 Other long term (current) drug therapy; Z87.891 Personal history of nicotine dependence; Z96.641 Presence of right artificial hip joint; Z80.52 Family history of malignant neoplasm of bladder
CPT/HCPCS: 36415; 36600; 71046; 74177; 80048; 80053; 81003; 82565; 82607; 82728; 82746; 82805; 83540; 83550; 83605; 83735; 83880; 84443; 84484; 85025; 85027; 85610; 85730; 87040; 87324; 87502; 87635; 93005; 93306; 93308; 94640; 94660; 94760; 96374; 96375; 99285

== ENCOUNTER 2022-04-04 21:04 | Emergency (ER) | payer OTHER ==
[2022-04-04 21:14] VITALS: BP 125/75; RESP 14; TEMP 98.9
[2022-04-04 21:19] VITALS: PULSE 54
[2022-04-04] MEDS ORDERED: oxyCODONE-APAP 10-325MG 1 EACH TAB PO STA (21:52)
[2022-04-04] MEDS ORDERED: LIDOCAINE 5% PATCH TOPICAL STA (21:52)
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
[2022-04-04] MEDS ORDERED: ACET/COD 300 MG/30 MG STARTER PACK 6 TAB BTL PO STA (22:45)
== END 2022-04-04 23:05 | disposition home or self-care (01) ==
LOC: EC 21:04
DX: S20.212A Contusion of left front wall of thorax, initial encounter (principal); J44.9 Chronic obstructive pulmonary disease, unspecified; E78.5 Hyperlipidemia, unspecified; E11.9 Type 2 diabetes mellitus without complications; I11.0 Hypertensive heart disease with heart failure; I50.9 Heart failure, unspecified; F17.200 Nicotine dependence, unspecified, uncomplicated; Z99.89 Dependence on other enabling machines and devices; V49.40XA Driver injured in collision with unspecified motor vehicles in traffic accident, initial encounter; Y92.410 Unspecified street and highway as the place of occurrence of the external cause
CPT/HCPCS: 70450; 71046; 71250; 99285

== ENCOUNTER → 2022-06-19 | Outpatient (CLI) | payer OTHER ==
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
== END | disposition home or self-care (01) ==
LOC: RADCTMAIN 12:56
PROVIDERS: ATTEND Orthopaedic Surgery
DX: Z01.818 Encounter for other preprocedural examination (principal); M19.012 Primary osteoarthritis, left shoulder

== ENCOUNTER 2022-09-14 15:02 | Emergency (ER) | payer OTHER ==
[2022-09-14 15:10] VITALS: RESP 20; TEMP 98
--- NOTE | 2022-09-14 16:10 | US ---
EXAMINATION TYPE: US venous doppler duplex LE LT DATE OF EXAM: 09/14/2022 3:52 PM COMPARISON: NONE CLINICAL HISTORY: leg pain swelling. edema SIDE PERFORMED: Left TECHNIQUE: The lower extremity deep venous system is examined utilizing real time linear array sonog nina with graded compression, doppler sonography and color-flow sonography. VESSELS IMAGED: Common Femoral Vein Deep Femoral Vein Greater Saphenous Vein * Femoral Vein Popliteal Vein Small Saphenous Vein * Proximal Calf Veins (* superficial vessels) Left Leg: Negative for DVT IMPRESSION: No evidence of DVT at this time.
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
[2022-09-14 17:37] VITALS: BP 138/91; PULSE 52
== END 2022-09-14 17:43 | disposition home or self-care (01) ==
LOC: EC 15:02
DX: M79.662 Pain in left lower leg (principal); M79.89 Other specified soft tissue disorders; E11.40 Type 2 diabetes mellitus with diabetic neuropathy, unspecified; I11.0 Hypertensive heart disease with heart failure; I50.9 Heart failure, unspecified; J44.9 Chronic obstructive pulmonary disease, unspecified; I48.91 Unspecified atrial fibrillation; F17.200 Nicotine dependence, unspecified, uncomplicated; Z79.01 Long term (current) use of anticoagulants; Z79.4 Long term (current) use of insulin; Z79.84 Long term (current) use of oral hypoglycemic drugs; Z79.51 Long term (current) use of inhaled steroids; Z79.899 Other long term (current) drug therapy
CPT/HCPCS: 99283

== ENCOUNTER 2023-01-24 13:00 | Emergency (ER) | payer OTHER ==
[2023-01-24 13:05] VITALS: TEMP 97.9
--- NOTE | 2023-01-24 13:18 | ED ---
General Adult HPI - General Chief complaint: Abdominal Pain Stated complaint: constipation Time Seen by Provider: 01/24/23 13:09 Source: patient Mode of arrival: EMS Limitations: no limitations - History of Present Illness Initial comments: This is a 57-year-old male with a past medical history including COPD, diabetes, congestive heart failure, atrial fibrillation presents emergency department via EMS for constipation. The patient stated that he has been having abdominal bloating and distention over the last several days and has not had a bowel movem ent in the last 10 days. The patient stated that he had an increase in his work of breathing as well secondary to his abdominal distention. The patient also stated that he thought he was retaining fluid as well. The patient was otherwise resting in bed comfortably on his home dose of home oxygen. The patient was resting in bed comfortably. The patient denied any fevers and chills. - Related Data Home Medications Medication Instructions Recorded Confirmed Fluticasone Propion/Salmeterol 1 puff INHALATION RT-BID 03/16/15 12/27/21 [Advair 250-50 Diskus] Omeprazole 20 mg PO DAILY 03/16/15 12/27/21 metFORMIN HCL [Glucophage] 1,000 mg PO BID 03/16/15 12/27/21 Atorvastatin [Lipitor] 80 mg PO DAILY 09/17/20 12/27/21 Albuterol Sulfate [Proair Hfa] 2 puff INHALATION RT-Q6H PRN 10/24/20 12/27/21 Ipratropium-Albuterol Nebulize 3 ml INHALATION RT-QID 02/25/21 12/27/21 [Duoneb 0.5 mg-3 mg/3 ml Soln] Tiotropium [place] [Spiriva] 1 cap INHALATION RT-DAILY 02/25/21 12/27/21 Apixaban [Eliquis] 5 mg PO BID 09/12/21 12/27/21 Insulin Glargine,Hum.rec.anlog 40 unit SQ HS 09/12/21 12/27/21 [Lantus Solostar Pen] Previous Rx's Medication Instructions Recorded Docusate [Colace] 100 mg PO DAILY #30 capsule 12/23/21 Tamsulosin [Flomax] 0.4 mg PO DAILY 30 Days #30 cap 12/23/21 Bumetanide [BUMEX] 1 mg PO BID@0900,1600 #60 tab 12/31/21 HYDROcodone/APAP 7.5-325MG [[place] 1 tab PO Q4H PRN #18 tab 12/31/21 7.5-325] Metoprolol Tartrate [Lopressor] 25 mg PO TID #90 tab 12/31/21 Potassium Chloride ER [K-Dur 20] 20 meq PO BID #60 tab 12/31/21 Pregabalin 150 mg PO TID #9 cap 12/31/21 Spironolactone [Aldactone] 25 mg PO DAILY #0 12/31/21 Vancomycin Oral Solution 500 mg NG-TUBE QID #400 ml 12/31/21 HYDROcodone/APAP 5-325MG [[place] 1 tab PO Q6HR PRN 3 Days #12 tab 04/04/22 5-325] Magnesium Citrate 296 ml PO ONCE #296 ml 01/24/23 Allergies Allergy/AdvReac Type Severity Reaction Status Date / Time No Known Allergies Allergy Verified 12/27/21 20:30 Review of Systems ROS Statement: Those systems with pertinent positive or pertinent negative responses have been documented in the HPI. ROS Other: All systems not noted in ROS Statement are negative. Past Medical History Past Medical History: Atrial Fibrillation, Heart Failure, COPD, Diabetes Mellitus, Hyperlipidemia, Hypertension, Sleep Apnea/CPAP/BIPAP Additional Past Medical History / Comment(s): neuropathy, A-fib, glaucoma History of Any Multi-Drug Resistant Organisms: None Reported Past Surgical History: Orthopedic Surgery Additional Past Surgical History / Comment(s): Left shoulder, left hand 2 digits crushed/surg with pins placed, left foot third toe ampulation 2020, Past Anesthesia/Blood Transfusion Reactions: No Reported Reaction Additional Past Anesthesia/Blood Transfusion Reaction / Comment(s): Never re ceived Past Psychological History: No Psychological Hx Reported Smoking Status: Current every day smoker Past Alcohol Use History: None Reported Past Drug Use History: None Reported - Past Family History Mother Family Medical History: No Reported History Father Family Medical History: No Reported History Additional Family Medical History / Comment(s): small cell in bladder General Exam Limitations: no limitations General appearance: alert, in no apparent distress, obese Head exam: Present: atraumatic, normocephalic, normal inspection Eye exam: Present: normal appearance, PERRL Pupils: Present: normal accommodation ENT exam: Present: normal exam, normal oropharynx, mucous membranes moist Neck exam: Present: normal inspection, full ROM Respiratory exam: Present: normal lung sounds bilaterally. Absent: respiratory distress, wheezes Cardiovascular Exam: Present: regular rate, normal rhythm, normal heart sounds GI/Abdominal exam: Present: soft, distended, tenderness (Mild TTP over the left and right lower quadrants), normal bowel sounds Extremities exam: Present: normal inspection, full ROM Back exam: Present: normal inspection, full ROM Neurological exam: Present: alert, oriented X3, CN II-XII intact Psychiatric exam: Present: normal affect, normal mood Skin exam: Present: warm, dry Course Vital Signs 01/24/23 13:02 Temperature 97.9 F Pulse Rate 64 Respiratory 20 Rate Blood Pressure 132/73 O2 Sat by Pulse 96 Oximetry Medical Decision Making - Medical Decision Making Was pt. sent in by a medical professional or institution (SARAH Roberson, SLATE ROOFER, urgent care, hospital, or shelter...) When possible be specific @ -No Did you speak to anyone other than the patient for history (EMS, parent, family, police, friend...)? What history was obtained from this source @ -No Did you review nursing and triage notes (agree or disagree)? Why? @ -I reviewed and agree with nursing and triage notes Were old charts reviewed (outside hosp., previous admission, EMS record, old EKG, old radiological studies, urgent care reports/EKG's, shelter records)? Report findings @ -No old charts were reviewed Differential Diagnosis (chest pain, altered mental status, abdominal pain women, abdominal pain men, vaginal bleeding, weakness, fever, dyspnea, syncope, headache, dizziness, GI bleed, back pain, seizure, CVA, palpatations, mental health)? @ -Small bowel obstruction, constipation, gastroenteritis EKG interpreted by me (3pts min.). @ -As above X-rays interpreted by me (1pt min.). @ -Chest x-ray was obtained and was interpreted by myself showing no acute process. CT interpreted by me (1pt min.). @ -CT abdomen and pelvis with IV contrast was obtained and was interpreted by myself showing mild jejunal bowel wall thickening. The jejunal loops are noted lateral to the descending colon and this could reflect internal hernia without obstructive change. There was moderate fecal stasis noted. U/S interpreted by me (1pt. min.). @ -None done What testing was considered but not performed or refused? (CT, X-rays, U/S, labs)? Why? @ -None What meds were considered but not given or refused? Why? @ -None Did you discuss the management of the patient with other professionals (professionals i.e. , PA, [employer]ATE ROOFER, lab, RT, psych nurse, social studies department chair, ordained minister, teacher, chief administrative officer, rn case manager hospice)? Give summary @ -No Was smoking cessation discussed for >3mins.? @ -No Was critical care preformed (if so, how long)? @ -No Were there social determinants of health that impacted care today? How? (Homelessness, low income, unemployed, alcoholism, drug addiction, transportation, low edu. Level, literacy, decrease access to med. care, alf, rehab)? @ -No Was there de-escalation of care discussed even if they declined (Discuss DNR or withdrawal of care, Hospice)? DNR status @ -No What co-morbidities impacted this encounter? (DM, HTN, Smoking, COPD, CAD, C ancer, CVA, ARF, Chemo, Hep., AIDS, mental health diagnosis, sleep apnea, morbid obesity)? @ -Hypertension, diabetes, atrial fibrillation, COPD Was patient admitted / discharged? Hospital course, mention meds given and route, prescriptions, significant lab abnormalities, going to OR and other pertinent info. @ -The patient was seen and evaluated emergency department. Physical exam, the patient was resting in bed comfortably without any acute distress. Vital signs were stable on admission. All laboratory workup and imaging was within normal limits and the patient likely had constipation as a cause of his complaints. The patient was recommended to use magnesium citrate any was given a prescription for this. The patient was otherwise resting in bed comfortably and was stable for discharge home. The patient was advised to follow-up with his from a care physician for further workup and evaluation and to report back to the emergency department if his pain or symptoms became acutely worse. The patient was agreeable to this and all his questions were answered. The patient was discharged home in stable condition. Undiagnosed new problem with uncertain prognosis? @ -No Drug Therapy requiring intensive monitoring for toxicity (Heparin, Nitro, Insulin, Cardizem)? @ -No Were any procedures done? @ -No Diagnosis/symptom? @ -Abdominal pain, likely secondary to constipation Acute, or Chronic, or Acute on Chronic? @ -Acute Uncomplicated (without systemic symptoms) or Complicated (systemic symptoms)? @ -Uncomplicated Side effects of treatment? @ -No Exacerbation, Progression, or Severe Exacerbation? @ -No Poses a threat to life or bodily function? How? (Chest pain, [place], [place], pneumonia, PE, COPD, DKA, ARF, appy, cholecystitis, CVA, Diverticulitis, Homicidal, Suicidal, threat to staff... and all critical care pts) @ -No - Lab Data Result diagrams: 01/24/23 13:20 01/24/23 13:20 Lab Results 01/24/23 01/24/23 01/24/23 Range/Units 13:20 13:20 13:20 WBC 7.5 (3.8-10.6) k/uL RBC 4.35 (4.30-5.90) m/uL Hgb 13.5 (13.0-17.5) gm/dL Hct 40.9 (39.0-53.0) % MCV 93.8 (80.0-100.0) fL MCH 31.0 (25.0-35.0) pg MCHC 33.0 (31.0-37.0) g/dL RDW 14.7 (11.5-15.5) % Plt Count 158 (150-450) k/uL MPV 7.8 Neutrophils % 71 % Lymphocytes % 17 % Monocytes % 7 % Eosinophils % 3 % Basophils % 0 % Neutrophils # 5.3 (1.3-7.7) k/uL Lymphocytes # 1.3 (1.0-4.8) k/uL Monocytes # 0.5 (0-1.0) k/uL Eosinophils # 0.2 (0-0.7) k/uL Basophils # 0.0 (0-0.2) k/uL PT 10.2 (9.0-12.0) sec INR 1.0 (<1.2) APTT 26.1 (22.0-30.0) sec Sodium 135 L (137-145) mmol/L Potassium 4.4 (3.5-5.1) mmol/L Chloride 97 L (98-107) mmol/L Carbon Dioxide 38 H (22-30) mmol/L Anion Gap 0 mmol/L BUN 9 (9-20) mg/dL Creatinine 0.71 (0.66-1.25) mg/dL Est GFR (CKD-EPI)AfAm >90 (>60 ml/min/1.73 sqM) Est GFR (CKD-EPI)NonAf >90 (>60 ml/min/1.73 sqM) Glucose 228 H (74-99) mg/dL Calcium 9.0 (8.4-10.2) mg/dL Magnesium 2.9 H (1.6-2.3) mg/dL Total Bilirubin 0.5 (0.2-1.3) mg/dL AST 20 (17-59) U/L ALT 18 (4-49) U/L Alkaline Phosphatase 127 H (38-126) U/L Troponin I (0.000-0.034) ng/mL NT-Pro-B Natriuret Pep 804 pg/mL Total Protein 6.1 L (6.3-8.2) g/dL Albumin 3.7 (3.5-5.0) g/dL Lipase 65 (23-300) U/L 01/24/23 Range/Units 13:20 WBC (3.8-10.6) k/uL RBC (4.30-5.90) m/uL Hgb (13.0-17.5) gm/dL Hct (39.0-53.0) % MCV (80.0-100.0) fL MCH (25.0-35.0) pg MCHC (31.0-37.0) g/dL RDW (11.5-15.5) % Plt Count (150-450) k/uL MPV Neutrophils % % Lymphocytes % % Monocytes % % Eosinophils % % Basophils % % Neutrophils # (1.3-7.7) k/uL Lymphocytes # (1.0-4.8) k/uL Monocytes # (0-1.0) k/uL Eosinophils # (0-0.7) k/uL Basophils # (0-0.2) k/uL PT (9.0-12.0) sec INR (<1.2) APTT (22.0-30.0) sec Sodium (137-145) mmol/L Potassium (3.5-5.1) mmol/L Chloride (98-107) mmol/L Carbon Dioxide (22-30) mmol/L Anion Gap mmol/L BUN (9-20) mg/dL Creatinine (0.66-1.25) mg/dL Est GFR (CKD-EPI)AfAm (>60 ml/min/1.73 sqM) Est GFR (CKD-EPI)NonAf (>60 ml/min/1.73 sqM) Glucose (74-99) mg/dL Calcium (8.4-10.2) mg/dL Magnesium (1.6-2.3) mg/dL Total Bilirubin (0.2-1.3) mg/dL AST (17-59) U/L ALT (4-49) U/L Alkaline Phosphatase (38-126) U/L Troponin I <0.012 (0.000-0.034) ng/mL NT-Pro-B Natriuret Pep pg/mL Total Protein (6.3-8.2) g/dL Albumin (3.5-5.0) g/dL Lipase (23-300) U/L Disposition Clinical Impression: Constipation Disposition: HOME SELF-CARE Condition: Stable Instructions (If sedation given, give patient instructions): Constipation (DC) Prescriptions: Magnesium Citrate 296 ml PO ONCE #296 ml Is patient prescribed a controlled substance at d/c from ED?: No Referrals: Kimberlee Gilman MD [Primary Care Provider] - 1-2 days Time of Disposition: 16:00
--- NOTE | 2023-01-24 13:31 | XR ---
EXAMINATION TYPE: XR chest 2V DATE OF EXAM: 01/24/2023 COMPARISON: 04/04/2022 HISTORY: Shortness of breath TECHNIQUE: Frontal and lateral views of the chest are obtained. FINDINGS: Scattered senescent parenchymal changes noted. Hyperinflation compatible with COPD. No evidence for infiltrate. No evidence for atelectasis. Heart size is stable. Mediastinal structures are stable and grossly unremarkable. No evidence for hilar prominence. Degenerative changes dorsal spine. IMPRESSION: 1. No evidence for acute pulmonary disease.
[2023-01-24 13:41] LABS: Basophils % (A) 0 %; Eosinophils # (A) 0.2 k/uL (0-0.7); Eosinophils % (A) 3 %; HCT 40.9 % (39.0-53.0); HGB 13.5 gm/dL (13.0-17.5); Lymphocytes # (A) 1.3 k/uL (1.0-4.8); Lymphocytes % (A) 17 %; MCV 93.8 fL (80.0-100.0); Mean Platelet Volume 7.8; Monocytes # (A) 0.5 k/uL (0-1.0); Monocytes % (A) 7 %; Neutrophils # (A) 5.3 k/uL (1.3-7.7); Neutrophils % (A) 71 %; Platelet Count 158 k/uL (150-450); RBC 4.35 m/uL (4.30-5.90); RDW 14.7 % (11.5-15.5); WBC 7.5 k/uL (3.8-10.6)
[2023-01-24 13:56] LABS: ALT 18 U/L (4-49); AST 20 U/L (17-59); African American GFR (CKD) >90 (>60 ml/min/1.73 sqM); Albumin 3.7 g/dL (3.5-5.0); Alkaline Phosphatase 127 U/L (38-126); Anion Gap 0 mmol/L; Blood Urea Nitrogen 9 mg/dL (9-20); Carbon Dioxide 38 mmol/L (22-30); Chloride 97 mmol/L (98-107); Glucose 228 mg/dL (74-99); Lipase 65 U/L (23-300); Magnesium 2.9 mg/dL (1.6-2.3); Non-African American GFR(CKD) >90 (>60 ml/min/1.73 sqM); Potassium 4.4 mmol/L (3.5-5.1); Sodium 135 mmol/L (137-145); Total Bilirubin 0.5 mg/dL (0.2-1.3); Total Protein 6.1 g/dL (6.3-8.2)
[2023-01-24 13:58] LABS: Partial Thromboplastin Time 26.1 sec (22.0-30.0); Prothrombin Time 10.2 sec (9.0-12.0)
[2023-01-24 14:04] LABS: NT-Pro-B-Type Natriuretic Pept 804 pg/mL
--- NOTE | 2023-01-24 15:58 | CT ---
EXAMINATION TYPE: CT abdomen pelvis w con DATE OF EXAM: 01/24/2023 COMPARISON: 12/27/2021 HISTORY: constipation x10 days CT DLP: 1850.8 mGycm CONTRAST: CT scan of the abdomen and pelvis is performed without Oral Contrast and with IV Contrast, patient in jected with 100 mL of Isovue 300. FINDINGS: LUNG BASES-: No visible nodule. No infiltrate. Cardiomegaly. LIVER/GB: No calcified gallstones. No space occupying hepatic lesion. Biliary tree is of normal ca liber. Small cyst dome of the liver measures less than 1 cm. PANCREAS: No inflammation. No distinct mass. SPLEEN: No splenic enlargement. No lesion seen. ADRENALS: No nodule. No thickening. KIDNEYS/BLADDER: No hydronephrosis. No nephrolithiasis. 3.4 cm left renal cyst. Urinary bladder abner ssly unremarkable. BOWEL: Normal appendix. There is mild jejunal bowel wall thickening. Jejunal loops are noted lateral to the descending colon and this could reflect internal hernia without obstructive change. Sigmoid di verticulosis without diverticulitis. GENITAL ORGANS: No gross abnormality. LYMPH NODES: No greater than 1cm abdominal or pelvic lymph nodes are appreciated. AORTA: No significant abnormality. OSSEOUS STRUCTURES: Right hip prosthesis with streak artifact. Severe degenerative changes lumbar spi ne. OTHER: No significant additional abnormality is seen. IMPRESSION: 1. There is mild jejunal bowel wall thickening. Jejunal loops are noted lateral to the descending col on and this could reflect internal hernia without obstructive change. 2. Moderate fecal stasis.
[2023-01-24 17:21] VITALS: BP 133/78; PULSE 69; RESP 18
== END 2023-01-24 17:21 | disposition home or self-care (01) ==
LOC: EC 13:00
DX: K59.00 Constipation, unspecified (principal); I11.0 Hypertensive heart disease with heart failure; E11.9 Type 2 diabetes mellitus without complications; E78.5 Hyperlipidemia, unspecified; I48.91 Unspecified atrial fibrillation; I50.9 Heart failure, unspecified; J44.9 Chronic obstructive pulmonary disease, unspecified; F17.200 Nicotine dependence, unspecified, uncomplicated; Z79.01 Long term (current) use of anticoagulants; Z79.51 Long term (current) use of inhaled steroids; Z79.84 Long term (current) use of oral hypoglycemic drugs; Z79.899 Other long term (current) drug therapy; Z79.4 Long term (current) use of insulin
CPT/HCPCS: 99284; 36415; 83880; 80053; 83690; 83735; 84484; 85025; 85610; 85730; 71046; 74177; Q9967

== ENCOUNTER 2023-02-01 17:37 | Emergency (ER) | payer OTHER ==
[2023-02-01 17:53] VITALS: BP 127/65; PULSE 58; RESP 16; TEMP 98.7
--- NOTE | 2023-02-01 18:14 | ED ---
Extremity Problem HPI - General Chief complaint: Extremity Problem,Nontraumatic Stated complaint: R elbow blood blister Time Seen by Provider: 02/01/23 17:57 Source: patient, RN notes reviewed, old records reviewed Mode of arrival: ambulatory Limitations: no limitations - History of Present Illness Initial comments: 57-year-old male presents to the emergency room with left elbow swelling for 1 day. Patient states it feels itchy. He did feel a small bump and he was squeezing it yesterday but nothing came out. He noticed increased swelling today and bruising. State he is on Eliquis. Patient denies any injury. MD Complaint: joint swelling (left elbow) -: days(s) (1) Location: left History of Same: No Severity scale (1-10): 0 Quality: other ("itchy") Associated Symptoms: denies other symptoms - Related Data Home Medications Medication Instructions Recorded Confirmed Fluticasone Propion/Salmeterol 1 puff INHALATION RT-BID 03/16/15 12/27/21 [Advair 250-50 Diskus] Omeprazole 20 mg PO DAILY 03/16/15 12/27/21 metFORMIN HCL [Glucophage] 1,000 mg PO BID 03/16/15 12/27/21 Atorvastatin [Lipitor] 80 mg PO DAILY 09/17/20 12/27/21 Albuterol Sulfate [Proair Hfa] 2 puff INHALATION RT-Q6H PRN 10/24/20 12/27/21 Ipratropium-Albuterol Nebulize 3 ml INHALATION RT-QID 02/25/21 12/27/21 [Duoneb 0.5 mg-3 mg/3 ml Soln] Tiotropium [place] [Spiriva] 1 cap INHALATION RT-DAILY 02/25/21 12/27/21 Apixaban [Eliquis] 5 mg PO BID 09/12/21 12/27/21 Insulin Glargine,Hum.rec.anlog 40 unit SQ HS 09/12/21 12/27/21 [Lantus Solostar Pen] Previous Rx's Medication Instructions Recorded Docusate [Colace] 100 mg PO DAILY #30 capsule 12/23/21 Tamsulosin [Flomax] 0.4 mg PO DAILY 30 Days #30 cap 12/23/21 Bumetanide [BUMEX] 1 mg PO BID@0900,1600 #60 tab 12/31/21 HYDROcodone/APAP 7.5-325MG [[place] 1 tab PO Q4H PRN #18 tab 12/31/21 7.5-325] Metoprolol Tartrate [Lopressor] 25 mg PO TID #90 tab 12/31/21 Potassium Chloride ER [K-Dur 20] 20 meq PO BID #60 tab 12/31/21 Pregabalin 150 mg PO TID #9 cap 12/31/21 Spironolactone [Aldactone] 25 mg PO DAILY #0 12/31/21 Vancomycin Oral Solution 500 mg NG-TUBE QID #400 ml 12/31/21 HYDROcodone/APAP 5-325MG [[place] 1 tab PO Q6HR PRN 3 Days #12 tab 04/04/22 5-325] Magnesium Citrate 296 ml PO ONCE #296 ml 01/24/23 Cephalexin [Keflex] 500 mg PO Q6HR 2 Days #8 cap 02/01/23 Allergies Allergy/AdvReac Type Severity Reaction Status Date / Time No Known Allergies Allergy Verified 02/01/23 17:50 Review of Systems ROS Statement: Those systems with pertinent positive or pertinent negative responses have been documented in the HPI. ROS Other: All systems not noted in ROS Statement are negative. Past Medical History Past Medical History: Atrial Fibrillation, Heart Failure, COPD, Diabetes Mellitus, Hyperlipidemia, Hypertension, Sleep Apnea/CPAP/BIPAP Additional Past Medical History / Comment(s): neuropathy, A-fib, glaucoma History of Any Multi-Drug Resistant Organisms: None Reported Past Surgical History: Orthopedic Surgery Additional Past Surgical History / Comment(s): Left shoulder, left hand 2 digits crushed/surg with pins placed, left foot third toe ampulation 2020, Past Anesthesia/Blood Transfusion Reactions: No Reported Reaction Additional Past Anesthesia/Blood Transfusion Reaction / Comment(s): Never received Past Psychological History: No Psychological Hx Reported Smoking Status: Current some day smoker Past Alcohol Use History: None Reported Past Drug Use History: None Reported - Past Family History Mother Family Medical History: No Reported History Father Family Medical History: No Reported History Additional Family Medical History / Comment(s): small cell in bladder General Exam Limitations: no limitations General appearance: alert, in no apparent distress Head exam: Present: atraumatic Eye exam: Present: normal appearance. Absent: scleral icterus, conjunctival injection, periorbital swelling Neck exam: Present: full ROM. Absent: meningismus Respiratory exam: Absent: respiratory distress, accessory muscle use Cardiovascular Exam: Present: bradycardia Extremities exam: Present: full ROM, normal capillary refill. Absent: tenderness Left Elbow exam: Present: swelling, ecchymosis, other (hematoma). Absent: tenderness, abrasion, laceration, deformity, crepitus, dislocation, erythema, effusion, tenderness over radial head Course Vital Signs 02/01/23 17:51 Temperature 98.7 F Pulse Rate 58 L Respiratory 16 Rate Blood Pressure 127/65 O2 Sat by Pulse 94 L Oximetry Procedures - Incision & Drainage Consent Obtained: verbal consent Site: upper extremity (left elbow) I&D Cleaning Method: Alcohol Wipe Needle Aspiration Performed?: Yes (small amount of blood, no purulent drainage) I&D Drainage Obtained: Blood Culture Obtained?: No Patient Tolerated Procedure: well, no complications Medical Decision Making - Medical Decision Making Was pt. sent in by a medical professional or institution (, PA, [employer] PARK ATTENDANT, urgent care, hospital, or jail...) When possible be specific @ -No Did you speak to anyone other than the patient for history (EMS, parent, family, police, friend...)? What history was obtained from this source @ -No Did you review nursing and triage notes (agree or disagree)? Why? @ -I reviewed and agree with nursing and triage notes Were old charts reviewed (outside hosp., previous admission, EMS record, old EKG, old radiological studies, urgent care reports/EKG's, jail records)? Report findings @ -No old charts were reviewed Differential Diagnosis (chest pain, altered mental status, abdominal pain women, abdominal pain men, vaginal bleeding, weakness, fever, dyspnea, syncope, headache, dizziness, GI bleed, back pain, seizure, CVA, palpatations, mental health, musculoskeletal)? @ -Hematoma, bursitis, cellulitis, abscess EKG interpreted by me (3pts min.). @ -n/a X-rays interpreted by me (1pt min.). @ -None done CT interpreted by me (1pt min.). @ -None done U/S interpreted by me (1pt. min.). @ -None done What testing was considered but not performed or refused? (CT, X-rays, U/S, labs)? Why? @ -None What meds were considered but not given or refused? Why? @ -None Did you discuss the management of the patient with other professionals (professionals i.e. , PA, CAR PARK ATTENDANT, lab, RT, psych nurse, social welfare research worker, switch operator, teacher, sheriff officer, rn field case manager)? Give summary @ -No Was smoking cessation discussed for >3mins.? @ -No Was critical care preformed (if so, how long)? @ -No Were there social determinants of health that impacted care today? How? (Homelessness, low income, unemployed, alcoholism, drug addiction, transportation, low edu. Level, literacy, decrease access to med. care, usp, rehab)? @ -No Was there de-escalation of care discussed even if they declined (Discuss DNR or withdrawal of care, Hospice)? DNR status @ -No What co-morbidities impacted this encounter? (DM, HTN, Smoking, COPD, CAD, Cancer, CVA, ARF, Chemo, Hep., AIDS, mental health diagnosis, sleep apnea, morbid obesity)? @ -A. fib, CHF, COPD, diabetes, hypertension, neuropathy Was patient admitted / discharged? Hospital course, mention meds given and route, prescriptions, significant lab abnormalities, going to OR and other pertinent info. @ -discharged 57-year-old male presents to the emergency room with left elbow swelling for 1 day. Patient states it feels itchy. He did feel a small bump and he was squeezing it yesterday but nothing came out. He noticed increased swelling today and bruising. State he is on Eliquis. Patient denies any injury. On physical exam this appears to be a hematoma. Patient is on Eliquis and was squeezing elbow yesterday. Needle aspiration was performed and a small amount of blood was withdrawn. Patient was given a pressure dressing. Prescription for antibiotics prophylactically and directed to follow up with primary care doctor next week. Strict return parameters were discussed for any fever, increased pain or purulent drainage. He is agreeable to this plan of care. Case discussed with Dr. Krause. Undiagnosed new problem with uncertain prognosis? @ -No Drug Therapy requiring intensive monitoring for toxicity (Heparin, Nitro, Insulin, Cardizem)? @ -No Were any procedures done? @ -Needle aspiration Diagnosis/symptom? @ -Hematoma Acute, or Chronic, or Acute on Chronic? @ -Acute Uncomplicated (without systemic symptoms) or Complicated (systemic symptoms)? @ -Uncomplicated Side effects of treatment? @ -No Exacerbation, Progression, or Severe Exacerbation? @ -No Poses a threat to life or bodily function? How? (Chest pain, [place], [place], pneumonia, PE, COPD, DKA, ARF, appy, cholecystitis, CVA, Diverticulitis, Homicidal, Suicidal, threat to staff... and all critical care pts) @ -No Disposition Clinical Impression: Hematoma Disposition: HOME SELF-CARE Condition: Good Instructions (If sedation given, give patient instructions): Hematoma (ED) Additional Instructions: Take antibiotics as prescribed for the next 2 days to prevent infection. Follow-up with the primary care doctor next week. Return to the emergency room with any new or concerning symptoms. Prescriptions: Cephalexin [Keflex] 500 mg PO Q6HR 2 Days #8 cap Is patient prescribed a controlled substance at d/c from ED?: No Referrals: Kimberlee Gilman MD [Primary Care Provider] - 1-2 days Time of Disposition: 18:13
== END 2023-02-01 18:18 | disposition home or self-care (01) ==
LOC: EC 17:37
DX: S50.01XA Contusion of right elbow, initial encounter (principal); E78.5 Hyperlipidemia, unspecified; E11.9 Type 2 diabetes mellitus without complications; I48.91 Unspecified atrial fibrillation; I11.0 Hypertensive heart disease with heart failure; I50.9 Heart failure, unspecified; J44.9 Chronic obstructive pulmonary disease, unspecified; F17.200 Nicotine dependence, unspecified, uncomplicated; Z79.01 Long term (current) use of anticoagulants; Z79.84 Long term (current) use of oral hypoglycemic drugs; Z79.51 Long term (current) use of inhaled steroids; Z79.899 Other long term (current) drug therapy; X58.XXXA Exposure to other specified factors, initial encounter
CPT/HCPCS: 10140; 99283

== ENCOUNTER 2023-09-19 18:54 | Emergency (ER) | payer OTHER ==
[2023-09-19 19:22] VITALS: PULSE 61; RESP 18
[2023-09-19] MEDS: KETOROLAC 15 MG/ML 1 ML VIAL IVP STA (19:51)
[2023-09-19 19:53] LABS: Basophils # (A) 0.1 k/uL (0-0.2); Basophils % (A) 1 %; Eosinophils # (A) 0.3 k/uL (0-0.7); Eosinophils % (A) 5 %; HCT 44.6 % (39.0-53.0); HGB 14.2 gm/dL (13.0-17.5); Lymphocytes # (A) 1.3 k/uL (1.0-4.8); Lymphocytes % (A) 20 %; MCH 30.3 pg (25.0-35.0); MCV 94.8 fL (80.0-100.0); Mean Platelet Volume 8.1; Monocytes # (A) 0.4 k/uL (0-1.0); Monocytes % (A) 6 %; Neutrophils # (A) 4.5 k/uL (1.3-7.7); Neutrophils % (A) 67 %; Platelet Count 144 k/uL (150-450); RDW 14.7 % (11.5-15.5); WBC 6.6 k/uL (3.8-10.6)
[2023-09-19 20:05] LABS: ALT 15 U/L (4-49); AST 21 U/L (17-59); African American GFR (CKD) >90 (>60 ml/min/1.73 sqM); Albumin 3.8 g/dL (3.5-5.0); Alkaline Phosphatase 143 U/L (38-126); Anion Gap 1 mmol/L; Blood Urea Nitrogen 13 mg/dL (9-20); C Reactive Protein <0.5 mg/dL (<1.0); Calcium 9.1 mg/dL (8.4-10.2); Carbon Dioxide 35 mmol/L (22-30); Chloride 101 mmol/L (98-107); Glucose 98 mg/dL (74-99); Non-African American GFR(CKD) >90 (>60 ml/min/1.73 sqM); Potassium 4.3 mmol/L (3.5-5.1); Sodium 137 mmol/L (137-145); Total Protein 6.3 g/dL (6.3-8.2)
--- NOTE | 2023-09-19 20:29 | US ---
EXAMINATION TYPE: US venous doppler duplex LE RT DATE OF EXAM: 09/19/2023 8:17 PM COMPARISON: 09/14/22 CLINICAL INDICATION: Male, 58 years old with history of RLE pain and tender mass; RLE pain SIDE PERFORMED: Right TECHNIQUE: The lower extremity deep venous system is examined utilizing real time linear array sonog nina with graded compression, doppler sonography and color-flow sonography. VESSELS IMAGED: Common Femoral Vein Deep Femoral Vein Greater Saphenous Vein * Femoral Vein Popliteal Vein Small Saphenous Vein * Proximal Calf Veins (* superficial vessels) Grayscale, color doppler, spectral doppler imaging performed of the deep veins of the lower extremiti es. There is normal flow, compressibility, vascular waveforms. Right Leg: No evidence for DVT IMPRESSION: No evidence of deep venous thrombosis involving the right lower extremity.
--- NOTE | 2023-09-19 20:51 | ED ---
Extremity Problem HPI - General Chief complaint: Extremity Problem,Nontraumatic Stated complaint: Leg Pain Time Seen by Provider: 09/19/23 19:08 Source: patient, EMS Mode of arrival: EMS - History of Present Illness Initial comments: 58-year-old male presenting with chief complaint of right leg pain. Patient states he has been having some pain to the right thigh for few days. Today he noticed a masslike area that started in the mid thigh into the groin. This area is red and tender to the touch. He has had no fevers or chills. No recent surgeries. Patient wears 3 L of oxygen at baseline, states that today he did have to turn his oxygen up to 4 L. No chest pain. He is on Eliquis. He is no recent long travel. No history of blood clots. No injury or trauma. - Related Data Home Medications Medication Instructions Recorded Confirmed Fluticasone Propion/Salmeterol 1 puff INHALATION RT-BID 03/16/15 12/27/21 [Advair 250-50 Diskus] Omeprazole 20 mg PO DAILY 03/16/15 12/27/21 metFORMIN HCL [Glucophage] 1,000 mg PO BID 03/16/15 12/27/21 Atorvastatin [Lipitor] 80 mg PO DAILY 09/17/20 12/27/21 Albuterol Sulfate [Proair Hfa] 2 puff INHALATION RT-Q6H PRN 10/24/20 12/27/21 Ipratropium-Albuterol Nebulize 3 ml INHALATION RT-QID 02/25/21 12/27/21 [Duoneb 0.5 mg-3 mg/3 ml Soln] Tiotropium [place] [Spiriva] 1 cap INHALATION RT-DAILY 02/25/21 12/27/21 Apixaban [Eliquis] 5 mg PO BID 09/12/21 12/27/21 Insulin Glargine,Hum.rec.anlog 40 unit SQ HS 09/12/21 12/27/21 [Lantus Solostar Pen] Previous Rx's Medication Instructions Recorded Docusate [Colace] 100 mg PO DAILY #30 capsule 12/23/21 Tamsulosin [Flomax] 0.4 mg PO DAILY 30 Days #30 cap 12/23/21 Bumetanide [BUMEX] 1 mg PO BID@0900,1600 #60 tab 12/31/21 HYDROcodone/APAP 7.5-325MG [[place] 1 tab PO Q4H PRN #18 tab 12/31/21 7.5-325] Metoprolol Tartrate [Lopressor] 25 mg PO TID #90 tab 12/31/21 Potassium Chloride ER [K-Dur 20] 20 meq PO BID #60 tab 12/31/21 Pregabalin 150 mg PO TID #9 cap 12/31/21 Spironolactone [Aldactone] 25 mg PO DAILY #0 12/31/21 Vancomycin Oral Solution 500 mg NG-TUBE QID #400 ml 12/31/21 [Vancomycin HCl Oral Soln] HYDROcodone/APAP 5-325MG [[place] 1 tab PO Q6HR PRN 3 Days #12 tab 04/04/22 5-325] Magnesium Citrate 296 ml PO ONCE #296 ml 01/24/23 Cephalexin [Keflex] 500 mg PO Q6HR 2 Days #8 cap 02/01/23 Allergies Allergy/AdvReac Type Severity Reaction Status Date / Time No Known Allergies Allergy Verified 09/19/23 18:59 Review of Systems ROS Statement: Those systems with pertinent positive or pertinent negative responses have been documented in the HPI. ROS Other: All systems not noted in ROS Statement are negative. Past Medical History Past Medical History: Atrial Fibrillation, Heart Failure, COPD, Diabetes Mellitus, Hyperlipidemia, Hypertension, Sleep Apnea/CPAP/BIPAP Additional Past Medical History / Comment(s): neuropathy, A-fib, glaucoma History of Any Multi-Drug Resistant Organisms: None Reported Past Surgical History: Orthopedic Surgery Additional Past Surgical History / Comment(s): Left shoulder, left hand 2 digits crushed/surg with pins placed, left foot third toe ampulation 2020, Past Anesthesia/Blood Transfusion Reactions: No Reported Reaction Additional Past Anesthesia/Blood Transfusion Reaction / Comment(s): Never received Past Psychological History: No Psychological Hx Reported Smoking Status: Current some day smoker Past Alcohol Use History: None Reported Past Drug Use History: None Reported - Past Family History Mother Family Medical History: No Reported History Father Family Medical History: No Reported History Additional Family Medical History / Comment(s): small cell in bladder General Exam Limitations: no limitations General appearance: alert, in no apparent distress Head exam: Present: atraumatic, normocephalic Eye exam: Present: normal appearance, EOMI Neck exam: Present: normal inspection Respiratory exam: Present: normal lung sounds bilaterally. Absent: respiratory distress, wheezes, rales, rhonchi, stridor Cardiovascular Exam: Present: regular rate, normal rhythm, normal heart sounds. Absent: systolic murmur, diastolic murmur, rubs, gallop, clicks Right Upper Leg exam: Present: tenderness, swelling, erythema Knee exam: Present: normal inspection. Absent: tenderness Lower Leg exam: Present: normal inspection. Absent: swelling Neurological exam: Present: alert, oriented X3 Psychiatric exam: Present: normal affect, normal mood Skin exam: Present: warm, dry, normal color, erythema (Erythema to the right inner) Course Vital Signs 09/19/23 09/19/23 18:57 23:29 Temperature 98.3 F 98.8 F Pulse Rate 61 61 Respiratory 18 18 Rate Blood Pressure 187/81 187/80 O2 Sat by Pulse 97 95 Oximetry Medical Decision Making - Medical Decision Making Was pt. sent in by a medical professional or institution (Dr. PA, INSTITUTION DIRECTOR, urgent care, hospital, or fci...) When possible be specific @ -No Did you speak to anyone other than the patient for history (EMS, parent, family, police, friend...)? What history was obtained from this source @ -No Did you review nursing and triage notes (agree or disagree)? Why? @ -I reviewed and agree with nursing and triage notes Were old charts reviewed (outside hosp., previous admission, EMS record, old EKG, old radiological studies, urgent care reports/EKG's, fci records)? Report findings @ -No old charts were reviewed Differential Diagnosis (chest pain, altered mental status, abdominal pain women, abdominal pain men, vaginal bleeding, weakness, fever, dyspnea, syncope, headache, dizziness, GI bleed, back pain, seizure, CVA, palpatations, mental health, musculoskeletal)? @ -Differential Musculoskeletal Muscular strain, contusion, ligament sprain, fracture, arthritis, septic arthritis, bursitis, cellulitis, muscle spasm, nerve compression, DVT, arterial occlusion, herpes zoster, electrolyte abnormality, tumor.... This is not meant to be in all inclusive list EKG interpreted by me (3pts min.). @ -As above X-rays interpreted by me (1pt min.). @ -None done CT interpreted by me (1pt min.). @ -None done U/S interpreted by me (1pt. min.). @ -Ultrasound shows no evidence of DVT involving the right lower extremity What testing was considered but not performed or refused? (CT, X-rays, U/S, labs)? Why? @ -None What meds were considered but not given or refused? Why? @ -None Did you discuss the management of the patient with other professionals (prof rai i.e. , PA, INSTITUTION DIRECTOR, lab, RT, psych nurse, social service technician, associate director of sales, teacher, district fire management officer, case coordinator)? Give summary @ -No Was smoking cessation discussed for >3mins.? @ -No Was critical care preformed (if so, how long)? @ -No Were there social determinants of health that impacted care today? How? (Homelessness, low income, unemployed, alcoholism, drug addiction, transportation, low edu. Level, literacy, decrease access to med. care, detention, rehab)? @ -No Was there de-escalation of care discussed even if they declined (Discuss DNR or withdrawal of care, Hospice)? DNR status @ -No What co-morbidities impacted this encounter? (DM, HTN, Smoking, COPD, CAD, Cancer, CVA, ARF, Chemo, Hep., AIDS, mental health diagnosis, sleep apnea, morbid obesity)? @ -None Was patient admitted / discharged? Hospital course, mention meds given and route, prescriptions, significant lab abnormalities, going to OR and other pertinent info. @ -58-year-old male presenting with chief complaint of pain to the right thigh. On the inner portion of the thigh he notices a slightly red almost masslike a tristan. There is no cellulitic erythema, warmth, induration, or fluctuance. This does not appear to be infectious in nature. He has no lower extremity swelling as a whole. Ultrasound is negative for DVT. Negative CRP. No leukocytosis. Remainder of lab work requires no action. Patient is also evaluated by my attending. patient is educated on today's findings. Instructed to follow-up with his PCP for further workup. Discharged home. Follow-up with PCP. Report back to ER with any new or worsening symptoms. Discussed return parameters and answered all questions. Patient conveyed verbal understanding and agreed to the plan. I discussed this case in detail with my attending Dr. Willis Undiagnosed new problem with uncertain prognosis? @ -No Drug Therapy requiring intensive monitoring for toxicity (Heparin, Nitro, Insulin, Cardizem)? @ -No Were any procedures done? @ -No Diagnosis/symptom? @ -leg Pain Acute, or Chronic, or Acute on Chronic? @ -Acute Uncomplicated (without systemic symptoms) or Complicated (systemic symptoms)? @ -Uncomplicated Side effects of treatment? @ -No Exacerbation, Progression, or Severe Exacerbation? @ -No Poses a threat to life or bodily function? How? (Chest pain, [place], [place], pneumonia, PE, COPD, DKA, ARF, appy, cholecystitis, CVA, Diverticulitis, Homicidal, Suicidal, threat to staff... and all critical care pts) @ -Low likelihood - Lab Data Result diagrams: 09/19/23 19:46 09/19/23 19:46 Lab Results 09/19/23 09/19/23 Range/Units 19:46 19:46 WBC 6.6 (3.8-10.6) k/uL RBC 4.70 (4.30-5.90) m/uL Hgb 14.2 (13.0-17.5) gm/dL Hct 44.6 (39.0-53.0) % MCV 94.8 (80.0-100.0) fL MCH 30.3 (25.0-35.0) pg MCHC 32.0 (31.0-37.0) g/dL RDW 14.7 (11.5-15.5) % Plt Count 144 L (150-450) k/uL MPV 8.1 Neutrophils % 67 % Lymphocytes % 20 % Monocytes % 6 % Eosinophils % 5 % Basophils % 1 % Neutrophils # 4.5 (1.3-7.7) k/uL Lymphocytes # 1.3 (1.0-4.8) k/uL Monocytes # 0.4 (0-1.0) k/uL Eosinophils # 0.3 (0-0.7) k/uL Basophils # 0.1 (0-0.2) k/uL Sodium 137 (137-145) mmol/L Potassium 4.3 (3.5-5.1) mmol/L Chloride 101 (98-107) mmol/L Carbon Dioxide 35 H (22-30) mmol/L Anion Gap 1 mmol/L BUN 13 (9-20) mg/dL Creatinine 0.63 L (0.66-1.25) mg/dL Est GFR (CKD-EPI)AfAm >90 (>60 ml/min/1.73 sqM) Est GFR (CKD-EPI)NonAf >90 (>60 ml/min/1.73 sqM) Glucose 98 (74-99) mg/dL Calcium 9.1 (8.4-10.2) mg/dL Total Bilirubin 1.0 (0.2-1.3) mg/dL AST 21 (17-59) U/L ALT 15 (4-49) U/L Alkaline Phosphatase 143 H (38-126) U/L C-Reactive Protein <0.5 (<1.0) mg/dL Total Protein 6.3 (6.3-8.2) g/dL Albumin 3.8 (3.5-5.0) g/dL Disposition Clinical Impression: Leg pain Disposition: HOME SELF-CARE Condition: Good Instructions (If sedation given, give patient instructions): Leg Pain (ED) Additional Instructions: Follow-up with PCP. Report back to ER with any new or worsening symptoms. Alternate Motrin and Tylenol as needed for pain control. Is patient prescribed a controlled substance at d/c from ED?: No Referrals: Kimberlee Gilman MD [Primary Care Provider] - 1-2 days Time of Disposition: 22:28
[2023-09-19 23:51] VITALS: BP 187/80; TEMP 98.8
[2023-09-20 03:51] LABS: Erythrocyte Sedimentation Rate 6 mm/Hr (0-20)
== END 2023-09-19 23:49 | disposition home or self-care (01) ==
LOC: EC 18:54
DX: M79.651 Pain in right thigh (principal); L53.9 Erythematous condition, unspecified; F17.200 Nicotine dependence, unspecified, uncomplicated
CPT/HCPCS: 36415; 80053; 85652; 85025; 86140; 93971; 99284; 96374; J1885

== ENCOUNTER 2024-06-29 23:43 | Emergency (ER) | payer OTHER ==
[2024-06-29 23:53] VITALS: TEMP 98.8
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
[2024-06-30] MEDS: DIPH,PERTUS(ACELL)TETVAC-LF 0.5 ML VIAL IM ONE (00:15)
--- NOTE | 2024-06-30 00:29 | CT ---
EXAM: CT Head Without Intravenous Contrast CLINICAL HISTORY: Trauma TECHNIQUE: Axial computed tomography images of the head/brain without intravenous contrast. CTDI is 49.2 mGy and DLP is 1168.4 mGy-cm. This CT exam was performed using one or more of the following dose reduction techniques: automated exposure control, adjustment of the mA and/or kV according to patient size, and/or use of iterative reconstruction technique. COMPARISON: CT head without contrast dated 04/04/2022 FINDINGS: Limitations: There is motion artifact, which degrades image quality on multiple image slices. Brain: No intracranial hemorrhage. No significant mass-effect. No cortical infarct. There are a few areas of decreased attenuation in the deep cerebral white matter consistent with mild small vessel ischemic/degenerative changes. The cerebral and cerebellar sulci are mildly prominent consistent with mild brain atrophy. Ventricles: Unremarkable. No ventriculomegaly. Bones/joints: Unremarkable. No acute fracture. Soft tissues: No significant overlying acute traumatic soft tissue abnormality. No radiopaque foreign body. Vasculature: Atherosclerotic disease. Sinuses: Unremarkable as visualized. No acute sinusitis. Mastoid air cells: Unremarkable as visualized. No mastoid effusion. IMPRESSION: No acute intracranial process or significant alteration from the prior examination.
[2024-06-30] MEDS: ALBUTEROL NEBULIZED 2.5 MG/3 ML INHALATION STA (01:29)
[2024-06-30 01:39] VITALS: RESP 22
[2024-06-30 02:09] VITALS: BP 132/81; PULSE 68
== END 2024-06-30 02:09 | disposition home or self-care (01) ==
LOC: EC 23:43
DX: S09.90XA Unspecified injury of head, initial encounter (principal); F17.200 Nicotine dependence, unspecified, uncomplicated; R09.02 Hypoxemia; Z23 Encounter for immunization; J44.9 Chronic obstructive pulmonary disease, unspecified; Z99.81 Dependence on supplemental oxygen; Y04.0XXA Assault by unarmed brawl or fight, initial encounter
CPT/HCPCS: 70450; 90471; 90715; 94640; 99285